=== PATIENT | female | born 1970 | race Caucasian/White ===

== ENCOUNTER 2017-05-25 11:00 | Outpatient (CLI) | payer BC ==
[~2017-05-25] VITALS: Ht 160 cm; Wt 75.3 kg
[2017-05-25] MEDS ORDERED: CHOL10003 PO (11:22)
== END 2017-05-25 12:52 ==
LOC: PREOP 11:00
PROVIDERS: ATTEND Otolaryngology Otolaryngology/Facial Plastic Surgery
DX: Z01.818 Encounter for other preprocedural examination (principal); R59.0 Localized enlarged lymph nodes

== ENCOUNTER 2017-05-27 07:57 | Day surgery (SDC) | payer BC ==
[~2017-05-27] VITALS: Ht 160 cm; Wt 75.3 kg
[~2017-05-27 07:57] MED LIST: CHOL10003 PO
--- OUTSIDE RECORDS SUMMARY | 2017-05-27 08:00 | XMS REPORT | Continuity of Care Document ---
Author Author [facility] Address Unknown Phone Unavailable Allergies Medications Problems Procedures Results Encounters ACCT No. Visit Date/Time Discharge Status Pt. Type Provider Facility Loc./Unit Complaint [id number] 03/24/2017 11:12:47 03/24/2017 23: 59:59 CLS Outpatient Matt Huggins
--- OUTSIDE RECORDS SUMMARY | 2017-05-27 08:00 | XMS REPORT ---
Author Author Matt Huggins [facility] Address [address] [place], [place] [id number] Care Team Providers Care Director Of Vocational Training Name Role Phone Matt Huggins PCP Unavailable Allergies and Adverse Reactions Name Reaction Notes No known allergies Plan of Treatment Not available. Medications Name Start Date Expiration Date SIG Comments amoxicillin 875 mg oral tablet 03/09/2017 03/16/2017 take 1 tablet (875 mg) by oral route every 12 hours for 7 days Problem List Not available. Vital Signs Date Time BP-Sys(mm[Hg] BP-Cara(mm[Hg]) HR(bpm) RR(rpm) Temp WT HT HC BMI BSA BMI Percentile O2 Sat(%) 03/09/2017 5:15:00 PM 114 mmHg 68 mmHg 77 bpm 18 rpm 98.9 F 168.375 lbs 63 in 29.83 kg/m2 1.84 m2 98 % Social History Name Description Comments Tobacco Never smoker Alcohol Never Heavy Amount of Exercise (4 or more times weekly) History of Procedures Date Ordered Description Order Status 03/09/2017 12:00 AM Decadron 8mg Injection Reviewed 03/09/2017 12:00 AM Depo-Medrol 80mg Injection Reviewed 03/09/2017 12:00 AM THER/PROPH/DIAG INJ SC/IM Reviewed Results Summary Not available. History Of Immunizations Not available. History of Past Illness Name Date of Onset Comments DVT of leg (deep venous thrombosis) Pulmonary embolism Factor V Leiden Head ache Hemorrhoid Sinusitis Mar 09 2017 5:27PM Payers Insurance Name Company Name Plan Name Plan Number Policy Number Policy Group Number Start Date [id number] N/A History of Encounters Visit Date Visit Type Provider 03/09/2017 Office visit Matt Huggins NP
[2017-05-27] MEDS ORDERED: LACTATED RINGERS 1,000 ML IV PRN (08:53)
[2017-05-27] MEDS ORDERED: FAMOTIDINE 20MG/2ML IV (PEPCID) IV ONE (09:00)
[2017-05-27] MEDS ORDERED: ONDANSETRON 4 MG/2 ML (SDV) Z0FRAN IV ONE (09:00)
[2017-05-27] MEDS ORDERED: SCOPOLAMINE 1.5 MG (TRANSDERM-SCOP) PATCH TOP ONE (09:00)
[2017-05-27 09:07] VITALS: BP 112/58
[2017-05-27] MEDS ORDERED: LIDOCAINE/EPI 1%-1:200,000 (XYLOCAINE) 10 ML VIAL ONE (09:58)
[2017-05-27] MEDS ORDERED: LACTATED RINGERS 1,000 ML IV ONE (10:08)
[2017-05-27] MEDS ORDERED: ONDANSETRON 4 MG/2 ML (SDV) Z0FRAN ONE (10:08)
[2017-05-27] MEDS ORDERED: proPOfol 200 MG/20 ML (DIPRIVAN) VIAL IV ONE (10:08)
[2017-05-27] MEDS ORDERED: MIDAZOLAM 2 MG/2 ML (VERSED) VIAL ONE (10:08)
[2017-05-27] MEDS ORDERED: SEVOFLURANE (ULTANE) 15 ML INHAL SOLN ONE ×3 (10:08→10:44)
[2017-05-27] MEDS ORDERED: DEXAMETHASONE 10 MG/ML (DECADRON) 1 ML VIAL ONE (10:08)
--- NOTE | 2017-05-27 10:28 | Progress Note-Pre Operative ---
Pre-Operative Progress Note H&P Reviewed The H&P was reviewed, patient examined and no changes noted. Date Seen by Provider: May 27, 2017 Time Seen by Provider: 10:00 Date H&P Reviewed: May 27, 2017 Time H&P Reviewed: 10:00 Pre-Operative Diagnosis: Right Posterior Cervical Lymphadenopathy KING MARIE MD May 27, 2017 10:28 am
[2017-05-27] MEDS ORDERED: MUPIROCIN 2% OINT 22 GM (BACTROBAN) TUBE ONE (11:02)
--- NOTE | 2017-05-27 11:19 | Progress Note-Post Operative ---
Post-Operative Progess Note Surgeon (s)/Stem Lead Former (s) Surgeon KING MARIE MD Stem Lead Former n/a Pre-Operative Diagnosis Right Posterior Cervical Lymphadenopathy Post-Operative Diagnosis same Post-Op Procedure Note Date of Procedure: May 27, 2017 Name of Procedure Performed: Excision of Rgith Posterior Lymph NOde Description & Findings Description and Findings: n/a Anesthesia Type lma Estimated Blood Loss minimal Packing none. Specimen(s) collected/removed right posteriro lymph node fresh to pathology KING MARIE MD May 27, 2017 11:19 am
[2017-05-27] MEDS ORDERED: HYDROcodone/APAP 5 MG/325 MG (LORTAB) TAB PO PRN (11:30)
[2017-05-27] MEDS ORDERED: morphine INJ 10 MG/ML 1ML (SYR OR VIAL) IVP PRN (11:30)
[2017-05-27] MEDS ORDERED: ONDANSETRON 4 MG/2 ML (SDV) Z0FRAN IVP PRN (11:30)
[2017-05-27] MEDS ORDERED: PROMETHAZINE INJ 25 MG/ML (PHENERGAN) AMP IVP PRN (11:30)
[2017-05-27] MEDS ORDERED: ACETAMINOPHEN 325 MG TABLET/CAPLET (TYLENOL) PO PRN (11:30)
[2017-05-27 12:10] VITALS: BP 116/71
[2017-05-27 12:40] VITALS: BP 115/68
[2017-05-27] MEDS ORDERED: HYDR-3812 PO (13:03)
[2017-05-27 13:10] VITALS: BP 113/74
[2017-05-27 13:20] VITALS: BP 113/74
== END 2017-05-27 13:20 | disposition home or self-care (01) ==
LOC: SDC 07:57
PROVIDERS: ATTEND Otolaryngology Otolaryngology/Facial Plastic Surgery
DX: R59.0 Localized enlarged lymph nodes (principal); D68.2 Hereditary deficiency of other clotting factors; Z86.718 Personal history of other venous thrombosis and embolism; Z86.711 Personal history of pulmonary embolism
CPT/HCPCS: 84703; 87081

== ENCOUNTER 2020-01-14 08:33 | Outpatient (RCR) | payer BC ==
[2020-01-10 09:45] VITALS: BP 109/69
[2020-01-10 10:09] LABS: BASOPHILS % (AUTO) 0 % (0-10); EOSINOPHILS # (AUTO) 0.1 10^3/uL (0.0-0.3); EOSINOPHILS % (AUTO) 1 % (0-10); HEMATOCRIT 41 % (35-52); LYMPHOCYTES # (AUTO) 2.7 X 10^3 (1.0-4.0); LYMPHOCYTES % (AUTO) 43 % (12-44); MEAN CORPUSCULAR HEMOGLOBIN 29 PG (25-34); MEAN CORPUSCULAR HGB CONC 32 G/DL (32-36); MEAN CORPUSCULAR VOLUME 92 FL (80-99); MEAN PLATELET VOLUME 10.2 FL (7.4-10.4); MONOCYTES # (AUTO) 0.6 X 10^3 (0.0-1.0); MONOCYTES % (AUTO) 9 % (0-12); NEUTROPHILS # (AUTO) 2.9 X 10^3 (1.8-7.8); NEUTROPHILS % (AUTO) 47 % (42-75); PLATELET COUNT 342 10^3/uL (130-400); RED CELL DISTRIBUTION WIDTH 13.1 % (10.0-14.5); WHITE BLOOD COUNT 6.3 10^3/uL (4.3-11.0)
[2020-01-10 10:30] LABS: BUN/CREATININE RATIO 18; CALCIUM 9.7 MG/DL (8.5-10.1); CARBON DIOXIDE 22 MMOL/L (21-32); CHLORIDE 106 MMOL/L (98-107); CREATININE SERUM 0.73 MG/DL (0.60-1.30); GFR ESTIMATED > 60; GLUCOSE 87 MG/DL (70-105); POTASSIUM 3.9 MMOL/L (3.6-5.0); SODIUM 139 MMOL/L (135-145)
--- NOTE | 2020-01-10 11:03 | Diagnostic Imaging Report ---
INDICATION: Preoperative evaluation, septoplasty. COMPARISON: None available TECHNIQUE: Frontal and lateral radiographs of the chest dated 01/10/2020. FINDINGS: The cardiac silhouette and pulmonary vasculature are within normal limits. The lungs are clear. No pleural effusion. No pneumothorax. No acute osseous abnormality. IMPRESSION: No acute cardiopulmonary abnormality. Dictated by: Dictated on workstation # [id number]
[~2020-01-14] VITALS: Ht 160 cm; Wt 68.6 kg
[~2020-01-14 08:33] MED LIST changes: +ACHD5005 PO; +CHOL2000 PO; +WARF10TA PO; +WARF3TAB PO; +WARF5TAB PO
== END 2020-01-14 16:07 | disposition home or self-care (01) ==
LOC: PREOP 08:33
PROVIDERS: ATTEND Otolaryngology Otolaryngology/Facial Plastic Surgery
DX: Z01.812 Encounter for preprocedural laboratory examination (principal); Z01.810 Encounter for preprocedural cardiovascular examination; Z01.811 Encounter for preprocedural respiratory examination; Z11.59 Encounter for screening for other viral diseases; J30.9 Allergic rhinitis, unspecified; J34.2 Deviated nasal septum; J34.3 Hypertrophy of nasal turbinates
CPT/HCPCS: 36415; 71046; 80048; 85025; 87081; 87635; 93005

== ENCOUNTER 2020-01-17 06:55 | Day surgery (SDC) | payer BC ==
[2020-01-17] VITALS (10 sets, daily range): BP systolic 105–134; BP diastolic 58–100
[~2020-01-17] VITALS: Ht 160 cm; Wt 68.6 kg
--- OUTSIDE RECORDS SUMMARY | 2020-01-17 06:58 | XMS REPORT ---
Author Author Cynthia Swain [facility] Address [address] [place], [place] [id number] Care Team Providers Care Production Quality Manager Name Role Phone Elliott Swain PCP Allergies and Adverse Reactions Name Reaction Notes No known allergies Plan of Treatment Not available. Medications Active Name Start Date Estimated Completion Date SIG Co mments Coumadin oral tablet 12 mg daily on T, Th , Sa, Schaefer 13 mg daily on M, W, F Name Start Date Expiration Date SIG Comments amoxicillin 875 mg oral tablet 03/09/2017 03/16/2017 t jory 1 tablet (875 mg) by oral route every 12 hours for 7 days Problem List Not available. Vital Signs Date Time BP-Sys(mm[Hg] BP-Cara(mm[Hg]) HR(bpm) RR(rpm) Temp WT HT HC BMI BSA BMI Percentile O2 Sat(%) 02/15/2018 9:37:00 AM 100 mmHg 66 mmHg 71 bpm 16 rpm 98.1 F 162 lbs 63 in 28.6967 kg/m 1.8073 m 99 % 02/01/2018 2:34:00 PM 130 mmHg 90 mmHg 83 bpm 16 rpm 98.1 F 165 lbs 63 in 29.23 kg/m2 1.82 m2 98 % 03/09/2017 5:15:00 PM 114 mmHg 68 mmHg 77 bpm 18 rpm 98.9 F 168.375 lbs 63 i n 29.826 kg/m 1.8425 m 98 % Social History Name Description Comments Tobacco Never smoker Alcohol Never Heavy Amount of Exercise (4 or more times weekly) History of Procedures Date Ordered Description Order Status 03/09/2017 12:00 AM Decadron 8mg Injection Reviewed 03/09/2017 12:00 AM Depo-Medrol 80mg Injection Reviewed 03/09/2017 12:00 AM THER/PROPH/DIAG INJ SC/IM Reviewed 02/01/2018 12:[address] ABD & PELV W/CONTRAST Returned Results Summary Not available. History Of Immunizations Not available. History of Past Illness Name Date of Onset Comments DVT of leg (deep venous thrombosis) Pulmonary embolism Factor V Leiden Head ache Hemorrhoid Sinusitis Mar 09 2017 5:27PM Pain of upper abdomen Feb 01 2018 2:34PM IVC (inferior vena cava obstruction) Feb 15 2018 9:37AM Payers Insurance Name Company Name Plan Name Plan Number Policy Number [place] Group [id number] N/ A History of Encounters Visit Date Visit Type Provider 02/15/2018 Office visit Elliott Swain MD 02/01/2018 Office visit Elliott Swain MD 03/09/2017 Office visit Matt Huggins NP
--- OUTSIDE RECORDS SUMMARY | 2020-01-17 06:58 | XMS REPORT ---
Author Author Cynthia Swain Organization [facility] Address [address] [place], [place] [id number] Care Team Providers Care Hydraulic Rubbish Compactor Mechanic Name Role Phone Elliott Swain PCP Allergies and Adverse Reactions Name Reaction Notes No known allergies Plan of Treatment Planned Activity Comments Planned Date Planned Time Plan/Goal CT ABD AND PELVIS W/CONTRAST 02/01/2018 12:00 AM Medications Active Name Start Date Estimated Completion [...] HC BMI BSA BMI Percentile O2 Sat(%) 02/01/2018 2:34:00 PM 130 mmHg 90 mmHg 83 bpm 16 rpm 98.1 F 165 lbs 63 in 29.2281 kg/m 1.8239 m 98 % 03/09/2017 5:15:00 PM 114 mmHg 68 mmHg 77 bpm 18 rpm 98.9 F 168.375 lbs 63 i n 29.83 kg/m2 1.84 m2 98 % Social [...] of upper abdomen Feb 01 2018 2:34PM Payers Insurance Name Company Name Plan Name Plan Number Policy Number [place] Group Number [facility] Date [id number] N/ A History of Encounters Visit Date Visit Type Provider 02/01/2018 Office visit Elliott Swain MD 03/09/2017 Office visit Matt Huggins SALES MANAGER [place]
--- OUTSIDE RECORDS SUMMARY | 2020-01-17 06:59 | XMS REPORT | CCD ---
Author Author Cynthia Huynh D.O. Organization [facility] Address [address] [place] [address] Phone Care Team Providers Care Press Feeder Name Role Phone Tonya Huynh D.O., PP Unavailable CCM Unavailable Summary Purpose Interface Exchange Insurance Providers Payer name Policy type / Coverage type Covered democrat ID Effective Begin Date Effective End Date Blue Cross Blue Shield Blue Cross/Blue Shield [id number] Unknown Family History Family History data not found Social History Social History Element Codes Description Effective Dates Marital status Unknown 06/28/[address]: 620853224 Never smoker 06/28/2011 Allergies, Adverse Reactions, Alerts Substance Reaction Codes Entered Date Inactivated Date Status * NO KNOWN ENVIRONMENTAL ALLERGIES Unknown 06/28/2011 N o Inactive Date Active * NO KNOWN FOOD ALLERGIES Unknown 06/28/2011 No Inactiv e Date Active * NO KNOWN DRUG ALLERGIES Unknown 06/28/2011 No Inactiv e Date Active Problems Condition Codes Effective Dates Condition Status Chronic sinusitis ICD-9: 473.9 ICD-10: J32.9 01/09/2020 Active Deviated septum ICD-9: 470 ICD-10: J34.2 01/09/2020 Active Pre-op exam ICD-9: V72.84 ICD-10: Z01.818 01/09/2020 Active Belching ICD-9: 787.3 ICD-10: R14.2 08/13/2019 Active Patellofemoral arthralgia of right knee ICD-9: 719.46 ICD-10: M25.561 08/13/2019 Active Patellofemoral arthritis of right knee ICD-9: 716.96 ICD-10: M17.11 08/13/2019 Active Abdominal distension (gaseous) ICD-9: 787.3 ICD-10: R14.0 04/09/2019 Active snf (current) use of anticoagulants ICD-9: V58.6 1 ICD-10: Z79.01 04/09/2019 Active Other allergic rhinitis ICD-9: 477.8 ICD-10: J30.89 04/09/2019 Active Personal history of other venous thrombosis and emboli sm ICD-9: V12.51 ICD-10: Z86.718 04/09/2019 Active Personal history of pulmonary embolism ICD-9: V12.55 ICD-10: Z86.711 04/09/2019 Active Excessive and frequent menstruation with irregular cyc le ICD-9: 626.2 ICD-10: N92.1 08/24/2018 Active Encounter for general adult medical examination withou t abnormal findings ICD-9: V70.0 ICD-10: Z00.00 07/10/2014 Active Encounter for gynecological examination (general) (routine) without abnormal findings ICD-9: V72.31 ICD-10: Z01.419 07/10/2014 Active Mixed hyperlipidemia ICD-9: 272.4 ICD-10: E78.2 03/09/2012 Active Encounter for screening mammogram for malignant neopla sm of breast ICD-9: V76.12 ICD-10: Z12.31 04/05/2018 Active Encounter for general adult medical examination withou t abnormal findings ICD-9: V70.9 ICD-10: Z00.00 07/27/2017 Active 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 ICD-10: D68.8 07/25/2016 Active 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 ICD-9 : 453.41 ICD-10: I82.422 03/28/2017 Active Follicular cyst of left ovary ICD-9: 620.0 ICD-10: N83.02 03/28/2017 Active Unspecified lump in breast ICD-9: 611.72 ICD-10: N63 07/25/2016 Active Acute embolism and thrombosis of unspeci fied deep veins of unspecified lower extremity ICD-9: 453.40 ICD-10: I82.409 07/14/2015 Active ABNORMAL MAMMOGRAM ICD-9: 793.80 07/22/2014 Active Hematuria ICD-9: 599.70 07/10/2014 Active MALAISE AND FATIGUE ICD-9: 780.79 07/10/2014 Active ROUTINE GYNE EXAM ICD-9: V72.31 07/10/2014 Active ROUTINE MEDICAL EXAM ICD-9: V70.0 07/10/2014 Active Menometrorrhagia ICD-9: 626.2 07/09/2013 Active PAIN, LOWER BACK ICD-9: 724.2 07/09/2013 Active HYPERLIPIDEMIA NEC/NOS ICD-9: 272.4 03/09/2012 Active Onychomycosis ICD-9: 110.1 06/25/2010 Active Medications Medication Codes Instructions Start Date Stop Date Status Fill Instructions warfarin 5 mg tablet RxNorm: 187056 Tablet(s) Oral As Directed 02/2020 No Stop Date Active warfarin 10 mg tablet RxNorm: 945247 Tablet(s) Oral As Directed 02/2020 No Stop Date Active warfarin 3 mg tablet RxNorm: 616553 Tablet(s) Oral As Directed 02/2020 No Stop Date Active Lovenox 60 mg/0.6 mL subcutaneous syringe RxNorm: 448466 1 Unit(s) Subcutaneous two times a day 1 week prior to surgery then 3 days after surgery 01/09/2020 01/19/2020 Active warfarin 10 mg tablet RxNorm: 207297 1 Tablet(s) Oral QD 12/10/2019 0 01/08/2020 Inactive warfarin 5 mg tablet RxNorm: 810244 1 Tablet(s) Oral QD to take with 10mg dose on days takes full 15mg dose 12/07/2019 12/07/2019 Inactive warfarin 3 mg tablet RxNorm: 700116 1 Tablet(s) PO QD 09/03/201911/04 Inactive warfarin 10 mg tablet RxNorm: 207562 1 Tablet(s) PO QD 09/03/2019 Inactive warfarin 3 mg tablet RxNorm: 830067 1 Tablet(s) PO QD 06/07/201908/06 Inactive pantoprazole 40 mg tablet,delayed release RxNorm: 872647 1 Tabl et(s) PO BID 04/17/2019 05/16/2019 Inactive pantoprazole 40 mg tablet,delayed release RxNorm: 519989 1 Tabl et(s) PO BID 04/17/2019 04/16/2019 Inactive warfarin 10 mg tablet RxNorm: 411359 1 Tablet(s) PO QD 03/12/2019 Inactive warfarin 5 mg tablet RxNorm: 177211 1 Tablet(s) PO QD t o take with 10mg dose on days takes full 15mg dose 03/12/2019 12/06/2019 Inactive warfarin 10 mg tablet RxNorm: 532706 1 Tablet(s) PO QD 12/12/201803/2019 Inactive warfarin 5 mg tablet RxNorm: 773694 1 Tablet(s) PO QD t o take with 10mg dose on days takes full 15mg dose 09/18/2018 03/11/2019 Inactive warfarin 10 mg tablet RxNorm: 460140 1 Tablet(s) PO QD 06/21/201804/2019 Inactive warfarin 3 mg tablet RxNorm: 181752 1 Tablet(s) PO QD 06/21/201812/04 Inactive warfarin 10 mg tablet RxNorm: 758516 1 Tablet(s) PO QD 03/28/2018 Inactive warfarin 3 mg tablet RxNorm: 787549 1 Tablet(s) PO QD 03/28/201806/05 Inactive warfarin 10 mg tablet RxNorm: 677392 1 Tablet(s) PO QD 03/28/2018 Inactive warfarin 3 mg tablet RxNorm: 358362 1 Tablet(s) PO QD 03/28/201803/06 Inactive warfarin 1 mg tablet RxNorm: 043851 3 Tablet(s) PO TIW and 2 tabs all other days 01/18/2018 03/27/2018 Inactive warfarin 5 mg tablet RxNorm: 592994 2 Tablet(s) PO QD 12/19/201703/06 Inactive warfarin 5 mg tablet RxNorm: 957224 2 Tablet(s) PO QD 12/06/201712/04 Inactive warfarin 5 mg tablet RxNorm: 998889 2 Tablet(s) PO QD 12/05/201710/2017 Inactive warfarin 1 mg tablet RxNorm: 761911 2 Tablet(s) PO QD 10/24/201701/03 Inactive warfarin 1 mg tablet RxNorm: 940459 2 Tablet(s) PO QD 07/27/201710/06 Inactive Lovenox 80 mg/0.8 mL subcutaneous syringe RxNorm: 580435 1 Mill iliter(s) SQ BID 03/28/2017 04/26/2017 Inactive Lovenox 80 mg/0.8 mL subcutaneous syringe RxNorm: 892050 1 Unit Dose SQ Q12H 07/01/2015 08/29/2015 Inactive Lovenox 60 mg/0.6 mL subcutaneous syringe RxNorm: 468051 1 Unit Dose SQ BID prn for travel due to high risk for DVT 07/10/2014 07/19/2014 Inactive as directed for flights Lovenox 60 mg/0.6 mL Sub-Q Syringe RxNorm: 166240 1 Unit Dose SQ BI D 06/15/2013 06/24/2013 Inactive as directed for flights Lovenox 60 mg/0.6 mL Sub-Q Syringe RxNorm: 733840 1 Unit Dose SQ BI D 06/28/2011 No Stop Date Active as directed for flights Lamisil 250 mg Tab RxNorm: 885198 1 Tablet(s) PO QD 09/07/20102010 Inactive Lamisil 250 mg Tab RxNorm: 470755 1 Tablet(s) PO QD 06/25/20102010 Inactive Vitamin D3 2,000 unit Tab RxNorm: 369874 1 Tablet(s) PO QD No Start D ate Active niacin 50 mg tablet RxNorm: 825634 1 Tablet(s) PO QD No Start Date Inactive warfarin 5 mg tablet RxNorm: 650703 2 Tablet(s) PO QD No Start Date 0 12/04/2017 Inactive Lovenox 60 mg/0.6 mL Sub-Q Syringe RxNorm: 185435 1 Uni t Dose SQ BID as directed for flights No Start Date 06/27/2011 Inactive Lovenox 60 mg/0.6 mL subcutaneous syringe RxNorm: 120945 Millil iter(s) SQ BID No Start Date 06/30/2015 Inactive warfarin 1 mg tablet RxNorm: 480680 2 Tablet(s) PO QD No Start Date 1 09/25/2016 Inactive Lovenox 80 mg/0.8 mL subcutaneous syringe RxNorm: 207774 1 Mill iliter(s) SQ BID No Start Date 03/27/2017 Inactive warfarin 5 mg tablet RxNorm: 070835 1 Tablet(s) PO QD t o take with 10mg dose on days takes full 15mg dose No Start Date 09/17/2018 Inactive Medication Administered No Medication Administered data Immunizations No Immunization data Results No Results data Procedures Procedure Codes Date SPECIMEN HANDLING OFFICE-LAB CPT-4: 07905 08/24/2018 OCCULT BLOOD FECES CPT-4: 65848 08/24/2018 SPECIMEN HANDLING OFFICE-LAB CPT-4: 29274 07/27/2017 OCCULT BLOOD FECES CPT-4: 01640 07/27/2017 SPECIMEN HANDLING OFFICE-LAB CPT-4: 62511 07/26/2016 SPECIMEN HANDLING OFFICE-LAB CPT-4: 08237 07/15/2015 URINALYSIS NONAUTO W/O SCOPE CPT-4: 94491 07/10/2014 OCCULT BLOOD FECES CPT-4: 83863 07/10/2014 SPECIMEN HANDLING OFFICE-LAB CPT-4: 93708 07/10/2014 URINE CULTURE/ COLONY COUNT CPT-4: 98860 07/10/2014 SPECIMEN HANDLING OFFICE-LAB CPT-4: 06633 07/09/2013 OCCULT BLOOD FECES CPT-4: 55829 07/09/2013 OCCULT BLOOD FECES CPT-4: 76581 07/05/2012 SPECIMEN HANDLING OFFICE-LAB CPT-4: 98394 06/28/2011 OCCULT BLOOD FECES CPT-4: 43621 06/28/2011 SPECIMEN HANDLING OFFICE-LAB CPT-4: 09631 06/25/2010 OCCULT BLOOD FECES CPT-4: 33145 06/25/2010 Vital Signs Date Vital 08/13/2019 Heart Rate 1: 72 bpm Respiratory Rate: 16 bpm SpO2: 96 % Temperature: 36.6 (C) / 97.9 (F) Weight: 152 lbs 04/09/2019 Blood Pressure 1: 112/70 Code: 8480-6 Heart Rate 1: 71 bpm SpO2: 96% Temperature: 36.8 (C) / 98.2 (F) Weight: 152 lbs 08/24/2018 Blood Pressure 1: 128/80 Code: 8480-6 Heart Rate 1: 72 bpm Respiratory Rate: 16 bpm SpO2: 99% Temperature: 36.7 (C) / 98.1 (F) We ight: 153 lbs 07/27/2017 Blood Pressure 1: 124/78 Code: 8480-6 BMI: 29.4 Code: 70555-6 Heart Rate 1: 72 bpm Height: 5'3" Respiratory Rate: 20 bpm SpO2: 98% Tempera ture: 36.5 (C) / 97.7 (F) Weight: 166 lbs 03/28/2017 Blood Pressure 1: 126/68 Code: 8480-6 BMI: 30.1 Code: 75045-4 Heart Rate 1: 66 bpm Height: 5'3" Respiratory Rate: 24 bpm SpO2: 98% Tempera ture: 36.4 (C) / 97.6 (F) Weight: 170 lbs 07/26/2016 Blood Pressure 1: 124/70 Code: 8480-6 BMI: 28.7 Code: 18138-4 Heart Rate 1: 84 bpm Height: 5'3" Respiratory Rate: 20 bpm Temperature: 36 .7 (C) / 98.0 (F) Weight: 162 lbs 07/15/2015 Blood Pressure 1: 114/78 Code: 8480-6 BMI: 30.8 Code: 99101-6 Heart Rate 1: 72 bpm Height: 5'3" Respiratory Rate: 20 bpm Temperature: 36 .7 (C) / 98.1 (F) Weight: 174 lbs 07/01/2015 Blood Pressure 1: 134/86 Code: 8480-6 BMI: 30.8 Code: 16932-1 Heart Rate 1: 84 bpm Height: 5'3" Respiratory Rate: 20 bpm Temperature: 36 .8 (C) / 98.3 (F) Weight: 174 lbs 07/10/2014 Blood Pressure 1: 124/78 Code: 8480-6 BMI: 29.8 Code: 41905-9 Heart Rate 1: 84 bpm Height: 5'3" Respiratory Rate: 20 bpm Temperature: 36 .7 (C) / 98.0 (F) Weight: 168 lbs 07/09/2013 Blood Pressure 1: 126/80 Code: 8480-6 BMI: 28.3 Code: 39779-1 Heart Rate 1: 80 bpm Height: 5'3" Respiratory Rate: 20 bpm Temperature: 37 .0 (C) / 98.6 (F) Weight: 160 lbs 07/05/2012 Blood Pressure 1: 102/68 Code: 8480-6 BMI: 27.3 Code: 90910-6 Heart Rate 1: 72 bpm Height: 5'3" Respiratory Rate: 20 bpm Temperature: 36 .6 (C) / 97.8 (F) Weight: 154 lbs 03/09/2012 Blood Pressure 1: 116/78 Code: 8480-6 BMI: 28.0 Code: 45671-1 Heart Rate 1: 84 bpm Height: 5'3" Respiratory Rate: 20 bpm Temperature: 36 .9 (C) / 98.4 (F) Weight: 158 lbs 06/28/2011 Blood Pressure 1: 122/78 Code: 8480-6 BMI: 27.6 Code: 83899-8 Heart Rate 1: 76 bpm Height: 5'3" Respiratory Rate: 20 bpm Temperature: 36 .8 (C) / 98.2 (F) Weight: 156 lbs 06/25/2010 Blood Pressure 1: 118/68 Code: 8480-6 BMI: 23.9 Code: 18356-1 Height: 5'3" Temperature: 36.3 (C) / 97.4 (F) Weight: 135 lbs Functional Status No Functional Status data Reason For Visit Reason For Visit Effective Dates Notes Pre-op Physical 01/09/2020 Patient is having na miguel surgery for deviated suptum on January [address] Pope. 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- Patient was given Depo-Medrol/Decadron the week before for sinusitis and has inquired if the two interferes and predisoses for blood clot well woman exam (40-65 years) 07/26/2016 Last mammo gram with ultrasound Jul 2014 well woman exam (40-65 years) 07/15/2015 Last mammo gram Jul 2014 with breast ultrasound, labia has a recurrent bleeding spot follow up 07/01/2015 ER fwup well woman exam (40-65 years) 07/10/2014 Last ginny l mammogram 07-26-12 well woman exam (40-65 years) 07/09/2013 Last ginny l mammogram 07-26-12 well woman exam (40-65 years) 07/05/2012 last ginny l mammogram 1 year ago weight gain/obesity 03/09/2012 thinks may be relate d to thyroid problems well woman exam (40-65 years) 06/28/2011 last ginny l mammogram 1 year ago toe pain due to infection 06/25/2010 nail thickenin g Encounters Encounter Performer Location Codes Date ([id number]) OFFICE/OUTPATIENT VISIT EST Diagnosis: Chronic sinusitis[ICD10: J32.9] Diagnosis: Deviated septum[ICD10: J34.2] Diagnosis: Pre-op exam[ICD10: Z01.818] Tonya Rose PT-4: 56974 01/09/2020 OFFICE/OUTPATIENT VISIT EST Diagnosis: Right knee pain[ICD10: M25.561] Diagnosis: Patellofemoral arthralgia of right knee[ICD10: M25.561] Diagnosis: Patellofemoral arthritis of right knee[ICD10: M17.11] Diagnosis: Belching[ICD10: R14.2] Tonya Altamirano Skuid CPT-4: 90619 08/13/2019 ([id number]) OFFICE/OUTPATIENT VISIT EST Diagnosis: snf (current) use of anticoagulants[ICD10: Z79.01] Diagnosis: Personal history of pulmonary embolism[ICD10: Z86.711] Diagnosis: Personal history of other venous thrombosis and embolism[ICD10: Z86.718] Diagnosis: Other allergic rhinitis[ICD10: J30.89] Diagnosis: Abdominal distension (gaseous)[ICD10: R14.0] Jud Bravo TONYA Flood ADANGOLDIE [facility] CPT-4: 67895 04/09/2019 ([id number]) PREV VISIT EST AGE 40-64 Diagnosis: Encounter for general adult medical examination without abnormal findings[ICD10: Z00.00] Diagnosis: Encounter for gynecological examination (general) (routine) without abnormal findings[ICD10: Z01.419] Diagnosis: Mixed hyperlipidemia[ICD10: E78.2] Diagnosis: Excessive and frequent menstruation with irregular cycle[ICD10: N92.1] Tonya HUYNH Sk[facility] CPT-4: 47495 08/24/2018 ([id number]) PREV VISIT EST AGE 40-64 Diagnosis: Encounter for general adult medical examination without abnormal findings[ICD10: Z00.00] Diagnosis: Encounter for gynecological examination (general) (routine) without abnormal findings[ICD10: Z01.419] 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] Tonya HUYNH DO [facility] CPT-4: 80942 07/27/2017 ([id number]) OFFICE/OUTPATIENT VISIT EST Diagnosis: 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[ICD10: I82.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] Diagnosis: Follicular cyst of left ovary[ICD10: N83.02] Tonya HUYNH DO [facility] CPT-4: 47869 03/28/2017 ([id number]) PREV VISIT EST AGE 40-64 Diagnosis: Encounter for general adult medical examination without abnormal findings[ICD10: Z00.00] Diagnosis: Encounter for gynecological examination (general) (routine) without abnormal findings[ICD10: Z01.419] Diagnosis: Mixed hyperlipidemia[ICD10: E78.2] 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] Diagnosis: Unspecified lump in breast[ICD10: N63] Tonya HUYNH DO [facility] CPT-4: 97667 07/26/2016 ([id number]) PREV VISIT EST AGE 40-64 Diagnosis: Encounter for general adult medical examination without abnormal findings[ICD10: Z00.00] Diagnosis: Encounter for gynecological examination (general) (routine) without abnormal findings[ICD10: Z01.419] Diagnosis: Acute embolism and thrombosis of unspecified deep veins of unspecified lower extremity[ICD10: I82.409] Tonya HUYNH DO [facility] CPT-4: 88663 07/15/2015 ([id number]) OFFICE/OUTPATIENT VISIT EST Diagnosis: Acute embolism and thrombosis of unspecified deep veins of unspecified lower extremity[ICD10: I82.409] 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] Tonya HUYNH DO [facility] CPT-4: 38276 07/01/2015 ([id number]) PREV VISIT EST AGE 40-64 Diagnosis: ROUTINE MEDICAL EXAM[ICD9: V70.0] Diagnosis: ROUTINE GYNE EXAM[ICD9: V72.31] Diagnosis: MALAISE AND FATIGUE[ICD9: 780.79] Diagnosis: Hematuria[ICD9: 599.70] Tonya GONZALEZLINE Remigio DC DO [facility] CPT-4: 19516 07/10/2014 ([id number]) PREV VISIT EST AGE 40-64 Diagnosis: ROUTINE MEDICAL EXAM[ICD9: V70.0] Diagnosis: ROUTINE GYNE EXAM[ICD9: V72.31] Diagnosis: HYPERLIPIDEMIA NEC/NOS[ICD9: 272.4] Diagnosis: MALAISE AND FATIGUE[ICD9: 780.79] Diagnosis: PAIN, LOWER BACK[ICD9: 724.2] Diagnosis: Menometrorrhagia[ICD9: 626.2] Tonya Adanbenjaminsalvador TONYA Mary GraceArnoldo KENDY [facility] CPT-4: 22588 07/09/2013 ([id number]) PREV VISIT EST AGE 40-64 Diagnosis: ROUTINE MEDICAL EXAM[ICD9: V70.0] Diagnosis: ROUTINE GYNE EXAM[ICD9: V72.31] Tonya Adanbenjaminsalvador DOANTONYA Mary GraceArnoldo KENDY WILLS [facility] CPT-4: 95749 07/05/2012 ([id number]) SPECIMEN HANDLING Diagnosis: [ICD9: ] Diagnosis: [ICD9: ] Tonya Arellanobenjaminsalvador GONZALEZTONYA Mary GraceArnoldo KENDY WILLS [facility] CPT-4: 9900 0 07/05/2012 ([id number]) OFFICE/OUTPATIENT VISIT EST Diagnosis: MALAISE AND FATIGUE[ICD9: 780.79] Diagnosis: HYPERLIPIDEMIA NEC/NOS[ICD9: 272.4] Tonya AGUIAR Mary GraceArnoldo KENDY [facility] CPT-4: 33122 03/09/2012 PREV VISIT EST AGE 40-64 Diagnosis: ROUTINE GYNE EXAM[ICD9: V72.31] Diagnosis: ROUTINE MEDICAL EXAM[ICD9: V70.0] Diagnosis: MALAISE AND FATIGUE[ICD9: 780.79] Tonya Garrido Mary GraceArnoldo KENDY [facility] CPT-4: 90307 06/28/2011 ([id number]) PREV VISIT, EST, AGE 40-64 Tonya Adanbenjaminsalvador FANNIE ALMONTE Mary GraceArnoldo KENDY WILLS [facility] CPT-4: 06907 06/25/2010 Plan of Care Planned Activity Notes Codes Status Date Visit Diagnosis Plan: Deviated septum Discussion: Kayley ng surgery January [address] Pope Will stop coumadin tomorrow and start lovenox 60mg sc BID till surgery then restart both lovenox and coumadin the day after surgery overlapping for 3 days then stop lovenox and continue on coumadin and recheck coumadin level in 2 weeks after surgery Goes for preop lab including COVID testing tomorrow ICD-9 : 470 ICD-10 : J34.2 01/09/2020 Visit Diagnosis Plan: Patellofemoral arthralgia of rig ht knee Discussion: Straight leg raises/strengthening/bycycling If persists then may need ortho ICD-9 : 719.46 ICD-10 : M25.561 08/13/2019 Visit Diagnosis Plan: Belching Discussion: Recommend E GD to rule out causes/check for Helicobacter pylori, etc. Continue betaine hydrochloride with pepsin ICD-9 : 787.3 ICD-10 : R14.2 08/13/2019 Appointment: [facility] Hu[facility]h [facility]el[facility] [phone] [id number] [facility] 08/13/2019 Visit Diagnosis Plan: Other allergic rhinitis Discussi on: instructed to start taking zyrtec daily at bedtime to cover for allergies. instructed to take daily and to inform us in 2 weeks how she's doing. discussed with patient that allergies and acid reflux most likely cause of her symptoms since amoxicillin was ineffective for her. ICD-9 : 477.8 ICD-10 : J30.89 04/09/2019 Visit Diagnosis Plan: Abdominal distension (gaseous) D iscussion: samples of nexium given to patient with instructions on use. notify office in 2 weeks with how she's doing. 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 recheck inr in 1 week and call office with results. order was signed for patient to receive more test strips at home. ICD-9 : V58.61 ICD-10 : Z79.01 04/09/2019 Appointment: Jud Bravo [address] [place], [place] [id number] US FOLLOW UP 04/09/2019 Visit Diagnosis Plan: Encounter for gene ral adult medical examination without abnormal findings Discussion: Update fasting lab Defers fl u shot Doing routine home monitoring on coumadin with PT/INR Follow Up: 6 months ICD-9 : V70.0 ICD-10 : Z00.00 08/24/2018 Visit Diagnosis Plan: Encounter for gyne cological examination (general) (routine) without abnormal findings Discussion: Pap Done Had Mammogram in May ICD-9 : V72.31 ICD-10 : Z01.419 08/24/2018 Visit Diagnosis Plan: Excessive and frequent menstruat ion with irregular cycle Discussion: Check FSH/LH/Estradiol May need pelvic US ICD-9 : 626.2 ICD-10 : N92.1 08/24/2018 Appointment: Tonya Huynh WPtel[facility] [phone] [id number] Annual Well Visit 08/24/2018 Patient Education: Patient Medication Summary Completed 04/05/2018 Care Plan: MAMMOGRAM SCREENING [facility] : 2 6347-5 Pending 04/05/2018 Visit Diagnosis Plan: Other specified coagulation defe cts Discussion: On coumadin now and will repeat PT/INR in 1 week and will look at home testing after has been on coumadin for 3mos ICD-9 : 289.81 ICD-10 : D68.8 07/27/2017 Visit Diagnosis Plan: Encounter for gyne cological examination (general) (routine) without abnormal findings Discussion: Pap done Mammo up to date ICD-9 : V72.31 ICD-10 : Z01.419 07/27/2017 Visit Diagnosis Plan: Encounter for gene ral adult medical examination without abnormal findings Discussion: Proceed with colonoscopy sin ce needs one at 48 and has been having bowel changes 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 reviewed by another physician and report states that filter has perforated duodenum--explained to patient that she is not having any symptoms now or in the past to indicate duodenal perforation but will do EGD along with colonoscopy to assess duodenum Patient understands she will have to be off of her coumadin and on lovenox shots for 1 week prior to the procedures and is familiar with doing lovenox injections Also discussed seeing vascular surgeon to assess CT scan related to IVC filter ICD-9 : V70.9 ICD-10 : Z00.00 07/27/2017 Appointment: Tonya Huynh WPtel: [address] [place], [place] [phone] Annual Well Visit 07/27/2017 Patient Education: Patient Medication Summary Completed 07/27/2017 Referral: Vasquez Carpenter WPtel: [id number] US Referral Initiated 04/19/2017 Visit Diagnosis Plan: 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 Discussion: Referral to hematology to discuss detention anitcoagulation Patient does not want to do orals due to risks Will keep on lovenox until sees hematology ICD-9 : 453.41 ICD-10 : I82.422 03/28/2017 Visit Diagnosis Plan: Follicular cyst of left ovary Di scussion: Pelvic US in 3mos ICD-9 : 620.0 ICD-10 : N83.02 03/28/2017 Appointment: Tonya Huynh WPtel: [address] [place], [place] [phone] US 03/24 confirmed ~sl WORK IN 03/28/2017 Patient Education: Patient Medication Summary Completed 03/28/2017 Visit Plan: Pap Done Diagnostic Mammogra m with Left Breast US--may need biopsy of left breast lesion pending results Update fasting lab Check CXR and KUB with history of IVC filter 07/26/2016 Appointment: Tonya Huynh WPtel: [address] [place], [place] [phone] US 07/22 confirmed~sl Annual Well Visit 07/26/2016 Patient Education: Patient Medication Summary Completed 07/26/2016 Visit Plan: Pap done Repeat RLE venous d oppler on Aug 11 Continue lovenox and observe for bleeding Defers mammogram until next year 07/15/2015 Appointment: Tonya Huynh WPtel: [address] [place], [place] [phone] US 07/10 lm ~sl...07/15 appt confirmed cn PAP 07/15/2015 Patient Education: Patient Medication Summary Completed 07/15/2015 Visit Plan: Continue lovenox as is Obtai n US and ER records from [place] Patient refuses any anticoagulants except lovenox Offered xarelto, eliquis, pradaxa, coumadin, etc. No long trips until fwup Recheck 2weeks Check CBC in 1week Report any signs of bleeding immediately 07/01/2015 Appointment: Tonya Huynhtel: [address] [place], [place] [phone] 07/01 called office to confirm ~SL ACUTE ILLNESS 07/01/2015 Patient Education: Patient Medication Summary Completed 07/01/2015 Patient Education: Patient Medication Summary Completed 07/22/2014 Appointment: Tonya Huynhtel: [address] [place], [place] [phone] [facility] 07/10/2014 Patient Education: Patient Medication Summary Completed 07/10/2014 Visit Plan: Pap Done Proceed with pelvic US Mammo scheduled May need MRI of L/S spine Pt scheduled for bladder sling in Dec Discussed may need BUSINESS INTELLIGENCE MANAGER eval due to spotting/ removal of IUD, etc. Check fasting lab 07/09/2013 Appointment: Tonya Huynhtel: [address] [place] [id number] 07/06 vm PAP 07/09/2013 Patient Education: Patient Medication Summary Completed 07/09/2013 Visit Plan: PAP done Mammo ordered 07/05/2012 Appointment: Tonya Huynhtel: [address] [place], [place] [id number] 07/04- left message PAP 07/05/2012 Patient Education: Patient Medication Summary Completed 07/05/2012 Visit Plan: Check fasting lab Discussed diet and exercise at length 03/09/2012 Appointment: Tonya Huynhtel: [address] [place], [place] [phone] US message left with child FOLLOW UP 03/09/20 12 Patient Education: Patient Medication Summary Completed 03/09/2012 Visit Plan: Pap Done and Mammogram order ed CMP, Lipids, CBC, TSH, Free T4 Start daily baby aspirin Use lovenox when flies 06/28/2011 Appointment: [facility] [phone] [id number] [facility] PAP 06/28/2011 Patient Education: Patient Medication Summary Completed 06/28/2011 Visit Plan: Pap Done Mammo ordered Trial of lamisil--check LFTs at start and monthly while on and put shoes in moth balls during treatment 06/25/2010 Appointment: Tony[facility] Huynh [facility]el[facility] [phone] [id number] [facility] PAP 06/25/2010 Patient Education: Patient Medication Summary Completed 06/25/2010 Referral: Sherif Bliss WPtel: [address] [facility] [employer] Mobile [id number] US Referral Appointment Requested Instructions Comment . Pap Done Diagnostic Mammogram with Left Breast US--may need biopsy of left breast lesion pending results Update fasting lab Check CXR and KUB with history of IVC filter . Pap done Repeat RLE venous doppler on Aug 11 Continue lovenox and observe for bleeding Defers mammogram until next year . Continue lovenox as is Obtain US and ER records from [place] Patient refuses any anticoagulants except lovenox Offered xarelto, eliquis, pradaxa, coumadin, etc. No long trips until fwup Recheck 2weeks Check CBC in 1week Report any signs of bleeding immediately . Pap Done Proceed with pelvic US Mammo scheduled May need MRI of L/S spine Pt scheduled for bladder sling in Aug Discussed may need BUSINESS INTELLIGENCE MANAGER eval due to spotting/ removal of IUD, etc. Check fasting lab . PAP done Mammo ordered . Check fasting lab Discussed diet and exercise at length . Pap Done and Mammogram ordered CMP, Li pids, CBC, TSH, Free T4 Start daily baby aspirin Use lovenox when flies . Pap Done Mammo ordered Trial of lamisil--check LFTs at start and monthly while on and put shoes in moth balls during treatment Medical Equipment No Medical Equipment data Health Concerns Section Health Concerns data not found Goals Section Goals data not found Interventions Section Interventions data not found Health Status Evaluations/Outcomes Section Health Status Evaluations/Outcomes data not found Advance Directives No Advance Directive data
--- OUTSIDE RECORDS SUMMARY | 2020-01-17 06:59 | XMS REPORT | CCD ---
Author Author Cynthia Huynh D.O. Organization [facility] Address [address] [place] [address] Phone Care Team Providers Care Stacking Machine Operator Name Role Phone Tonya Huynh D.O., PP Unavailable CCM Unavailable Summary Purpose Interface Exchange Insurance Providers Payer name Policy type / Coverage type Covered alliance party ID Effective Begin Date Effective End Date Blue Cross Blue Shield Blue Cross/Blue Shield [id number] Unknown Family History Family History data not found Social History Social History Element Codes Description Effective Dates Marital status Unknown 06/28/[address]: [id number] Never smoker 06/28/2011 Allergies, Adverse Reactions, Alerts [...] (gaseous) ICD-9: 787.3 ICD-10: R14.0 04/09/2019 Active FDC (current) use of anticoagulants ICD-9: V58.6 1 [...] Fill Instructions warfarin 5 mg tablet RxNorm: 287737 Tablet(s) Oral As Directed 02/2020 No Stop Date Active warfarin 10 mg tablet RxNorm: 889291 Tablet(s) Oral As Directed 02/2020 No Stop Date Active warfarin 3 mg tablet RxNorm: 774177 Tablet(s) Oral As Directed 02/2020 No Stop Date Active Lovenox 60 mg/0.6 mL subcutaneous syringe RxNorm: 663270 1 Unit(s) Subcutaneous two times a day 1 week prior to surgery then 3 days after surgery 01/09/2020 01/19/2020 Active warfarin 10 mg tablet RxNorm: 802785 1 Tablet(s) Oral QD 12/10/2019 0 01/08/2020 Inactive warfarin 5 mg tablet RxNorm: 620322 1 Tablet(s) Oral QD to take with 10mg dose on days takes full 15mg dose 12/07/2019 12/07/2019 Inactive warfarin 3 mg tablet RxNorm: 221813 1 Tablet(s) PO QD 09/03/201911/04 Inactive warfarin 10 mg tablet RxNorm: 884896 1 Tablet(s) PO QD 09/03/2019 Inactive warfarin 3 mg tablet RxNorm: 396644 1 Tablet(s) PO QD 06/07/201908/06 Inactive pantoprazole 40 mg tablet,delayed release RxNorm: 682317 1 Tabl et(s) PO BID 04/17/2019 05/16/2019 Inactive pantoprazole 40 mg tablet,delayed release RxNorm: 726125 1 Tabl et(s) PO BID 04/17/2019 04/16/2019 Inactive warfarin 10 mg tablet RxNorm: 995366 1 Tablet(s) PO QD 03/12/2019 Inactive warfarin 5 mg tablet RxNorm: 222639 1 Tablet(s) PO QD t o take with 10mg dose on days takes full 15mg dose 03/12/2019 12/06/2019 Inactive warfarin 10 mg tablet RxNorm: 720800 1 Tablet(s) PO QD 12/12/201803/2019 Inactive warfarin 5 mg tablet RxNorm: 767178 1 Tablet(s) PO QD t o take with 10mg dose on days takes full 15mg dose 09/18/2018 03/11/2019 Inactive warfarin 10 mg tablet RxNorm: 039547 1 Tablet(s) PO QD 06/21/201804/2019 Inactive warfarin 3 mg tablet RxNorm: 195991 1 Tablet(s) PO QD 06/21/201812/04 Inactive warfarin 10 mg tablet RxNorm: 412722 1 Tablet(s) PO QD 03/28/2018 Inactive warfarin 3 mg tablet RxNorm: 177330 1 Tablet(s) PO QD 03/28/201806/05 Inactive warfarin 10 mg tablet RxNorm: 059962 1 Tablet(s) PO QD 03/28/2018 Inactive warfarin 3 mg tablet RxNorm: 394609 1 Tablet(s) PO QD 03/28/201803/06 Inactive warfarin 1 mg tablet RxNorm: 831805 3 Tablet(s) PO TIW and 2 tabs all other days 01/18/2018 03/27/2018 Inactive warfarin 5 mg tablet RxNorm: 472232 2 Tablet(s) PO QD 12/19/201703/06 Inactive warfarin 5 mg tablet RxNorm: 592430 2 Tablet(s) PO QD 12/06/201712/04 Inactive warfarin 5 mg tablet RxNorm: 265908 2 Tablet(s) PO QD 12/05/201710/2017 Inactive warfarin 1 mg tablet RxNorm: 012351 2 Tablet(s) PO QD 10/24/201701/03 Inactive warfarin 1 mg tablet RxNorm: 551045 2 Tablet(s) PO QD 07/27/201710/06 Inactive Lovenox 80 mg/0.8 mL subcutaneous syringe RxNorm: 327857 1 Mill iliter(s) SQ BID 03/28/2017 04/26/2017 Inactive Lovenox 80 mg/0.8 mL subcutaneous syringe RxNorm: 491647 1 Unit Dose SQ Q12H 07/01/2015 08/29/2015 Inactive Lovenox 60 mg/0.6 mL subcutaneous syringe RxNorm: 803068 1 Unit Dose SQ BID prn for travel due to high risk for DVT 07/10/2014 07/19/2014 Inactive as directed for flights Lovenox 60 mg/0.6 mL Sub-Q Syringe RxNorm: 165688 1 Unit Dose SQ BI D 06/15/2013 06/24/2013 Inactive as directed for flights Lovenox 60 mg/0.6 mL Sub-Q Syringe RxNorm: 132834 1 Unit Dose SQ BI D 06/28/2011 No Stop Date Active as directed for flights Lamisil 250 mg Tab RxNorm: 347087 1 Tablet(s) PO QD 09/07/20102010 Inactive Lamisil 250 mg Tab RxNorm: 285276 1 Tablet(s) PO QD 06/25/20102010 Inactive Vitamin D3 2,000 unit Tab RxNorm: 938441 1 Tablet(s) PO QD No Start D ate Active niacin 50 mg tablet RxNorm: 788718 1 Tablet(s) PO QD No Start Date Inactive warfarin 5 mg tablet RxNorm: 090341 2 Tablet(s) PO QD No Start Date 0 12/04/2017 Inactive Lovenox 60 mg/0.6 mL Sub-Q Syringe RxNorm: 080637 1 Uni t Dose SQ BID as directed for flights No Start Date 06/27/2011 Inactive Lovenox 60 mg/0.6 mL subcutaneous syringe RxNorm: 021570 Millil iter(s) SQ BID No Start Date 06/30/2015 Inactive warfarin 1 mg tablet RxNorm: 878150 2 Tablet(s) PO QD No Start Date 1 09/25/2016 Inactive Lovenox 80 mg/0.8 mL subcutaneous syringe RxNorm: 748739 1 Mill iliter(s) SQ BID No Start Date 03/27/2017 Inactive warfarin 5 mg tablet RxNorm: 266155 1 Tablet(s) PO QD t o take with 10mg dose on days takes full 15mg dose No Start Date 09/17/2018 Inactive Medication Administered No Medication Administered data Immunizations No Immunization data Results No Results data Procedures Procedure Codes Date SPECIMEN HANDLING OFFICE-LAB CPT-4: 73984 08/24/2018 OCCULT BLOOD FECES CPT-4: 04886 08/24/2018 SPECIMEN HANDLING OFFICE-LAB CPT-4: 78680 07/27/2017 OCCULT BLOOD FECES CPT-4: 99691 07/27/2017 SPECIMEN HANDLING OFFICE-LAB CPT-4: 88293 07/26/2016 SPECIMEN HANDLING OFFICE-LAB CPT-4: 84564 07/15/2015 URINALYSIS NONAUTO W/O SCOPE CPT-4: 95596 07/10/2014 OCCULT BLOOD FECES CPT-4: 95428 07/10/2014 SPECIMEN HANDLING OFFICE-LAB CPT-4: 43035 07/10/2014 URINE CULTURE/ COLONY COUNT CPT-4: 76382 07/10/2014 SPECIMEN HANDLING OFFICE-LAB CPT-4: 90213 07/09/2013 OCCULT BLOOD FECES CPT-4: 76358 07/09/2013 OCCULT BLOOD FECES CPT-4: 94313 07/05/2012 SPECIMEN HANDLING OFFICE-LAB CPT-4: 13707 06/28/2011 OCCULT BLOOD FECES CPT-4: 39984 06/28/2011 SPECIMEN HANDLING OFFICE-LAB CPT-4: 01044 06/25/2010 OCCULT BLOOD FECES CPT-4: 51852 06/25/2010 Vital Signs Date Vital 08/13/2019 Heart [...] 1: 124/78 Code: 8480-6 BMI: 29.4 Code: 55784-9 Heart Rate 1: 72 bpm Height: 5'3" Respiratory Rate: 20 bpm SpO2: 98% Tempera ture: 36.5 (C) / 97.7 (F) Weight: 166 lbs 03/28/2017 Blood Pressure 1: 126/68 Code: 8480-6 BMI: 30.1 Code: 35845-0 Heart Rate 1: 66 bpm Height: 5'3" Respiratory Rate: 24 bpm SpO2: 98% Tempera ture: 36.4 (C) / 97.6 (F) Weight: 170 lbs 07/26/2016 Blood Pressure 1: 124/70 Code: 8480-6 BMI: 28.7 Code: 72868-7 Heart Rate 1: 84 bpm Height: 5'3" Respiratory Rate: 20 bpm Temperature: 36 .7 (C) / 98.0 (F) Weight: 162 lbs 07/15/2015 Blood Pressure 1: 114/78 Code: 8480-6 BMI: 30.8 Code: 83958-1 Heart Rate 1: 72 bpm Height: 5'3" Respiratory Rate: 20 bpm Temperature: 36 .7 (C) / 98.1 (F) Weight: 174 lbs 07/01/2015 Blood Pressure 1: 134/86 Code: 8480-6 BMI: 30.8 Code: 59827-2 Heart Rate 1: 84 bpm Height: 5'3" Respiratory Rate: 20 bpm Temperature: 36 .8 (C) / 98.3 (F) Weight: 174 lbs 07/10/2014 Blood Pressure 1: 124/78 Code: 8480-6 BMI: 29.8 Code: 74446-6 Heart Rate 1: 84 bpm Height: 5'3" Respiratory Rate: 20 bpm Temperature: 36 .7 (C) / 98.0 (F) Weight: 168 lbs 07/09/2013 Blood Pressure 1: 126/80 Code: 8480-6 BMI: 28.3 Code: 05963-1 Heart Rate 1: 80 bpm Height: 5'3" Respiratory Rate: 20 bpm Temperature: 37 .0 (C) / 98.6 (F) Weight: 160 lbs 07/05/2012 Blood Pressure 1: 102/68 Code: 8480-6 BMI: 27.3 Code: 28476-6 Heart Rate 1: 72 bpm Height: 5'3" Respiratory Rate: 20 bpm Temperature: 36 .6 (C) / 97.8 (F) Weight: 154 lbs 03/09/2012 Blood Pressure 1: 116/78 Code: 8480-6 BMI: 28.0 Code: 90282-2 Heart Rate 1: 84 bpm Height: 5'3" Respiratory Rate: 20 bpm Temperature: 36 .9 (C) / 98.4 (F) Weight: 158 lbs 06/28/2011 Blood Pressure 1: 122/78 Code: 8480-6 BMI: 27.6 Code: 39590-6 Heart Rate 1: 76 bpm Height: 5'3" Respiratory Rate: 20 bpm Temperature: 36 .8 (C) / 98.2 (F) Weight: 156 lbs 06/25/2010 Blood Pressure 1: 118/68 Code: 8480-6 BMI: 23.9 Code: 89795-5 Height: 5'3" Temperature: 36.3 (C) / 97.4 (F) Weight: 135 lbs Functional Status No Functional Status data Reason For Visit Reason For Visit Effective Dates Notes Pre-op Physical 01/09/2020 Patient is having na miguel surgery for deviated suptum on January [address] Poep. She needs to get lovenox shots prior [...] g Encounters Encounter Performer Location Codes Date (88376) OFFICE/OUTPATIENT VISIT EST Diagnosis: Chronic sinusitis[ICD10: J32.9] Diagnosis: Deviated septum[ICD10: J34.2] Diagnosis: Pre-op exam[ICD10: Z01.818] Tonya Rose PT-4: 40989 01/09/2020 OFFICE/OUTPATIENT VISIT EST Diagnosis: Right knee pain[ICD10: M25.561] Diagnosis: Patellofemoral arthralgia of right knee[ICD10: M25.561] Diagnosis: Patellofemoral arthritis of right knee[ICD10: M17.11] Diagnosis: Belching[ICD10: R14.2] Tonya Altamirano [facility] CPT-4: 54483 08/13/2019 ([id number]) OFFICE/OUTPATIENT VISIT EST Diagnosis: FDC (current) use of anticoagulants[ICD10: Z79.01] Diagnosis: Personal history of pulmonary embolism[ICD10: Z86.711] Diagnosis: Personal history of other venous thrombosis and embolism[ICD10: Z86.718] Diagnosis: Other allergic rhinitis[ICD10: J30.89] Diagnosis: Abdominal distension (gaseous)[ICD10: R14.0] Jud Bravo TONYA Flood ADANGOLDIE [facility] CPT-4: 37892 04/09/2019 ([id number]) PREV VISIT EST AGE 40-64 Diagnosis: Encounter for general adult medical examination without abnormal findings[ICD10: Z00.00] Diagnosis: Encounter for gynecological examination (general) (routine) without abnormal findings[ICD10: Z01.419] Diagnosis: Mixed hyperlipidemia[ICD10: E78.2] Diagnosis: Excessive and frequent menstruation with irregular cycle[ICD10: N92.1] Tonya HUYNH [facility] CPT-4: 99126 08/24/2018 ([id number]) PREV VISIT EST AGE 40-64 Diagnosis: Encounter for general adult medical examination without abnormal findings[ICD10: Z00.00] Diagnosis: Encounter for gynecological examination (general) (routine) without abnormal findings[ICD10: Z01.419] 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] [facility] CPT-4: 34376 07/27/2017 ([id number]) OFFICE/OUTPATIENT VISIT EST Diagnosis: 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[ICD10: I82.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] Diagnosis: Follicular cyst of left ovary[ICD10: N83.02] [facility] CPT-4: 48979 03/28/2017 ([id number]) PREV VISIT EST AGE 40-64 Diagnosis: Encounter for general adult medical examination without abnormal findings[ICD10: Z00.00] Diagnosis: Encounter for gynecological examination (general) (routine) without abnormal findings[ICD10: Z01.419] Diagnosis: Mixed hyperlipidemia[ICD10: E78.2] 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] Diagnosis: Unspecified lump in breast[ICD10: N63] [facility] CPT-4: 12337 07/26/2016 ([id number]) PREV VISIT EST AGE 40-64 Diagnosis: Encounter for general adult medical examination without abnormal findings[ICD10: Z00.00] Diagnosis: Encounter for gynecological examination (general) (routine) without abnormal findings[ICD10: Z01.419] Diagnosis: Acute embolism and thrombosis of unspecified deep veins of unspecified lower extremity[ICD10: I82.409] [facility] CPT-4: 15588 07/15/2015 ([id number]) OFFICE/OUTPATIENT VISIT EST Diagnosis: Acute embolism and thrombosis of unspecified deep veins of unspecified lower extremity[ICD10: I82.409] 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] [facility] CPT-4: 28393 07/01/2015 ([id number]) PREV VISIT EST AGE 40-64 Diagnosis: ROUTINE MEDICAL EXAM[ICD9: V70.0] Diagnosis: ROUTINE GYNE EXAM[ICD9: V72.31] Diagnosis: MALAISE AND FATIGUE[ICD9: 780.79] Diagnosis: Hematuria[ICD9: 599.70] Tonya GONZALEZLINE Remigio DC DO [facility] CPT-4: 88853 07/10/2014 ([id number]) PREV VISIT EST AGE 40-64 Diagnosis: ROUTINE MEDICAL EXAM[ICD9: V70.0] Diagnosis: ROUTINE GYNE EXAM[ICD9: V72.31] Diagnosis: HYPERLIPIDEMIA NEC/NOS[ICD9: 272.4] Diagnosis: MALAISE AND FATIGUE[ICD9: 780.79] Diagnosis: PAIN, LOWER BACK[ICD9: 724.2] Diagnosis: Menometrorrhagia[ICD9: 626.2] Tonya Adanbenjaminsalvador TONYA Mary GraceArnoldo KENDY [facility] CPT-4: 48764 07/09/2013 ([id number]) PREV VISIT EST AGE 40-64 Diagnosis: ROUTINE MEDICAL EXAM[ICD9: V70.0] Diagnosis: ROUTINE GYNE EXAM[ICD9: V72.31] Tonya Adanbenjaminsalvador DOANTONYA Mary GraceArnoldo KENDY WILLS [employer] CPT-4: 54784 07/05/2012 ([id number]) SPECIMEN HANDLING Diagnosis: [ICD9: ] Diagnosis: [ICD9: ] Tonya Arellanobenjaminsalvador GONZALEZTONYA Mary GraceArnoldo KENDY WILLS [employer] CPT-4: 9900 0 07/05/2012 ([id number]) OFFICE/OUTPATIENT VISIT EST Diagnosis: MALAISE AND FATIGUE[ICD9: 780.79] Diagnosis: HYPERLIPIDEMIA NEC/NOS[ICD9: 272.4] Tonya AGUIAR Mary GraceArnoldo KENDY [facility] CPT-4: 00593 03/09/2012 PREV VISIT EST AGE 40-64 Diagnosis: ROUTINE GYNE EXAM[ICD9: V72.31] Diagnosis: ROUTINE MEDICAL EXAM[ICD9: V70.0] Diagnosis: MALAISE AND FATIGUE[ICD9: 780.79] Tonya Garrido Mary GraceArnoldo KENDY [facility] CPT-4: 72252 06/28/2011 ([id number]) PREV VISIT, EST, AGE 40-64 Tonya Adanbenjaminsalvador FANNIE ALMONTE Mary GraceArnoldo KENDY WILLS [employer] CPT-4: 88255 06/25/2010 Plan of Care Planned Activity Notes [...] R14.2 08/13/2019 Appointment: [facility]h [facility]el[facility] [phone] [facility] [facility] 08/13/2019 Visit Diagnosis Plan: Other [...] ICD-10 : R14.0 04/09/2019 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 recheck inr in 1 week and call office with results. order was signed for patient to receive more test strips at home. 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 [...] : Z00.00 07/27/2017 Appointment: Tonya Huynh WPtel: [address] [place], [place] [phone] Annual Well Visit 07/27/2017 Patient Education: Patient Medication Summary Completed 07/27/2017 Referral: Vasquez Carpenter WPtel: [phone] Us-59 [id number] US Referral Initiated 04/19/2017 Visit Diagnosis Plan: 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 Discussion: Referral to hematology to discuss alf anitcoagulation Patient does not want to do orals due to risks Will keep on lovenox until sees hematology ICD-9 : 453.41 ICD-10 : I82.422 03/28/2017 Visit Diagnosis Plan: Follicular cyst of left ovary Di scussion: Pelvic US in 3mos ICD-9 : 620.0 ICD-10 : N83.02 03/28/2017 Appointment: Tonay Huynh WPtel: [address] [place], [place] [phone] [place] 03/24 confirmed ~sl WORK IN 03/28/2017 Patient Education: Patient Medication Summary Completed 03/28/2017 Visit Plan: Pap Done Diagnostic Mammogra m with Left Breast US--may need biopsy of left breast lesion pending results Update fasting lab Check CXR and KUB with history of IVC filter 07/26/2016 Appointment: Toyna Huynh WPtel: [address] [place], [place] [phone] [place] 07/22 confirmed~sl Annual Well Visit 07/26/2016 Patient Education: Patient Medication Summary Completed 07/26/2016 Visit Plan: Pap done Repeat RLE venous d oppler on Aug 11 Continue lovenox and observe for bleeding Defers mammogram until next year 07/15/2015 Appointment: Tonya Huynh WPtel: [address] [place], [place] [phone] [place] 07/10 lm ~sl...07/15 appt confirmed cn PAP 07/15/2015 Patient Education: Patient Medication Summary Completed 07/15/2015 Visit Plan: Continue lovenox as is Obtai n US and ER records from [place] Patient refuses any anticoagulants except lovenox Offered xarelto, eliquis, pradaxa, coumadin, etc. No long trips until fwup Recheck 2weeks Check CBC in 1week Report any signs of bleeding immediately 07/01/2015 Appointment: Tonya Huynhtel: [address] [place], [place] [phone] 07/01 called office to confirm ~SL ACUTE ILLNESS 07/01/2015 Patient Education: Patient Medication Summary Completed 07/01/2015 Patient Education: Patient Medication Summary Completed 07/22/2014 Appointment: Tonya Huynhtel: [address] [place], [place] [phone] 07/09 [facility] Annual Well Visit 07/10/2014 Patient Education: Patient Medication Summary Completed 07/10/2014 Visit Plan: Pap Done Proceed with pelvic US Mammo scheduled May need MRI of L/S spine Pt scheduled for bladder sling in Dec Discussed may need INSIGHT DIRECTOR eval due to spotting/ removal of IUD, etc. Check fasting lab 07/09/2013 Appointment: Tonya Huynhtel: [address] [place], [place] [phone] 07/06 vm PAP 07/09/2013 Patient Education: Patient Medication Summary Completed 07/09/2013 Visit Plan: PAP done Mammo ordered 07/05/2012 Appointment: Tonya Huynhtel: [address] [place] [id number] 07/04- left message PAP 07/05/2012 Patient Education: Patient Medication Summary Completed 07/05/2012 Visit Plan: Check fasting lab Discussed diet and exercise at length 03/09/2012 Appointment: Tonya Huynhtel: [address] [place], [place] [phone] US message left with child FOLLOW UP 03/09/20 12 Patient Education: Patient Medication Summary Completed 03/09/2012 Visit Plan: Pap Done and Mammogram order ed CMP, Lipids, CBC, TSH, Free T4 Start daily baby aspirin Use lovenox when flies 06/28/2011 Appointment: [facility]h [facility]el[facility] [phone] [facility] [facility] PAP 06/28/2011 Patient Education: Patient Medication Summary Completed 06/28/2011 Visit Plan: Pap Done Mammo ordered Trial of lamisil--check LFTs at start and monthly while on and put shoes in moth balls during treatment 06/25/2010 Appointment: Tonya Huynh WPtel: [phone] [facility] [place] PAP 06/25/2010 Patient Education: Patient Medication Summary Completed 06/25/2010 Referral: Sherif Bliss WPtel: [address] [facility] [employer] [id number] [place] Referral Appointment Requested Instructions Comment . [...] is Obtain US and ER records from [place] Patient refuses any anticoagulants except lovenox Offered xarelto, eliquis, pradaxa, coumadin, etc. No long trips until fwup Recheck 2weeks Check CBC in 1week Report any signs of bleeding immediately . Pap Done Proceed with pelvic US Mammo scheduled May need MRI of L/S spine Pt scheduled for bladder sling in Aug Discussed may need INSIGHT DIRECTOR eval due to spotting/ removal of IUD, [...]
--- OUTSIDE RECORDS SUMMARY | 2020-01-17 06:59 | XMS REPORT | CCD ---
Author Author Cynthia Huynh D.O. 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 Name Role Phone Tonya Huynh D.O., PP Unavailable CCM Unavailable Summary Purpose Interface Exchange Insurance Providers Payer name Policy type / Coverage type Covered libertarian ID Effective Begin Date Effective End Date Blue Cross Blue Shield Blue Cross/Blue Shield [id number] Unknown Family History Family History data not found Social History Social History Element Codes Description Effective Dates Marital status Unknown 06/28/[address]: 660881041 Never smoker 06/28/2011 Allergies, Adverse Reactions, Alerts [...] (gaseous) ICD-9: 787.3 ICD-10: R14.0 04/09/2019 Active jail (current) use of anticoagulants ICD-9: V58.6 1 [...] Fill Instructions warfarin 5 mg tablet RxNorm: 799288 Tablet(s) Oral As Directed 02/2020 No Stop Date Active warfarin 10 mg tablet RxNorm: 828901 Tablet(s) Oral As Directed 02/2020 No Stop Date Active warfarin 3 mg tablet RxNorm: 219800 Tablet(s) Oral As Directed 02/2020 No Stop Date Active Lovenox 60 mg/0.6 mL subcutaneous syringe RxNorm: 799733 1 Unit(s) Subcutaneous two times a day 1 week prior to surgery then 3 days after surgery 01/09/2020 01/19/2020 Active warfarin 10 mg tablet RxNorm: 164151 1 Tablet(s) Oral QD 12/10/2019 0 01/08/2020 Inactive warfarin 5 mg tablet RxNorm: 601224 1 Tablet(s) Oral QD to take with 10mg dose on days takes full 15mg dose 12/07/2019 12/07/2019 Inactive warfarin 3 mg tablet RxNorm: 311072 1 Tablet(s) PO QD 09/03/201911/04 Inactive warfarin 10 mg tablet RxNorm: 192020 1 Tablet(s) PO QD 09/03/2019 Inactive warfarin 3 mg tablet RxNorm: 649119 1 Tablet(s) PO QD 06/07/201908/06 Inactive pantoprazole 40 mg tablet,delayed release RxNorm: 493595 1 Tabl et(s) PO BID 04/17/2019 05/16/2019 Inactive pantoprazole 40 mg tablet,delayed release RxNorm: 543664 1 Tabl et(s) PO BID 04/17/2019 04/16/2019 Inactive warfarin 10 mg tablet RxNorm: 649907 1 Tablet(s) PO QD 03/12/2019 Inactive warfarin 5 mg tablet RxNorm: 451222 1 Tablet(s) PO QD t o take with 10mg dose on days takes full 15mg dose 03/12/2019 12/06/2019 Inactive warfarin 10 mg tablet RxNorm: 059278 1 Tablet(s) PO QD 12/12/201803/2019 Inactive warfarin 5 mg tablet RxNorm: 239258 1 Tablet(s) PO QD t o take with 10mg dose on days takes full 15mg dose 09/18/2018 03/11/2019 Inactive warfarin 10 mg tablet RxNorm: 593740 1 Tablet(s) PO QD 06/21/201804/2019 Inactive warfarin 3 mg tablet RxNorm: 078306 1 Tablet(s) PO QD 06/21/201812/04 Inactive warfarin 10 mg tablet RxNorm: 036207 1 Tablet(s) PO QD 03/28/2018 Inactive warfarin 3 mg tablet RxNorm: 668049 1 Tablet(s) PO QD 03/28/201806/05 Inactive warfarin 10 mg tablet RxNorm: 807623 1 Tablet(s) PO QD 03/28/2018 Inactive warfarin 3 mg tablet RxNorm: 068295 1 Tablet(s) PO QD 03/28/201803/06 Inactive warfarin 1 mg tablet RxNorm: 599352 3 Tablet(s) PO TIW and 2 tabs all other days 01/18/2018 03/27/2018 Inactive warfarin 5 mg tablet RxNorm: 330003 2 Tablet(s) PO QD 12/19/201703/06 Inactive warfarin 5 mg tablet RxNorm: 474438 2 Tablet(s) PO QD 12/06/201712/04 Inactive warfarin 5 mg tablet RxNorm: 308468 2 Tablet(s) PO QD 12/05/201710/2017 Inactive warfarin 1 mg tablet RxNorm: 251140 2 Tablet(s) PO QD 10/24/201701/03 Inactive warfarin 1 mg tablet RxNorm: 878140 2 Tablet(s) PO QD 07/27/201710/06 Inactive Lovenox 80 mg/0.8 mL subcutaneous syringe RxNorm: 018323 1 Mill iliter(s) SQ BID 03/28/2017 04/26/2017 Inactive Lovenox 80 mg/0.8 mL subcutaneous syringe RxNorm: 094170 1 Unit Dose SQ Q12H 07/01/2015 08/29/2015 Inactive Lovenox 60 mg/0.6 mL subcutaneous syringe RxNorm: 666479 1 Unit Dose SQ BID prn for travel due to high risk for DVT 07/10/2014 07/19/2014 Inactive as directed for flights Lovenox 60 mg/0.6 mL Sub-Q Syringe RxNorm: 880532 1 Unit Dose SQ BI D 06/15/2013 06/24/2013 Inactive as directed for flights Lovenox 60 mg/0.6 mL Sub-Q Syringe RxNorm: 613537 1 Unit Dose SQ BI D 06/28/2011 No Stop Date Active as directed for flights Lamisil 250 mg Tab RxNorm: 862212 1 Tablet(s) PO QD 09/07/20102010 Inactive Lamisil 250 mg Tab RxNorm: 525512 1 Tablet(s) PO QD 06/25/20102010 Inactive Vitamin D3 2,000 unit Tab RxNorm: 066788 1 Tablet(s) PO QD No Start D ate Active niacin 50 mg tablet RxNorm: 747133 1 Tablet(s) PO QD No Start Date Inactive warfarin 5 mg tablet RxNorm: 873501 2 Tablet(s) PO QD No Start Date 0 12/04/2017 Inactive Lovenox 60 mg/0.6 mL Sub-Q Syringe RxNorm: 543320 1 Uni t Dose SQ BID as directed for flights No Start Date 06/27/2011 Inactive Lovenox 60 mg/0.6 mL subcutaneous syringe RxNorm: 002641 Millil iter(s) SQ BID No Start Date 06/30/2015 Inactive warfarin 1 mg tablet RxNorm: 814746 2 Tablet(s) PO QD No Start Date 1 09/25/2016 Inactive Lovenox 80 mg/0.8 mL subcutaneous syringe RxNorm: 100697 1 Mill iliter(s) SQ BID No Start Date 03/27/2017 Inactive warfarin 5 mg tablet RxNorm: 566140 1 Tablet(s) PO QD t o take with 10mg dose on days takes full 15mg dose No Start Date 09/17/2018 Inactive Medication Administered No Medication Administered data Immunizations No Immunization data Results No Results data Procedures Procedure Codes Date SPECIMEN HANDLING OFFICE-LAB CPT-4: 24661 08/24/2018 OCCULT BLOOD FECES CPT-4: 67784 08/24/2018 SPECIMEN HANDLING OFFICE-LAB CPT-4: 60679 07/27/2017 OCCULT BLOOD FECES CPT-4: 36035 07/27/2017 SPECIMEN HANDLING OFFICE-LAB CPT-4: 12763 07/26/2016 SPECIMEN HANDLING OFFICE-LAB CPT-4: 74315 07/15/2015 URINALYSIS NONAUTO W/O SCOPE CPT-4: 61128 07/10/2014 OCCULT BLOOD FECES CPT-4: 81377 07/10/2014 SPECIMEN HANDLING OFFICE-LAB CPT-4: 63568 07/10/2014 URINE CULTURE/ COLONY COUNT CPT-4: 51775 07/10/2014 SPECIMEN HANDLING OFFICE-LAB CPT-4: 31297 07/09/2013 OCCULT BLOOD FECES CPT-4: 17544 07/09/2013 OCCULT BLOOD FECES CPT-4: 90623 07/05/2012 SPECIMEN HANDLING OFFICE-LAB CPT-4: 47046 06/28/2011 OCCULT BLOOD FECES CPT-4: 68991 06/28/2011 SPECIMEN HANDLING OFFICE-LAB CPT-4: 38197 06/25/2010 OCCULT BLOOD FECES CPT-4: 18238 06/25/2010 Vital Signs Date Vital 08/13/2019 Heart [...] 1: 124/78 Code: 8480-6 BMI: 29.4 Code: 92458-5 Heart Rate 1: 72 bpm Height: 5'3" Respiratory Rate: 20 bpm SpO2: 98% Tempera ture: 36.5 (C) / 97.7 (F) Weight: 166 lbs 03/28/2017 Blood Pressure 1: 126/68 Code: 8480-6 BMI: 30.1 Code: 75239-2 Heart Rate 1: 66 bpm Height: 5'3" Respiratory Rate: 24 bpm SpO2: 98% Tempera ture: 36.4 (C) / 97.6 (F) Weight: 170 lbs 07/26/2016 Blood Pressure 1: 124/70 Code: 8480-6 BMI: 28.7 Code: 73749-4 Heart Rate 1: 84 bpm Height: 5'3" Respiratory Rate: 20 bpm Temperature: 36 .7 (C) / 98.0 (F) Weight: 162 lbs 07/15/2015 Blood Pressure 1: 114/78 Code: 8480-6 BMI: 30.8 Code: 54205-8 Heart Rate 1: 72 bpm Height: 5'3" Respiratory Rate: 20 bpm Temperature: 36 .7 (C) / 98.1 (F) Weight: 174 lbs 07/01/2015 Blood Pressure 1: 134/86 Code: 8480-6 BMI: 30.8 Code: 22485-0 Heart Rate 1: 84 bpm Height: 5'3" Respiratory Rate: 20 bpm Temperature: 36 .8 (C) / 98.3 (F) Weight: 174 lbs 07/10/2014 Blood Pressure 1: 124/78 Code: 8480-6 BMI: 29.8 Code: 46561-6 Heart Rate 1: 84 bpm Height: 5'3" Respiratory Rate: 20 bpm Temperature: 36 .7 (C) / 98.0 (F) Weight: 168 lbs 07/09/2013 Blood Pressure 1: 126/80 Code: 8480-6 BMI: 28.3 Code: 63465-8 Heart Rate 1: 80 bpm Height: 5'3" Respiratory Rate: 20 bpm Temperature: 37 .0 (C) / 98.6 (F) Weight: 160 lbs 07/05/2012 Blood Pressure 1: 102/68 Code: 8480-6 BMI: 27.3 Code: 41665-6 Heart Rate 1: 72 bpm Height: 5'3" Respiratory Rate: 20 bpm Temperature: 36 .6 (C) / 97.8 (F) Weight: 154 lbs 03/09/2012 Blood Pressure 1: 116/78 Code: 8480-6 BMI: 28.0 Code: 70550-2 Heart Rate 1: 84 bpm Height: 5'3" Respiratory Rate: 20 bpm Temperature: 36 .9 (C) / 98.4 (F) Weight: 158 lbs 06/28/2011 Blood Pressure 1: 122/78 Code: 8480-6 BMI: 27.6 Code: 67678-7 Heart Rate 1: 76 bpm Height: 5'3" Respiratory Rate: 20 bpm Temperature: 36 .8 (C) / 98.2 (F) Weight: 156 lbs 06/25/2010 Blood Pressure 1: 118/68 Code: 8480-6 BMI: 23.9 Code: 36819-4 Height: 5'3" Temperature: 36.3 (C) / 97.4 [...] g Encounters Encounter Performer Location Codes Date ([id number]) OFFICE/OUTPATIENT VISIT EST Diagnosis: Chronic sinusitis[ICD10: J32.9] Diagnosis: Deviated septum[ICD10: J34.2] Diagnosis: Pre-op exam[ICD10: Z01.818] Tonya Rose PT-4: 17679 01/09/2020 OFFICE/OUTPATIENT VISIT EST Diagnosis: Right knee pain[ICD10: M25.561] Diagnosis: Patellofemoral arthralgia of right knee[ICD10: M25.561] Diagnosis: Patellofemoral arthritis of right knee[ICD10: M17.11] Diagnosis: Belching[ICD10: R14.2] Tonya Altamirano [employer] CPT-4: 52855 08/13/2019 ([id number]) OFFICE/OUTPATIENT VISIT EST Diagnosis: jail (current) use of anticoagulants[ICD10: Z79.01] Diagnosis: Personal history of pulmonary embolism[ICD10: Z86.711] Diagnosis: Personal history of other venous thrombosis and embolism[ICD10: Z86.718] Diagnosis: Other allergic rhinitis[ICD10: J30.89] Diagnosis: Abdominal distension (gaseous)[ICD10: R14.0] Jud Bravo TONYA Flood ADANGOLDIE [employer] CPT-4: 27355 04/09/2019 ([id number]) PREV VISIT EST AGE 40-64 Diagnosis: Encounter for general adult medical examination without abnormal findings[ICD10: Z00.00] Diagnosis: Encounter for gynecological examination (general) (routine) without abnormal findings[ICD10: Z01.419] Diagnosis: Mixed hyperlipidemia[ICD10: E78.2] Diagnosis: Excessive and frequent menstruation with irregular cycle[ICD10: N92.1] Tonya HUYNH [employer] CPT-4: 14653 08/24/2018 ([id number]) PREV VISIT EST AGE 40-64 Diagnosis: Encounter for general adult medical examination without abnormal findings[ICD10: Z00.00] Diagnosis: Encounter for gynecological examination (general) (routine) without abnormal findings[ICD10: Z01.419] 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] [facility] CPT-4: 41667 07/27/2017 ([id number]) OFFICE/OUTPATIENT VISIT EST Diagnosis: 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[ICD10: I82.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] Diagnosis: Follicular cyst of left ovary[ICD10: N83.02] Tonya [facility] CPT-4: 16266 03/28/2017 ([id number]) PREV VISIT EST AGE 40-64 Diagnosis: Encounter for general adult medical examination without abnormal findings[ICD10: Z00.00] Diagnosis: Encounter for gynecological examination (general) (routine) without abnormal findings[ICD10: Z01.419] Diagnosis: Mixed hyperlipidemia[ICD10: E78.2] 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] Diagnosis: Unspecified lump in breast[ICD10: N63] [facility] CPT-4: 14737 07/26/2016 ([id number]) PREV VISIT EST AGE 40-64 Diagnosis: Encounter for general adult medical examination without abnormal findings[ICD10: Z00.00] Diagnosis: Encounter for gynecological examination (general) (routine) without abnormal findings[ICD10: Z01.419] Diagnosis: Acute embolism and thrombosis of unspecified deep veins of unspecified lower extremity[ICD10: I82.409] [facility] CPT-4: 64733 07/15/2015 ([id number]) OFFICE/OUTPATIENT VISIT EST Diagnosis: Acute embolism and thrombosis of unspecified deep veins of unspecified lower extremity[ICD10: I82.409] 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] [facility] CPT-4: 64702 07/01/2015 ([id number]) PREV VISIT EST AGE 40-64 Diagnosis: ROUTINE MEDICAL EXAM[ICD9: V70.0] Diagnosis: ROUTINE GYNE EXAM[ICD9: V72.31] Diagnosis: MALAISE AND FATIGUE[ICD9: 780.79] Diagnosis: Hematuria[ICD9: 599.70] Tonya GONZALEZLINE Remigio DC DO [employer] CPT-4: 82096 07/10/2014 ([id number]) PREV VISIT EST AGE 40-64 Diagnosis: ROUTINE MEDICAL EXAM[ICD9: V70.0] Diagnosis: ROUTINE GYNE EXAM[ICD9: V72.31] Diagnosis: HYPERLIPIDEMIA NEC/NOS[ICD9: 272.4] Diagnosis: MALAISE AND FATIGUE[ICD9: 780.79] Diagnosis: PAIN, LOWER BACK[ICD9: 724.2] Diagnosis: Menometrorrhagia[ICD9: 626.2] Tonya Adanbenjaminsalvador TONYA Mary GraceArnoldo KENDY [employer] CPT-4: 98623 07/09/2013 ([id number]) PREV VISIT EST AGE 40-64 Diagnosis: ROUTINE MEDICAL EXAM[ICD9: V70.0] Diagnosis: ROUTINE GYNE EXAM[ICD9: V72.31] Tonya Adanbenjaminsalvador DOANTONYA Mary GraceArnoldo KENDY WILLS [employer] CPT-4: 34446 07/05/2012 ([id number]) SPECIMEN HANDLING Diagnosis: [ICD9: ] Diagnosis: [ICD9: ] Tonya Arellanobenjaminsalvador GONZALEZTONYA Mary GraceArnoldo KENDY WILLS [employer] CPT-4: 9900 0 07/05/2012 ([id number]) OFFICE/OUTPATIENT VISIT EST Diagnosis: MALAISE AND FATIGUE[ICD9: 780.79] Diagnosis: HYPERLIPIDEMIA NEC/NOS[ICD9: 272.4] Tonya AGUIAR Mary GraceArnoldo KENDY [employer] CPT-4: 14610 03/09/2012 PREV VISIT EST AGE 40-64 Diagnosis: ROUTINE GYNE EXAM[ICD9: V72.31] Diagnosis: ROUTINE MEDICAL EXAM[ICD9: V70.0] Diagnosis: MALAISE AND FATIGUE[ICD9: 780.79] Tonya Garrido Mary GraceArnoldo KENDY [employer] CPT-4: 09303 06/28/2011 ([id number]) PREV VISIT, EST, AGE 40-64 Tonya Adanbenjaminsalvador FANNIE ALMONTE Mary GraceArnoldo KENDY WILLS [employer] CPT-4: 11542 06/25/2010 Plan of Care Planned Activity Notes [...] R14.2 08/13/2019 Appointment: [facility] [phone] [id number] [facility] 08/13/2019 Visit Diagnosis Plan: Other [...] ICD-10 : R14.0 04/09/2019 Visit 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 recheck inr in 1 week and call office with results. order was signed for patient to receive more test strips at home. 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 [...] : Z00.00 07/27/2017 Appointment: Tonya Huynh WPtel: [address] [place], [place] [phone] Annual Well Visit 07/27/2017 Patient Education: Patient Medication Summary Completed 07/27/2017 Referral: Vasquez Carpenter WPtel: [id number] [place] Referral Initiated 04/19/2017 Visit Diagnosis Plan: [...] : N83.02 03/28/2017 Appointment: Tonya Huynh WPtel: [address] [place], [place] [phone] [place] 03/24 confirmed ~sl WORK IN 03/28/2017 Patient Education: Patient Medication Summary Completed 03/28/2017 Visit Plan: Pap Done Diagnostic Mammogra m with Left Breast US--may need biopsy of left breast lesion pending results Update fasting lab Check CXR and KUB with history of IVC filter 07/26/2016 Appointment: Tonya Huynh WPtel: [address] [place], [place] [phone] [place] 07/22 confirmed~sl Annual Well Visit 07/26/2016 Patient Education: Patient Medication Summary Completed 07/26/2016 Visit Plan: Pap done Repeat RLE venous d oppler on Aug 11 Continue lovenox and observe for bleeding Defers mammogram until next year 07/15/2015 Appointment: Tonya Huynh WPtel: [address] [place], [place] [phone] [place] 07/10 lm ~sl...07/15 appt confirmed cn PAP 07/15/2015 Patient Education: Patient Medication Summary Completed 07/15/2015 Visit Plan: Continue lovenox as is Obtai n US and ER records from [place] Patient refuses any anticoagulants except lovenox Offered xarelto, eliquis, pradaxa, coumadin, etc. No long trips until fwup Recheck 2weeks Check CBC in 1week Report any signs of bleeding immediately 07/01/2015 Appointment: Tonya Huynhtel: [address] [place], [place] [phone] 07/01 called office to confirm ~SL ACUTE ILLNESS 07/01/2015 Patient Education: Patient Medication Summary Completed 07/01/2015 Patient Education: Patient Medication Summary Completed 07/22/2014 Appointment: Tonya Huynhtel: [address] [place], [place] [phone] 07/09 [facility] Annual Well Visit 07/10/2014 Patient Education: Patient Medication Summary Completed 07/10/2014 Visit Plan: Pap Done Proceed with pelvic US Mammo scheduled May need MRI of L/S spine Pt scheduled for bladder sling in Dec Discussed may need TELEVISION NEWS VIDEO EDITOR eval due to spotting/ removal of IUD, etc. Check fasting lab 07/09/2013 Appointment: Tonya Huynhtel: [address] [place], [place] [phone] 07/06 vm PAP 07/09/2013 Patient Education: Patient Medication Summary Completed 07/09/2013 Visit Plan: PAP done Mammo ordered 07/05/2012 Appointment: Tonya Huynhtel: [address] [place], [place] [id number] 07/04- left message PAP 07/05/2012 Patient Education: Patient Medication Summary Completed 07/05/2012 Visit Plan: Check fasting lab Discussed diet and exercise at length 03/09/2012 Appointment: Tonya Huynhtel: [address] [place], [place] [phone] US message left with child FOLLOW UP 03/09/20 12 Patient Education: Patient Medication Summary Completed 03/09/2012 Visit Plan: Pap Done and Mammogram order ed CMP, Lipids, CBC, TSH, Free T4 Start daily baby aspirin Use lovenox when flies 06/28/2011 Appointment: [facility]h [facility]Ptel[facility] [phone] [id number] [place] PAP 06/28/2011 Patient Education: Patient Medication Summary Completed 06/28/2011 Visit Plan: Pap Done Mammo ordered Trial of lamisil--check LFTs at start and monthly while on and put shoes in moth balls during treatment 06/25/2010 Appointment: Tony[facility] Huynh [facility]Ptel[facility] [phone] [id number] [place] PAP 06/25/2010 Patient Education: Patient Medication Summary Completed 06/25/2010 Referral: Sherif Bliss WPtel: [address] [facility] [employer] [id number] US Referral Appointment Requested Instructions Comment . [...] Obtain US and ER records from [place] Patient refuses any anticoagulants except lovenox Offered xarelto, eliquis, pradaxa, coumadin, etc. No long trips until fwup Recheck 2weeks Check CBC in 1week Report any signs of bleeding immediately . Pap Done Proceed with pelvic US Mammo scheduled May need MRI of L/S spine Pt scheduled for bladder sling in Aug Discussed may need TELEVISION NEWS VIDEO EDITOR eval due to spotting/ removal of IUD, [...]
--- OUTSIDE RECORDS SUMMARY | 2020-01-17 07:00 | XMS REPORT | CCD ---
Author Author Cynthia Huynh D.O. Organization RENU HUYNH DO [facility] Address [address] [place] [address] Phone Care Team Providers Care Research Laboratory Specialist Name Role Phone Renu Huynh D.O., PP Unavailable CCM Unavailable Summary Purpose Interface Exchange Insurance Providers Payer name Policy type / Coverage type Covered democrat ID Effective Begin Date Effective End Date Blue Cross Blue Shield Blue Cross/Blue Shield [id number] Unknown Family History Family History data not found Social History Social History Element Codes Description Effective Dates Marital status Unknown 06/28/[address]: 491660384 Never smoker 06/28/2011 Allergies, Adverse Reactions, Alerts Substance Reaction Codes Entered Date Inactivated Date Status * NO KNOWN ENVIRONMENTAL ALLERGIES Unknown 06/28/2011 N o Inactive Date Active * NO KNOWN FOOD ALLERGIES Unknown 06/28/2011 No Inactiv e Date Active * NO KNOWN DRUG ALLERGIES Unknown 06/28/2011 No Inactiv e Date Active Problems Condition Codes Effective Dates Condition Status Belching ICD-9: 787.3 ICD-10: R14.2 08/13/2019 Active Patellofemoral arthralgia of right knee ICD-9: 719.46 ICD-10: M25.561 08/13/2019 Active Patellofemoral arthritis of right knee ICD-9: 716.96 ICD-10: M17.11 08/13/2019 Active Abdominal distension (gaseous) ICD-9: 787.3 ICD-10: R14.0 04/09/2019 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 ICD-9: V58.6 1 [...] Fill Instructions warfarin 5 mg tablet RxNorm: 942599 1 Tablet(s) Oral QD to take with 10mg dose on days takes full 15mg dose 12/07/2019 12/07/2019 Inactive warfarin 10 mg tablet RxNorm: 777793 1 Tablet(s) PO QD 09/03/2019 Inactive warfarin 3 mg tablet RxNorm: 839694 1 Tablet(s) PO QD 09/03/201911/04 Inactive warfarin 3 mg tablet RxNorm: 267209 1 Tablet(s) PO QD 06/07/201908/06 Inactive pantoprazole 40 mg tablet,delayed release RxNorm: 016513 1 Tabl et(s) PO BID 04/17/2019 05/16/2019 Inactive pantoprazole 40 mg tablet,delayed release RxNorm: 336673 1 Tabl et(s) PO BID 04/17/2019 04/16/2019 Inactive warfarin 10 mg tablet RxNorm: 645372 1 Tablet(s) PO QD 03/12/2019 Inactive warfarin 5 mg tablet RxNorm: 528494 1 Tablet(s) PO QD t o take with 10mg dose on days takes full 15mg dose 03/12/2019 12/06/2019 Inactive warfarin 10 mg tablet RxNorm: 434602 1 Tablet(s) PO QD 12/12/201803/2019 Inactive warfarin 5 mg tablet RxNorm: 709337 1 Tablet(s) PO QD t o take with 10mg dose on days takes full 15mg dose 09/18/2018 03/11/2019 Inactive warfarin 10 mg tablet RxNorm: 376669 1 Tablet(s) PO QD 06/21/201804/2019 Inactive warfarin 3 mg tablet RxNorm: 250731 1 Tablet(s) PO QD 06/21/201812/04 Inactive warfarin 10 mg tablet RxNorm: 096139 1 Tablet(s) PO QD 03/28/2018 Inactive warfarin 3 mg tablet RxNorm: 737952 1 Tablet(s) PO QD 03/28/201806/05 Inactive warfarin 10 mg tablet RxNorm: 451896 1 Tablet(s) PO QD 03/28/2018 Inactive warfarin 3 mg tablet RxNorm: 927920 1 Tablet(s) PO QD 03/28/201803/06 Inactive warfarin 1 mg tablet RxNorm: 506085 3 Tablet(s) PO TIW and 2 tabs all other days 01/18/2018 03/27/2018 Inactive warfarin 5 mg tablet RxNorm: 156721 2 Tablet(s) PO QD 12/19/201703/06 Inactive warfarin 5 mg tablet RxNorm: 614520 2 Tablet(s) PO QD 12/06/201712/04 Inactive warfarin 5 mg tablet RxNorm: 658231 2 Tablet(s) PO QD 12/05/201710/2017 Inactive warfarin 1 mg tablet RxNorm: 191963 2 Tablet(s) PO QD 10/24/201701/03 Inactive warfarin 1 mg tablet RxNorm: 701193 2 Tablet(s) PO QD 07/27/201710/06 Inactive Lovenox 80 mg/0.8 mL subcutaneous syringe RxNorm: 684081 1 Mill iliter(s) SQ BID 03/28/2017 04/26/2017 Inactive Lovenox 80 mg/0.8 mL subcutaneous syringe RxNorm: 032557 1 Unit Dose SQ Q12H 07/01/2015 08/29/2015 Inactive Lovenox 60 mg/0.6 mL subcutaneous syringe RxNorm: 115188 1 Unit Dose SQ BID prn for travel due to high risk for DVT 07/10/2014 07/19/2014 Inactive as directed for flights Lovenox 60 mg/0.6 mL Sub-Q Syringe RxNorm: 270668 1 Unit Dose SQ BI D 06/15/2013 06/24/2013 Inactive as directed for flights Lovenox 60 mg/0.6 mL Sub-Q Syringe RxNorm: 056809 1 Unit Dose SQ BI D 06/28/2011 No Stop Date Active as directed for flights Lamisil 250 mg Tab RxNorm: 992014 1 Tablet(s) PO QD 09/07/20102010 Inactive Lamisil 250 mg Tab RxNorm: 503087 1 Tablet(s) PO QD 06/25/20102010 Inactive Vitamin D3 2,000 unit Tab RxNorm: 112889 1 Tablet(s) PO QD No Start D ate Active niacin 50 mg tablet RxNorm: 457040 1 Tablet(s) PO QD No Start Date Inactive warfarin 5 mg tablet RxNorm: 326577 2 Tablet(s) PO QD No Start Date 0 12/04/2017 Inactive Lovenox 60 mg/0.6 mL Sub-Q Syringe RxNorm: 344337 1 Uni t Dose SQ BID as directed for flights No Start Date 06/27/2011 Inactive Lovenox 60 mg/0.6 mL subcutaneous syringe RxNorm: 277146 Millil iter(s) SQ BID No Start Date 06/30/2015 Inactive warfarin 1 mg tablet RxNorm: 278473 2 Tablet(s) PO QD No Start Date 1 09/25/2016 Inactive Lovenox 80 mg/0.8 mL subcutaneous syringe RxNorm: 179900 1 Mill iliter(s) SQ BID No Start Date 03/27/2017 Inactive warfarin 5 mg tablet RxNorm: 961264 1 Tablet(s) PO QD t o take with 10mg dose on days takes full 15mg dose No Start Date 09/17/2018 Inactive Medication Administered No Medication Administered data Immunizations No Immunization data Results No Results data Procedures Procedure Codes Date SPECIMEN HANDLING OFFICE-LAB CPT-4: 26676 08/24/2018 OCCULT BLOOD FECES CPT-4: 28011 08/24/2018 SPECIMEN HANDLING OFFICE-LAB CPT-4: 98585 07/27/2017 OCCULT BLOOD FECES CPT-4: 58190 07/27/2017 SPECIMEN HANDLING OFFICE-LAB CPT-4: 12996 07/26/2016 SPECIMEN HANDLING OFFICE-LAB CPT-4: 26731 07/15/2015 URINALYSIS NONAUTO W/O SCOPE CPT-4: 34205 07/10/2014 OCCULT BLOOD FECES CPT-4: 84657 07/10/2014 SPECIMEN HANDLING OFFICE-LAB CPT-4: 94186 07/10/2014 URINE CULTURE/ COLONY COUNT CPT-4: 41358 07/10/2014 SPECIMEN HANDLING OFFICE-LAB CPT-4: 44536 07/09/2013 OCCULT BLOOD FECES CPT-4: 45264 07/09/2013 OCCULT BLOOD FECES CPT-4: 00889 07/05/2012 SPECIMEN HANDLING OFFICE-LAB CPT-4: 84915 06/28/2011 OCCULT BLOOD FECES CPT-4: 53526 06/28/2011 SPECIMEN HANDLING OFFICE-LAB CPT-4: 20961 06/25/2010 OCCULT BLOOD FECES CPT-4: 83471 06/25/2010 Vital Signs Date Vital 08/13/2019 Heart [...] 1: 124/78 Code: 8480-6 BMI: 29.4 Code: 70766-0 Heart Rate 1: 72 bpm Height: 5'3" Respiratory Rate: 20 bpm SpO2: 98% Tempera ture: 36.5 (C) / 97.7 (F) Weight: 166 lbs 03/28/2017 Blood Pressure 1: 126/68 Code: 8480-6 BMI: 30.1 Code: 72913-4 Heart Rate 1: 66 bpm Height: 5'3" Respiratory Rate: 24 bpm SpO2: 98% Tempera ture: 36.4 (C) / 97.6 (F) Weight: 170 lbs 07/26/2016 Blood Pressure 1: 124/70 Code: 8480-6 BMI: 28.7 Code: 66781-4 Heart Rate 1: 84 bpm Height: 5'3" Respiratory Rate: 20 bpm Temperature: 36 .7 (C) / 98.0 (F) Weight: 162 lbs 07/15/2015 Blood Pressure 1: 114/78 Code: 8480-6 BMI: 30.8 Code: 60001-2 Heart Rate 1: 72 bpm Height: 5'3" Respiratory Rate: 20 bpm Temperature: 36 .7 (C) / 98.1 (F) Weight: 174 lbs 07/01/2015 Blood Pressure 1: 134/86 Code: 8480-6 BMI: 30.8 Code: 82760-7 Heart Rate 1: 84 bpm Height: 5'3" Respiratory Rate: 20 bpm Temperature: 36 .8 (C) / 98.3 (F) Weight: 174 lbs 07/10/2014 Blood Pressure 1: 124/78 Code: 8480-6 BMI: 29.8 Code: 40856-2 Heart Rate 1: 84 bpm Height: 5'3" Respiratory Rate: 20 bpm Temperature: 36 .7 (C) / 98.0 (F) Weight: 168 lbs 07/09/2013 Blood Pressure 1: 126/80 Code: 8480-6 BMI: 28.3 Code: 06344-4 Heart Rate 1: 80 bpm Height: 5'3" Respiratory Rate: 20 bpm Temperature: 37 .0 (C) / 98.6 (F) Weight: 160 lbs 07/05/2012 Blood Pressure 1: 102/68 Code: 8480-6 BMI: 27.3 Code: 24052-1 Heart Rate 1: 72 bpm Height: 5'3" Respiratory Rate: 20 bpm Temperature: 36 .6 (C) / 97.8 (F) Weight: 154 lbs 03/09/2012 Blood Pressure 1: 116/78 Code: 8480-6 BMI: 28.0 Code: 58344-9 Heart Rate 1: 84 bpm Height: 5'3" Respiratory Rate: 20 bpm Temperature: 36 .9 (C) / 98.4 (F) Weight: 158 lbs 06/28/2011 Blood Pressure 1: 122/78 Code: 8480-6 BMI: 27.6 Code: 53546-7 Heart Rate 1: 76 bpm Height: 5'3" Respiratory Rate: 20 bpm Temperature: 36 .8 (C) / 98.2 (F) Weight: 156 lbs 06/25/2010 Blood Pressure 1: 118/68 Code: 8480-6 BMI: 23.9 Code: 46785-7 Height: 5'3" Temperature: 36.3 (C) / 97.4 (F) Weight: 135 lbs Functional Status No Functional Status data Reason For Visit Reason For Visit Effective Dates Notes knee pain 08/13/2019 follow up 04/09/2019 well [...] g Encounters Encounter Performer Location Codes Date OFFICE/OUTPATIENT VISIT EST Diagnosis: Right knee pain[ICD10: M25.561] Diagnosis: Patellofemoral arthralgia of right knee[ICD10: M25.561] Diagnosis: Patellofemoral arthritis of right knee[ICD10: M17.11] Diagnosis: Belching[ICD10: R14.2] Renu Altamirano [employer] CPT-4: 49117 08/13/2019 ([id number]) OFFICE/OUTPATIENT VISIT EST 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[ICD10: Z79.01] Diagnosis: Personal history of pulmonary embolism[ICD10: Z86.711] Diagnosis: Personal history of other venous thrombosis and embolism[ICD10: Z86.718] Diagnosis: Other allergic rhinitis[ICD10: J30.89] Diagnosis: Abdominal distension (gaseous)[ICD10: R14.0] Jud Shelly HUYNH [employer] CPT-4: 39884 04/09/2019 ([id number]) PREV VISIT EST AGE 40-64 Diagnosis: Encounter for general adult medical examination without abnormal findings[ICD10: Z00.00] Diagnosis: Encounter for gynecological examination (general) (routine) without abnormal findings[ICD10: Z01.419] Diagnosis: Mixed hyperlipidemia[ICD10: E78.2] Diagnosis: Excessive and frequent menstruation with irregular cycle[ICD10: N92.1] Renu HUYNH [employer] CPT-4: 20388 08/24/2018 ([id number]) PREV VISIT EST AGE 40-64 Diagnosis: Encounter for general adult medical examination without abnormal findings[ICD10: Z00.00] Diagnosis: Encounter for gynecological examination (general) (routine) without abnormal findings[ICD10: Z01.419] 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] Renu Adanbenjaminsalvador GONZALEZRENU [facility] CPT-4: 08132 07/27/2017 ([id number]) OFFICE/OUTPATIENT VISIT EST Diagnosis: 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[ICD10: I82.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] Diagnosis: Follicular cyst of left ovary[ICD10: N83.02] Renu Flood [employer] CPT-4: 26386 03/28/2017 ([id number]) PREV VISIT EST AGE 40-64 Diagnosis: Encounter for general adult medical examination without abnormal findings[ICD10: Z00.00] Diagnosis: Encounter for gynecological examination (general) (routine) without abnormal findings[ICD10: Z01.419] Diagnosis: Mixed hyperlipidemia[ICD10: E78.2] 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] Diagnosis: Unspecified lump in breast[ICD10: N63] Renu Adanbenjaminsalvador Flood [employer] CPT-4: 56027 07/26/2016 ([id number]) PREV VISIT EST AGE 40-64 Diagnosis: Encounter for general adult medical examination without abnormal findings[ICD10: Z00.00] Diagnosis: Encounter for gynecological examination (general) (routine) without abnormal findings[ICD10: Z01.419] Diagnosis: Acute embolism and thrombosis of unspecified deep veins of unspecified lower extremity[ICD10: I82.409] Renu HUYNH DO [facility] CPT-4: 93355 07/15/2015 ([id number]) OFFICE/OUTPATIENT VISIT EST Diagnosis: Acute embolism and thrombosis of unspecified deep veins of unspecified lower extremity[ICD10: I82.409] 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] Renu HUYNH DO [facility] CPT-4: 40072 07/01/2015 ([id number]) PREV VISIT EST AGE 40-64 Diagnosis: ROUTINE MEDICAL EXAM[ICD9: V70.0] Diagnosis: ROUTINE GYNE EXAM[ICD9: V72.31] Diagnosis: MALAISE AND FATIGUE[ICD9: 780.79] Diagnosis: Hematuria[ICD9: 599.70] Renu DC DO [facility] CPT-4: 91525 07/10/2014 ([id number]) PREV VISIT EST AGE 40-64 Diagnosis: ROUTINE MEDICAL EXAM[ICD9: V70.0] Diagnosis: ROUTINE GYNE EXAM[ICD9: V72.31] Diagnosis: HYPERLIPIDEMIA NEC/NOS[ICD9: 272.4] Diagnosis: MALAISE AND FATIGUE[ICD9: 780.79] Diagnosis: PAIN, LOWER BACK[ICD9: 724.2] Diagnosis: Menometrorrhagia[ICD9: 626.2] Renu HUYNH DO [facility] CPT-4: 38460 07/09/2013 ([id number]) PREV VISIT EST AGE 40-64 Diagnosis: ROUTINE MEDICAL EXAM[ICD9: V70.0] Diagnosis: ROUTINE GYNE EXAM[ICD9: V72.31] Renu HUYNH DO [facility] CPT-4: 53087 07/05/2012 ([id number]) SPECIMEN HANDLING Diagnosis: [ICD9: ] Diagnosis: [ICD9: ] Renu HUYNH DO [facility] CPT-4: 9900 0 07/05/2012 ([id number]) OFFICE/OUTPATIENT VISIT EST Diagnosis: MALAISE AND FATIGUE[ICD9: 780.79] Diagnosis: HYPERLIPIDEMIA NEC/NOS[ICD9: 272.4] Renu HUYNH DO [facility] CPT-4: 31987 03/09/2012 PREV VISIT EST AGE 40-64 Diagnosis: ROUTINE GYNE EXAM[ICD9: V72.31] Diagnosis: ROUTINE MEDICAL EXAM[ICD9: V70.0] Diagnosis: MALAISE AND FATIGUE[ICD9: 780.79] Renu DOANCARLOS HUYNH [employer] CPT-4: 95743 06/28/2011 ([id number]) PREV VISIT, EST, AGE 40-64 Renu DOANOLIVER HUYNH [employer] CPT-4: 92470 06/25/2010 Plan of Care Planned Activity Notes Codes Status Date Visit Diagnosis Plan: Patellofemoral arthralgia of rig ht knee Discussion: Straight leg raises/strengthening/bycycling If persists then may need ortho ICD-9 : 719.46 ICD-10 : M25.561 08/13/2019 Visit Diagnosis Plan: Belching Discussion: Recommend E GD to rule out causes/check for Helicobacter pylori, etc. Continue betaine hydrochloride with pepsin ICD-9 : 787.3 ICD-10 : R14.2 08/13/2019 Appointment[facility] [phone] [facility] [facility] 08/13/2019 Visit Diagnosis Plan: [...] ICD-10 : Z79.01 04/09/2019 Appointment: Jud Bravo [address] [facility] US FOLLOW UP 04/09/2019 Visit Diagnosis Plan: [...] : 626.2 ICD-10 : N92.1 08/24/2018 Appointment: Renu Huynh WPtel: [facility] Annual Well Visit 08/24/2018 Patient Education: Patient Medication Summary Completed 04/05/2018 Care Plan: MAMMOGRAM SCREENING [facility] : 2 6347-5 Pending 04/05/2018 Visit [...] and has been having bowel changes 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 [...] : V70.9 ICD-10 : Z00.00 07/27/2017 Appointment: Renu Huynh WPtel: [address] [place], [place] [phone] Annual Well Visit 07/27/2017 Patient Education: Patient Medication Summary Completed 07/27/2017 Referral: Vasquez Carpenter WPtel: [phone] [id number] US Referral Initiated 04/19/2017 Visit Diagnosis Plan: 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 Discussion: Referral to hematology to discuss group home anitcoagulation Patient does not want to do orals due to risks Will keep on lovenox until sees hematology ICD-9 : 453.41 ICD-10 : I82.422 03/28/2017 Visit Diagnosis Plan: Follicular cyst of left ovary Di scussion: Pelvic US in 3mos ICD-9 : 620.0 ICD-10 : N83.02 03/28/2017 Appointment: Renu Huynh WPtel: [address] [place], [place] [phone] 03/24 confirmed ~sl WORK IN 03/28/2017 Patient Education: Patient Medication Summary Completed 03/28/2017 Visit Plan: Pap Done Diagnostic Mammogra m with Left Breast US--may need biopsy of left breast lesion pending results Update fasting lab Check CXR and KUB with history of IVC filter 07/26/2016 Appointment: Renu Huynh WPtel: [address] [place], [place] [phone] 07/22 confirmed~sl Annual Well Visit 07/26/2016 Patient Education: Patient Medication Summary Completed 07/26/2016 Visit Plan: Pap done Repeat RLE venous d oppler on Aug 11 Continue lovenox and observe for bleeding Defers mammogram until next year 07/15/2015 Appointment: Renu Huynh WPtel: [address] [place], [place] [id number] 07/10 lm ~sl...07/15 appt confirmed cn PAP 07/15/2015 Patient Education: Patient Medication Summary Completed 07/15/2015 Visit Plan: Continue lovenox as is Obtai n US and ER records from [place] Patient refuses any anticoagulants except lovenox Offered xarelto, eliquis, pradaxa, coumadin, etc. No long trips until fwup Recheck 2weeks Check CBC in 1week Report any signs of bleeding immediately 07/01/2015 Appointment: Renu Huynhtel: [address] [place], [place] [id number] 07/01 called office to confirm ~SL ACUTE ILLNESS 07/01/2015 Patient Education: Patient Medication Summary Completed 07/01/2015 Patient Education: Patient Medication Summary Completed 07/22/2014 Appointment: Renu Huynh WPtel: [address] [place], [place] [id number] 07/09 [facility] Annual Well Visit 07/10/2014 Patient Education: Patient Medication Summary Completed 07/10/2014 Visit Plan: Pap Done Proceed with pelvic US Mammo scheduled May need MRI of L/S spine Pt scheduled for bladder sling in Dec Discussed may need RN ORTHOPEDIC eval due to spotting/ removal of IUD, etc. Check fasting lab 07/09/2013 Appointment: Renu Huynh WPtel: [address] [place] [id number] 07/06 vm PAP 07/09/2013 Patient Education: Patient Medication Summary Completed 07/09/2013 Visit Plan: PAP done Mammo ordered 07/05/2012 Appointment: Renu Huynh WPtel: [address] [place], [place] [phone] 07/04- left message PAP 07/05/2012 Patient Education: Patient Medication Summary Completed 07/05/2012 Visit Plan: Check fasting lab Discussed diet and exercise at length 03/09/2012 Appointment: Renu Huynh WPtel: [address] [place] [id number] US message left with child FOLLOW UP 03/09/20 12 Patient Education: Patient Medication Summary Completed 03/09/2012 Visit Plan: Pap Done and Mammogram order ed CMP, Lipids, CBC, TSH, Free T4 Start daily baby aspirin Use lovenox when flies 06/28/2011 Appointment: Renu Huynh WPtel: [phone] [facility] US PAP 06/28/2011 Patient Education: Patient Medication Summary Completed 06/28/2011 Visit Plan: Pap Done Mammo ordered Trial of lamisil--check LFTs at start and monthly while on and put shoes in moth balls during treatment 06/25/2010 Appointment: [facility]h [facility]el[facility] [phone] [facility] [facility] PAP 06/25/2010 Patient Education: Patient Medication Summary Completed 06/25/2010 Referral: Sherif Bliss WPtel: [facility] [id number] US Referral Appointment Requested Instructions Comment . [...] is Obtain US and ER records from [place] Patient refuses any anticoagulants except lovenox Offered xarelto, eliquis, pradaxa, coumadin, etc. No long trips until fwup Recheck 2weeks Check CBC in 1week Report any signs of bleeding immediately . Pap Done Proceed with pelvic US Mammo scheduled May need MRI of L/S spine Pt scheduled for bladder sling in Aug Discussed may need RN ORTHOPEDIC eval due to spotting/ removal of IUD, [...]
--- OUTSIDE RECORDS SUMMARY | 2020-01-17 07:00 | XMS REPORT | CCD ---
Author Author Cynthia Huynh D.O. Organization [facility] Address [address] [place] [address] Phone Care Team Providers Care Contract Agent Name Role Phone Renu Huynh D.O., PP Unavailable CCM Unavailable Summary Purpose Interface Exchange Insurance Providers Payer name Policy type / Coverage type Covered constitution party ID Effective Begin Date Effective End Date Blue Cross Blue Shield Blue Cross/Blue Shield [id number] Unknown Family History Family History data not found Social History Social History Element Codes Description Effective Dates Marital status Unknown 06/28/[address]: 834227264 Never smoker 06/28/2011 Allergies, Adverse Reactions, Alerts [...] (gaseous) ICD-9: 787.3 ICD-10: R14.0 04/09/2019 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 ICD-9: V58.6 1 [...] Fill Instructions warfarin 5 mg tablet RxNorm: 348009 1 Tablet(s) Oral QD to take with 10mg dose on days takes full 15mg dose 12/07/2019 12/07/2019 Inactive warfarin 10 mg tablet RxNorm: 073801 1 Tablet(s) PO QD 09/03/2019 Inactive warfarin 3 mg tablet RxNorm: 419460 1 Tablet(s) PO QD 09/03/201911/04 Inactive warfarin 3 mg tablet RxNorm: 126286 1 Tablet(s) PO QD 06/07/201908/06 Inactive pantoprazole 40 mg tablet,delayed release RxNorm: 925511 1 Tabl et(s) PO BID 04/17/2019 05/16/2019 Inactive pantoprazole 40 mg tablet,delayed release RxNorm: 118178 1 Tabl et(s) PO BID 04/17/2019 04/16/2019 Inactive warfarin 10 mg tablet RxNorm: 073487 1 Tablet(s) PO QD 03/12/2019 Inactive warfarin 5 mg tablet RxNorm: 688430 1 Tablet(s) PO QD t o take with 10mg dose on days takes full 15mg dose 03/12/2019 12/06/2019 Inactive warfarin 10 mg tablet RxNorm: 681389 1 Tablet(s) PO QD 12/12/201803/2019 Inactive warfarin 5 mg tablet RxNorm: 999818 1 Tablet(s) PO QD t o take with 10mg dose on days takes full 15mg dose 09/18/2018 03/11/2019 Inactive warfarin 10 mg tablet RxNorm: 841375 1 Tablet(s) PO QD 06/21/201804/2019 Inactive warfarin 3 mg tablet RxNorm: 364639 1 Tablet(s) PO QD 06/21/201812/04 Inactive warfarin 10 mg tablet RxNorm: 851944 1 Tablet(s) PO QD 03/28/2018 Inactive warfarin 3 mg tablet RxNorm: 686863 1 Tablet(s) PO QD 03/28/201806/05 Inactive warfarin 10 mg tablet RxNorm: 874289 1 Tablet(s) PO QD 03/28/2018 Inactive warfarin 3 mg tablet RxNorm: 334421 1 Tablet(s) PO QD 03/28/201803/06 Inactive warfarin 1 mg tablet RxNorm: 137901 3 Tablet(s) PO TIW and 2 tabs all other days 01/18/2018 03/27/2018 Inactive warfarin 5 mg tablet RxNorm: 979751 2 Tablet(s) PO QD 12/19/201703/06 Inactive warfarin 5 mg tablet RxNorm: 459541 2 Tablet(s) PO QD 12/06/201712/04 Inactive warfarin 5 mg tablet RxNorm: 743886 2 Tablet(s) PO QD 12/05/201710/2017 Inactive warfarin 1 mg tablet RxNorm: 986477 2 Tablet(s) PO QD 10/24/201701/03 Inactive warfarin 1 mg tablet RxNorm: 978136 2 Tablet(s) PO QD 07/27/201710/06 Inactive Lovenox 80 mg/0.8 mL subcutaneous syringe RxNorm: 656438 1 Mill iliter(s) SQ BID 03/28/2017 04/26/2017 Inactive Lovenox 80 mg/0.8 mL subcutaneous syringe RxNorm: 555851 1 Unit Dose SQ Q12H 07/01/2015 08/29/2015 Inactive Lovenox 60 mg/0.6 mL subcutaneous syringe RxNorm: 041385 1 Unit Dose SQ BID prn for travel due to high risk for DVT 07/10/2014 07/19/2014 Inactive as directed for flights Lovenox 60 mg/0.6 mL Sub-Q Syringe RxNorm: 241633 1 Unit Dose SQ BI D 06/15/2013 06/24/2013 Inactive as directed for flights Lovenox 60 mg/0.6 mL Sub-Q Syringe RxNorm: 036884 1 Unit Dose SQ BI D 06/28/2011 No Stop Date Active as directed for flights Lamisil 250 mg Tab RxNorm: 598458 1 Tablet(s) PO QD 09/07/20102010 Inactive Lamisil 250 mg Tab RxNorm: 442689 1 Tablet(s) PO QD 06/25/20102010 Inactive Vitamin D3 2,000 unit Tab RxNorm: 359313 1 Tablet(s) PO QD No Start D ate Active niacin 50 mg tablet RxNorm: 643138 1 Tablet(s) PO QD No Start Date Inactive warfarin 5 mg tablet RxNorm: 093009 2 Tablet(s) PO QD No Start Date 0 12/04/2017 Inactive Lovenox 60 mg/0.6 mL Sub-Q Syringe RxNorm: 937026 1 Uni t Dose SQ BID as directed for flights No Start Date 06/27/2011 Inactive Lovenox 60 mg/0.6 mL subcutaneous syringe RxNorm: 139997 Millil iter(s) SQ BID No Start Date 06/30/2015 Inactive warfarin 1 mg tablet RxNorm: 905736 2 Tablet(s) PO QD No Start Date 1 09/25/2016 Inactive Lovenox 80 mg/0.8 mL subcutaneous syringe RxNorm: 338092 1 Mill iliter(s) SQ BID No Start Date 03/27/2017 Inactive warfarin 5 mg tablet RxNorm: 078249 1 Tablet(s) PO QD t o take with 10mg dose on days takes full 15mg dose No Start Date 09/17/2018 Inactive Medication Administered No Medication Administered data Immunizations No Immunization data Results No Results data Procedures Procedure Codes Date SPECIMEN HANDLING OFFICE-LAB CPT-4: 43749 08/24/2018 OCCULT BLOOD FECES CPT-4: 91615 08/24/2018 SPECIMEN HANDLING OFFICE-LAB CPT-4: 51980 07/27/2017 OCCULT BLOOD FECES CPT-4: 25078 07/27/2017 SPECIMEN HANDLING OFFICE-LAB CPT-4: 93789 07/26/2016 SPECIMEN HANDLING OFFICE-LAB CPT-4: 08610 07/15/2015 URINALYSIS NONAUTO W/O SCOPE CPT-4: 90982 07/10/2014 OCCULT BLOOD FECES CPT-4: 71305 07/10/2014 SPECIMEN HANDLING OFFICE-LAB CPT-4: 12055 07/10/2014 URINE CULTURE/ COLONY COUNT CPT-4: 34798 07/10/2014 SPECIMEN HANDLING OFFICE-LAB CPT-4: 07491 07/09/2013 OCCULT BLOOD FECES CPT-4: 22426 07/09/2013 OCCULT BLOOD FECES CPT-4: 52989 07/05/2012 SPECIMEN HANDLING OFFICE-LAB CPT-4: 64353 06/28/2011 OCCULT BLOOD FECES CPT-4: 16813 06/28/2011 SPECIMEN HANDLING OFFICE-LAB CPT-4: 85539 06/25/2010 OCCULT BLOOD FECES CPT-4: 24815 06/25/2010 Vital Signs Date Vital 08/13/2019 Heart [...] 1: 124/78 Code: 8480-6 BMI: 29.4 Code: 39221-1 Heart Rate 1: 72 bpm Height: 5'3" Respiratory Rate: 20 bpm SpO2: 98% Tempera ture: 36.5 (C) / 97.7 (F) Weight: 166 lbs 03/28/2017 Blood Pressure 1: 126/68 Code: 8480-6 BMI: 30.1 Code: 83029-5 Heart Rate 1: 66 bpm Height: 5'3" Respiratory Rate: 24 bpm SpO2: 98% Tempera ture: 36.4 (C) / 97.6 (F) Weight: 170 lbs 07/26/2016 Blood Pressure 1: 124/70 Code: 8480-6 BMI: 28.7 Code: 34942-5 Heart Rate 1: 84 bpm Height: 5'3" Respiratory Rate: 20 bpm Temperature: 36 .7 (C) / 98.0 (F) Weight: 162 lbs 07/15/2015 Blood Pressure 1: 114/78 Code: 8480-6 BMI: 30.8 Code: 61266-4 Heart Rate 1: 72 bpm Height: 5'3" Respiratory Rate: 20 bpm Temperature: 36 .7 (C) / 98.1 (F) Weight: 174 lbs 07/01/2015 Blood Pressure 1: 134/86 Code: 8480-6 BMI: 30.8 Code: 02623-6 Heart Rate 1: 84 bpm Height: 5'3" Respiratory Rate: 20 bpm Temperature: 36 .8 (C) / 98.3 (F) Weight: 174 lbs 07/10/2014 Blood Pressure 1: 124/78 Code: 8480-6 BMI: 29.8 Code: 88048-7 Heart Rate 1: 84 bpm Height: 5'3" Respiratory Rate: 20 bpm Temperature: 36 .7 (C) / 98.0 (F) Weight: 168 lbs 07/09/2013 Blood Pressure 1: 126/80 Code: 8480-6 BMI: 28.3 Code: 90095-5 Heart Rate 1: 80 bpm Height: 5'3" Respiratory Rate: 20 bpm Temperature: 37 .0 (C) / 98.6 (F) Weight: 160 lbs 07/05/2012 Blood Pressure 1: 102/68 Code: 8480-6 BMI: 27.3 Code: 05061-8 Heart Rate 1: 72 bpm Height: 5'3" Respiratory Rate: 20 bpm Temperature: 36 .6 (C) / 97.8 (F) Weight: 154 lbs 03/09/2012 Blood Pressure 1: 116/78 Code: 8480-6 BMI: 28.0 Code: 85089-7 Heart Rate 1: 84 bpm Height: 5'3" Respiratory Rate: 20 bpm Temperature: 36 .9 (C) / 98.4 (F) Weight: 158 lbs 06/28/2011 Blood Pressure 1: 122/78 Code: 8480-6 BMI: 27.6 Code: 76738-7 Heart Rate 1: 76 bpm Height: 5'3" Respiratory Rate: 20 bpm Temperature: 36 .8 (C) / 98.2 (F) Weight: 156 lbs 06/25/2010 Blood Pressure 1: 118/68 Code: 8480-6 BMI: 23.9 Code: 72344-3 Height: 5'3" Temperature: 36.3 (C) / 97.4 [...] knee[ICD10: M17.11] Diagnosis: Belching[ICD10: R14.2] Renu Altamirano [employer] CPT-4: 38177 08/13/2019 ([id number]) OFFICE/OUTPATIENT VISIT EST 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2] Diagnosis: Excessive and frequent menstruation with irregular cycle[ICD10: N92.1] Renu HUYNH [employer] CPT-4: 10361 08/24/2018 ([id number]) PREV VISIT EST AGE 40-64 Diagnosis: Encounter for general adult medical examination without abnormal findings[ICD10: Z00.00] Diagnosis: Encounter for gynecological examination (general) (routine) without abnormal findings[ICD10: Z01.419] 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] Renu Adanbenjaminsalvador GONZALEZRENU [employer] CPT-4: 22053 07/27/2017 ([id number]) OFFICE/OUTPATIENT VISIT EST Diagnosis: 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[ICD10: I82.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] Diagnosis: Follicular cyst of left ovary[ICD10: N83.02] Renu Flood [employer] CPT-4: 29132 03/28/2017 ([id number]) PREV VISIT EST AGE 40-64 Diagnosis: Encounter for general adult medical examination without abnormal findings[ICD10: Z00.00] Diagnosis: Encounter for gynecological examination (general) (routine) without abnormal findings[ICD10: Z01.419] Diagnosis: Mixed hyperlipidemia[ICD10: E78.2] 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] Diagnosis: Unspecified lump in breast[ICD10: N63] Renu Adanbenjaminsalvador Flood [employer] CPT-4: 43030 07/26/2016 ([id number]) PREV VISIT EST AGE 40-64 Diagnosis: Encounter for general adult medical examination without abnormal findings[ICD10: Z00.00] Diagnosis: Encounter for gynecological examination (general) (routine) without abnormal findings[ICD10: Z01.419] Diagnosis: Acute embolism and thrombosis of unspecified deep veins of unspecified lower extremity[ICD10: I82.409] Renu HUYNH DO [facility] CPT-4: 71450 07/15/2015 ([id number]) OFFICE/OUTPATIENT VISIT EST Diagnosis: Acute embolism and thrombosis of unspecified deep veins of unspecified lower extremity[ICD10: I82.409] 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] Renu HUYNH [facility] CPT-4: 58688 07/01/2015 ([id number]) PREV VISIT EST AGE 40-64 Diagnosis: ROUTINE MEDICAL EXAM[ICD9: V70.0] Diagnosis: ROUTINE GYNE EXAM[ICD9: V72.31] Diagnosis: MALAISE AND FATIGUE[ICD9: 780.79] Diagnosis: Hematuria[ICD9: 599.70] Renu DC DO [facility] CPT-4: 12844 07/10/2014 ([id number]) PREV VISIT EST AGE 40-64 Diagnosis: ROUTINE MEDICAL EXAM[ICD9: V70.0] Diagnosis: ROUTINE GYNE EXAM[ICD9: V72.31] Diagnosis: HYPERLIPIDEMIA NEC/NOS[ICD9: 272.4] Diagnosis: MALAISE AND FATIGUE[ICD9: 780.79] Diagnosis: PAIN, LOWER BACK[ICD9: 724.2] Diagnosis: Menometrorrhagia[ICD9: 626.2] Renu HUYNH DO [facility] CPT-4: 03815 07/09/2013 ([id number]) PREV VISIT EST AGE 40-64 Diagnosis: ROUTINE MEDICAL EXAM[ICD9: V70.0] Diagnosis: ROUTINE GYNE EXAM[ICD9: V72.31] Renu HUYNH DO [facility] CPT-4: 73794 07/05/2012 ([id number]) SPECIMEN HANDLING Diagnosis: [ICD9: ] Diagnosis: [ICD9: ] Renu HUYNH DO [facility] CPT-4: 9900 0 07/05/2012 ([id number]) OFFICE/OUTPATIENT VISIT EST Diagnosis: MALAISE AND FATIGUE[ICD9: 780.79] Diagnosis: HYPERLIPIDEMIA NEC/NOS[ICD9: 272.4] Renu HU[facility]NH [facility] CPT-4: 62012 03/09/2012 PREV VISIT EST AGE 40-64 Diagnosis: ROUTINE GYNE EXAM[ICD9: V72.31] Diagnosis: ROUTINE MEDICAL EXAM[ICD9: V70.0] Diagnosis: MALAISE AND FATIGUE[ICD9: 780.79] Renu DOANCARLOS HUYNH [facility] CPT-4: 95237 06/28/2011 ([id number]) PREV VISIT, EST, AGE 40-64 Renu DOANOLIVER HUYNH [facility] CPT-4: 01546 06/25/2010 Plan of Care Planned Activity Notes [...] 787.3 ICD-10 : R14.2 08/13/2019 Appointment: Renu Hunyh WPtel[facility] [phone] [facility] ACUTE ILL[facility] 08/13/2019 Visit Diagnosis Plan: Other [...] : Z79.01 04/09/2019 Appointment: Jud Bravo [address] [facility] US FOLLOW UP 04/09/2019 Visit Diagnosis [...] : N92.1 08/24/2018 Appointment: Renu Huynh WPtel: [facility] Annual Well Visit 08/24/2018 Patient Education: Patient Medication Summary Completed 04/05/2018 Care Plan: MAMMOGRAM SCREENING [facility] : 2 6347-5 Pending 04/05/2018 Visit Diagnosis [...] and has been having bowel changes 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 [...] : Z00.00 07/27/2017 Appointment: Renu Huynh WPtel: [address] [place], [place] [phone] Annual Well Visit 07/27/2017 Patient Education: Patient Medication Summary Completed 07/27/2017 Referral: Vasquez Carpenter WPtel: [id number] US Referral Initiated 04/19/2017 Visit Diagnosis Plan: 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 Discussion: Referral to hematology to discuss fpc anitcoagulation Patient does not want to do orals due to risks Will keep on lovenox until sees hematology ICD-9 : 453.41 ICD-10 : I82.422 03/28/2017 Visit Diagnosis Plan: Follicular cyst of left ovary Di scussion: Pelvic US in 3mos ICD-9 : 620.0 ICD-10 : N83.02 03/28/2017 Appointment: Renu Huynh WPtel: [address] [place], [place] [phone] 03/24 confirmed ~sl WORK IN 03/28/2017 Patient Education: Patient Medication Summary Completed 03/28/2017 Visit Plan: Pap Done Diagnostic Mammogra m with Left Breast US--may need biopsy of left breast lesion pending results Update fasting lab Check CXR and KUB with history of IVC filter 07/26/2016 Appointment: Renu Huynh WPtel: [address] [place], [place] [phone] 07/22 confirmed~sl Annual Well Visit 07/26/2016 Patient Education: Patient Medication Summary Completed 07/26/2016 Visit Plan: Pap done Repeat RLE venous d oppler on Aug 11 Continue lovenox and observe for bleeding Defers mammogram until next year 07/15/2015 Appointment: Renu Huynh WPtel: [address] [place], [place] [id number] 07/10 lm ~sl...07/15 appt confirmed cn PAP 07/15/2015 Patient Education: Patient Medication Summary Completed 07/15/2015 Visit Plan: Continue lovenox as is Obtai n US and ER records from [place] Patient refuses any anticoagulants except lovenox Offered xarelto, eliquis, pradaxa, coumadin, etc. No long trips until fwup Recheck 2weeks Check CBC in 1week Report any signs of bleeding immediately 07/01/2015 Appointment: Renu Huynhtel: [address] [place], [place] [id number] 07/01 called office to confirm ~SL ACUTE ILLNESS 07/01/2015 Patient Education: Patient Medication Summary Completed 07/01/2015 Patient Education: Patient Medication Summary Completed 07/22/2014 Appointment: Renu Huynh WPtel: [address] [place], [place] [id number] 07/09 [facility] Annual Well Visit 07/10/2014 Patient Education: Patient Medication Summary Completed 07/10/2014 Visit Plan: Pap Done Proceed with pelvic US Mammo scheduled May need MRI of L/S spine Pt scheduled for bladder sling in Dec Discussed 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 Check fasting lab 07/09/2013 Appointment: Renu Huynh WPtel: [address] [place], [place] [id number] 07/06 vm PAP 07/09/2013 Patient Education: Patient Medication Summary Completed 07/09/2013 Visit Plan: PAP done Mammo ordered 07/05/2012 Appointment: Renu Huynh WPtel: [address] [place], [place] [phone] 07/04- left message PAP 07/05/2012 Patient Education: Patient Medication Summary Completed 07/05/2012 Visit Plan: Check fasting lab Discussed diet and exercise at length 03/09/2012 Appointment: Renu Huynh WPtel: [address] [place] [id number] [place] message left with child FOLLOW UP 03/09/20 12 Patient Education: Patient Medication Summary Completed 03/09/2012 Visit Plan: Pap Done and Mammogram order ed CMP, Lipids, CBC, TSH, Free T4 Start daily baby aspirin Use lovenox when flies 06/28/2011 Appointment: Renu Huynh WPtel: [phone] [facility] US PAP 06/28/2011 Patient Education: Patient Medication Summary Completed 06/28/2011 Visit Plan: Pap Done Mammo ordered Trial of lamisil--check LFTs at start and monthly while on and put shoes in moth balls during treatment 06/25/2010 Appointment: Renu Huynh WPtel: [phone] [facility] [place] PAP 06/25/2010 Patient Education: Patient Medication Summary Completed 06/25/2010 Referral: Sherif Bliss WPtel: [facility] [employer] [id number] [place] Referral Appointment Requested Instructions Comment . [...] bladder sling in Aug Discussed may need SMOKE JUMPER SUPERVISOR eval due to spotting/ removal of IUD, [...]
--- OUTSIDE RECORDS SUMMARY | 2020-01-17 07:00 | XMS REPORT | CCD ---
Author Author Cynthia Huynh D.O. Organization [facility] Address [address] [place] [address] Phone Care Team Providers Care Computer Numeric Control Setter Name Role Phone Tonya Huynh D.O., PP Unavailable CCM Unavailable Summary Purpose Interface Exchange Insurance Providers Payer name Policy type / Coverage type Covered libertarian ID Effective Begin Date Effective End Date Blue Cross Blue Shield Blue Cross/Blue Shield [id number] Unknown Family History Family History data not found Social History Social History Element Codes Description Effective Dates Marital status Unknown 06/28/[address]: 883020859 Never smoker 06/28/2011 Allergies, Adverse Reactions, Alerts [...] Fill Instructions warfarin 5 mg tablet RxNorm: 717043 Tablet(s) Oral As Directed 02/2020 No Stop Date Active warfarin 10 mg tablet RxNorm: 827553 Tablet(s) Oral As Directed 02/2020 No Stop Date Active warfarin 3 mg tablet RxNorm: 109633 Tablet(s) Oral As Directed 02/2020 No Stop Date Active Lovenox 60 mg/0.6 mL subcutaneous syringe RxNorm: 994670 1 Unit(s) Subcutaneous two times a day 1 week prior to surgery then 3 days after surgery 01/09/2020 01/19/2020 Active warfarin 10 mg tablet RxNorm: 808763 1 Tablet(s) Oral QD 12/10/2019 0 01/08/2020 Inactive warfarin 5 mg tablet RxNorm: 045001 1 Tablet(s) Oral QD to take with 10mg dose on days takes full 15mg dose 12/07/2019 12/07/2019 Inactive warfarin 3 mg tablet RxNorm: 294413 1 Tablet(s) PO QD 09/03/201911/04 Inactive warfarin 10 mg tablet RxNorm: 124114 1 Tablet(s) PO QD 09/03/2019 Inactive warfarin 3 mg tablet RxNorm: 701973 1 Tablet(s) PO QD 06/07/201908/06 Inactive pantoprazole 40 mg tablet,delayed release RxNorm: 047895 1 Tabl et(s) PO BID 04/17/2019 05/16/2019 Inactive pantoprazole 40 mg tablet,delayed release RxNorm: 829963 1 Tabl et(s) PO BID 04/17/2019 04/16/2019 Inactive warfarin 10 mg tablet RxNorm: 858984 1 Tablet(s) PO QD 03/12/2019 Inactive warfarin 5 mg tablet RxNorm: 350397 1 Tablet(s) PO QD t o take with 10mg dose on days takes full 15mg dose 03/12/2019 12/06/2019 Inactive warfarin 10 mg tablet RxNorm: 252069 1 Tablet(s) PO QD 12/12/201803/2019 Inactive warfarin 5 mg tablet RxNorm: 141119 1 Tablet(s) PO QD t o take with 10mg dose on days takes full 15mg dose 09/18/2018 03/11/2019 Inactive warfarin 10 mg tablet RxNorm: 545148 1 Tablet(s) PO QD 06/21/201804/2019 Inactive warfarin 3 mg tablet RxNorm: 589786 1 Tablet(s) PO QD 06/21/201812/04 Inactive warfarin 10 mg tablet RxNorm: 105756 1 Tablet(s) PO QD 03/28/2018 Inactive warfarin 3 mg tablet RxNorm: 297437 1 Tablet(s) PO QD 03/28/201806/05 Inactive warfarin 10 mg tablet RxNorm: 974170 1 Tablet(s) PO QD 03/28/2018 Inactive warfarin 3 mg tablet RxNorm: 046479 1 Tablet(s) PO QD 03/28/201803/06 Inactive warfarin 1 mg tablet RxNorm: 349888 3 Tablet(s) PO TIW and 2 tabs all other days 01/18/2018 03/27/2018 Inactive warfarin 5 mg tablet RxNorm: 358720 2 Tablet(s) PO QD 12/19/201703/06 Inactive warfarin 5 mg tablet RxNorm: 686673 2 Tablet(s) PO QD 12/06/201712/04 Inactive warfarin 5 mg tablet RxNorm: 071783 2 Tablet(s) PO QD 12/05/201710/2017 Inactive warfarin 1 mg tablet RxNorm: 947492 2 Tablet(s) PO QD 10/24/201701/03 Inactive warfarin 1 mg tablet RxNorm: 844007 2 Tablet(s) PO QD 07/27/201710/06 Inactive Lovenox 80 mg/0.8 mL subcutaneous syringe RxNorm: 193924 1 Mill iliter(s) SQ BID 03/28/2017 04/26/2017 Inactive Lovenox 80 mg/0.8 mL subcutaneous syringe RxNorm: 863601 1 Unit Dose SQ Q12H 07/01/2015 08/29/2015 Inactive Lovenox 60 mg/0.6 mL subcutaneous syringe RxNorm: 775244 1 Unit Dose SQ BID prn for travel due to high risk for DVT 07/10/2014 07/19/2014 Inactive as directed for flights Lovenox 60 mg/0.6 mL Sub-Q Syringe RxNorm: 726696 1 Unit Dose SQ BI D 06/15/2013 06/24/2013 Inactive as directed for flights Lovenox 60 mg/0.6 mL Sub-Q Syringe RxNorm: 416448 1 Unit Dose SQ BI D 06/28/2011 No Stop Date Active as directed for flights Lamisil 250 mg Tab RxNorm: 240402 1 Tablet(s) PO QD 09/07/20102010 Inactive Lamisil 250 mg Tab RxNorm: 767595 1 Tablet(s) PO QD 06/25/20102010 Inactive Vitamin D3 2,000 unit Tab RxNorm: 488530 1 Tablet(s) PO QD No Start D ate Active niacin 50 mg tablet RxNorm: 374586 1 Tablet(s) PO QD No Start Date Inactive warfarin 5 mg tablet RxNorm: 223134 2 Tablet(s) PO QD No Start Date 0 12/04/2017 Inactive Lovenox 60 mg/0.6 mL Sub-Q Syringe RxNorm: 574507 1 Uni t Dose SQ BID as directed for flights No Start Date 06/27/2011 Inactive Lovenox 60 mg/0.6 mL subcutaneous syringe RxNorm: 066716 Millil iter(s) SQ BID No Start Date 06/30/2015 Inactive warfarin 1 mg tablet RxNorm: 189869 2 Tablet(s) PO QD No Start Date 1 09/25/2016 Inactive Lovenox 80 mg/0.8 mL subcutaneous syringe RxNorm: 785172 1 Mill iliter(s) SQ BID No Start Date 03/27/2017 Inactive warfarin 5 mg tablet RxNorm: 258104 1 Tablet(s) PO QD t o take with 10mg dose on days takes full 15mg dose No Start Date 09/17/2018 Inactive Medication Administered No Medication Administered data Immunizations No Immunization data Results No Results data Procedures Procedure Codes Date SPECIMEN HANDLING OFFICE-LAB CPT-4: 23959 08/24/2018 OCCULT BLOOD FECES CPT-4: 38442 08/24/2018 SPECIMEN HANDLING OFFICE-LAB CPT-4: 72537 07/27/2017 OCCULT BLOOD FECES CPT-4: 19818 07/27/2017 SPECIMEN HANDLING OFFICE-LAB CPT-4: 57054 07/26/2016 SPECIMEN HANDLING OFFICE-LAB CPT-4: 65254 07/15/2015 URINALYSIS NONAUTO W/O SCOPE CPT-4: 65968 07/10/2014 OCCULT BLOOD FECES CPT-4: 77282 07/10/2014 SPECIMEN HANDLING OFFICE-LAB CPT-4: 55594 07/10/2014 URINE CULTURE/ COLONY COUNT CPT-4: 14748 07/10/2014 SPECIMEN HANDLING OFFICE-LAB CPT-4: 82298 07/09/2013 OCCULT BLOOD FECES CPT-4: 44015 07/09/2013 OCCULT BLOOD FECES CPT-4: 17223 07/05/2012 SPECIMEN HANDLING OFFICE-LAB CPT-4: 04295 06/28/2011 OCCULT BLOOD FECES CPT-4: 60280 06/28/2011 SPECIMEN HANDLING OFFICE-LAB CPT-4: 12444 06/25/2010 OCCULT BLOOD FECES CPT-4: 75374 06/25/2010 Vital Signs Date Vital 08/13/2019 Heart [...] 1: 124/78 Code: 8480-6 BMI: 29.4 Code: 36838-3 Heart Rate 1: 72 bpm Height: 5'3" Respiratory Rate: 20 bpm SpO2: 98% Tempera ture: 36.5 (C) / 97.7 (F) Weight: 166 lbs 03/28/2017 Blood Pressure 1: 126/68 Code: 8480-6 BMI: 30.1 Code: 26698-1 Heart Rate 1: 66 bpm Height: 5'3" Respiratory Rate: 24 bpm SpO2: 98% Tempera ture: 36.4 (C) / 97.6 (F) Weight: 170 lbs 07/26/2016 Blood Pressure 1: 124/70 Code: 8480-6 BMI: 28.7 Code: 18716-5 Heart Rate 1: 84 bpm Height: 5'3" Respiratory Rate: 20 bpm Temperature: 36 .7 (C) / 98.0 (F) Weight: 162 lbs 07/15/2015 Blood Pressure 1: 114/78 Code: 8480-6 BMI: 30.8 Code: 50246-7 Heart Rate 1: 72 bpm Height: 5'3" Respiratory Rate: 20 bpm Temperature: 36 .7 (C) / 98.1 (F) Weight: 174 lbs 07/01/2015 Blood Pressure 1: 134/86 Code: 8480-6 BMI: 30.8 Code: 30845-7 Heart Rate 1: 84 bpm Height: 5'3" Respiratory Rate: 20 bpm Temperature: 36 .8 (C) / 98.3 (F) Weight: 174 lbs 07/10/2014 Blood Pressure 1: 124/78 Code: 8480-6 BMI: 29.8 Code: 00673-0 Heart Rate 1: 84 bpm Height: 5'3" Respiratory Rate: 20 bpm Temperature: 36 .7 (C) / 98.0 (F) Weight: 168 lbs 07/09/2013 Blood Pressure 1: 126/80 Code: 8480-6 BMI: 28.3 Code: 22987-2 Heart Rate 1: 80 bpm Height: 5'3" Respiratory Rate: 20 bpm Temperature: 37 .0 (C) / 98.6 (F) Weight: 160 lbs 07/05/2012 Blood Pressure 1: 102/68 Code: 8480-6 BMI: 27.3 Code: 19400-5 Heart Rate 1: 72 bpm Height: 5'3" Respiratory Rate: 20 bpm Temperature: 36 .6 (C) / 97.8 (F) Weight: 154 lbs 03/09/2012 Blood Pressure 1: 116/78 Code: 8480-6 BMI: 28.0 Code: 12831-6 Heart Rate 1: 84 bpm Height: 5'3" Respiratory Rate: 20 bpm Temperature: 36 .9 (C) / 98.4 (F) Weight: 158 lbs 06/28/2011 Blood Pressure 1: 122/78 Code: 8480-6 BMI: 27.6 Code: 72472-2 Heart Rate 1: 76 bpm Height: 5'3" Respiratory Rate: 20 bpm Temperature: 36 .8 (C) / 98.2 (F) Weight: 156 lbs 06/25/2010 Blood Pressure 1: 118/68 Code: 8480-6 BMI: 23.9 Code: 60730-2 Height: 5'3" Temperature: 36.3 (C) / 97.4 [...] g Encounters Encounter Performer Location Codes Date ([id number]) OFFICE/OUTPATIENT VISIT EST Diagnosis: Chronic sinusitis[ICD10: J32.9] Diagnosis: Deviated septum[ICD10: J34.2] Diagnosis: Pre-op exam[ICD10: Z01.818] Tonya Rose PT-4: 33718 01/09/2020 OFFICE/OUTPATIENT VISIT EST Diagnosis: Right knee pain[ICD10: M25.561] Diagnosis: Patellofemoral arthralgia of right knee[ICD10: M25.561] Diagnosis: Patellofemoral arthritis of right knee[ICD10: M17.11] Diagnosis: Belching[ICD10: R14.2] Tonya Altamirano [employer] CPT-4: 56368 08/13/2019 ([id number]) OFFICE/OUTPATIENT VISIT EST Diagnosis: snf (current) use of anticoagulants[ICD10: Z79.01] Diagnosis: Personal history of pulmonary embolism[ICD10: Z86.711] Diagnosis: Personal history of other venous thrombosis and embolism[ICD10: Z86.718] Diagnosis: Other allergic rhinitis[ICD10: J30.89] Diagnosis: Abdominal distension (gaseous)[ICD10: R14.0] Jud Bravo TONYA Flood ADANGOLDIE [employer] CPT-4: 25873 04/09/2019 ([id number]) PREV VISIT EST AGE 40-64 Diagnosis: Encounter for general adult medical examination without abnormal findings[ICD10: Z00.00] Diagnosis: Encounter for gynecological examination (general) (routine) without abnormal findings[ICD10: Z01.419] Diagnosis: Mixed hyperlipidemia[ICD10: E78.2] Diagnosis: Excessive and frequent menstruation with irregular cycle[ICD10: N92.1] Tonya HUYNH [employer] CPT-4: 35527 08/24/2018 ([id number]) PREV VISIT EST AGE 40-64 Diagnosis: Encounter for general adult medical examination without abnormal findings[ICD10: Z00.00] Diagnosis: Encounter for gynecological examination (general) (routine) without abnormal findings[ICD10: Z01.419] 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] Tonya [facility] DO [facility] CPT-4: 68604 07/27/2017 ([id number]) OFFICE/OUTPATIENT VISIT EST Diagnosis: 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[ICD10: I82.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] Diagnosis: Follicular cyst of left ovary[ICD10: N83.02] Tonya [facility]NH DO [facility] CPT-4: 29814 03/28/2017 ([id number]) PREV VISIT EST AGE 40-64 Diagnosis: Encounter for general adult medical examination without abnormal findings[ICD10: Z00.00] Diagnosis: Encounter for gynecological examination (general) (routine) without abnormal findings[ICD10: Z01.419] Diagnosis: Mixed hyperlipidemia[ICD10: E78.2] 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] Diagnosis: Unspecified lump in breast[ICD10: N63] Tonya [facility] CPT-4: 22257 07/26/2016 ([id number]) PREV VISIT EST AGE 40-64 Diagnosis: Encounter for general adult medical examination without abnormal findings[ICD10: Z00.00] Diagnosis: Encounter for gynecological examination (general) (routine) without abnormal findings[ICD10: Z01.419] Diagnosis: Acute embolism and thrombosis of unspecified deep veins of unspecified lower extremity[ICD10: I82.409] [facility]a [facility] CPT-4: 40824 07/15/2015 ([id number]) OFFICE/OUTPATIENT VISIT EST Diagnosis: Acute embolism and thrombosis of unspecified deep veins of unspecified lower extremity[ICD10: I82.409] 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] [facility] CPT-4: 12070 07/01/2015 ([id number]) PREV VISIT EST AGE 40-64 Diagnosis: ROUTINE MEDICAL EXAM[ICD9: V70.0] Diagnosis: ROUTINE GYNE EXAM[ICD9: V72.31] Diagnosis: MALAISE AND FATIGUE[ICD9: 780.79] Diagnosis: Hematuria[ICD9: 599.70] Tonya GONZALEZLINE Remigio DC DO [employer] CPT-4: 60657 07/10/2014 ([id number]) PREV VISIT EST AGE 40-64 Diagnosis: ROUTINE MEDICAL EXAM[ICD9: V70.0] Diagnosis: ROUTINE GYNE EXAM[ICD9: V72.31] Diagnosis: HYPERLIPIDEMIA NEC/NOS[ICD9: 272.4] Diagnosis: MALAISE AND FATIGUE[ICD9: 780.79] Diagnosis: PAIN, LOWER BACK[ICD9: 724.2] Diagnosis: Menometrorrhagia[ICD9: 626.2] Tonya Adanbenjaminsalvador TONYA Mary GraceArnoldo KENDY [employer] CPT-4: 04228 07/09/2013 ([id number]) PREV VISIT EST AGE 40-64 Diagnosis: ROUTINE MEDICAL EXAM[ICD9: V70.0] Diagnosis: ROUTINE GYNE EXAM[ICD9: V72.31] Tonya Adanbenjaminsalvador DONATONYA Mary GraceArnoldo KENDY WILLS [employer] CPT-4: 55341 07/05/2012 ([id number]) SPECIMEN HANDLING Diagnosis: [ICD9: ] Diagnosis: [ICD9: ] Tonya Arellanobenjaminsalvador GONZALEZTONYA Mary GraceArnoldo KENDY WILLS [employer] CPT-4: 9900 0 07/05/2012 ([id number]) OFFICE/OUTPATIENT VISIT EST Diagnosis: MALAISE AND FATIGUE[ICD9: 780.79] Diagnosis: HYPERLIPIDEMIA NEC/NOS[ICD9: 272.4] Tonya AGUIAR Mary GraceArnoldo KENDY [employer] CPT-4: 35474 03/09/2012 PREV VISIT EST AGE 40-64 Diagnosis: ROUTINE GYNE EXAM[ICD9: V72.31] Diagnosis: ROUTINE MEDICAL EXAM[ICD9: V70.0] Diagnosis: MALAISE AND FATIGUE[ICD9: 780.79] Tonya Garrido Mary GraceArnoldo KENDY [employer] CPT-4: 74195 06/28/2011 ([id number]) PREV VISIT, EST, AGE 40-64 Tonya Adanbenjaminsalvador FANNIE ALMONTE Mary GraceArnoldo KENDY WILLS [employer] CPT-4: 13135 06/25/2010 Plan of Care Planned Activity Notes [...] R14.2 08/13/2019 [facility]ment[facility] [phone] [id number] [facility] 08/13/2019 Visit Diagnosis Plan: [...] ICD-10 : R14.0 04/09/2019 Visit 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 recheck inr in 1 week and call office with results. order was signed for patient to receive more test strips at home. ICD-9 : V58.61 ICD-10 : Z79.01 04/09/2019 Appointment: Jud Bravo [address] [place], [place] [id number] US FOLLOW UP 04/09/2019 Visit Diagnosis Plan: [...] N92.1 08/24/2018 Appointment: [facility] [phone] [id number] Annual Well Visit 08/24/2018 Patient Education: Patient Medication Summary Completed 04/05/2018 Care Plan: [facility] : 2 6347-5 Pending 04/05/2018 Visit Diagnosis [...] and has been having bowel changes Patient's reliner had her CT scan of abdomen reviewed [...] : Z00.00 07/27/2017 Appointment: Tonya Huynh WPtel: [address] [place], [place] [phone] Annual Well Visit 07/27/2017 Patient Education: Patient Medication Summary Completed 07/27/2017 Referral: Vasquez Carpenter WPtel: [phone] [id number] US Referral Initiated 04/19/2017 Visit Diagnosis Plan: [...] : N83.02 03/28/2017 Appointment: Tonya Huynh WPtel: [address] [place], [place] [phone] [place] 03/24 confirmed ~sl WORK IN 03/28/2017 Patient Education: Patient Medication Summary Completed 03/28/2017 Visit Plan: Pap Done Diagnostic Mammogra m with Left Breast US--may need biopsy of left breast lesion pending results Update fasting lab Check CXR and KUB with history of IVC filter 07/26/2016 Appointment: Tonya Huynh WPtel: [address] [place], [place] [phone] [place] 07/22 confirmed~sl Annual Well Visit 07/26/2016 Patient Education: Patient Medication Summary Completed 07/26/2016 Visit Plan: Pap done Repeat RLE venous d oppler on Aug 11 Continue lovenox and observe for bleeding Defers mammogram until next year 07/15/2015 Appointment: Tonya Huynh WPtel: [address] [place], [place] [phone] [place] 07/10 lm ~sl...07/15 appt confirmed cn PAP 07/15/2015 Patient Education: Patient Medication Summary Completed 07/15/2015 Visit Plan: Continue lovenox as is Obtai n US and ER records from [place] Patient refuses any anticoagulants except lovenox Offered xarelto, eliquis, pradaxa, coumadin, etc. No long trips until fwup Recheck 2weeks Check CBC in 1week Report any signs of bleeding immediately 07/01/2015 Appointment: Tonya Huynhtel: [address] [place], [place] [phone] 07/01 called office to confirm ~SL ACUTE ILLNESS 07/01/2015 Patient Education: Patient Medication Summary Completed 07/01/2015 Patient Education: Patient Medication Summary Completed 07/22/2014 Appointment: Tonya Huynhtel: [address] [place], [place] [phone] [facility] 07/10/2014 Patient Education: Patient Medication Summary Completed 07/10/2014 Visit Plan: Pap Done Proceed with pelvic US Mammo scheduled May need MRI of L/S spine Pt scheduled for bladder sling in Dec Discussed may need LEATHER STRETCHER eval due to spotting/ removal of IUD, etc. Check fasting lab 07/09/2013 Appointment: Tonya Huynhtel: [address] [place], [place] [phone] 07/06 vm PAP 07/09/2013 Patient Education: Patient Medication Summary Completed 07/09/2013 Visit Plan: PAP done Mammo ordered 07/05/2012 Appointment: Tonya Huynhtel: [address] [place], [place] [id number] 07/04- left message PAP 07/05/2012 Patient Education: Patient Medication Summary Completed 07/05/2012 Visit Plan: Check fasting lab Discussed diet and exercise at length 03/09/2012 Appointment: Tonya Huynhtel: [address] [place], [place] [phone] US message left with child FOLLOW UP 03/09/20 12 Patient Education: Patient Medication Summary Completed 03/09/2012 Visit Plan: Pap Done and Mammogram order ed CMP, Lipids, CBC, TSH, Free T4 Start daily baby aspirin Use lovenox when flies 06/28/2011 App[facility]ment: [facility] [phone] [id number] [facility] PAP 06/28/2011 Patient Education: Patient Medication Summary Completed 06/28/2011 Visit Plan: Pap Done Mammo ordered Trial of lamisil--check LFTs at start and monthly while on and put shoes in moth balls during treatment 06/25/2010 Appointment: [facility] [phone] [id number] [place] PAP 06/25/2010 Patient Education: Patient Medication Summary Completed 06/25/2010 Referral: Sherif Bliss WPtel: [address] [facility] [employer] [id number] US Referral Appointment Requested Instructions Comment . [...] is Obtain US and ER records from [place] Patient refuses any anticoagulants except lovenox Offered xarelto, eliquis, pradaxa, coumadin, etc. No long trips until fwup Recheck 2weeks Check CBC in 1week Report any signs of bleeding immediately . Pap Done Proceed with pelvic US Mammo scheduled May need MRI of L/S spine Pt scheduled for bladder sling in Aug Discussed may need LEATHER STRETCHER eval due to spotting/ removal of IUD, [...]
--- OUTSIDE RECORDS SUMMARY | 2020-01-17 07:00 | XMS REPORT | CCD ---
Author Author Cynthia Huynh D.O. Organization RENU HUYNH DO [facility] Address [address] [place] [address] Phone Care Team Providers Care Adult Ministries Director Name Role Phone Renu Huynh D.O., PP Unavailable CCM Unavailable Summary Purpose Interface Exchange Insurance Providers Payer name Policy type / Coverage type Covered libertarian ID Effective Begin Date Effective End Date Blue Cross Blue Shield Blue Cross/Blue Shield [id number] Unknown Family History Family History data not found Social History Social History Element Codes Description Effective Dates Marital status Unknown 06/28/[address]: 850625632 Never smoker 06/28/2011 Allergies, Adverse Reactions, Alerts [...] (gaseous) ICD-9: 787.3 ICD-10: R14.0 04/09/2019 Active meterman (current) use of anticoagulants ICD-9: V58.6 1 [...] Date Stop Date Status Fill Instructions warfarin 3 mg tablet RxNorm: 632614 1 Tablet(s) PO QD 09/03/201911/04 Active warfarin 10 mg tablet RxNorm: 249589 1 Tablet(s) PO QD 09/03/2019 Active warfarin 3 mg tablet RxNorm: 318555 1 Tablet(s) PO QD 06/07/201908/06 Inactive pantoprazole 40 mg tablet,delayed release RxNorm: 965108 1 Tabl et(s) PO BID 04/17/2019 05/16/2019 Inactive pantoprazole 40 mg tablet,delayed release RxNorm: 283628 1 Tabl et(s) PO BID 04/17/2019 04/16/2019 Inactive warfarin 5 mg tablet RxNorm: 153584 1 Tablet(s) PO QD t o take with 10mg dose on days takes full 15mg dose 03/12/2019 No Stop Date Active warfarin 10 mg tablet RxNorm: 167497 1 Tablet(s) PO QD 03/12/2019 Inactive warfarin 10 mg tablet RxNorm: 769327 1 Tablet(s) PO QD 12/12/201803/2019 Inactive warfarin 5 mg tablet RxNorm: 072339 1 Tablet(s) PO QD t o take with 10mg dose on days takes full 15mg dose 09/18/2018 03/11/2019 Inactive warfarin 10 mg tablet RxNorm: 955303 1 Tablet(s) PO QD 06/21/201804/2019 Inactive warfarin 3 mg tablet RxNorm: 492191 1 Tablet(s) PO QD 06/21/201812/04 Inactive warfarin 10 mg tablet RxNorm: 654098 1 Tablet(s) PO QD 03/28/2018 Inactive warfarin 3 mg tablet RxNorm: 273124 1 Tablet(s) PO QD 03/28/201806/05 Inactive warfarin 10 mg tablet RxNorm: 239829 1 Tablet(s) PO QD 03/28/2018 Inactive warfarin 3 mg tablet RxNorm: 457242 1 Tablet(s) PO QD 03/28/201803/06 Inactive warfarin 1 mg tablet RxNorm: 533441 3 Tablet(s) PO TIW and 2 tabs all other days 01/18/2018 03/27/2018 Inactive warfarin 5 mg tablet RxNorm: 223166 2 Tablet(s) PO QD 12/19/201703/06 Inactive warfarin 5 mg tablet RxNorm: 037316 2 Tablet(s) PO QD 12/06/201712/04 Inactive warfarin 5 mg tablet RxNorm: 619439 2 Tablet(s) PO QD 12/05/201710/2017 Inactive warfarin 1 mg tablet RxNorm: 300370 2 Tablet(s) PO QD 10/24/201701/03 Inactive warfarin 1 mg tablet RxNorm: 960642 2 Tablet(s) PO QD 07/27/201710/06 Inactive Lovenox 80 mg/0.8 mL subcutaneous syringe RxNorm: 301959 1 Mill iliter(s) SQ BID 03/28/2017 04/26/2017 Inactive Lovenox 80 mg/0.8 mL subcutaneous syringe RxNorm: 178151 1 Unit Dose SQ Q12H 07/01/2015 08/29/2015 Inactive Lovenox 60 mg/0.6 mL subcutaneous syringe RxNorm: 978670 1 Unit Dose SQ BID prn for travel due to high risk for DVT 07/10/2014 07/19/2014 Inactive as directed for flights Lovenox 60 mg/0.6 mL Sub-Q Syringe RxNorm: 501833 1 Unit Dose SQ BI D 06/15/2013 06/24/2013 Inactive as directed for flights Lovenox 60 mg/0.6 mL Sub-Q Syringe RxNorm: 255645 1 Unit Dose SQ BI D 06/28/2011 No Stop Date Active as directed for flights Lamisil 250 mg Tab RxNorm: 805827 1 Tablet(s) PO QD 09/07/20102010 Inactive Lamisil 250 mg Tab RxNorm: 633596 1 Tablet(s) PO QD 06/25/20102010 Inactive Vitamin D3 2,000 unit Tab RxNorm: 700793 1 Tablet(s) PO QD No Start D ate Active niacin 50 mg tablet RxNorm: 534608 1 Tablet(s) PO QD No Start Date Inactive warfarin 5 mg tablet RxNorm: 912122 2 Tablet(s) PO QD No Start Date 0 12/04/2017 Inactive Lovenox 60 mg/0.6 mL Sub-Q Syringe RxNorm: 711092 1 Uni t Dose SQ BID as directed for flights No Start Date 06/27/2011 Inactive Lovenox 60 mg/0.6 mL subcutaneous syringe RxNorm: 385211 Millil iter(s) SQ BID No Start Date 06/30/2015 Inactive warfarin 1 mg tablet RxNorm: 705168 2 Tablet(s) PO QD No Start Date 1 09/25/2016 Inactive Lovenox 80 mg/0.8 mL subcutaneous syringe RxNorm: 858729 1 Mill iliter(s) SQ BID No Start Date 03/27/2017 Inactive warfarin 5 mg tablet RxNorm: 048833 1 Tablet(s) PO QD t o take with 10mg dose on days takes full 15mg dose No Start Date 09/17/2018 Inactive Medication Administered No Medication Administered data Immunizations No Immunization data Results No Results data Procedures Procedure Codes Date SPECIMEN HANDLING OFFICE-LAB CPT-4: 78306 08/24/2018 OCCULT BLOOD FECES CPT-4: 32079 08/24/2018 SPECIMEN HANDLING OFFICE-LAB CPT-4: 68574 07/27/2017 OCCULT BLOOD FECES CPT-4: 19855 07/27/2017 SPECIMEN HANDLING OFFICE-LAB CPT-4: 05803 07/26/2016 SPECIMEN HANDLING OFFICE-LAB CPT-4: 40512 07/15/2015 URINALYSIS NONAUTO W/O SCOPE CPT-4: 80641 07/10/2014 OCCULT BLOOD FECES CPT-4: 87766 07/10/2014 SPECIMEN HANDLING OFFICE-LAB CPT-4: 12412 07/10/2014 URINE CULTURE/ COLONY COUNT CPT-4: 16242 07/10/2014 SPECIMEN HANDLING OFFICE-LAB CPT-4: 59554 07/09/2013 OCCULT BLOOD FECES CPT-4: 78274 07/09/2013 OCCULT BLOOD FECES CPT-4: 33191 07/05/2012 SPECIMEN HANDLING OFFICE-LAB CPT-4: 09105 06/28/2011 OCCULT BLOOD FECES CPT-4: 86029 06/28/2011 SPECIMEN HANDLING OFFICE-LAB CPT-4: 04447 06/25/2010 OCCULT BLOOD FECES CPT-4: 50452 06/25/2010 Vital Signs Date Vital 08/13/2019 Heart [...] 1: 124/78 Code: 8480-6 BMI: 29.4 Code: 19486-9 Heart Rate 1: 72 bpm Height: 5'3" Respiratory Rate: 20 bpm SpO2: 98% Tempera ture: 36.5 (C) / 97.7 (F) Weight: 166 lbs 03/28/2017 Blood Pressure 1: 126/68 Code: 8480-6 BMI: 30.1 Code: 47433-6 Heart Rate 1: 66 bpm Height: 5'3" Respiratory Rate: 24 bpm SpO2: 98% Tempera ture: 36.4 (C) / 97.6 (F) Weight: 170 lbs 07/26/2016 Blood Pressure 1: 124/70 Code: 8480-6 BMI: 28.7 Code: 87988-8 Heart Rate 1: 84 bpm Height: 5'3" Respiratory Rate: 20 bpm Temperature: 36 .7 (C) / 98.0 (F) Weight: 162 lbs 07/15/2015 Blood Pressure 1: 114/78 Code: 8480-6 BMI: 30.8 Code: 32461-2 Heart Rate 1: 72 bpm Height: 5'3" Respiratory Rate: 20 bpm Temperature: 36 .7 (C) / 98.1 (F) Weight: 174 lbs 07/01/2015 Blood Pressure 1: 134/86 Code: 8480-6 BMI: 30.8 Code: 29286-1 Heart Rate 1: 84 bpm Height: 5'3" Respiratory Rate: 20 bpm Temperature: 36 .8 (C) / 98.3 (F) Weight: 174 lbs 07/10/2014 Blood Pressure 1: 124/78 Code: 8480-6 BMI: 29.8 Code: 09727-7 Heart Rate 1: 84 bpm Height: 5'3" Respiratory Rate: 20 bpm Temperature: 36 .7 (C) / 98.0 (F) Weight: 168 lbs 07/09/2013 Blood Pressure 1: 126/80 Code: 8480-6 BMI: 28.3 Code: 93759-9 Heart Rate 1: 80 bpm Height: 5'3" Respiratory Rate: 20 bpm Temperature: 37 .0 (C) / 98.6 (F) Weight: 160 lbs 07/05/2012 Blood Pressure 1: 102/68 Code: 8480-6 BMI: 27.3 Code: 73369-1 Heart Rate 1: 72 bpm Height: 5'3" Respiratory Rate: 20 bpm Temperature: 36 .6 (C) / 97.8 (F) Weight: 154 lbs 03/09/2012 Blood Pressure 1: 116/78 Code: 8480-6 BMI: 28.0 Code: 70172-5 Heart Rate 1: 84 bpm Height: 5'3" Respiratory Rate: 20 bpm Temperature: 36 .9 (C) / 98.4 (F) Weight: 158 lbs 06/28/2011 Blood Pressure 1: 122/78 Code: 8480-6 BMI: 27.6 Code: 68651-2 Heart Rate 1: 76 bpm Height: 5'3" Respiratory Rate: 20 bpm Temperature: 36 .8 (C) / 98.2 (F) Weight: 156 lbs 06/25/2010 Blood Pressure 1: 118/68 Code: 8480-6 BMI: 23.9 Code: 85332-6 Height: 5'3" Temperature: 36.3 (C) / 97.4 (F) Weight: 135 lbs Functional Status No Functional Status data Reason For Visit Reason For Visit Effective Dates Notes knee pain 08/13/2019 follow up 04/09/2019 well woman exam (40-65 years) 08/24/2018 Annual Checkup 07/27/2017 Last normal mammogra m 14, never had colonoscopy or bone density follow [...] knee[ICD10: M17.11] Diagnosis: Belching[ICD10: R14.2] Renu Altamirano [employer] CPT-4: 76673 08/13/2019 ([id number]) OFFICE/OUTPATIENT VISIT EST Diagnosis: meterman (current) use of anticoagulants[ICD10: Z79.01] Diagnosis: Personal history of pulmonary embolism[ICD10: Z86.711] Diagnosis: Personal history of other venous thrombosis and embolism[ICD10: Z86.718] Diagnosis: Other allergic rhinitis[ICD10: J30.89] Diagnosis: Abdominal distension (gaseous)[ICD10: R14.0] Jud HUYNH [employer] CPT-4: 06505 04/09/2019 ([id number]) PREV VISIT EST AGE 40-64 Diagnosis: Encounter for general adult medical examination without abnormal findings[ICD10: Z00.00] Diagnosis: Encounter for gynecological examination (general) (routine) without abnormal findings[ICD10: Z01.419] Diagnosis: Mixed hyperlipidemia[ICD10: E78.2] Diagnosis: Excessive and frequent menstruation with irregular cycle[ICD10: N92.1] Renu HUYNH [facility] CPT-4: 44494 08/24/2018 ([id number]) PREV VISIT EST AGE 40-64 Diagnosis: Encounter for general adult medical examination without abnormal findings[ICD10: Z00.00] Diagnosis: Encounter for gynecological examination (general) (routine) without abnormal findings[ICD10: Z01.419] 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] Renu HUYNH DO [facility] CPT-4: 63007 07/27/2017 ([id number]) OFFICE/OUTPATIENT VISIT EST Diagnosis: 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[ICD10: I82.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] Diagnosis: Follicular cyst of left ovary[ICD10: N83.02] Renu HUYNH [facility] CPT-4: 51541 03/28/2017 ([id number]) PREV VISIT EST AGE 40-64 Diagnosis: Encounter for general adult medical examination without abnormal findings[ICD10: Z00.00] Diagnosis: Encounter for gynecological examination (general) (routine) without abnormal findings[ICD10: Z01.419] Diagnosis: Mixed hyperlipidemia[ICD10: E78.2] 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] Diagnosis: Unspecified lump in breast[ICD10: N63] Renu HUYNH [facility] CPT-4: 43541 07/26/2016 ([id number]) PREV VISIT EST AGE 40-64 Diagnosis: Encounter for general adult medical examination without abnormal findings[ICD10: Z00.00] Diagnosis: Encounter for gynecological examination (general) (routine) without abnormal findings[ICD10: Z01.419] Diagnosis: Acute embolism and thrombosis of unspecified deep veins of unspecified lower extremity[ICD10: I82.409] Renu HUYNH [employer] CPT-4: 96430 07/15/2015 ([id number]) OFFICE/OUTPATIENT VISIT EST Diagnosis: Acute embolism and thrombosis of unspecified deep veins of unspecified lower extremity[ICD10: I82.409] 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] Renu HUYNH DO [employer] CPT-4: 82868 07/01/2015 ([id number]) PREV VISIT EST AGE 40-64 Diagnosis: ROUTINE MEDICAL EXAM[ICD9: V70.0] Diagnosis: ROUTINE GYNE EXAM[ICD9: V72.31] Diagnosis: MALAISE AND FATIGUE[ICD9: 780.79] Diagnosis: Hematuria[ICD9: 599.70] Renu DC DO [employer] CPT-4: 18782 07/10/2014 ([id number]) PREV VISIT EST AGE 40-64 Diagnosis: ROUTINE MEDICAL EXAM[ICD9: V70.0] Diagnosis: ROUTINE GYNE EXAM[ICD9: V72.31] Diagnosis: HYPERLIPIDEMIA NEC/NOS[ICD9: 272.4] Diagnosis: MALAISE AND FATIGUE[ICD9: 780.79] Diagnosis: PAIN, LOWER BACK[ICD9: 724.2] Diagnosis: Menometrorrhagia[ICD9: 626.2] Renu HUYNH DO [employer] CPT-4: 30769 07/09/2013 ([id number]) PREV VISIT EST AGE 40-64 Diagnosis: ROUTINE MEDICAL EXAM[ICD9: V70.0] Diagnosis: ROUTINE GYNE EXAM[ICD9: V72.31] Renu HUYNH DO [employer] CPT-4: 88162 07/05/2012 ([id number]) SPECIMEN HANDLING Diagnosis: [ICD9: ] Diagnosis: [ICD9: ] Renu HUYNH DO [employer] CPT-4: 9900 0 07/05/2012 ([id number]) OFFICE/OUTPATIENT VISIT EST Diagnosis: MALAISE AND FATIGUE[ICD9: 780.79] Diagnosis: HYPERLIPIDEMIA NEC/NOS[ICD9: 272.4] Renu HUYNH DO [employer] CPT-4: 55042 03/09/2012 PREV VISIT EST AGE 40-64 Diagnosis: ROUTINE GYNE EXAM[ICD9: V72.31] Diagnosis: ROUTINE MEDICAL EXAM[ICD9: V70.0] Diagnosis: MALAISE AND FATIGUE[ICD9: 780.79] Renu Fernandosalvador KASEYCARLOS HUYNH [employer] CPT-4: 02832 06/28/2011 ([id number]) PREV VISIT, EST, AGE 40-64 Renu Fernandosalvador HUYNH DO [employer] CPT-4: 57007 06/25/2010 Plan of Care Planned Activity Notes [...] R14.2 08/13/2019 Appointment: Renu Huynh WPtel[facility] [phone] [id number] [facility] 08/13/2019 Care Plan: Referral Order SNOMED-CT : 30 [id number] Pending 08/13/2019 Visit Diagnosis Plan: Other allergic rhinitis [...] ICD-10 : J30.89 04/09/2019 Visit Diagnosis Plan: meterman (current) use of antic oagulants Discussion: 13 mg coumadin tuesday, , , sat, and 15 mg on mon, wed, fri. recheck inr in 1 week and call office with results. order was signed for patient to receive more test strips at home. ICD-9 : V58.61 ICD-10 : Z79.01 04/09/2019 Visit Diagnosis Plan: Abdominal distension (gaseous) D iscussion: samples of nexium given to patient with instructions on use. notify office in 2 weeks with how she's doing. ICD-9 : 787.3 ICD-10 : R14.0 04/09/2019 [facility]: [facility] [phone] [facility] [facility] FO[facility] UP 04/09/2019 Visit Diagnosis Plan: Excessive and frequent menstruat ion with irregular cycle Discussion: Check FSH/LH/Estradiol May need pelvic US ICD-9 : 626.2 ICD-10 : N92.1 08/24/2018 Visit Diagnosis Plan: Encounter for gene ral [...] ICD-9 : V72.31 ICD-10 : Z01.419 08/24/2018 Appointment: Renu Huynh WPtel[facility] [phone] [id number] Annual Well Visit 08/24/2018 Patient Education: Patient Medication Summary Completed 04/05/2018 Care Plan: MAMMOGRAM SCREENING LOINC : 2 6347-5 Pending 04/05/2018 Visit Diagnosis Plan: Encounter for gyne cological examination (general) (routine) without abnormal findings Discussion: Pap done Mammo up to date ICD-9 : V72.31 ICD-10 : Z01.419 07/27/2017 Visit Diagnosis Plan: Other specified coagulation defe cts Discussion: On coumadin now and will repeat PT/INR in 1 week and will look at home testing after has been on coumadin for 3mos ICD-9 : 289.81 ICD-10 : D68.8 07/27/2017 Visit Diagnosis Plan: Encounter for gene ral adult medical examination without abnormal findings Discussion: Proceed with colonoscopy sin ce needs one at 48 and has been having bowel changes 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 [...] : Z00.00 07/27/2017 Appointment: Renu Huynh WPtel: [address] [place], [place] [phone] Annual Well Visit 07/27/2017 Patient Education: Patient Medication Summary Completed 07/27/2017 Referral: Vasquez Carpenter WPtel: [phone] [id number] [place] Referral Initiated 04/19/2017 Visit Diagnosis Plan: 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 Discussion: Referral to hematology to discuss long term anitcoagulation Patient does not want to do orals due to risks Will keep on lovenox until sees hematology ICD-9 : 453.41 ICD-10 : I82.422 03/28/2017 Visit Diagnosis Plan: Follicular cyst of left ovary Di scussion: Pelvic US in 3mos ICD-9 : 620.0 ICD-10 : N83.02 03/28/2017 Appointment: Renu Huynh WPtel: [address] [place], [place] [phone] [place] 03/24 confirmed ~sl WORK IN 03/28/2017 Patient Education: Patient Medication Summary Completed 03/28/2017 Visit Plan: Pap Done Diagnostic Mammogra m with Left Breast US--may need biopsy of left breast lesion pending results Update fasting lab Check CXR and KUB with history of IVC filter 07/26/2016 Appointment: Renu Huynh WPtel: [address] [place], [place] [phone] 07/22 confirmed~sl Annual Well Visit 07/26/2016 Patient Education: Patient Medication Summary Completed 07/26/2016 Visit Plan: Pap done Repeat RLE venous d oppler on Aug 11. Continue lovenox and observe for bleeding Defers mammogram until next year 07/15/2015 Appointment: Renu Huynh WPtel: [address] [place], [place] [phone] [place] 07/10 lm ~sl...07/15 appt confirmed cn PAP 07/15/2015 Patient Education: Patient Medication Summary Completed 07/15/2015 Visit Plan: Continue lovenox as is Obtai n US and ER records from [place] Patient refuses any anticoagulants except lovenox Offered xarelto, eliquis, pradaxa, coumadin, etc. No long trips until fwup Recheck 2weeks Check CBC in 1week Report any signs of bleeding immediately 07/01/2015 Appointment: Renu Huynh WPtel: [address] [place], [place] [phone] 07/01 called office to confirm ~SL ACUTE ILLNESS 07/01/2015 Patient Education: Patient Medication Summary Completed 07/01/2015 Patient Education: Patient Medication Summary Completed 07/22/2014 Appointment: Renu Huynh WPtel: [address] [place], [place] [phone] 07/09 [facility] Annual Well Visit 07/10/2014 Patient Education: Patient Medication Summary Completed 07/10/2014 Visit Plan: Pap Done Proceed with pelvic US Mammo scheduled May need MRI of L/S spine Pt scheduled for bladder sling in Dec Discussed may need VENUE ATTENDANT eval due to spotting/ removal of IUD, etc. Check fasting lab 07/09/2013 Appointment: Renu Huynh WPtel: [address] [place] [phone] [place] 07/06 vm PAP 07/09/2013 Patient Education: Patient Medication Summary Completed 07/09/2013 Visit Plan: PAP done Mammo ordered 07/05/2012 Appointment: Renu Huynh WPtel: [address] [place], [place] [phone] [place] 07/04- left message PAP 07/05/2012 Patient Education: Patient Medication Summary Completed 07/05/2012 Visit Plan: Check fasting lab Discussed diet and exercise at length 03/09/2012 Appointment: Renu Huynh WPtel: [address] [place], [place] [phone] [place] message left with child FOLLOW UP 07/05/20 12 Patient Education: Patient Medication Summary Completed 03/09/2012 Visit Plan: Pap Done and Mammogram order ed CMP, Lipids, CBC, TSH, Free T4 Start daily baby aspirin Use lovenox when flies 06/28/2011 Appointment: Renu Huynh WPtel: [phone] [id number] [place] PAP 06/28/2011 Patient Education: Patient Medication Summary Completed 06/28/2011 Visit Plan: Pap Done Mammo ordered Trial of lamisil--check LFTs at start and monthly while on and put shoes in moth balls during treatment 06/25/2010 Appointment: Renu Huynh WPtel: [phone] [id number] [place] PAP 06/25/2010 Patient Education: Patient Medication Summary Completed 06/25/2010 Referral: Sherif Bliss WPtel: [address] [place], [place] [phone] [place] Referral Appointment Requested Instructions Comment . Pap Done Diagnostic Mammogram with Left Breast US--may need biopsy of left breast lesion pending results Update fasting lab Check CXR and KUB with history of IVC filter . Pap done Repeat RLE venous doppler on Aug 11. Continue lovenox and observe for bleeding Defers mammogram until next year . Continue lovenox as is Obtain US and ER records from [place] Patient refuses any anticoagulants except lovenox Offered xarelto, eliquis, pradaxa, coumadin, etc. No long trips until fwup Recheck 2weeks Check CBC in 1week Report any signs of bleeding immediately . Pap Done Proceed with pelvic US Mammo scheduled May need MRI of L/S spine Pt scheduled for bladder sling in Aug Discussed may need VENUE ATTENDANT eval due to spotting/ removal of IUD, [...]
--- OUTSIDE RECORDS SUMMARY | 2020-01-17 07:01 | XMS REPORT | CCD ---
Author Author Cynthia Huynh D.O. Organization [facility] Address [address] [place] [address] Phone Care Team Providers Care Rod Mill Tender Name Role Phone Tonya Huynh D.O., PP Unavailable CCM Unavailable Summary Purpose Interface Exchange Insurance Providers Payer name Policy type / Coverage type Covered green party ID Effective Begin Date Effective End Date Blue Cross Blue Shield Blue Cross/Blue Shield [id number] Unknown Family History Family History data not found Social History Social History Element Codes Description Effective Dates Marital status Unknown 06/28/[address]: 350350027 Never smoker 06/28/2011 Allergies, Adverse Reactions, Alerts [...] Fill Instructions warfarin 3 mg tablet RxNorm: 533902 1 Tablet(s) PO QD 06/07/201908/07 Active pantoprazole 40 mg tablet,delayed release RxNorm: 846667 1 Tabl et(s) PO BID 04/17/2019 05/16/2019 Inactive pantoprazole 40 mg tablet,delayed release RxNorm: 480101 1 Tabl et(s) PO BID 04/17/2019 04/16/2019 Inactive warfarin 10 mg tablet RxNorm: 134589 1 Tablet(s) PO QD 03/12/201911/2019 Active warfarin 5 mg tablet RxNorm: 203078 1 Tablet(s) PO QD t o take with 10mg dose on days takes full 15mg dose 03/12/2019 No Stop Date Active warfarin 10 mg tablet RxNorm: 979806 1 Tablet(s) PO QD 12/12/201803/2019 Inactive warfarin 5 mg tablet RxNorm: 227004 1 Tablet(s) PO QD t o take with 10mg dose on days takes full 15mg dose 09/18/2018 03/11/2019 Inactive warfarin 10 mg tablet RxNorm: 998876 1 Tablet(s) PO QD 06/21/201804/2019 Inactive warfarin 3 mg tablet RxNorm: 547955 1 Tablet(s) PO QD 06/21/201812/04 Inactive warfarin 10 mg tablet RxNorm: 957792 1 Tablet(s) PO QD 03/28/2018 Inactive warfarin 3 mg tablet RxNorm: 783312 1 Tablet(s) PO QD 03/28/201806/05 Inactive warfarin 10 mg tablet RxNorm: 678040 1 Tablet(s) PO QD 03/28/2018 Inactive warfarin 3 mg tablet RxNorm: 956134 1 Tablet(s) PO QD 03/28/201803/06 Inactive warfarin 1 mg tablet RxNorm: 785417 3 Tablet(s) PO TIW and 2 tabs all other days 01/18/2018 03/27/2018 Inactive warfarin 5 mg tablet RxNorm: 293034 2 Tablet(s) PO QD 12/19/201703/06 Inactive warfarin 5 mg tablet RxNorm: 045783 2 Tablet(s) PO QD 12/06/201712/04 Inactive warfarin 5 mg tablet RxNorm: 763125 2 Tablet(s) PO QD 12/05/201710/2017 Inactive warfarin 1 mg tablet RxNorm: 006985 2 Tablet(s) PO QD 10/24/201701/03 Inactive warfarin 1 mg tablet RxNorm: 496861 2 Tablet(s) PO QD 07/27/201710/06 Inactive Lovenox 80 mg/0.8 mL subcutaneous syringe RxNorm: 337926 1 Mill iliter(s) SQ BID 03/28/2017 04/26/2017 Inactive Lovenox 80 mg/0.8 mL subcutaneous syringe RxNorm: 956911 1 Unit Dose SQ Q12H 07/01/2015 08/29/2015 Inactive Lovenox 60 mg/0.6 mL subcutaneous syringe RxNorm: 611731 1 Unit Dose SQ BID prn for travel due to high risk for DVT 07/10/2014 07/19/2014 Inactive as directed for flights Lovenox 60 mg/0.6 mL Sub-Q Syringe RxNorm: 357315 1 Unit Dose SQ BI D 06/15/2013 06/24/2013 Inactive as directed for flights Lovenox 60 mg/0.6 mL Sub-Q Syringe RxNorm: 641227 1 Unit Dose SQ BI D 06/28/2011 No Stop Date Active as directed for flights Lamisil 250 mg Tab RxNorm: 442104 1 Tablet(s) PO QD 09/07/20102010 Inactive Lamisil 250 mg Tab RxNorm: 600801 1 Tablet(s) PO QD 06/25/20102010 Inactive Vitamin D3 2,000 unit Tab RxNorm: 120296 1 Tablet(s) PO QD No Start D ate Active niacin 50 mg tablet RxNorm: 302280 1 Tablet(s) PO QD No Start Date Inactive warfarin 5 mg tablet RxNorm: 493212 2 Tablet(s) PO QD No Start Date 0 12/04/2017 Inactive Lovenox 60 mg/0.6 mL Sub-Q Syringe RxNorm: 853920 1 Uni t Dose SQ BID as directed for flights No Start Date 06/27/2011 Inactive Lovenox 60 mg/0.6 mL subcutaneous syringe RxNorm: 712225 Millil iter(s) SQ BID No Start Date 06/30/2015 Inactive warfarin 1 mg tablet RxNorm: 354337 2 Tablet(s) PO QD No Start Date 1 09/25/2016 Inactive Lovenox 80 mg/0.8 mL subcutaneous syringe RxNorm: 900326 1 Mill iliter(s) SQ BID No Start Date 03/27/2017 Inactive warfarin 5 mg tablet RxNorm: 167461 1 Tablet(s) PO QD t o take with 10mg dose on days takes full 15mg dose No Start Date 09/17/2018 Inactive Medication Administered No Medication Administered data Immunizations No Immunization data Results No Results data Procedures Procedure Codes Date SPECIMEN HANDLING OFFICE-LAB CPT-4: 17752 08/24/2018 OCCULT BLOOD FECES CPT-4: 28547 08/24/2018 SPECIMEN HANDLING OFFICE-LAB CPT-4: 10095 07/27/2017 OCCULT BLOOD FECES CPT-4: 32647 07/27/2017 SPECIMEN HANDLING OFFICE-LAB CPT-4: 06409 07/26/2016 SPECIMEN HANDLING OFFICE-LAB CPT-4: 66797 07/15/2015 URINALYSIS NONAUTO W/O SCOPE CPT-4: 01982 07/10/2014 OCCULT BLOOD FECES CPT-4: 26362 07/10/2014 SPECIMEN HANDLING OFFICE-LAB CPT-4: 35675 07/10/2014 URINE CULTURE/ COLONY COUNT CPT-4: 86782 07/10/2014 SPECIMEN HANDLING OFFICE-LAB CPT-4: 83444 07/09/2013 OCCULT BLOOD FECES CPT-4: 64659 07/09/2013 OCCULT BLOOD FECES CPT-4: 91351 07/05/2012 SPECIMEN HANDLING OFFICE-LAB CPT-4: 89214 06/28/2011 OCCULT BLOOD FECES CPT-4: 04800 06/28/2011 SPECIMEN HANDLING OFFICE-LAB CPT-4: 13806 06/25/2010 OCCULT BLOOD FECES CPT-4: 49741 06/25/2010 Vital Signs Date Vital 08/13/2019 Heart [...] 1: 124/78 Code: 8480-6 BMI: 29.4 Code: 21055-2 Heart Rate 1: 72 bpm Height: 5'3" Respiratory Rate: 20 bpm SpO2: 98% Tempera ture: 36.5 (C) / 97.7 (F) Weight: 166 lbs 03/28/2017 Blood Pressure 1: 126/68 Code: 8480-6 BMI: 30.1 Code: 05573-1 Heart Rate 1: 66 bpm Height: 5'3" Respiratory Rate: 24 bpm SpO2: 98% Tempera ture: 36.4 (C) / 97.6 (F) Weight: 170 lbs 07/26/2016 Blood Pressure 1: 124/70 Code: 8480-6 BMI: 28.7 Code: 73358-2 Heart Rate 1: 84 bpm Height: 5'3" Respiratory Rate: 20 bpm Temperature: 36 .7 (C) / 98.0 (F) Weight: 162 lbs 07/15/2015 Blood Pressure 1: 114/78 Code: 8480-6 BMI: 30.8 Code: 79522-9 Heart Rate 1: 72 bpm Height: 5'3" Respiratory Rate: 20 bpm Temperature: 36 .7 (C) / 98.1 (F) Weight: 174 lbs 07/01/2015 Blood Pressure 1: 134/86 Code: 8480-6 BMI: 30.8 Code: 64564-6 Heart Rate 1: 84 bpm Height: 5'3" Respiratory Rate: 20 bpm Temperature: 36 .8 (C) / 98.3 (F) Weight: 174 lbs 07/10/2014 Blood Pressure 1: 124/78 Code: 8480-6 BMI: 29.8 Code: 38289-3 Heart Rate 1: 84 bpm Height: 5'3" Respiratory Rate: 20 bpm Temperature: 36 .7 (C) / 98.0 (F) Weight: 168 lbs 07/09/2013 Blood Pressure 1: 126/80 Code: 8480-6 BMI: 28.3 Code: 63909-1 Heart Rate 1: 80 bpm Height: 5'3" Respiratory Rate: 20 bpm Temperature: 37 .0 (C) / 98.6 (F) Weight: 160 lbs 07/05/2012 Blood Pressure 1: 102/68 Code: 8480-6 BMI: 27.3 Code: 65519-2 Heart Rate 1: 72 bpm Height: 5'3" Respiratory Rate: 20 bpm Temperature: 36 .6 (C) / 97.8 (F) Weight: 154 lbs 03/09/2012 Blood Pressure 1: 116/78 Code: 8480-6 BMI: 28.0 Code: 88303-4 Heart Rate 1: 84 bpm Height: 5'3" Respiratory Rate: 20 bpm Temperature: 36 .9 (C) / 98.4 (F) Weight: 158 lbs 06/28/2011 Blood Pressure 1: 122/78 Code: 8480-6 BMI: 27.6 Code: 86967-2 Heart Rate 1: 76 bpm Height: 5'3" Respiratory Rate: 20 bpm Temperature: 36 .8 (C) / 98.2 (F) Weight: 156 lbs 06/25/2010 Blood Pressure 1: 118/68 Code: 8480-6 BMI: 23.9 Code: 13114-5 Height: 5'3" Temperature: 36.3 (C) / 97.4 [...] right knee[ICD10: M17.11] Diagnosis: Belching[ICD10: R14.2] Tonya ARREOLA [employer] CPT-4: 04878 08/13/2019 ([id number]) OFFICE/OUTPATIENT VISIT EST Diagnosis: [facility] (current) use of anticoagulants[ICD10: Z79.01] Diagnosis: Personal history of pulmonary embolism[ICD10: Z86.711] Diagnosis: Personal history of other venous thrombosis and embolism[ICD10: Z86.718] Diagnosis: Other allergic rhinitis[ICD10: J30.89] Diagnosis: Abdominal distension (gaseous)[ICD10: R14.0] Jud Bravo [facility] CPT-4: 15271 04/09/2019 ([id number]) PREV VISIT EST AGE 40-64 Diagnosis: Encounter for general adult medical examination without abnormal findings[ICD10: Z00.00] Diagnosis: Encounter for gynecological examination (general) (routine) without abnormal findings[ICD10: Z01.419] Diagnosis: Mixed hyperlipidemia[ICD10: E78.2] Diagnosis: Excessive and frequent menstruation with irregular cycle[ICD10: N92.1] Tonya SEARS [employer] CPT-4: 06552 08/24/2018 ([id number]) PREV VISIT EST AGE 40-64 Diagnosis: Encounter for general adult medical examination without abnormal findings[ICD10: Z00.00] Diagnosis: Encounter for gynecological examination (general) (routine) without abnormal findings[ICD10: Z01.419] 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] [facility]a [facility] CPT-4: 53047 07/27/2017 ([id number]) OFFICE/OUTPATIENT VISIT EST Diagnosis: 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[ICD10: I82.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] Diagnosis: Follicular cyst of left ovary[ICD10: N83.02] Tonya [facility] CPT-4: 34675 03/28/2017 ([id number]) PREV VISIT EST AGE 40-64 Diagnosis: Encounter for general adult medical examination without abnormal findings[ICD10: Z00.00] Diagnosis: Encounter for gynecological examination (general) (routine) without abnormal findings[ICD10: Z01.419] Diagnosis: Mixed hyperlipidemia[ICD10: E78.2] 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] Diagnosis: Unspecified lump in breast[ICD10: N63] Tonya [facility] CPT-4: 47913 07/26/2016 ([id number]) PREV VISIT EST AGE 40-64 Diagnosis: Encounter for general adult medical examination without abnormal findings[ICD10: Z00.00] Diagnosis: Encounter for gynecological examination (general) (routine) without abnormal findings[ICD10: Z01.419] Diagnosis: Acute embolism and thrombosis of unspecified deep veins of unspecified lower extremity[ICD10: I82.409] Tonya [facility] CPT-4: 62678 07/15/2015 ([id number]) OFFICE/OUTPATIENT VISIT EST Diagnosis: Acute embolism and thrombosis of unspecified deep veins of unspecified lower extremity[ICD10: I82.409] 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] Tonyaowen Arellanobenjaminvanda [facility] CPT-4: 63259 07/01/2015 ([id number]) PREV VISIT EST AGE 40-64 Diagnosis: ROUTINE MEDICAL EXAM[ICD9: V70.0] Diagnosis: ROUTINE GYNE EXAM[ICD9: V72.31] Diagnosis: MALAISE AND FATIGUE[ICD9: 780.79] Diagnosis: Hematuria[ICD9: 599.70] Tonya GONZALEZLINE Remigio DC DO [employer] CPT-4: 06164 07/10/2014 ([id number]) PREV VISIT EST AGE 40-64 Diagnosis: ROUTINE MEDICAL EXAM[ICD9: V70.0] Diagnosis: ROUTINE GYNE EXAM[ICD9: V72.31] Diagnosis: HYPERLIPIDEMIA NEC/NOS[ICD9: 272.4] Diagnosis: MALAISE AND FATIGUE[ICD9: 780.79] Diagnosis: PAIN, LOWER BACK[ICD9: 724.2] Diagnosis: Menometrorrhagia[ICD9: 626.2] Tonyaowen Huynh TONYA Mary GraceArnoldo ROQUEER [facility] CPT-4: 69139 07/09/2013 ([id number]) PREV VISIT EST AGE 40-64 Diagnosis: ROUTINE MEDICAL EXAM[ICD9: V70.0] Diagnosis: ROUTINE GYNE EXAM[ICD9: V72.31] Tonya Adanbenjaminvanda GONZALEZTONYA Mary GraceArnoldo KENDY WILLS [employer] CPT-4: 85921 07/05/2012 ([id number]) SPECIMEN HANDLING Diagnosis: [ICD9: ] Diagnosis: [ICD9: ] Tonya Arellanobenjaminvanda DOANTONYA Mary GraceArnoldo ADANNDER DO [employer] CPT-4: 9900 0 07/05/2012 ([id number]) OFFICE/OUTPATIENT VISIT EST Diagnosis: MALAISE AND FATIGUE[ICD9: 780.79] Diagnosis: HYPERLIPIDEMIA NEC/NOS[ICD9: 272.4] Tonya AGUIAR SArnoldo ADANNDER DO [employer] CPT-4: 22549 03/09/2012 PREV VISIT EST AGE 40-64 Diagnosis: ROUTINE GYNE EXAM[ICD9: V72.31] Diagnosis: ROUTINE MEDICAL EXAM[ICD9: V70.0] Diagnosis: MALAISE AND FATIGUE[ICD9: 780.79] Tonya Garrido Mary GraceArnoldo ADANNDER [facility] CPT-4: 96749 06/28/2011 ([id number]) PREV VISIT, EST, AGE 40-64 Tonya DOANOLIVER [employer]IN[employer] CPT-4: 28632 06/25/2010 Plan of Care Planned Activity Notes [...] ICD-9 : 787.3 ICD-10 : R14.2 08/13/2019 Care Plan: Referral Order SNOMED-CT : [id number] Pending 08/13/2019 Visit Diagnosis Plan: Other allergic [...] ICD-10 : J30.89 04/09/2019 Visit Diagnosis Plan: [facility] (current) use of antic oagulants Discussion: 13 mg coumadin tuesday, , , tue, and 15 mg on mon, wed, fri. [...] ICD-10 : R14.0 04/09/2019 Appointment: Jud Bravo [address] [place], [place] [phone] US FOLLOW UP 04/09/2019 Visit Diagnosis Plan: Excessive and frequent menstruat ion with irregular cycle Discussion: Check FSH/LH/Estradiol May need pelvic US ICD-9 : 626.2 ICD-10 : N92.1 08/24/2018 Visit Diagnosis Plan: Encounter for [facility] adult medical examination without abnormal findings Discussion: Update fasting lab Defers fl u shot Doing routine home monitoring on coumadin with PT/INR Follow Up: 6 months ICD-9 : V70.0 ICD-10 : Z00.00 08/24/2018 Visit Diagnosis Plan: Encounter for gyne cological examination (general) (routine) without abnormal findings Discussion: Pap Done Had Mammogram in May ICD-9 : V72.31 ICD-10 : Z01.419 08/24/2018 Appointment: Tonya Huynh WPtel: [phone] [facility] Annual Well Visit 08/24/2018 Patient Education: Patient [...] Z01.419 07/27/2017 Visit Diagnosis Plan: Encounter for [facility] adult medical examination without abnormal findings Discussion: Proceed with colonoscopy sin ce needs one at 48 and has been having bowel changes 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 [...] : Z00.00 07/27/2017 Appointment: Tonya Huynh WPtel: [phone] [id number] Annual Well Visit 07/27/2017 Patient Education: Patient Medication Summary Completed 07/27/2017 Referral: Vasquez Carpenter WPtel: [phone]-59 [id number] US Referral Initiated 04/19/2017 Visit Diagnosis Plan: 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 Discussion: Referral to hematology to discuss correction anitcoagulation Patient does not want to do orals due to risks Will keep on lovenox until sees hematology ICD-9 : 453.41 ICD-10 : I82.422 03/28/2017 Visit Diagnosis Plan: Follicular cyst of left ovary Di scussion: Pelvic US in 3mos ICD-9 : 620.0 ICD-10 : N83.02 03/28/2017 Appointment: Tonya Huynh WPtel: [address] [place], [place] [phone] 03/24 confirmed ~sl WORK IN 03/28/2017 Patient Education: Patient Medication Summary Completed 03/28/2017 Visit Plan: Pap Done Diagnostic Mammogra m with Left Breast US--may need biopsy of left breast lesion pending results Update fasting lab Check CXR and KUB with history of IVC filter 07/26/2016 Appointment: Tonya Huynh WPtel: [address] [place], [place] [phone] 07/22 confirmed~sl Annual Well Visit 07/26/2016 Patient Education: Patient Medication Summary Completed 07/26/2016 Visit Plan: Pap done Repeat RLE venous d oppler on Aug 11 Continue lovenox and observe for bleeding Defers mammogram until next year 07/15/2015 Appointment: Tonya Huynh WPtel: [address] [place], [place] [phone] [place] 07/10 lm ~sl...07/15 appt confirmed cn PAP 07/15/2015 Patient Education: Patient Medication Summary Completed 07/15/2015 Visit Plan: Continue lovenox as is Obtai n US and ER records from [place] Patient refuses any anticoagulants except lovenox Offered xarelto, eliquis, pradaxa, coumadin, etc. No long trips until fwup Recheck 2weeks Check CBC in 1week Report any signs of bleeding immediately 07/01/2015 Appointment: Tonya Huynh WPtel: [address] [place], [place] [phone] 07/01 called office to confirm ~SL ACUTE ILLNESS 07/01/2015 Patient Education: Patient Medication Summary Completed 07/01/2015 Patient Education: Patient Medication Summary Completed 07/22/2014 Appointment: Tonya Huynh WPtel: [address] [place], [place] [phone] 07/09 voicendil Annual Well Visit 07/10/2014 Patient Education: Patient Medication Summary Completed 07/10/2014 Visit Plan: Pap Done Proceed with pelvic US Mammo scheduled May need MRI of L/S spine Pt scheduled for bladder sling in Dec Discussed may need [employer] eval due to spotting/ removal of IUD, etc. Check fasting lab 07/09/2013 Appointment: Tonya Huynh WPtel: [address] [place], [place] [phone] 07/06 vm PAP 07/09/2013 Patient Education: Patient Medication Summary Completed 07/09/2013 Visit Plan: PAP done Mammo ordered 07/05/2012 Appointment: Tonya Huynh WPtel: [address] [place], [place] [phone] 07/04- left message PAP 07/05/2012 Patient Education: Patient Medication Summary Completed 07/05/2012 Visit Plan: Check fasting lab Discussed diet and exercise at length 03/09/2012 Appointment: Tonya Huynh WPtel: [address] [place], [place] [phone] US message left with child FOLLOW UP 03/09/20 12 Patient Education: Patient Medication Summary Completed 03/09/2012 Visit Plan: Pap Done and Mammogram order ed CMP, Lipids, CBC, TSH, Free T4 Start daily baby aspirin Use lovenox when flies 06/28/2011 Appointment: Tonya Huynh WPtel: [address] [place], [place] [phone] [place] PAP 06/28/2011 Patient Education: Patient Medication Summary Completed 06/28/2011 Visit Plan: Pap Done Mammo ordered Trial of lamisil--check LFTs at start and monthly while on and put shoes in moth balls during treatment 06/25/2010 Appointment: Tonya Huynh WPtel: [id number] US PAP 06/25/2010 Patient Education: Patient Medication Summary Completed 06/25/2010 Ref[facility] Sher[id number] [facility] Ref[facility] Appointment Requested Instructions Comment . [...] is Obtain US and ER records from [place] Patient refuses any anticoagulants except lovenox Offered xarelto, eliquis, pradaxa, coumadin, etc. No long trips until fwup Recheck 2weeks Check CBC in 1week Report any signs of bleeding immediately . Pap Done Proceed with pelvic US Mammo scheduled May need MRI of L/S spine Pt scheduled for bladder sling in Aug Discussed may need [employer]IST eval due to spotting/ removal of IUD, [...]
--- OUTSIDE RECORDS SUMMARY | 2020-01-17 07:01 | XMS REPORT | CCD ---
Author Author Cynthia Huynh D.O. Organization [facility] Address [address] [place] [address] Phone Care Team Providers Care Recreation Therapy Teacher Name Role Phone Tonya Huynh D.O., PP Unavailable CCM Unavailable Summary Purpose Interface Exchange Insurance Providers Payer name Policy type / Coverage type Covered green party ID Effective Begin Date Effective End Date Blue Cross Blue Shield Blue Cross/Blue Shield [id number] Unknown Family History Family History data not found Social History Social History Element Codes Description Effective Dates Marital status Unknown 06/28/[address]: 912468597 Never smoker 06/28/2011 Allergies, Adverse Reactions, Alerts [...] (gaseous) ICD-9: 787.3 ICD-10: R14.0 04/09/2019 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) use of anticoagulants ICD-9: V58.6 1 [...] Fill Instructions warfarin 3 mg tablet RxNorm: 730017 1 Tablet(s) PO QD 06/07/201908/07 Active pantoprazole 40 mg tablet,delayed release RxNorm: 006012 1 Tabl et(s) PO BID 04/17/2019 05/16/2019 Inactive pantoprazole 40 mg tablet,delayed release RxNorm: 874942 1 Tabl et(s) PO BID 04/17/2019 04/16/2019 Inactive warfarin 10 mg tablet RxNorm: 645637 1 Tablet(s) PO QD 03/12/201911/2019 Active warfarin 5 mg tablet RxNorm: 499882 1 Tablet(s) PO QD t o take with 10mg dose on days takes full 15mg dose 03/12/2019 No Stop Date Active warfarin 10 mg tablet RxNorm: 381378 1 Tablet(s) PO QD 12/12/201803/2019 Inactive warfarin 5 mg tablet RxNorm: 292687 1 Tablet(s) PO QD t o take with 10mg dose on days takes full 15mg dose 09/18/2018 03/11/2019 Inactive warfarin 10 mg tablet RxNorm: 472410 1 Tablet(s) PO QD 06/21/201804/2019 Inactive warfarin 3 mg tablet RxNorm: 222809 1 Tablet(s) PO QD 06/21/201812/04 Inactive warfarin 10 mg tablet RxNorm: 528006 1 Tablet(s) PO QD 03/28/2018 Inactive warfarin 3 mg tablet RxNorm: 325447 1 Tablet(s) PO QD 03/28/201806/05 Inactive warfarin 10 mg tablet RxNorm: 837309 1 Tablet(s) PO QD 03/28/2018 Inactive warfarin 3 mg tablet RxNorm: 315089 1 Tablet(s) PO QD 03/28/201803/06 Inactive warfarin 1 mg tablet RxNorm: 131237 3 Tablet(s) PO TIW and 2 tabs all other days 01/18/2018 03/27/2018 Inactive warfarin 5 mg tablet RxNorm: 606961 2 Tablet(s) PO QD 12/19/201703/06 Inactive warfarin 5 mg tablet RxNorm: 775059 2 Tablet(s) PO QD 12/06/201712/04 Inactive warfarin 5 mg tablet RxNorm: 306321 2 Tablet(s) PO QD 12/05/201710/2017 Inactive warfarin 1 mg tablet RxNorm: 037779 2 Tablet(s) PO QD 10/24/201701/03 Inactive warfarin 1 mg tablet RxNorm: 349425 2 Tablet(s) PO QD 07/27/201710/06 Inactive Lovenox 80 mg/0.8 mL subcutaneous syringe RxNorm: 835971 1 Mill iliter(s) SQ BID 03/28/2017 04/26/2017 Inactive Lovenox 80 mg/0.8 mL subcutaneous syringe RxNorm: 433012 1 Unit Dose SQ Q12H 07/01/2015 08/29/2015 Inactive Lovenox 60 mg/0.6 mL subcutaneous syringe RxNorm: 830565 1 Unit Dose SQ BID prn for travel due to high risk for DVT 07/10/2014 07/19/2014 Inactive as directed for flights Lovenox 60 mg/0.6 mL Sub-Q Syringe RxNorm: 946115 1 Unit Dose SQ BI D 06/15/2013 06/24/2013 Inactive as directed for flights Lovenox 60 mg/0.6 mL Sub-Q Syringe RxNorm: 733400 1 Unit Dose SQ BI D 06/28/2011 No Stop Date Active as directed for flights Lamisil 250 mg Tab RxNorm: 128255 1 Tablet(s) PO QD 09/07/20102010 Inactive Lamisil 250 mg Tab RxNorm: 236984 1 Tablet(s) PO QD 06/25/20102010 Inactive Vitamin D3 2,000 unit Tab RxNorm: 851149 1 Tablet(s) PO QD No Start D ate Active niacin 50 mg tablet RxNorm: 299971 1 Tablet(s) PO QD No Start Date Inactive warfarin 5 mg tablet RxNorm: 359029 2 Tablet(s) PO QD No Start Date 0 12/04/2017 Inactive Lovenox 60 mg/0.6 mL Sub-Q Syringe RxNorm: 204236 1 Uni t Dose SQ BID as directed for flights No Start Date 06/27/2011 Inactive Lovenox 60 mg/0.6 mL subcutaneous syringe RxNorm: 608593 Millil iter(s) SQ BID No Start Date 06/30/2015 Inactive warfarin 1 mg tablet RxNorm: 244297 2 Tablet(s) PO QD No Start Date 1 09/25/2016 Inactive Lovenox 80 mg/0.8 mL subcutaneous syringe RxNorm: 212168 1 Mill iliter(s) SQ BID No Start Date 03/27/2017 Inactive warfarin 5 mg tablet RxNorm: 252693 1 Tablet(s) PO QD t o take with 10mg dose on days takes full 15mg dose No Start Date 09/17/2018 Inactive Medication Administered No Medication Administered data Immunizations No Immunization data Results No Results data Procedures Procedure Codes Date SPECIMEN HANDLING OFFICE-LAB CPT-4: 36792 08/24/2018 OCCULT BLOOD FECES CPT-4: 21076 08/24/2018 SPECIMEN HANDLING OFFICE-LAB CPT-4: 01773 07/27/2017 OCCULT BLOOD FECES CPT-4: 49500 07/27/2017 SPECIMEN HANDLING OFFICE-LAB CPT-4: 21773 07/26/2016 SPECIMEN HANDLING OFFICE-LAB CPT-4: 18810 07/15/2015 URINALYSIS NONAUTO W/O SCOPE CPT-4: 84358 07/10/2014 OCCULT BLOOD FECES CPT-4: 47992 07/10/2014 SPECIMEN HANDLING OFFICE-LAB CPT-4: 83243 07/10/2014 URINE CULTURE/ COLONY COUNT CPT-4: 60849 07/10/2014 SPECIMEN HANDLING OFFICE-LAB CPT-4: 16322 07/09/2013 OCCULT BLOOD FECES CPT-4: 11921 07/09/2013 OCCULT BLOOD FECES CPT-4: 47193 07/05/2012 SPECIMEN HANDLING OFFICE-LAB CPT-4: 94638 06/28/2011 OCCULT BLOOD FECES CPT-4: 61347 06/28/2011 SPECIMEN HANDLING OFFICE-LAB CPT-4: 63637 06/25/2010 OCCULT BLOOD FECES CPT-4: 26880 06/25/2010 Vital Signs Date Vital 08/13/2019 Heart [...] 1: 124/78 Code: 8480-6 BMI: 29.4 Code: 60373-2 Heart Rate 1: 72 bpm Height: 5'3" Respiratory Rate: 20 bpm SpO2: 98% Tempera ture: 36.5 (C) / 97.7 (F) Weight: 166 lbs 03/28/2017 Blood Pressure 1: 126/68 Code: 8480-6 BMI: 30.1 Code: 33470-9 Heart Rate 1: 66 bpm Height: 5'3" Respiratory Rate: 24 bpm SpO2: 98% Tempera ture: 36.4 (C) / 97.6 (F) Weight: 170 lbs 07/26/2016 Blood Pressure 1: 124/70 Code: 8480-6 BMI: 28.7 Code: 18030-3 Heart Rate 1: 84 bpm Height: 5'3" Respiratory Rate: 20 bpm Temperature: 36 .7 (C) / 98.0 (F) Weight: 162 lbs 07/15/2015 Blood Pressure 1: 114/78 Code: 8480-6 BMI: 30.8 Code: 62440-2 Heart Rate 1: 72 bpm Height: 5'3" Respiratory Rate: 20 bpm Temperature: 36 .7 (C) / 98.1 (F) Weight: 174 lbs 07/01/2015 Blood Pressure 1: 134/86 Code: 8480-6 BMI: 30.8 Code: 34184-5 Heart Rate 1: 84 bpm Height: 5'3" Respiratory Rate: 20 bpm Temperature: 36 .8 (C) / 98.3 (F) Weight: 174 lbs 07/10/2014 Blood Pressure 1: 124/78 Code: 8480-6 BMI: 29.8 Code: 31547-3 Heart Rate 1: 84 bpm Height: 5'3" Respiratory Rate: 20 bpm Temperature: 36 .7 (C) / 98.0 (F) Weight: 168 lbs 07/09/2013 Blood Pressure 1: 126/80 Code: 8480-6 BMI: 28.3 Code: 94127-0 Heart Rate 1: 80 bpm Height: 5'3" Respiratory Rate: 20 bpm Temperature: 37 .0 (C) / 98.6 (F) Weight: 160 lbs 07/05/2012 Blood Pressure 1: 102/68 Code: 8480-6 BMI: 27.3 Code: 05869-3 Heart Rate 1: 72 bpm Height: 5'3" Respiratory Rate: 20 bpm Temperature: 36 .6 (C) / 97.8 (F) Weight: 154 lbs 03/09/2012 Blood Pressure 1: 116/78 Code: 8480-6 BMI: 28.0 Code: 63959-7 Heart Rate 1: 84 bpm Height: 5'3" Respiratory Rate: 20 bpm Temperature: 36 .9 (C) / 98.4 (F) Weight: 158 lbs 06/28/2011 Blood Pressure 1: 122/78 Code: 8480-6 BMI: 27.6 Code: 98149-3 Heart Rate 1: 76 bpm Height: 5'3" Respiratory Rate: 20 bpm Temperature: 36 .8 (C) / 98.2 (F) Weight: 156 lbs 06/25/2010 Blood Pressure 1: 118/68 Code: 8480-6 BMI: 23.9 Code: 84519-4 Height: 5'3" Temperature: 36.3 (C) / 97.4 [...] knee[ICD10: M17.11] Diagnosis: Belching[ICD10: R14.2] Tonya ARREOLA [employer] CPT-4: 80813 08/13/2019 ([id number]) OFFICE/OUTPATIENT VISIT EST Diagnosis: skilled nursing (current) use of anticoagulants[ICD10: Z79.01] Diagnosis: Personal history of pulmonary embolism[ICD10: Z86.711] Diagnosis: Personal history of other venous thrombosis and embolism[ICD10: Z86.718] Diagnosis: Other allergic rhinitis[ICD10: J30.89] Diagnosis: Abdominal distension (gaseous)[ICD10: R14.0] Jud Bravo [facility] [employer] CPT-4: 93783 04/09/2019 ([id number]) PREV VISIT EST AGE 40-64 Diagnosis: Encounter for general adult medical examination without abnormal findings[ICD10: Z00.00] Diagnosis: Encounter for gynecological examination (general) (routine) without abnormal findings[ICD10: Z01.419] Diagnosis: Mixed hyperlipidemia[ICD10: E78.2] Diagnosis: Excessive and frequent menstruation with irregular cycle[ICD10: N92.1] Tonya SEARS [employer] CPT-4: 51828 08/24/2018 ([id number]) PREV VISIT EST AGE 40-64 Diagnosis: Encounter for general adult medical examination without abnormal findings[ICD10: Z00.00] Diagnosis: Encounter for gynecological examination (general) (routine) without abnormal findings[ICD10: Z01.419] 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] Tonya HUYNH [employer] CPT-4: 63540 07/27/2017 ([id number]) OFFICE/OUTPATIENT VISIT EST Diagnosis: 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[ICD10: I82.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] Diagnosis: Follicular cyst of left ovary[ICD10: N83.02] Tonya HUYNH [employer] CPT-4: 42673 03/28/2017 ([id number]) PREV VISIT EST AGE 40-64 Diagnosis: Encounter for general adult medical examination without abnormal findings[ICD10: Z00.00] Diagnosis: Encounter for gynecological examination (general) (routine) without abnormal findings[ICD10: Z01.419] Diagnosis: Mixed hyperlipidemia[ICD10: E78.2] 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] Diagnosis: Unspecified lump in breast[ICD10: N63] Tonya HUYNH [employer] CPT-4: 25679 07/26/2016 ([id number]) PREV VISIT EST AGE 40-64 Diagnosis: Encounter for general adult medical examination without abnormal findings[ICD10: Z00.00] Diagnosis: Encounter for gynecological examination (general) (routine) without abnormal findings[ICD10: Z01.419] Diagnosis: Acute embolism and thrombosis of unspecified deep veins of unspecified lower extremity[ICD10: I82.409] Tonya HUYNH [employer] CPT-4: 98854 07/15/2015 ([id number]) OFFICE/OUTPATIENT VISIT EST Diagnosis: Acute embolism and thrombosis of unspecified deep veins of unspecified lower extremity[ICD10: I82.409] 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] Tonyaowen Arellanobenjaminvanda HUYNH [employer] CPT-4: 67070 07/01/2015 ([id number]) PREV VISIT EST AGE 40-64 Diagnosis: ROUTINE MEDICAL EXAM[ICD9: V70.0] Diagnosis: ROUTINE GYNE EXAM[ICD9: V72.31] Diagnosis: MALAISE AND FATIGUE[ICD9: 780.79] Diagnosis: Hematuria[ICD9: 599.70] Tonya GONZALEZLINE Remigio DC DO [employer] CPT-4: 39188 07/10/2014 ([id number]) PREV VISIT EST AGE 40-64 Diagnosis: ROUTINE MEDICAL EXAM[ICD9: V70.0] Diagnosis: ROUTINE GYNE EXAM[ICD9: V72.31] Diagnosis: HYPERLIPIDEMIA NEC/NOS[ICD9: 272.4] Diagnosis: MALAISE AND FATIGUE[ICD9: 780.79] Diagnosis: PAIN, LOWER BACK[ICD9: 724.2] Diagnosis: Menometrorrhagia[ICD9: 626.2] Tonyaowen Huynh TONYA Mary GraceArnoldo ROQUEER [employer] CPT-4: 30631 07/09/2013 ([id number]) PREV VISIT EST AGE 40-64 Diagnosis: ROUTINE MEDICAL EXAM[ICD9: V70.0] Diagnosis: ROUTINE GYNE EXAM[ICD9: V72.31] Tonya Adanbenjaminvanda GONZALEZTONYA Mary GraceArnoldo KENDY WILLS [employer] CPT-4: 87745 07/05/2012 ([id number]) SPECIMEN HANDLING Diagnosis: [ICD9: ] Diagnosis: [ICD9: ] Tonya Arellanobenjaminvanda DOANTONYA Mary GraceArnoldo ADANNDER DO [employer] CPT-4: 9900 0 07/05/2012 ([id number]) OFFICE/OUTPATIENT VISIT EST Diagnosis: MALAISE AND FATIGUE[ICD9: 780.79] Diagnosis: HYPERLIPIDEMIA NEC/NOS[ICD9: 272.4] Tonya AGUIAR SArnoldo ADANNDER DO [employer] CPT-4: 28120 03/09/2012 PREV VISIT EST AGE 40-64 Diagnosis: ROUTINE GYNE EXAM[ICD9: V72.31] Diagnosis: ROUTINE MEDICAL EXAM[ICD9: V70.0] Diagnosis: MALAISE AND FATIGUE[ICD9: 780.79] Tonya Garrido MaryG raceArnoldo ADANNDER [facility] CPT-4: 92181 06/28/2011 ([id number]) PREV VISIT, EST, AGE 40-64 Tonya DOANOLIVER [employer] CPT-4: 34057 06/25/2010 Plan of Care Planned Activity Notes [...] Care Plan: Referral Order SNOMED-CT : [id number] Pending 08/13/2019 Visit Diagnosis Plan: Other allergic [...] ICD-10 : J30.89 04/09/2019 Visit Diagnosis Plan: skilled nursing (current) use of antic oagulants Discussion: 13 [...] ICD-10 : R14.0 04/09/2019 Appointment: Jud Bravo [address] [place], [place] [phone] US FOLLOW UP 04/09/2019 Visit Diagnosis Plan: Excessive and frequent menstruat ion with irregular cycle Discussion: Check FSH/LH/Estradiol May need pelvic US ICD-9 : 626.2 ICD-10 : N92.1 08/24/2018 Visit Diagnosis Plan: Encounter for [facility] adult medical examination without abnormal findings Discussion: [...] Z01.419 08/24/2018 Appointment: Tonya Huynh WPtel: [phone] [facility] [[email or web address]] Annual Well Visit 08/24/2018 Patient Education: Patient [...] Z01.419 07/27/2017 Visit Diagnosis Plan: Encounter for [facility] adult medical examination without abnormal findings Discussion: Proceed with colonoscopy sin ce needs one at 48 and has been having bowel changes 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 [...] Z00.00 07/27/2017 Appointment: Tonya Huynh WPtel: [phone] [facility] Annual Well Visit 07/27/2017 Patient Education: Patient Medication Summary Completed 07/27/2017 Referral: Vasquez Carpenter WPtel: [phone] [id number] US Referral Initiated 04/19/2017 Visit Diagnosis Plan: 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 Discussion: Referral to hematology to discuss mcc anitcoagulation Patient does not want to do orals due to risks Will keep on lovenox until sees hematology ICD-9 : 453.41 ICD-10 : I82.422 03/28/2017 Visit Diagnosis Plan: Follicular cyst of left ovary Di scussion: Pelvic US in 3mos ICD-9 : 620.0 ICD-10 : N83.02 03/28/2017 Appointment: Tonya Huynh WPtel: [address] [place], [place] [phone] 03/24 confirmed ~sl WORK IN 03/28/2017 Patient Education: Patient Medication Summary Completed 03/28/2017 Visit Plan: Pap Done Diagnostic Mammogra m with Left Breast US--may need biopsy of left breast lesion pending results Update fasting lab Check CXR and KUB with history of IVC filter 07/26/2016 Appointment: Tonya Huynh WPtel: [address] [place], [place] [phone] 07/22 confirmed~sl Annual Well Visit 07/26/2016 Patient Education: Patient Medication Summary Completed 07/26/2016 Visit Plan: Pap done Repeat RLE venous d oppler on Aug 11 Continue lovenox and observe for bleeding Defers mammogram until next year 07/15/2015 Appointment: Tonya Huynh WPtel: [address] [place], [place] [phone] [place] 07/10 lm ~sl...07/15 appt confirmed cn PAP 07/15/2015 Patient Education: Patient Medication Summary Completed 07/15/2015 Visit Plan: Continue lovenox as is Obtai n US and ER records from [place] Patient refuses any anticoagulants except lovenox Offered xarelto, eliquis, pradaxa, coumadin, etc. No long trips until fwup Recheck 2weeks Check CBC in 1week Report any signs of bleeding immediately 07/01/2015 Appointment: Tonya Huynh WPtel: [address] [place], [place] [phone] 07/01 called office to confirm ~SL ACUTE ILLNESS 07/01/2015 Patient Education: Patient Medication Summary Completed 07/01/2015 Patient Education: Patient Medication Summary Completed 07/22/2014 Appointment: Tonya Huynh WPtel: [address] [place], [place] [phone] 07/09 voicemsil Annual Well Visit 07/10/2014 Patient Education: Patient Medication Summary Completed 07/10/2014 Visit Plan: Pap Done Proceed with pelvic US Mammo scheduled May need MRI of L/S spine Pt scheduled for bladder sling in Dec Discussed may need INDIRECT SALES REPRESENTATIVE eval due to spotting/ removal of IUD, etc. Check fasting lab 07/09/2013 Appointment: Tonya Huynh WPtel: [address] [place], [place] [email or web address] 07/06 vm PAP 07/09/2013 Patient Education: Patient Medication Summary Completed 07/09/2013 Visit Plan: PAP done Mammo ordered 07/05/2012 Appointment: Tonya Huynh WPtel: [address] [place], [place] [phone] 07/04- left message PAP 07/05/2012 Patient Education: Patient Medication Summary Completed 07/05/2012 Visit Plan: Check fasting lab Discussed diet and exercise at length 03/09/2012 Appointment: Tonya Huynh WPtel: [address] [place], [place] [phone] US message left with child FOLLOW UP 03/09/20 12 Patient Education: Patient Medication Summary Completed 03/09/2012 Visit Plan: Pap Done and Mammogram order ed CMP, Lipids, CBC, TSH, Free T4 Start daily baby aspirin Use lovenox when flies 06/28/2011 Appointment: Tonya Huynh WPtel: [address] [place], [place] [phone] US PAP 06/28/2011 Patient Education: Patient Medication Summary Completed 06/28/2011 Visit Plan: Pap Done Mammo ordered Trial of lamisil--check LFTs at start and monthly while on and put shoes in moth balls during treatment 06/25/2010 Appointment: Tonya Huynh WPtel: [phone] [id number] US PAP 06/25/2010 Patient Education: Patient Medication Summary Completed 06/25/2010 [id number] [facility] Ref[facility] Appointment Requested Instructions Comment [...] is Obtain US and ER records from [place] Patient refuses any anticoagulants except lovenox Offered xarelto, eliquis, pradaxa, coumadin, etc. No long trips until fwup Recheck 2weeks Check CBC in 1week Report any signs of bleeding immediately . Pap Done Proceed with pelvic US Mammo scheduled May need MRI of L/S spine Pt scheduled for bladder sling in Aug Discussed may need INDIRECT SALES REPRESENTATIVE eval due to spotting/ removal of IUD, [...]
--- OUTSIDE RECORDS SUMMARY | 2020-01-17 07:01 | XMS REPORT | CCD ---
Author Author Cynthia Huynh D.O. Organization [facility] Address [address] [place] [address] Phone Care Team Providers Care Analyst Competitive Intelligence Name Role Phone Tonya Huynh D.O., PP Unavailable CCM Unavailable Summary Purpose Interface Exchange Insurance Providers Payer name Policy type / Coverage type Covered democrat ID Effective Begin Date Effective End Date Blue Cross Blue Shield Blue Cross/Blue Shield [id number] Unknown Family History Family History data not found Social History Social History Element Codes Description Effective Dates Marital status Unknown 06/28/[address]: 007113512 Never smoker 06/28/2011 Allergies, Adverse Reactions, Alerts [...] (gaseous) ICD-9: 787.3 ICD-10: R14.0 04/09/2019 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 continuous churn (current) use of anticoagulants ICD-9: V58.6 1 [...] Fill Instructions warfarin 3 mg tablet RxNorm: 673723 1 Tablet(s) PO QD 06/07/201908/07 Active pantoprazole 40 mg tablet,delayed release RxNorm: 036028 1 Tabl et(s) PO BID 04/17/2019 05/16/2019 Inactive pantoprazole 40 mg tablet,delayed release RxNorm: 597201 1 Tabl et(s) PO BID 04/17/2019 04/16/2019 Inactive warfarin 10 mg tablet RxNorm: 103141 1 Tablet(s) PO QD 03/12/201911/2019 Active warfarin 5 mg tablet RxNorm: 312915 1 Tablet(s) PO QD t o take with 10mg dose on days takes full 15mg dose 03/12/2019 No Stop Date Active warfarin 10 mg tablet RxNorm: 907769 1 Tablet(s) PO QD 12/12/201803/2019 Inactive warfarin 5 mg tablet RxNorm: 057269 1 Tablet(s) PO QD t o take with 10mg dose on days takes full 15mg dose 09/18/2018 03/11/2019 Inactive warfarin 10 mg tablet RxNorm: 802515 1 Tablet(s) PO QD 06/21/201804/2019 Inactive warfarin 3 mg tablet RxNorm: 332405 1 Tablet(s) PO QD 06/21/201812/04 Inactive warfarin 10 mg tablet RxNorm: 053598 1 Tablet(s) PO QD 03/28/2018 Inactive warfarin 3 mg tablet RxNorm: 959822 1 Tablet(s) PO QD 03/28/201806/05 Inactive warfarin 10 mg tablet RxNorm: 364194 1 Tablet(s) PO QD 03/28/2018 Inactive warfarin 3 mg tablet RxNorm: 354433 1 Tablet(s) PO QD 03/28/201803/06 Inactive warfarin 1 mg tablet RxNorm: 088680 3 Tablet(s) PO TIW and 2 tabs all other days 01/18/2018 03/27/2018 Inactive warfarin 5 mg tablet RxNorm: 964813 2 Tablet(s) PO QD 12/19/201703/06 Inactive warfarin 5 mg tablet RxNorm: 960716 2 Tablet(s) PO QD 12/06/201712/04 Inactive warfarin 5 mg tablet RxNorm: 864411 2 Tablet(s) PO QD 12/05/201710/2017 Inactive warfarin 1 mg tablet RxNorm: 040224 2 Tablet(s) PO QD 10/24/201701/03 Inactive warfarin 1 mg tablet RxNorm: 094699 2 Tablet(s) PO QD 07/27/201710/06 Inactive Lovenox 80 mg/0.8 mL subcutaneous syringe RxNorm: 523535 1 Mill iliter(s) SQ BID 03/28/2017 04/26/2017 Inactive Lovenox 80 mg/0.8 mL subcutaneous syringe RxNorm: 324752 1 Unit Dose SQ Q12H 07/01/2015 08/29/2015 Inactive Lovenox 60 mg/0.6 mL subcutaneous syringe RxNorm: 006074 1 Unit Dose SQ BID prn for travel due to high risk for DVT 07/10/2014 07/19/2014 Inactive as directed for flights Lovenox 60 mg/0.6 mL Sub-Q Syringe RxNorm: 739331 1 Unit Dose SQ BI D 06/15/2013 06/24/2013 Inactive as directed for flights Lovenox 60 mg/0.6 mL Sub-Q Syringe RxNorm: 785192 1 Unit Dose SQ BI D 06/28/2011 No Stop Date Active as directed for flights Lamisil 250 mg Tab RxNorm: 879834 1 Tablet(s) PO QD 09/07/20102010 Inactive Lamisil 250 mg Tab RxNorm: 102595 1 Tablet(s) PO QD 06/25/20102010 Inactive Vitamin D3 2,000 unit Tab RxNorm: 565808 1 Tablet(s) PO QD No Start D ate Active niacin 50 mg tablet RxNorm: 777880 1 Tablet(s) PO QD No Start Date Inactive warfarin 5 mg tablet RxNorm: 055131 2 Tablet(s) PO QD No Start Date 0 12/04/2017 Inactive Lovenox 60 mg/0.6 mL Sub-Q Syringe RxNorm: 966946 1 Uni t Dose SQ BID as directed for flights No Start Date 06/27/2011 Inactive Lovenox 60 mg/0.6 mL subcutaneous syringe RxNorm: 545551 Millil iter(s) SQ BID No Start Date 06/30/2015 Inactive warfarin 1 mg tablet RxNorm: 926104 2 Tablet(s) PO QD No Start Date 1 09/25/2016 Inactive Lovenox 80 mg/0.8 mL subcutaneous syringe RxNorm: 874611 1 Mill iliter(s) SQ BID No Start Date 03/27/2017 Inactive warfarin 5 mg tablet RxNorm: 416910 1 Tablet(s) PO QD t o take with 10mg dose on days takes full 15mg dose No Start Date 09/17/2018 Inactive Medication Administered No Medication Administered data Immunizations No Immunization data Results No Results data Procedures Procedure Codes Date SPECIMEN HANDLING OFFICE-LAB CPT-4: 91269 08/24/2018 OCCULT BLOOD FECES CPT-4: 80470 08/24/2018 SPECIMEN HANDLING OFFICE-LAB CPT-4: 44658 07/27/2017 OCCULT BLOOD FECES CPT-4: 92993 07/27/2017 SPECIMEN HANDLING OFFICE-LAB CPT-4: 90685 07/26/2016 SPECIMEN HANDLING OFFICE-LAB CPT-4: 47292 07/15/2015 URINALYSIS NONAUTO W/O SCOPE CPT-4: 49259 07/10/2014 OCCULT BLOOD FECES CPT-4: 74749 07/10/2014 SPECIMEN HANDLING OFFICE-LAB CPT-4: 07749 07/10/2014 URINE CULTURE/ COLONY COUNT CPT-4: 03256 07/10/2014 SPECIMEN HANDLING OFFICE-LAB CPT-4: 91302 07/09/2013 OCCULT BLOOD FECES CPT-4: 25681 07/09/2013 OCCULT BLOOD FECES CPT-4: 82495 07/05/2012 SPECIMEN HANDLING OFFICE-LAB CPT-4: 97122 06/28/2011 OCCULT BLOOD FECES CPT-4: 93886 06/28/2011 SPECIMEN HANDLING OFFICE-LAB CPT-4: 00856 06/25/2010 OCCULT BLOOD FECES CPT-4: 36232 06/25/2010 Vital Signs Date Vital 08/13/2019 Heart [...] 1: 124/78 Code: 8480-6 BMI: 29.4 Code: 21479-4 Heart Rate 1: 72 bpm Height: 5'3" Respiratory Rate: 20 bpm SpO2: 98% Tempera ture: 36.5 (C) / 97.7 (F) Weight: 166 lbs 03/28/2017 Blood Pressure 1: 126/68 Code: 8480-6 BMI: 30.1 Code: 31342-0 Heart Rate 1: 66 bpm Height: 5'3" Respiratory Rate: 24 bpm SpO2: 98% Tempera ture: 36.4 (C) / 97.6 (F) Weight: 170 lbs 07/26/2016 Blood Pressure 1: 124/70 Code: 8480-6 BMI: 28.7 Code: 65945-2 Heart Rate 1: 84 bpm Height: 5'3" Respiratory Rate: 20 bpm Temperature: 36 .7 (C) / 98.0 (F) Weight: 162 lbs 07/15/2015 Blood Pressure 1: 114/78 Code: 8480-6 BMI: 30.8 Code: 00353-6 Heart Rate 1: 72 bpm Height: 5'3" Respiratory Rate: 20 bpm Temperature: 36 .7 (C) / 98.1 (F) Weight: 174 lbs 07/01/2015 Blood Pressure 1: 134/86 Code: 8480-6 BMI: 30.8 Code: 23391-4 Heart Rate 1: 84 bpm Height: 5'3" Respiratory Rate: 20 bpm Temperature: 36 .8 (C) / 98.3 (F) Weight: 174 lbs 07/10/2014 Blood Pressure 1: 124/78 Code: 8480-6 BMI: 29.8 Code: 59393-2 Heart Rate 1: 84 bpm Height: 5'3" Respiratory Rate: 20 bpm Temperature: 36 .7 (C) / 98.0 (F) Weight: 168 lbs 07/09/2013 Blood Pressure 1: 126/80 Code: 8480-6 BMI: 28.3 Code: 35241-6 Heart Rate 1: 80 bpm Height: 5'3" Respiratory Rate: 20 bpm Temperature: 37 .0 (C) / 98.6 (F) Weight: 160 lbs 07/05/2012 Blood Pressure 1: 102/68 Code: 8480-6 BMI: 27.3 Code: 85277-0 Heart Rate 1: 72 bpm Height: 5'3" Respiratory Rate: 20 bpm Temperature: 36 .6 (C) / 97.8 (F) Weight: 154 lbs 03/09/2012 Blood Pressure 1: 116/78 Code: 8480-6 BMI: 28.0 Code: 64019-3 Heart Rate 1: 84 bpm Height: 5'3" Respiratory Rate: 20 bpm Temperature: 36 .9 (C) / 98.4 (F) Weight: 158 lbs 06/28/2011 Blood Pressure 1: 122/78 Code: 8480-6 BMI: 27.6 Code: 27096-5 Heart Rate 1: 76 bpm Height: 5'3" Respiratory Rate: 20 bpm Temperature: 36 .8 (C) / 98.2 (F) Weight: 156 lbs 06/25/2010 Blood Pressure 1: 118/68 Code: 8480-6 BMI: 23.9 Code: 93402-6 Height: 5'3" Temperature: 36.3 (C) / 97.4 [...] knee[ICD10: M17.11] Diagnosis: Belching[ICD10: R14.2] Tonya ARREOLA Tarari CPT-4: 16743 08/13/2019 ([id number]) OFFICE/OUTPATIENT VISIT EST Diagnosis: correction (current) use of anticoagulants[ICD10: Z79.01] Diagnosis: Personal history of pulmonary embolism[ICD10: Z86.711] Diagnosis: Personal history of other venous thrombosis and embolism[ICD10: Z86.718] Diagnosis: Other allergic rhinitis[ICD10: J30.89] Diagnosis: Abdominal distension (gaseous)[ICD10: R14.0] Jud Bravo [facility] [employer] CPT-4: 62658 04/09/2019 ([id number]) PREV VISIT EST AGE 40-64 Diagnosis: Encounter for general adult medical examination without abnormal findings[ICD10: Z00.00] Diagnosis: Encounter for gynecological examination (general) (routine) without abnormal findings[ICD10: Z01.419] Diagnosis: Mixed hyperlipidemia[ICD10: E78.2] Diagnosis: Excessive and frequent menstruation with irregular cycle[ICD10: N92.1] Tonya SEARS [employer] CPT-4: 85421 08/24/2018 ([id number]) PREV VISIT EST AGE 40-64 Diagnosis: Encounter for general adult medical examination without abnormal findings[ICD10: Z00.00] Diagnosis: Encounter for gynecological examination (general) (routine) without abnormal findings[ICD10: Z01.419] 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] Tonya HUY[facility] [employer] CPT-4: 18452 07/27/2017 ([id number]) OFFICE/OUTPATIENT VISIT EST Diagnosis: 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[ICD10: I82.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] Diagnosis: Follicular cyst of left ovary[ICD10: N83.02] Tonya HUYNH [employer] CPT-4: 40183 03/28/2017 ([id number]) PREV VISIT EST AGE 40-64 Diagnosis: Encounter for general adult medical examination without abnormal findings[ICD10: Z00.00] Diagnosis: Encounter for gynecological examination (general) (routine) without abnormal findings[ICD10: Z01.419] Diagnosis: Mixed hyperlipidemia[ICD10: E78.2] 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] Diagnosis: Unspecified lump in breast[ICD10: N63] Tonya [facility] [employer] CPT-4: 84946 07/26/2016 ([id number]) PREV VISIT EST AGE 40-64 Diagnosis: Encounter for general adult medical examination without abnormal findings[ICD10: Z00.00] Diagnosis: Encounter for gynecological examination (general) (routine) without abnormal findings[ICD10: Z01.419] Diagnosis: Acute embolism and thrombosis of unspecified deep veins of unspecified lower extremity[ICD10: I82.409] Tonya HUYNH [employer] CPT-4: 07019 07/15/2015 ([id number]) OFFICE/OUTPATIENT VISIT EST Diagnosis: Acute embolism and thrombosis of unspecified deep veins of unspecified lower extremity[ICD10: I82.409] 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] Tonyaowen Arellanobenjaminvanda HUYNH [employer] CPT-4: 10038 07/01/2015 ([id number]) PREV VISIT EST AGE 40-64 Diagnosis: ROUTINE MEDICAL EXAM[ICD9: V70.0] Diagnosis: ROUTINE GYNE EXAM[ICD9: V72.31] Diagnosis: MALAISE AND FATIGUE[ICD9: 780.79] Diagnosis: Hematuria[ICD9: 599.70] Tonya GONZALEZLINE Remigio DC DO [employer] CPT-4: 83402 07/10/2014 ([id number]) PREV VISIT EST AGE 40-64 Diagnosis: ROUTINE MEDICAL EXAM[ICD9: V70.0] Diagnosis: ROUTINE GYNE EXAM[ICD9: V72.31] Diagnosis: HYPERLIPIDEMIA NEC/NOS[ICD9: 272.4] Diagnosis: MALAISE AND FATIGUE[ICD9: 780.79] Diagnosis: PAIN, LOWER BACK[ICD9: 724.2] Diagnosis: Menometrorrhagia[ICD9: 626.2] Tonyaowen Huynh TONYA Mary GraceArnoldo ROQUEER [employer] CPT-4: 34903 07/09/2013 ([id number]) PREV VISIT EST AGE 40-64 Diagnosis: ROUTINE MEDICAL EXAM[ICD9: V70.0] Diagnosis: ROUTINE GYNE EXAM[ICD9: V72.31] Tonya Adanbenjaminvanda GONZALEZTONYA Mary GraceArnoldo KENDY WILLS [employer] CPT-4: 49959 07/05/2012 ([id number]) SPECIMEN HANDLING Diagnosis: [ICD9: ] Diagnosis: [ICD9: ] Tonya Arellanobenjaminvanda DOANTONYA Mary GraceArnoldo ADANNDER DO [employer] CPT-4: 9900 0 07/05/2012 ([id number]) OFFICE/OUTPATIENT VISIT EST Diagnosis: MALAISE AND FATIGUE[ICD9: 780.79] Diagnosis: HYPERLIPIDEMIA NEC/NOS[ICD9: 272.4] Tonya AGUIAR SArnoldo ADANNDER DO [employer] CPT-4: 87109 03/09/2012 PREV VISIT EST AGE 40-64 Diagnosis: ROUTINE GYNE EXAM[ICD9: V72.31] Diagnosis: ROUTINE MEDICAL EXAM[ICD9: V70.0] Diagnosis: MALAISE AND FATIGUE[ICD9: 780.79] Tonya Garrido Mary GraceArnoldo ADANNDER [employer] CPT-4: 83569 06/28/2011 ([id number]) PREV VISIT, EST, AGE 40-64 Tonya [facility] [employer] CPT-4: 64040 06/25/2010 Plan of Care Planned Activity Notes [...] Care Plan: Referral Order SNOMED-CT : 30 [id number] Pending 08/13/2019 Visit Diagnosis Plan: Other allergic [...] ICD-10 : J30.89 04/09/2019 Visit Diagnosis Plan: correction (current) use of antic oagulants Discussion: 13 [...] ICD-10 : R14.0 04/09/2019 Appointment: Jud Bravo [address] [place], [place] [id number] [place] FOLLOW UP 04/09/2019 Visit Diagnosis Plan: Excessive and frequent menstruat ion with irregular cycle Discussion: Check FSH/LH/Estradiol May need pelvic US ICD-9 : 626.2 ICD-10 : N92.1 08/24/2018 Visit Diagnosis Plan: Encounter for [facility] adult medical examination without abnormal [...] Z01.419 08/24/2018 Appointment: Tonya Huynh WPtel: [phone] [facility] Annual Well Visit 08/24/2018 Patient Education: Patient [...] Z01.419 07/27/2017 Visit Diagnosis Plan: Encounter for [facility] adult medical examination without abnormal findings Discussion: Proceed with colonoscopy sin ce needs one at 48 and has been having bowel changes Patient's language path had her CT scan of abdomen reviewed [...] Z00.00 07/27/2017 Appointment: Tonya Huynh WPtel: [phone] [facility] Annual Well Visit 07/27/2017 Patient Education: Patient Medication Summary Completed 07/27/2017 Referral: Vasquez Carpenter WPtel: [id number] US Referral Initiated 04/19/2017 Visit Diagnosis Plan: [...] : N83.02 03/28/2017 Appointment: Tonya Huynh WPtel: [address] [place], [place] [phone] 03/24 confirmed ~sl WORK IN 03/28/2017 Patient Education: Patient Medication Summary Completed 03/28/2017 Visit Plan: Pap Done Diagnostic Mammogra m with Left Breast US--may need biopsy of left breast lesion pending results Update fasting lab Check CXR and KUB with history of IVC filter 07/26/2016 Appointment: Tonya Huynh WPtel: [address] [place], [place] [phone] 07/22 confirmed~sl Annual Well Visit 07/26/2016 Patient Education: Patient Medication Summary Completed 07/26/2016 Visit Plan: Pap done Repeat RLE venous d oppler on Aug 11 Continue lovenox and observe for bleeding Defers mammogram until next year 07/15/2015 Appointment: Tonya Huynh WPtel: [address] [place], [place] [phone] [place] 07/10 lm ~sl...07/15 appt confirmed cn [...] bleeding immediately 07/01/2015 Appointment: Tonya Huynh WPtel: [address] [place], [place] [phone] 07/01 called office to confirm ~SL ACUTE ILLNESS 07/01/2015 Patient Education: Patient Medication Summary Completed 07/01/2015 Patient Education: Patient Medication Summary Completed 07/22/2014 Appointment: Tonya Huynh WPtel: [address] [place], [place] [phone] 07/09 voicegail Annual Well Visit 07/10/2014 Patient Education: Patient Medication Summary Completed 07/10/2014 Visit Plan: Pap Done Proceed with pelvic US Mammo scheduled May need MRI of L/S spine Pt scheduled for bladder sling in Dec Discussed may need [employer] PILOT eval due to spotting/ removal of IUD, etc. Check fasting lab 07/09/2013 Appointment: Tonya Huynh WPtel: [address] [place], [place] [phone] 07/06 vm PAP 07/09/2013 Patient Education: Patient Medication Summary Completed 07/09/2013 Visit Plan: PAP done Mammo ordered 07/05/2012 Appointment: Tonya Huynh WPtel: [address] [place], [place] [phone] 07/04- left message PAP 07/05/2012 Patient Education: Patient Medication Summary Completed 07/05/2012 Visit Plan: Check fasting lab Discussed diet and exercise at length 03/09/2012 Appointment: Tonya Huynh WPtel: [address] [place], [place] [phone] US message left with child FOLLOW UP 03/09/20 12 Patient Education: Patient Medication Summary Completed 03/09/2012 Visit Plan: Pap Done and Mammogram order ed CMP, Lipids, CBC, TSH, Free T4 Start daily baby aspirin Use lovenox when flies 06/28/2011 Appointment: Tonya Huynh WPtel: [address] [place], [place] [phone] [place] PAP 06/28/2011 Patient Education: Patient Medication Summary Completed 06/28/2011 Visit Plan: Pap Done Mammo ordered Trial of lamisil--check LFTs at start and monthly while on and put shoes in moth balls during treatment 06/25/2010 Appointment: Tonya Huynh WPtel: [phone] [id number] [place] PAP 06/25/2010 Patient Education: Patient Medication Summary Completed 06/25/2010 Referral: Sherif [facility] [address] [id number] [facility] Referral Appointment Requested Instructions Comment [...] bladder sling in Aug Discussed may need [employer] PILOT eval due to spotting/ removal of IUD, [...]
--- OUTSIDE RECORDS SUMMARY | 2020-01-17 07:01 | XMS REPORT | CCD ---
Author Author Cynthia Huynh D.O. 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 Name Role Phone Tonya Huynh D.O., PP Unavailable CCM Unavailable Summary Purpose Interface Exchange Insurance Providers Payer name Policy type / Coverage type Covered constitution party ID Effective Begin Date Effective End Date Blue Cross Blue Shield Blue Cross/Blue Shield [id number] Unknown Family History Family History data not found Social History Social History Element Codes Description Effective Dates Marital status Unknown 06/28/[address]: [id number] Never smoker 06/28/2011 Allergies, Adverse Reactions, Alerts [...] (gaseous) ICD-9: 787.3 ICD-10: R14.0 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 ICD-9: V58.6 1 [...] Fill Instructions warfarin 3 mg tablet RxNorm: 865306 1 Tablet(s) PO QD 06/07/201908/07 Active pantoprazole 40 mg tablet,delayed release RxNorm: 852771 1 Tabl et(s) PO BID 04/17/2019 05/16/2019 Inactive pantoprazole 40 mg tablet,delayed release RxNorm: 872134 1 Tabl et(s) PO BID 04/17/2019 04/16/2019 Inactive warfarin 10 mg tablet RxNorm: 837856 1 Tablet(s) PO QD 03/12/201911/2019 Active warfarin 5 mg tablet RxNorm: 711000 1 Tablet(s) PO QD t o take with 10mg dose on days takes full 15mg dose 03/12/2019 No Stop Date Active warfarin 10 mg tablet RxNorm: 171864 1 Tablet(s) PO QD 12/12/201803/2019 Inactive warfarin 5 mg tablet RxNorm: 302319 1 Tablet(s) PO QD t o take with 10mg dose on days takes full 15mg dose 09/18/2018 03/11/2019 Inactive warfarin 10 mg tablet RxNorm: 452205 1 Tablet(s) PO QD 06/21/201804/2019 Inactive warfarin 3 mg tablet RxNorm: 696854 1 Tablet(s) PO QD 06/21/201812/04 Inactive warfarin 10 mg tablet RxNorm: 527744 1 Tablet(s) PO QD 03/28/2018 Inactive warfarin 3 mg tablet RxNorm: 086962 1 Tablet(s) PO QD 03/28/201806/05 Inactive warfarin 10 mg tablet RxNorm: 719277 1 Tablet(s) PO QD 03/28/2018 Inactive warfarin 3 mg tablet RxNorm: 336075 1 Tablet(s) PO QD 03/28/201803/06 Inactive warfarin 1 mg tablet RxNorm: 070953 3 Tablet(s) PO TIW and 2 tabs all other days 01/18/2018 03/27/2018 Inactive warfarin 5 mg tablet RxNorm: 842512 2 Tablet(s) PO QD 12/19/201703/06 Inactive warfarin 5 mg tablet RxNorm: 995943 2 Tablet(s) PO QD 12/06/201712/04 Inactive warfarin 5 mg tablet RxNorm: 251746 2 Tablet(s) PO QD 12/05/201710/2017 Inactive warfarin 1 mg tablet RxNorm: 816616 2 Tablet(s) PO QD 10/24/201701/03 Inactive warfarin 1 mg tablet RxNorm: 977986 2 Tablet(s) PO QD 07/27/201710/06 Inactive Lovenox 80 mg/0.8 mL subcutaneous syringe RxNorm: 747296 1 Mill iliter(s) SQ BID 03/28/2017 04/26/2017 Inactive Lovenox 80 mg/0.8 mL subcutaneous syringe RxNorm: 963575 1 Unit Dose SQ Q12H 07/01/2015 08/29/2015 Inactive Lovenox 60 mg/0.6 mL subcutaneous syringe RxNorm: 477857 1 Unit Dose SQ BID prn for travel due to high risk for DVT 07/10/2014 07/19/2014 Inactive as directed for flights Lovenox 60 mg/0.6 mL Sub-Q Syringe RxNorm: 441328 1 Unit Dose SQ BI D 06/15/2013 06/24/2013 Inactive as directed for flights Lovenox 60 mg/0.6 mL Sub-Q Syringe RxNorm: 114868 1 Unit Dose SQ BI D 06/28/2011 No Stop Date Active as directed for flights Lamisil 250 mg Tab RxNorm: 818325 1 Tablet(s) PO QD 09/07/20102010 Inactive Lamisil 250 mg Tab RxNorm: 031642 1 Tablet(s) PO QD 06/25/20102010 Inactive Vitamin D3 2,000 unit Tab RxNorm: 344490 1 Tablet(s) PO QD No Start D ate Active niacin 50 mg tablet RxNorm: 709767 1 Tablet(s) PO QD No Start Date Inactive warfarin 5 mg tablet RxNorm: 525017 2 Tablet(s) PO QD No Start Date 0 12/04/2017 Inactive Lovenox 60 mg/0.6 mL Sub-Q Syringe RxNorm: 451807 1 Uni t Dose SQ BID as directed for flights No Start Date 06/27/2011 Inactive Lovenox 60 mg/0.6 mL subcutaneous syringe RxNorm: 465571 Millil iter(s) SQ BID No Start Date 06/30/2015 Inactive warfarin 1 mg tablet RxNorm: 717151 2 Tablet(s) PO QD No Start Date 1 09/25/2016 Inactive Lovenox 80 mg/0.8 mL subcutaneous syringe RxNorm: 120996 1 Mill iliter(s) SQ BID No Start Date 03/27/2017 Inactive warfarin 5 mg tablet RxNorm: 840029 1 Tablet(s) PO QD t o take with 10mg dose on days takes full 15mg dose No Start Date 09/17/2018 Inactive Medication Administered No Medication Administered data Immunizations No Immunization data Results No Results data Procedures Procedure Codes Date SPECIMEN HANDLING OFFICE-LAB CPT-4: 43622 08/24/2018 OCCULT BLOOD FECES CPT-4: 67263 08/24/2018 SPECIMEN HANDLING OFFICE-LAB CPT-4: 96778 07/27/2017 OCCULT BLOOD FECES CPT-4: 36354 07/27/2017 SPECIMEN HANDLING OFFICE-LAB CPT-4: 36446 07/26/2016 SPECIMEN HANDLING OFFICE-LAB CPT-4: 47460 07/15/2015 URINALYSIS NONAUTO W/O SCOPE CPT-4: 31864 07/10/2014 OCCULT BLOOD FECES CPT-4: 41212 07/10/2014 SPECIMEN HANDLING OFFICE-LAB CPT-4: 17348 07/10/2014 URINE CULTURE/ COLONY COUNT CPT-4: 36662 07/10/2014 SPECIMEN HANDLING OFFICE-LAB CPT-4: 21638 07/09/2013 OCCULT BLOOD FECES CPT-4: 81092 07/09/2013 OCCULT BLOOD FECES CPT-4: 36038 07/05/2012 SPECIMEN HANDLING OFFICE-LAB CPT-4: 87555 06/28/2011 OCCULT BLOOD FECES CPT-4: 65980 06/28/2011 SPECIMEN HANDLING OFFICE-LAB CPT-4: 22302 06/25/2010 OCCULT BLOOD FECES CPT-4: 51320 06/25/2010 Vital Signs Date Vital 08/13/2019 Heart [...] 1: 124/78 Code: 8480-6 BMI: 29.4 Code: 80641-2 Heart Rate 1: 72 bpm Height: 5'3" Respiratory Rate: 20 bpm SpO2: 98% Tempera ture: 36.5 (C) / 97.7 (F) Weight: 166 lbs 03/28/2017 Blood Pressure 1: 126/68 Code: 8480-6 BMI: 30.1 Code: 52932-0 Heart Rate 1: 66 bpm Height: 5'3" Respiratory Rate: 24 bpm SpO2: 98% Tempera ture: 36.4 (C) / 97.6 (F) Weight: 170 lbs 07/26/2016 Blood Pressure 1: 124/70 Code: 8480-6 BMI: 28.7 Code: 45347-6 Heart Rate 1: 84 bpm Height: 5'3" Respiratory Rate: 20 bpm Temperature: 36 .7 (C) / 98.0 (F) Weight: 162 lbs 07/15/2015 Blood Pressure 1: 114/78 Code: 8480-6 BMI: 30.8 Code: 84482-4 Heart Rate 1: 72 bpm Height: 5'3" Respiratory Rate: 20 bpm Temperature: 36 .7 (C) / 98.1 (F) Weight: 174 lbs 07/01/2015 Blood Pressure 1: 134/86 Code: 8480-6 BMI: 30.8 Code: 97769-0 Heart Rate 1: 84 bpm Height: 5'3" Respiratory Rate: 20 bpm Temperature: 36 .8 (C) / 98.3 (F) Weight: 174 lbs 07/10/2014 Blood Pressure 1: 124/78 Code: 8480-6 BMI: 29.8 Code: 22636-0 Heart Rate 1: 84 bpm Height: 5'3" Respiratory Rate: 20 bpm Temperature: 36 .7 (C) / 98.0 (F) Weight: 168 lbs 07/09/2013 Blood Pressure 1: 126/80 Code: 8480-6 BMI: 28.3 Code: 53036-8 Heart Rate 1: 80 bpm Height: 5'3" Respiratory Rate: 20 bpm Temperature: 37 .0 (C) / 98.6 (F) Weight: 160 lbs 07/05/2012 Blood Pressure 1: 102/68 Code: 8480-6 BMI: 27.3 Code: 74440-9 Heart Rate 1: 72 bpm Height: 5'3" Respiratory Rate: 20 bpm Temperature: 36 .6 (C) / 97.8 (F) Weight: 154 lbs 03/09/2012 Blood Pressure 1: 116/78 Code: 8480-6 BMI: 28.0 Code: 63938-4 Heart Rate 1: 84 bpm Height: 5'3" Respiratory Rate: 20 bpm Temperature: 36 .9 (C) / 98.4 (F) Weight: 158 lbs 06/28/2011 Blood Pressure 1: 122/78 Code: 8480-6 BMI: 27.6 Code: 91519-6 Heart Rate 1: 76 bpm Height: 5'3" Respiratory Rate: 20 bpm Temperature: 36 .8 (C) / 98.2 (F) Weight: 156 lbs 06/25/2010 Blood Pressure 1: 118/68 Code: 8480-6 BMI: 23.9 Code: 40642-9 Height: 5'3" Temperature: 36.3 (C) / 97.4 [...] knee[ICD10: M17.11] Diagnosis: Belching[ICD10: R14.2] Tonya ARREOLA iLyngo CPT-4: 14816 08/13/2019 ([id number]) OFFICE/OUTPATIENT VISIT EST Diagnosis: long-term (current) use of anticoagulants[ICD10: Z79.01] Diagnosis: Personal history of pulmonary embolism[ICD10: Z86.711] Diagnosis: Personal history of other venous thrombosis and embolism[ICD10: Z86.718] Diagnosis: Other allergic rhinitis[ICD10: J30.89] Diagnosis: Abdominal distension (gaseous)[ICD10: R14.0] Jud Bravo [facility] CPT-4: 17698 04/09/2019 ([id number]) PREV VISIT EST AGE 40-64 Diagnosis: Encounter for general adult medical examination without abnormal findings[ICD10: Z00.00] Diagnosis: Encounter for gynecological examination (general) (routine) without abnormal findings[ICD10: Z01.419] Diagnosis: Mixed hyperlipidemia[ICD10: E78.2] Diagnosis: Excessive and frequent menstruation with irregular cycle[ICD10: N92.1] Tonya SEARS ChayamuniArnoldo AssmblyBENJAMINSnipshot CPT-4: 17358 08/24/2018 ([id number]) PREV VISIT EST AGE 40-64 Diagnosis: Encounter for general adult medical examination without abnormal findings[ICD10: Z00.00] Diagnosis: Encounter for gynecological examination (general) (routine) without abnormal findings[ICD10: Z01.419] 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] Tonya [facility] PEMRED CPT-4: 78003 07/27/2017 ([id number]) OFFICE/OUTPATIENT VISIT EST Diagnosis: 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[ICD10: I82.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] Diagnosis: Follicular cyst of left ovary[ICD10: N83.02] Tonya [facility]NH PEMRED CPT-4: 10908 03/28/2017 ([id number]) PREV VISIT EST AGE 40-64 Diagnosis: Encounter for general adult medical examination without abnormal findings[ICD10: Z00.00] Diagnosis: Encounter for gynecological examination (general) (routine) without abnormal findings[ICD10: Z01.419] Diagnosis: Mixed hyperlipidemia[ICD10: E78.2] 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] Diagnosis: Unspecified lump in breast[ICD10: N63] Tonya [facility]NH PEMRED CPT-4: 67349 07/26/2016 ([id number]) PREV VISIT EST AGE 40-64 Diagnosis: Encounter for general adult medical examination without abnormal findings[ICD10: Z00.00] Diagnosis: Encounter for gynecological examination (general) (routine) without abnormal findings[ICD10: Z01.419] Diagnosis: Acute embolism and thrombosis of unspecified deep veins of unspecified lower extremity[ICD10: I82.409] Tonya [facility]NH PEMRED CPT-4: 40889 07/15/2015 ([id number]) OFFICE/OUTPATIENT VISIT EST Diagnosis: Acute embolism and thrombosis of unspecified deep veins of unspecified lower extremity[ICD10: I82.409] 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] Tonyaowen Arellanobenjaminvanda [facility] P[facility]RED CPT-4: 76201 07/01/2015 ([id number]) PREV VISIT EST AGE 40-64 Diagnosis: ROUTINE MEDICAL EXAM[ICD9: V70.0] Diagnosis: ROUTINE GYNE EXAM[ICD9: V72.31] Diagnosis: MALAISE AND FATIGUE[ICD9: 780.79] Diagnosis: Hematuria[ICD9: 599.70] Tonya GONZALEZLINE Remigio DC DO [facility] CPT-4: 59440 07/10/2014 ([id number]) PREV VISIT EST AGE 40-64 Diagnosis: ROUTINE MEDICAL EXAM[ICD9: V70.0] Diagnosis: ROUTINE GYNE EXAM[ICD9: V72.31] Diagnosis: HYPERLIPIDEMIA NEC/NOS[ICD9: 272.4] Diagnosis: MALAISE AND FATIGUE[ICD9: 780.79] Diagnosis: PAIN, LOWER BACK[ICD9: 724.2] Diagnosis: Menometrorrhagia[ICD9: 626.2] Tonyaowen Huynh TONYA Mary GraceArnoldo ROQUEER PEMRED CPT-4: 74251 07/09/2013 ([id number]) PREV VISIT EST AGE 40-64 Diagnosis: ROUTINE MEDICAL EXAM[ICD9: V70.0] Diagnosis: ROUTINE GYNE EXAM[ICD9: V72.31] Tonya Adanbenjaminvanda GONZALEZTONYA Mary GraceArnoldo KENDY WILLS [facility] CPT-4: 72811 07/05/2012 ([id number]) SPECIMEN HANDLING Diagnosis: [ICD9: ] Diagnosis: [ICD9: ] Tonya Arellanobenjaminvanda DOANTONYA Mary GraceArnlodo ADANNDER DO [facility] CPT-4: 9900 0 07/05/2012 ([id number]) OFFICE/OUTPATIENT VISIT EST Diagnosis: MALAISE AND FATIGUE[ICD9: 780.79] Diagnosis: HYPERLIPIDEMIA NEC/NOS[ICD9: 272.4] Tonya AGUIAR SArnoldo ADANNDER DO [facility] CPT-4: 32159 03/09/2012 PREV VISIT EST AGE 40-64 Diagnosis: ROUTINE GYNE EXAM[ICD9: V72.31] Diagnosis: ROUTINE MEDICAL EXAM[ICD9: V70.0] Diagnosis: MALAISE AND FATIGUE[ICD9: 780.79] Tonya Garrido Mary GraceArnoldo AADNNDER PEMRED CPT-4: 31940 06/28/2011 ([id number]) PREV VISIT, EST, AGE 40-64 Tonya DOANOLIVER ARELLANOBENJAMINVANDA LLC CPT-4: 07602 06/25/2010 Plan of Care Planned Activity Notes [...] Care Plan: Referral Order SNOMED-CT : [id number] Pending 08/13/2019 Visit Diagnosis Plan: Other allergic [...] ICD-10 : J30.89 04/09/2019 Visit Diagnosis Plan: long-term (current) use of antic oagulants Discussion: 13 [...] ICD-10 : R14.0 04/09/2019 Appointment: Jud Bravo [address] [place], [place] [phone] US FOLLOW UP 04/09/2019 Visit Diagnosis Plan: Excessive and frequent menstruat ion with irregular cycle Discussion: Check FSH/LH/Estradiol May need pelvic US ICD-9 : 626.2 ICD-10 : N92.1 08/24/2018 Visit Diagnosis Plan: Encounter for [facility] adult medical examination without abnormal findings Discussion: [...] Z01.419 08/24/2018 Appointment: Tonya Huynh WPtel: [phone] [facility] Annual Well Visit 08/24/2018 Patient Education: [...] Z01.419 07/27/2017 Visit Diagnosis Plan: Encounter for [facility] adult medical examination without abnormal findings Discussion: Proceed with colonoscopy sin ce needs one at 48 and has been having bowel changes 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 [...] Z00.00 07/27/2017 Appointment: Tonya Huynh WPtel: [phone] [id number] Annual Well Visit 07/27/2017 Patient Education: Patient Medication Summary Completed 07/27/2017 Referral: Vasquez Carpenter WPtel: [phone] Us-59 [id number] US Referral Initiated 04/19/2017 Visit Diagnosis Plan: 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 Discussion: Referral to hematology to discuss assisted anitcoagulation Patient does not want to do orals due to risks Will keep on lovenox until sees hematology ICD-9 : 453.41 ICD-10 : I82.422 03/28/2017 Visit Diagnosis Plan: Follicular cyst of left ovary Di scussion: Pelvic US in 3mos ICD-9 : 620.0 ICD-10 : N83.02 03/28/2017 Appointment: Tonya Huynh WPtel: [address] [place], [place] [phone] 03/24 confirmed ~sl WORK IN 03/28/2017 Patient Education: Patient Medication Summary Completed 03/28/2017 Visit Plan: Pap Done Diagnostic Mammogra m with Left Breast US--may need biopsy of left breast lesion pending results Update fasting lab Check CXR and KUB with history of IVC filter 07/26/2016 Appointment: Tonya Huynh WPtel: [address] [place], [place] [phone] 07/22 confirmed~sl Annual Well Visit 07/26/2016 Patient Education: Patient Medication Summary Completed 07/26/2016 Visit Plan: Pap done Repeat RLE venous d oppler on Aug 11 Continue lovenox and observe for bleeding Defers mammogram until next year 07/15/2015 Appointment: Tonya Huynh WPtel: [address] [place], [place] [phone] [place] 07/10 lm ~sl...07/15 appt confirmed cn PAP 07/15/2015 Patient Education: Patient Medication Summary Completed 07/15/2015 Visit Plan: Continue lovenox as is Obtai n US and ER records from [place] Patient refuses any anticoagulants except lovenox Offered xarelto, eliquis, pradaxa, coumadin, etc. No long trips until fwup Recheck 2weeks Check CBC in 1week Report any signs of bleeding immediately 07/01/2015 Appointment: Tonya Huynh WPtel: [address] [place], [place] [phone] 07/01 called office to confirm ~SL ACUTE ILLNESS 07/01/2015 Patient Education: Patient Medication Summary Completed 07/01/2015 Patient Education: Patient Medication Summary Completed 07/22/2014 Appointment: Tonya Huynh WPtel: [address] [place], [place] [phone] 07/09 voicedeil Annual Well Visit 07/10/2014 Patient Education: Patient Medication Summary Completed 07/10/2014 Visit Plan: Pap Done Proceed with pelvic US Mammo scheduled May need MRI of L/S spine Pt scheduled for bladder sling in Dec Discussed may need ICT HELP DESK OFFICER eval due to spotting/ removal of IUD, etc. Check fasting lab 07/09/2013 Appointment: Tonya Huynh WPtel: [address] [place], [place] [phone] 07/06 vm PAP 07/09/2013 Patient Education: Patient Medication Summary Completed 07/09/2013 Visit Plan: PAP done Mammo ordered 07/05/2012 Appointment: Tonya Huynh WPtel: [address] [place], [place] [phone] 07/04- left message PAP 07/05/2012 Patient Education: Patient Medication Summary Completed 07/05/2012 Visit Plan: Check fasting lab Discussed diet and exercise at length 03/09/2012 Appointment: Tonya Huynh WPtel: [address] [place], [place] [phone] US message left with child FOLLOW UP 03/09/20 12 Patient Education: Patient Medication Summary Completed 03/09/2012 Visit Plan: Pap Done and Mammogram order ed CMP, Lipids, CBC, TSH, Free T4 Start daily baby aspirin Use lovenox when flies 06/28/2011 Appointment: Tonya Huynh WPtel: [address] [place], [place] [phone] [place] PAP 06/28/2011 Patient Education: Patient Medication Summary Completed 06/28/2011 Visit Plan: Pap Done Mammo ordered Trial of lamisil--check LFTs at start and monthly while on and put shoes in moth balls during treatment 06/25/2010 Appointment: Tonya Huynh WPtel: [id number] US PAP 06/25/2010 Patient Education: Patient Medication Summary Completed 06/25/2010 Ref[facility]: [id number] [facility] Ref[facility] Appointment Requested Instructions Comment . [...] is Obtain US and ER records from [place] Patient refuses any anticoagulants except lovenox Offered xarelto, eliquis, pradaxa, coumadin, etc. No long trips until fwup Recheck 2weeks Check CBC in 1week Report any signs of bleeding immediately . Pap Done Proceed with pelvic US Mammo scheduled May need MRI of L/S spine Pt scheduled for bladder sling in Aug Discussed may need ICT HELP DESK OFFICER eval due to spotting/ removal of IUD, [...]
--- OUTSIDE RECORDS SUMMARY | 2020-01-17 07:02 | XMS REPORT | CCD ---
Author Author Cynthia Huynh D.O. 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 Role Phone Tonya Huynh D.O., PP Unavailable CCM Unavailable Summary Purpose Interface Exchange Insurance Providers Payer name Policy type / Coverage type Covered democrat ID Effective Begin Date Effective End Date Blue Cross Blue Shield Blue Cross/Bl ue Shield [id number] Un known Family History Family History data not found Social History Social History Element Codes Description Effective Dates Marital status Unknown M arried 06/28/[address]: 250723047 Never smoker 06/28/2011 Allergies, Adverse Reactions, Alerts Substance Reaction Codes Entered Date Inactivated Date Status * NO KNOWN ENVIRONME NTAL ALLERGIES Unknown 06/28/2011 No Inactive Date Active * NO KNOWN FOOD ANABELA RGIES Unknown 06/28/2011 No Inactive Date Active * NO KNOWN DRUG ANABELA RGIES Unknown 06/28/2011 No Inactive Date Active Past Medical History Illness Codes Condition Status Onset Date Resolved Date Abdominal distension (gaseous) ICD-9: 787.3 ICD-10: R14.0 Active 04/09/2019 Unknown longterm (current) use of anticoagulants ICD-9: V58.61 ICD-10: Z79.01 Active 04/09/2019 Unknown Other allergic rhinitis ICD-9: 477.8 ICD-10: J30.89 Active 04/09/2019 Unknown Personal history of other venous thrombosis and embolism ICD-9: V12.51 ICD-10: Z86.718 Active 04/09/2019 Unknown Personal history of pulmonary embolism ICD-9: V12.55 ICD-10: Z86.711 Active 04/09/2019 Unknown Excessive and freque nt menstruation with irregular cycle ICD-9: 626.2 ICD-10: N92.1 Active 08/24/2018 Unknown Encounter for genera l adult medical examination without abnormal findings ICD-9: V70.0 ICD-10: Z00.00 Active 07/10/2014 Unknown Encounter for gyneco logical examination (general) (routine) without abnormal findings ICD-9: V72.31 ICD-10: Z01.419 Active 07/10/2014 Unknown Mixed hyperlipidemia ICD-9: 272.4 ICD-10: E78.2 Active 03/09/2012 Unknown Encounter for screen ing mammogram for malignant neoplasm of breast ICD-9: V76.12 ICD-10: Z12.31 Active 04/05/2018 Unknown Encounter for genera l adult medical examination without abnormal findings ICD-9: V70.9 ICD-10: Z00.00 Active 07/27/2017 Unknown Other specified coag ulation defects ICD-9: 289.81 ICD-10: D68.8 Active 07/25/2016 Unknown Acute embolism and t hrombosis of left iliac vein ICD-9: 453.41 ICD-10: I82.422 Active 03/28/2017 Unknown Follicular cyst of l eft ovary ICD-9: 620.0 ICD-10: N83.02 Active 03/28/2017 Unknown Unspecified lump in breast ICD-9: 611.72 ICD-10: N63 Active 07/25/2016 Unknown Acute embolism and t hrombosis of unspecified deep veins of unspecified lower extremity ICD-9: 453.40 ICD-10: I82.409 Active 07/14/2015 Unknown ABNORMAL MAMMOGRAM ICD- 9: 793.80 Active 07/22/2014 Unknown Hematuria ICD-9: 599.70 Active 07/10/2014 Unknow n MALAISE AND FATIGUE ICD- 9: 780.79 Active 07/10/2014 Unknown ROUTINE GYNE EXAM ICD-9: V72.31 Active 07/10/2014 Unknown ROUTINE MEDICAL EXAM ICD-9: V70.0 Active 07/10/2014 Unknown Menometrorrhagia ICD-9: 626.2 Active 07/09/2013 Unknown PAIN, LOWER BACK ICD-9: 724.2 Active 07/09/2013 Unknown HYPERLIPIDEMIA NEC/NOS ICD-9: 272.4 Active 03/09/2012 Unknown Onychomycosis ICD-9: 110.1 Active 06/25/2010 Unknown Problems Condition Codes Effectiv e Dates Condition Status Abdominal distension (gaseous) ICD-9: 787.3 ICD-10: R14.0 04/09/2019 Active 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 ICD-9: V58.61 ICD-10: Z79.01 04/09/2019 Active Other allergic rhinitis ICD-9: 477.8 ICD-10: J30.89 04/09/2019 Active Personal history of other venous thrombosis and embolism ICD-9: V12.51 ICD-10: Z86.718 04/09/2019 Active Personal history of pulmonary embolism ICD-9: V12.55 ICD-10: Z86.711 04/09/2019 Active Excessive and freque nt menstruation with irregular cycle ICD-9: 626.2 ICD-10: N92.1 08/24/2018 Active Encounter for genera l adult medical examination without abnormal findings ICD-9: V70.0 ICD-10: Z00.00 07/10/2014 Active Encounter for gyneco logical examination (general) (routine) without abnormal findings ICD-9: V72.31 ICD-10: Z01.419 07/10/2014 Active Mixed hyperlipidemia ICD-9: 272.4 ICD-10: E78.2 03/09/2012 Active Encounter for screen ing mammogram for malignant neoplasm of breast ICD-9: V76.12 ICD-10: Z12.31 04/05/2018 Active Encounter for genera l adult medical examination without abnormal findings ICD-9: V70.9 ICD-10: Z00.00 07/27/2017 Active Other specified coag ulation defects ICD-9: 289.81 ICD-10: D68.8 07/25/2016 Active Acute embolism and t hrombosis of left iliac vein ICD-9: 453.41 ICD-10: I82.422 03/28/2017 Active Follicular cyst of l eft ovary ICD-9: 620.0 ICD-10: N83.02 03/28/2017 Active Unspecified lump in breast ICD-9: 611.72 ICD-10: N63 07/25/2016 Active Acute embolism and t hrombosis of unspecified deep veins of unspecified lower extremity ICD-9: 453.40 ICD-10: I82.409 07/14/2015 Active ABNORMAL MAMMOGRAM ICD- 9: 793.80 07/22/2014 Active Hematuria ICD-9: 599.70 07/10/2014 Active MALAISE AND FATIGUE ICD- 9: 780.79 07/10/2014 Active ROUTINE GYNE EXAM ICD-9: V72.31 07/10/2014 Active ROUTINE MEDICAL EXAM ICD-9: V70.0 07/10/2014 Active Menometrorrhagia ICD-9: 626.2 07/09/2013 Active PAIN, LOWER BACK ICD-9: 724.2 07/09/2013 Active HYPERLIPIDEMIA NEC/NOS ICD-9: 272.4 03/09/2012 Active Onychomycosis ICD-9: 110.1 06/25/2010 Active Medications Medication Codes Instruc tions Start Date Stop Date Sta tus Fill Instructions pantoprazole 40 mg t ablet,delayed release RxNorm: 718193 1 Tablet(s) PO BID 04/17/2019 05/16/2019 Ac tive pantoprazole 40 mg t ablet,delayed release RxNorm: 112131 1 Tablet(s) PO BID 04/17/2019 04/16/2019 In active warfarin 10 mg tablet RxNorm: 697865 1 Tablet(s) PO QD 03/12/2019 09/07/2019 Active warfarin 5 mg tablet RxNorm: 411910 1 Tablet(s) PO QD to take with 10mg dose on days takes full 15mg dose 03/12/2019 No Stop Date Active warfarin 10 mg tablet RxNorm: 016419 1 Tablet(s) PO QD 12/12/2018 03/11/2019 Inactive warfarin 5 mg tablet RxNorm: 458405 1 Tablet(s) PO QD to take with 10mg dose on days takes full 15mg dose 09/18/2018 03/11/2019 Inactive warfarin 10 mg tablet RxNorm: 390711 1 Tablet(s) PO QD 06/21/2018 12/11/2018 Inactive warfarin 3 mg tablet RxNorm: 691862 1 Tablet(s) PO QD 06/21/2018 12/17/2018 Inactive warfarin 10 mg tablet RxNorm: 921406 1 Tablet(s) PO QD 03/28/2018 06/20/2018 Inactive warfarin 3 mg tablet RxNorm: 126109 1 Tablet(s) PO QD 03/28/2018 06/20/2018 Inactive warfarin 10 mg tablet RxNorm: 142059 1 Tablet(s) PO QD 03/28/2018 03/27/2018 Inactive warfarin 3 mg tablet RxNorm: 001672 1 Tablet(s) PO QD 03/28/2018 03/27/2018 Inactive warfarin 1 mg tablet RxNorm: 340345 3 Tablet(s) PO TIW and 2 tabs all other days 01/18/2018 03/27/2018 Inactive warfarin 5 mg tablet RxNorm: 959909 2 Tablet(s) PO QD 12/19/2017 03/27/2018 Inactive warfarin 5 mg tablet RxNorm: 072052 2 Tablet(s) PO QD 12/06/2017 12/18/2017 Inactive warfarin 5 mg tablet RxNorm: 335821 2 Tablet(s) PO QD 12/05/2017 12/05/2017 Inactive warfarin 1 mg tablet RxNorm: 515024 2 Tablet(s) PO QD 10/24/2017 01/17/2018 Inactive warfarin 1 mg tablet RxNorm: 348296 2 Tablet(s) PO QD 07/27/2017 10/23/2017 Inactive Lovenox 80 mg/0.8 mL subcutaneous syringe RxNorm: 182364 1 Milliliter(s) SQ BI D 03/28/2017 04/26/2017 In active Lovenox 80 mg/0.8 mL subcutaneous syringe RxNorm: 658005 1 Unit Dose SQ Q12H 07/01/2015 08/29/2015 In active Lovenox 60 mg/0.6 mL subcutaneous syringe RxNorm: 966323 1 Unit Dose SQ BID pr n for travel due to high risk for DVT 07/10/2014 07/19/2014 Inactive as directed for flights Lovenox 60 mg/0.6 mL Sub-Q Syringe RxNorm: 712687 1 Unit Dose SQ BID 06/15/2013 06/24/2013 Inactive as directed for flights Lovenox 60 mg/0.6 mL Sub-Q Syringe RxNorm: 002622 1 Unit Dose SQ BID 06/28/2011 No Stop Date Active as directed for flights Lamisil 250 mg Tab RxNorm: 082193 1 Tablet(s) PO QD 09/07/2010 12/05/2010 Inactive Lamisil 250 mg Tab RxNorm: 474214 1 Tablet(s) PO QD 06/25/2010 09/06/2010 Inactive Vitamin D3 2,000 uni t Tab RxNorm: 588520 1 Tablet(s) PO QD No Start Date Active niacin 50 mg tablet RxNorm: 379706 1 Tablet(s) PO QD No Start Date 08/23/2018 Inactive warfarin 5 mg tablet RxNorm: 560034 2 Tablet(s) PO QD No Start Date 12/04/2017 Inactive Lovenox 60 mg/0.6 mL Sub-Q Syringe RxNorm: 815926 1 Unit Dose SQ BID as directed for flights No Start Date 06/27/2011 Inactive Lovenox 60 mg/0.6 mL subcutaneous syringe RxNorm: 087557 Milliliter(s) SQ BID No Start Date 06/30/2015 Inactive warfarin 1 mg tablet RxNorm: 619471 2 Tablet(s) PO QD No Start Date 07/26/2017 Inactive Lovenox 80 mg/0.8 mL subcutaneous syringe RxNorm: 304153 1 Milliliter(s) SQ BI D No Start Date 03/27/2017 Inactive warfarin 5 mg tablet RxNorm: 622102 1 Tablet(s) PO QD to take with 10mg dose on days takes full 15mg dose No Start Date 09/17/2018 Inactive Medication Administered No Medication Administered data Immunizations No Immunization data Assessments Condition Codes Effectiv e Dates longterm (current) use of anticoagulants ICD-10: Z79.01 ICD-9: V58.61 04/09/2019 Other allergic rhinitis ICD-10: J30. 89 ICD-9: 477.8 04/09/2019 Personal history of other venous thrombosis and emboli sm ICD- 10: Z86.718 ICD-9: V12.51 04/09/2019 Personal history of pulmonary embolism ICD-10: Z86.711 ICD-9: V12.55 04/09/2019 Abdominal distension (gaseous) ICD-1 0: R14.0 ICD-9: 787.3 04/09/2019 Excessive and frequent menstruation with irregular cyc le ICD- 10: N92.1 ICD-9: 626.2 08/31/2018 Encounter for gynecological examination (general) (routine) without abnormal findings ICD-10: Z01.419 ICD-9: V72.31 08/24/2018 Encounter for general adult medical exam ination without abnormal findings ICD-10: Z00.00 ICD-9: V70.0 08/24/2018 Mixed hyperlipidemia ICD-10: E78.2 ICD-9: 272.4 08/24/2018 Encounter for screening mammogram for ma lignant neoplasm of breast ICD-10: Z12.31 ICD-9: V76.12 04/05/2018 Other specified coagulation defects ICD-10: D68.8 ICD-9: 289.81 07/27/2017 Encounter for general adult medical exam ination without abnormal findings ICD-10: Z00.00 ICD-9: V70.9 07/27/2017 Follicular cyst of left ovary ICD-10 : N83.02 ICD-9: 620.0 03/28/2017 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 ICD-10: I82.422 ICD-9: 453.41 03/28/2017 Unspecified lump in breast ICD-10: N 63 ICD-9: 611.72 07/26/2016 Acute embolism and thrombosis of unspeci fied deep veins of unspecified lower extremity ICD-10: I82.409 ICD-9: 453.40 07/15/2015 ABNORMAL MAMMOGRAM ICD-9: 793.80 07/22/2014 Hematuria ICD-9: 599.70 07/10/2014 MALAISE AND FATIGUE ICD-9: 780.79 07/10/2014 ROUTINE MEDICAL EXAM ICD-9: V70.0 07/10/2014 ROUTINE GYNE EXAM ICD-9: V72.31 07/10/2014 PAIN, LOWER BACK ICD-9: 724.2 07/09/2013 Menometrorrhagia ICD-9: 626.2 07/09/2013 HYPERLIPIDEMIA NEC/NOS ICD-9: 272.4 07/09/2013 Onychomycosis ICD-9: 110.1 06/25/2010 Reason For Visit Reason For Visit Effective Dates Notes follow up 04/09/2019 well woman exam (40-65 years) 08/24/2018 Annual Checkup 07/27/2017 Last normal mammogram 08-02-16, never had colonoscopy or bone density follow up 03/28/2017 Lef t Deep 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 Vena Cava Filter- Patient was given Depo-Medrol/Decadron the week before for sinusitis and has inquired if the two interferes and predisoses for blood clot well woman exam (40-65 years) 07/26/2016 Last mammogram with ultrasound Jul 2014 well woman exam (40-65 years) 07/15/2015 Last mammogram Jul 2014 with breast ultrasound, labia has a recurrent bleeding spot follow up 07/01/2015 ER fwup well woman exam (40-65 years) 07/10/2014 Last normal mammogram 07-26-12 well woman exam (40-65 years) 07/09/2013 Last normal mammogram 07-26-12 well woman exam (40-65 years) 07/05/2012 last normal mammogram 1 year ago weight gain/obesity 03/09/2012 thinks may be related to thyroid problems well woman exam (40-65 years) 06/28/2011 last normal mammogram 1 year ago toe pain due to infection 06/25/2010 nail thickening Results No Results data Review of Systems System Result Effective Dates Constitutional No fever 04/09/2019 Constitutional No fatigue 04/09/2019 Constitutional No chills 04/09/2019 Gastrointestinal No abdominal pain 04/09/2019 Gastrointestinal No constipation 04/09/2019 Gastrointestinal No diarrhea 04/09/2019 Respiratory No cough 01/2019 Respiratory No dyspnea 0 04/09/2019 Respiratory No chest congestion 04/09/2019 Ears/Nose/Throat/Neck sore throat 04/09/2019 Ears/Nose/Throat/Neck No otalgia 04/09/2019 Ears/Nose/Throat/Neck sinus congestion 04/09/2019 Ears/Nose/Throat/Neck postnasal drip 04/09/2019 Gastrointestinal gas and bloating 04/09/2019 Dermatologic No rash 01/2019 Dermatologic No sores Neurologic headache 0801/2019 Cardiovascular No chest pain/pressure 04/09/2019 Cardiovascular No palpitations 04/09/2019 Constitutional No night sweats 08/24/2018 Constitutional No fatigue 08/24/2018 Constitutional No fever 08/24/2018 Constitutional No insomnia 08/24/2018 Constitutional weight loss 08/24/2018 Eyes No eye pain 018 Eyes No photophobia 08/06 Eyes No vision change Eyes No visual disturbance 08/24/2018 Ears/Nose/Throat/Neck No hearing loss 08/24/2018 Ears/Nose/Throat/Neck No nasal discharge 08/24/2018 Ears/Nose/Throat/Neck No sinus congestion 08/24/2018 Ears/Nose/Throat/Neck No sore throat 08/24/2018 Cardiovascular No arrhythmia 08/24/2018 Cardiovascular No chest pain/pressure 08/24/2018 Cardiovascular No edema 08/24/2018 Cardiovascular No exercise intolerance 08/24/2018 Cardiovascular No orthopnea 08/24/2018 Cardiovascular No palpitations 08/24/2018 Respiratory No asthma Respiratory No cough Respiratory No dyspnea 1 10/25/2017 Respiratory No pleuritic pain 08/24/2018 Respiratory No productive sputum 08/24/2018 Respiratory No wheezing 08/24/2018 Gastrointestinal No hemorrhoids 08/24/2018 Gastrointestinal No hepatitis 08/24/2018 Gastrointestinal No abdominal pain 08/24/2018 Gastrointestinal No constipation 08/24/2018 Gastrointestinal No diarrhea 08/24/2018 Gastrointestinal No gastroesophageal reflu x 08/24/2018 Gastrointestinal No melena 08/24/2018 Gastrointestinal No nausea 08/24/2018 Gastrointestinal No vomiting 08/24/2018 Genitourinary/Nephrology No dysuria 08/24/2018 Genitourinary/Nephrology No nocturia 08/24/2018 Genitourinary/Nephrology No urinary incontinence 08/24/2018 Musculoskeletal No muscle weakness 08/24/2018 Musculoskeletal No myalgias 08/24/2018 Musculoskeletal No stiffness 08/24/2018 Musculoskeletal No swelling 08/24/2018 Dermatologic No rash Dermatologic No scar Neurologic No dizziness 08/24/2018 Neurologic No headache 1 10/25/2017 Neurologic No neck pain 08/24/2018 Neurologic No syncope Psychiatric No anxiety 1 10/25/2017 Psychiatric No depression 08/24/2018 Endocrine No goiter 08/06 Endocrine No hyperglycemia 08/24/2018 Endocrine No hypoglycemia 08/24/2018 Hematologic/Lymphatic No abnormal ec chymoses 08/24/2018 Hematologic/Lymphatic No petechiae 08/24/2018 Hematologic/Lymphatic No abnormal bl eeding and bruising 08/24/2018 Hematologic/Lymphatic No anemia 08/24/2018 Hematologic/Lymphatic No lymph node enlargement/mass 08/24/2018 Allergy/Immunology No food allergy 08/24/2018 Genitourinary/Nephrology menstrual i rregularity 08/24/2018 Constitutional No night sweats 07/27/2017 Constitutional No fatigue 07/27/2017 Constitutional No fever 07/27/2017 Constitutional No insomnia 07/27/2017 Constitutional No weight loss 07/27/2017 Eyes No eye pain 017 Eyes No photophobia 07/07 Eyes No vision change Eyes No visual disturbance 07/27/2017 Ears/Nose/Throat/Neck No hearing loss 07/27/2017 Ears/Nose/Throat/Neck No nasal discharge 07/27/2017 Ears/Nose/Throat/Neck No sinus congestion 07/27/2017 Ears/Nose/Throat/Neck No sore throat 07/27/2017 Cardiovascular No arrhythmia 07/27/2017 Cardiovascular No chest pain/pressure 07/27/2017 Cardiovascular No edema 07/27/2017 Cardiovascular No exercise intolerance 07/27/2017 Cardiovascular No orthopnea 07/27/2017 Cardiovascular No palpitations 07/27/2017 Respiratory No asthma Respiratory No cough Respiratory No dyspnea 1 09/26/2016 Respiratory No pleuritic pain 07/27/2017 Respiratory No productive sputum 07/27/2017 Respiratory No wheezing 07/27/2017 Gastrointestinal No hemorrhoids 07/27/2017 Gastrointestinal No hepatitis 07/27/2017 Gastrointestinal No abdominal pain 07/27/2017 Gastrointestinal constipation 07/27/2017 Gastrointestinal diarrhea 07/27/2017 Gastrointestinal No gastroesophageal reflu x 07/27/2017 Gastrointestinal No melena 07/27/2017 Gastrointestinal No nausea 07/27/2017 Gastrointestinal No vomiting 07/27/2017 Genitourinary/Nephrology No dysuria 07/27/2017 Genitourinary/Nephrology No nocturia 07/27/2017 Genitourinary/Nephrology No urinary incontinence 07/27/2017 Musculoskeletal No muscle weakness 07/27/2017 Musculoskeletal No myalgias 07/27/2017 Musculoskeletal No stiffness 07/27/2017 Musculoskeletal No swelling 07/27/2017 Dermatologic No rash Dermatologic No scar Neurologic No dizziness 07/27/2017 Neurologic No headache 1 09/26/2016 Neurologic No neck pain 07/27/2017 Neurologic No syncope Psychiatric No anxiety 1 09/26/2016 Psychiatric No depression 07/27/2017 Endocrine No goiter 07/07 Endocrine No hyperglycemia 07/27/2017 Endocrine No hypoglycemia 07/27/2017 Hematologic/Lymphatic No abnormal ec chymoses 07/27/2017 Hematologic/Lymphatic No petechiae 07/27/2017 Hematologic/Lymphatic No abnormal bl eeding and bruising 07/27/2017 Hematologic/Lymphatic No anemia 07/27/2017 Hematologic/Lymphatic No lymph node enlargement/mass 07/27/2017 Allergy/Immunology No food allergy 07/27/2017 Hematologic/Lymphatic venous thrombosis 07/27/2017 Gastrointestinal gas and bloating 07/27/2017 Hematologic/Lymphatic venous thrombosis 03/28/2017 Respiratory No asthma Respiratory No cough Respiratory No dyspnea 0 03/28/2017 Respiratory No pleuritic pain 03/28/2017 Respiratory No productive sputum 03/28/2017 Respiratory No wheezing 03/28/2017 Constitutional No night sweats 07/26/2016 Constitutional No fatigue 07/26/2016 Constitutional No fever 07/26/2016 Constitutional No insomnia 07/26/2016 Constitutional No weight loss 07/26/2016 Eyes No eye pain 016 Eyes No photophobia 07/07 Eyes No vision change Eyes No visual disturbance 07/26/2016 Ears/Nose/Throat/Neck No hearing loss 07/26/2016 Ears/Nose/Throat/Neck No nasal discharge 07/26/2016 Ears/Nose/Throat/Neck No sinus congestion 07/26/2016 Ears/Nose/Throat/Neck No sore throat 07/26/2016 Cardiovascular No arrhythmia 07/26/2016 Cardiovascular No chest pain/pressure 07/26/2016 Cardiovascular No edema 07/26/2016 Cardiovascular No exercise intolerance 07/26/2016 Cardiovascular No orthopnea 07/26/2016 Cardiovascular No palpitations 07/26/2016 Respiratory No asthma Respiratory No cough Respiratory No dyspnea 1 09/25/2015 Respiratory No pleuritic pain 07/26/2016 Respiratory No productive sputum 07/26/2016 Respiratory No wheezing 07/26/2016 Gastrointestinal No hemorrhoids 07/26/2016 Gastrointestinal No hepatitis 07/26/2016 Gastrointestinal No abdominal pain 07/26/2016 Gastrointestinal No constipation 07/26/2016 Gastrointestinal No diarrhea 07/26/2016 Gastrointestinal No gastroesophageal reflu x 07/26/2016 Gastrointestinal No melena 07/26/2016 Gastrointestinal No nausea 07/26/2016 Gastrointestinal No vomiting 07/26/2016 Genitourinary/Nephrology No dysuria 07/26/2016 Genitourinary/Nephrology No nocturia 07/26/2016 Genitourinary/Nephrology No urinary incontinence 07/26/2016 Musculoskeletal No muscle weakness 07/26/2016 Musculoskeletal No myalgias 07/26/2016 Musculoskeletal No stiffness 07/26/2016 Musculoskeletal No swelling 07/26/2016 Dermatologic No rash Dermatologic No scar Neurologic No dizziness 07/26/2016 Neurologic No headache 1 09/25/2015 Neurologic No neck pain 07/26/2016 Neurologic No syncope Psychiatric No anxiety 1 09/25/2015 Psychiatric No depression 07/26/2016 Endocrine No goiter 07/07 Endocrine No hyperglycemia 07/26/2016 Endocrine No hypoglycemia 07/26/2016 Hematologic/Lymphatic No abnormal ec chymoses 07/26/2016 Hematologic/Lymphatic No petechiae 07/26/2016 Hematologic/Lymphatic No abnormal bl eeding and bruising 07/26/2016 Hematologic/Lymphatic No anemia 07/26/2016 Hematologic/Lymphatic No lymph node enlargement/mass 07/26/2016 Allergy/Immunology No food allergy 07/26/2016 Constitutional No night sweats 07/15/2015 Constitutional No fatigue 07/15/2015 Constitutional No fever 07/15/2015 Constitutional No insomnia 07/15/2015 Constitutional No weight loss 07/15/2015 Eyes No eye pain 015 Eyes No photophobia 07/06 Eyes No vision change Eyes No visual disturbance 07/15/2015 Ears/Nose/Throat/Neck No hearing loss 07/15/2015 Ears/Nose/Throat/Neck No nasal discharge 07/15/2015 Ears/Nose/Throat/Neck No sinus congestion 07/15/2015 Ears/Nose/Throat/Neck No sore throat 07/15/2015 Cardiovascular No arrhythmia 07/15/2015 Cardiovascular No chest pain/pressure 07/15/2015 Cardiovascular No edema 07/15/2015 Cardiovascular No exercise intolerance 07/15/2015 Cardiovascular No orthopnea 07/15/2015 Cardiovascular No palpitations 07/15/2015 Respiratory No asthma Respiratory No cough 06/2015 Respiratory No dyspnea 1 09/14/2014 Respiratory No pleuritic pain 07/15/2015 Respiratory No productive sputum 07/15/2015 Respiratory No wheezing 07/15/2015 Gastrointestinal No hemorrhoids 07/15/2015 Gastrointestinal No hepatitis 07/15/2015 Gastrointestinal No abdominal pain 07/15/2015 Gastrointestinal No constipation 07/15/2015 Gastrointestinal No diarrhea 07/15/2015 Gastrointestinal No gastroesophageal reflu x 07/15/2015 Gastrointestinal No melena 07/15/2015 Gastrointestinal No nausea 07/15/2015 Gastrointestinal No vomiting 07/15/2015 Genitourinary/Nephrology No dysuria 07/15/2015 Genitourinary/Nephrology No nocturia 07/15/2015 Genitourinary/Nephrology No urinary incontinence 07/15/2015 Musculoskeletal No muscle weakness 07/15/2015 Musculoskeletal No myalgias 07/15/2015 Musculoskeletal No stiffness 07/15/2015 Musculoskeletal No swelling 07/15/2015 Dermatologic No rash 06/2015 Dermatologic No scar 06/2015 Neurologic No dizziness 07/15/2015 Neurologic No headache 1 09/14/2014 Neurologic No neck pain 07/15/2015 Neurologic No syncope Psychiatric No anxiety 1 09/14/2014 Psychiatric No depression 07/15/2015 Endocrine No goiter 07/06 Endocrine No hyperglycemia 07/15/2015 Endocrine No hypoglycemia 07/15/2015 Hematologic/Lymphatic No abnormal ec chymoses 07/15/2015 Hematologic/Lymphatic No petechiae 07/15/2015 Hematologic/Lymphatic No abnormal bl eeding and bruising 07/15/2015 Hematologic/Lymphatic No anemia 07/15/2015 Hematologic/Lymphatic No lymph node enlargement/mass 07/15/2015 Allergy/Immunology No food allergy 07/15/2015 Hematologic/Lymphatic venous thrombosis 07/15/2015 Cardiovascular edema Hematologic/Lymphatic venous thrombosis 07/01/2015 Constitutional fatigue 1 09/09/2013 Ears/Nose/Throat/Neck No hearing loss 07/10/2014 Ears/Nose/Throat/Neck No nasal discharge 07/10/2014 Ears/Nose/Throat/Neck No sinus congestion 07/10/2014 Ears/Nose/Throat/Neck No sore throat 07/10/2014 Cardiovascular No arrhythmia 07/10/2014 Cardiovascular No chest pain/pressure 07/10/2014 Cardiovascular No edema 07/10/2014 Cardiovascular No exercise intolerance 07/10/2014 Cardiovascular No orthopnea 07/10/2014 Cardiovascular No palpitations 07/10/2014 Respiratory No asthma Respiratory No cough 01/2014 Respiratory No dyspnea 1 09/09/2013 Respiratory No pleuritic pain 07/10/2014 Respiratory No productive sputum 07/10/2014 Respiratory No wheezing 07/10/2014 Gastrointestinal No hemorrhoids 07/10/2014 Gastrointestinal No hepatitis 07/10/2014 Gastrointestinal No abdominal pain 07/10/2014 Gastrointestinal No constipation 07/10/2014 Gastrointestinal No diarrhea 07/10/2014 Gastrointestinal No gastroesophageal reflu x 07/10/2014 Gastrointestinal No melena 07/10/2014 Gastrointestinal No nausea 07/10/2014 Gastrointestinal No vomiting 07/10/2014 Genitourinary/Nephrology No dysuria 07/10/2014 Genitourinary/Nephrology No nocturia 07/10/2014 Genitourinary/Nephrology urinary inc ontinence 07/10/2014 Musculoskeletal No muscle weakness 07/10/2014 Musculoskeletal No myalgias 07/10/2014 Musculoskeletal No stiffness 07/10/2014 Musculoskeletal No swelling 07/10/2014 Dermatologic No rash 01/2014 Dermatologic No scar 01/2014 Neurologic No dizziness 07/10/2014 Neurologic No headache 1 09/09/2013 Neurologic No neck pain 07/10/2014 Neurologic No syncope Psychiatric No anxiety 1 09/09/2013 Psychiatric No depression 07/10/2014 Endocrine No goiter 01/2014 Endocrine No hyperglycemia 07/10/2014 Endocrine No hypoglycemia 07/10/2014 Constitutional weight gain/obesity 07/10/2014 Genitourinary/Nephrology menstrual i rregularity 07/10/2014 Constitutional No night sweats 07/09/2013 Constitutional No fatigue 07/09/2013 Constitutional No fever 07/09/2013 Constitutional No insomnia 07/09/2013 Constitutional No weight loss 07/09/2013 Eyes No eye pain 013 Eyes No photophobia 12/2012 Eyes No vision change Eyes No visual disturbance 07/09/2013 Ears/Nose/Throat/Neck No hearing loss 07/09/2013 Ears/Nose/Throat/Neck No nasal discharge 07/09/2013 Ears/Nose/Throat/Neck No sinus congestion 07/09/2013 Ears/Nose/Throat/Neck No sore throat 07/09/2013 Cardiovascular No arrhythmia 07/09/2013 Cardiovascular No chest pain/pressure 07/09/2013 Cardiovascular No edema 07/09/2013 Cardiovascular No exercise intolerance 07/09/2013 Cardiovascular No orthopnea 07/09/2013 Cardiovascular No palpitations 07/09/2013 Respiratory No asthma Respiratory No cough 12/2012 Respiratory No dyspnea 1 09/08/2012 Respiratory No pleuritic pain 07/09/2013 Respiratory No productive sputum 07/09/2013 Respiratory No wheezing 07/09/2013 Gastrointestinal No hemorrhoids 07/09/2013 Gastrointestinal No hepatitis 07/09/2013 Gastrointestinal No abdominal pain 07/09/2013 Gastrointestinal No constipation 07/09/2013 Gastrointestinal No diarrhea 07/09/2013 Gastrointestinal No gastroesophageal reflu x 07/09/2013 Gastrointestinal No melena 07/09/2013 Gastrointestinal No nausea 07/09/2013 Gastrointestinal No vomiting 07/09/2013 Genitourinary/Nephrology No dysuria 07/09/2013 Genitourinary/Nephrology No nocturia 07/09/2013 Genitourinary/Nephrology urinary inc ontinence 07/09/2013 Musculoskeletal No muscle weakness 07/09/2013 Musculoskeletal No myalgias 07/09/2013 Musculoskeletal No stiffness 07/09/2013 Musculoskeletal No swelling 07/09/2013 Dermatologic No rash 12/2012 Dermatologic No scar 12/2012 Neurologic No dizziness 07/09/2013 Neurologic No headache 1 09/08/2012 Neurologic No neck pain 07/09/2013 Neurologic No syncope Psychiatric No anxiety 1 09/08/2012 Psychiatric No depression 07/09/2013 Endocrine No goiter 12/2012 Endocrine No hyperglycemia 07/09/2013 Endocrine No hypoglycemia 07/09/2013 Hematologic/Lymphatic No abnormal ec chymoses 07/09/2013 Hematologic/Lymphatic No petechiae 07/09/2013 Hematologic/Lymphatic No abnormal bl eeding and bruising 07/09/2013 Hematologic/Lymphatic No anemia 07/09/2013 Hematologic/Lymphatic No lymph node enlargement/mass 07/09/2013 Allergy/Immunology No food allergy 07/09/2013 Musculoskeletal low back pain 07/09/2013 Genitourinary/Nephrology menstrual i rregularity 07/09/2013 Constitutional No night sweats 07/05/2012 Constitutional No fatigue 07/05/2012 Constitutional No fever 07/05/2012 Constitutional No insomnia 07/05/2012 Constitutional No weight loss 07/05/2012 Genitourinary/Nephrology No dysuria 07/05/2012 Genitourinary/Nephrology No nocturia 07/05/2012 Genitourinary/Nephrology No urinary incontinence 07/05/2012 Constitutional weight gain/obesity 03/09/2012 Constitutional fatigue 0 03/09/2012 Musculoskeletal No swelling 03/09/2012 Dermatologic No rash 01/2012 Dermatologic No scar 01/2012 Neurologic No dizziness 03/09/2012 Neurologic No headache 0 03/09/2012 Neurologic No neck pain 03/09/2012 Neurologic No syncope Psychiatric No anxiety 0 03/09/2012 Psychiatric No depression 03/09/2012 Endocrine No goiter 07/0 01/2012 Endocrine No hyperglycemia 03/09/2012 Endocrine No hypoglycemia 03/09/2012 Constitutional chills Constitutional No diaphoresis 03/09/2012 Ears/Nose/Throat/Neck No hearing loss 03/09/2012 Ears/Nose/Throat/Neck No nasal discharge 03/09/2012 Ears/Nose/Throat/Neck No sinus congestion 03/09/2012 Ears/Nose/Throat/Neck No sore throat 03/09/2012 Cardiovascular No arrhythmia 03/09/2012 Cardiovascular No chest pain/pressure 03/09/2012 Cardiovascular No edema 03/09/2012 Cardiovascular No exercise intolerance 03/09/2012 Cardiovascular No orthopnea 03/09/2012 Cardiovascular No palpitations 03/09/2012 Respiratory No asthma Respiratory No pleuritic pain 03/09/2012 Respiratory No productive sputum 03/09/2012 Respiratory No cough 01/2012 Respiratory No dyspnea 0 03/09/2012 Respiratory No wheezing 03/09/2012 Gastrointestinal No hemorrhoids 03/09/2012 Gastrointestinal No hepatitis 03/09/2012 Gastrointestinal No abdominal pain 03/09/2012 Gastrointestinal No constipation 03/09/2012 Gastrointestinal No diarrhea 03/09/2012 Gastrointestinal No gastroesophageal reflu x 03/09/2012 Gastrointestinal No melena 03/09/2012 Gastrointestinal No nausea 03/09/2012 Gastrointestinal No vomiting 03/09/2012 Genitourinary/Nephrology No dysuria 03/09/2012 Genitourinary/Nephrology No nocturia 03/09/2012 Genitourinary/Nephrology No urinary incontinence 03/09/2012 Musculoskeletal No muscle weakness 03/09/2012 Musculoskeletal No myalgias 03/09/2012 Musculoskeletal No stiffness 03/09/2012 Constitutional No night sweats 06/28/2011 Constitutional fatigue 1 Constitutional No fever 06/28/2011 Constitutional No insomnia 06/28/2011 Constitutional No weight loss 06/28/2011 Respiratory No asthma Respiratory No pleuritic pain 06/28/2011 Respiratory No productive sputum 06/28/2011 Respiratory No cough Respiratory No dyspnea 1 Respiratory No wheezing 06/28/2011 Ears/Nose/Throat/Neck No hearing loss 06/28/2011 Ears/Nose/Throat/Neck No nasal discharge 06/28/2011 Ears/Nose/Throat/Neck No sinus congestion 06/28/2011 Ears/Nose/Throat/Neck No sore throat 06/28/2011 Neurologic No neck pain 06/28/2011 Neurologic No syncope Psychiatric No anxiety 1 Psychiatric No depression 06/28/2011 Endocrine No goiter 06/06 Endocrine No hyperglycemia 06/28/2011 Endocrine No hypoglycemia 06/28/2011 Hematologic/Lymphatic No abnormal ec chymoses 06/28/2011 Hematologic/Lymphatic No petechiae 06/28/2011 Hematologic/Lymphatic No abnormal bl eeding and bruising 06/28/2011 Hematologic/Lymphatic No anemia 06/28/2011 Hematologic/Lymphatic No lymph node enlargement/mass 06/28/2011 Cardiovascular No arrhythmia 06/28/2011 Cardiovascular No chest pain/pressure 06/28/2011 Cardiovascular No edema 06/28/2011 Cardiovascular No exercise intolerance 06/28/2011 Cardiovascular No orthopnea 06/28/2011 Cardiovascular No palpitations 06/28/2011 Constitutional weight gain/obesity 06/28/2011 Gastrointestinal No hemorrhoids 06/28/2011 Gastrointestinal No hepatitis 06/28/2011 Gastrointestinal No abdominal pain 06/28/2011 Gastrointestinal No constipation 06/28/2011 Gastrointestinal No diarrhea 06/28/2011 Gastrointestinal No gastroesophageal reflu x 06/28/2011 Gastrointestinal No melena 06/28/2011 Gastrointestinal No nausea 06/28/2011 Gastrointestinal No vomiting 06/28/2011 Genitourinary/Nephrology No dysuria 06/28/2011 Genitourinary/Nephrology No nocturia 06/28/2011 Genitourinary/Nephrology No urinary incontinence 06/28/2011 Musculoskeletal No muscle weakness 06/28/2011 Musculoskeletal No myalgias 06/28/2011 Musculoskeletal No stiffness 06/28/2011 Musculoskeletal No swelling 06/28/2011 Dermatologic No rash Dermatologic No scar Neurologic No dizziness 06/28/2011 Neurologic No headache 1 Cardiovascular No arrhythmia 06/25/2010 Cardiovascular No chest pain/pressure 06/25/2010 Gastrointestinal No hepatitis 06/25/2010 Gastrointestinal No abdominal pain 06/25/2010 Gastrointestinal No constipation 06/25/2010 Gastrointestinal No diarrhea 06/25/2010 Gastrointestinal No gastroesophageal reflu x 06/25/2010 Gastrointestinal No melena 06/25/2010 Gastrointestinal No nausea 06/25/2010 Gastrointestinal No vomiting 06/25/2010 Genitourinary/Nephrology No dysuria 06/25/2010 Genitourinary/Nephrology No nocturia 06/25/2010 Genitourinary/Nephrology No urinary incontinence 06/25/2010 Musculoskeletal No muscle weakness 06/25/2010 Musculoskeletal No myalgias 06/25/2010 Cardiovascular No edema 06/25/2010 Cardiovascular No exercise intolerance 06/25/2010 Musculoskeletal No stiffness 06/25/2010 Musculoskeletal No swelling 06/25/2010 Dermatologic No rash Dermatologic No scar Neurologic No dizziness 06/25/2010 Neurologic No headache 1 Neurologic No neck pain 06/25/2010 Neurologic No syncope Psychiatric No anxiety 1 Psychiatric No depression 06/25/2010 Cardiovascular No orthopnea 06/25/2010 Cardiovascular No palpitations 06/25/2010 Constitutional No night sweats 06/25/2010 Constitutional No fatigue 06/25/2010 Constitutional No fever 06/25/2010 Constitutional No insomnia 06/25/2010 Constitutional No weight loss 06/25/2010 Respiratory No asthma Respiratory No pleuritic pain 06/25/2010 Respiratory No productive sputum 06/25/2010 Respiratory No cough Respiratory No dyspnea 1 Respiratory No wheezing 06/25/2010 Gastrointestinal No hemorrhoids 06/25/2010 Physical Exam Exam Name System Name It em Name Status Result Effective Dates Notes Full Exam - General Constitutional general appearance Overall: well nourished 04/09/2019 None Full Exam - General Constitutional general appearance Overall: in no acute distress 04/09/2019 None Full Exam - General Respiratory respiratory effort/rhythm Overall: no retractions 04/09/2019 None Full Exam - General Respiratory respiratory effort/rhythm Overall: normal rate 04/09/2019 None Full Exam - General Respiratory auscultation Overall: breath sounds clear bilater ally 04/09/2019 None Full Exam - General Cardiovascular auscultation of heart Overall: regular rate 04/09/2019 None Full Exam - General Cardiovascular auscultation of heart Overall: no murmurs 04/09/2019 None Full Exam - General Ears/Nose/Throat otoscopic exam Overall: external auditory canals clear 04/09/2019 None Full Exam - General Ears/Nose/Throat otoscopic exam Overall: tympanic membranes clear 04/09/2019 None Full Exam - General Ears/Nose/Throat oral cavity/pharynx/larynx Oropharynx: postnasal drainage 04/09/2019 None Full Exam - General Lymphatic neck nodes Overall: anterior cervical chain cheryl ign 04/09/2019 None Full Exam - General Lymphatic neck nodes Overall: posterior cervical chain be nign 04/09/2019 None Full Exam - General Integument inspection of skin Overall: no rash, lesions 04/09/2019 None Full Exam - General Neurologic mental status Overall: alert 9 None Full Exam - General Neurologic mental status Overall: oriented 04/09/2019 None Full Exam - General Constitutional general appearance Overall: well nourished 08/24/2018 None Full Exam - General Constitutional general appearance Overall: well developed 08/24/2018 None Full Exam - General Constitutional general appearance Overall: in no acute distress 08/24/2018 None Full Exam - General Neurologic mental status Overall: alert 8 None Full Exam - General Neurologic mental status Overall: oriented 08/24/2018 None Full Exam - General Psychiatric mood and affect Overall: normal mood and affect 08/24/2018 None Full Exam - General Respiratory auscultation Overall: breath sounds clear bilater ally 08/24/2018 None Full Exam - General Cardiovascular auscultation of heart Overall: regular rate 08/24/2018 None Full Exam - General Cardiovascular auscultation of heart Overall: normal heart sounds 08/24/2018 None Full Exam - General Cardiovascular auscultation of heart Overall: no murmurs 08/24/2018 None Full Exam - General Neck inspection of neck Overall: normal size 08/24/2018 None Full Exam - General Neck inspection of neck Overall: no masses 08/24/2018 None Full Exam - General Ears/Nose/Throat otoscopic exam Overall: external auditory canals clear 08/24/2018 None Full Exam - General Ears/Nose/Throat otoscopic exam Overall: tympanic membranes clear 08/24/2018 None Full Exam - General Ears/Nose/Throat internal nose Overall: bilateral nasal cavities clear 08/24/2018 None Full Exam - General Ears/Nose/Throat oral cavity/pharynx/larynx Overall: oral mucosa clear 08/24/2018 None Full Exam - General Cardiovascular extremities Overall: no clubbing 08/24/2018 None Full Exam - General Cardiovascular extremities Overall: No cyanosis 08/24/2018 None Full Exam - General Cardiovascular extremities Overall: No edema 08/24/2018 None Full Exam - General Abdomen abdominal exam Overall: no masses 08/24/2018 None Full Exam - General Abdomen abdominal exam Overall: no tenderness 08/24/2018 None Full Exam - General Abdomen abdominal exam Overall: normal bowel sounds 08/24/2018 None Full Exam - General Abdomen abdominal exam Overall: soft 08/24/2018 None Full Exam - General Musculoskeletal gait and station Overall: normal gait 08/24/2018 None Full Exam - General Musculoskeletal gait and station Overall: normal station 08/24/2018 None Full Exam - General Integument inspection of skin Overall: no rash, lesions 08/24/2018 None Full Exam - General Chest/Breast breast and axillae palpation Overall: breasts non- tender 08/24/2018 None Full Exam - General Chest/Breast breast and axillae palpation Overall: axillae non- tender 08/24/2018 None Full Exam - General Chest/Breast breast and axillae palpation Overall: no nipple discharge 08/24/2018 None Full Exam - General Chest/Breast breast and axillae palpation Left upper outer quadrant: nodular 08/24/2018 None Full Exam - General Constitutional general appearance Overall: well nourished 07/27/2017 None Full Exam - General Constitutional general appearance Overall: well developed 07/27/2017 None Full Exam - General Constitutional general appearance Overall: in no acute distress 07/27/2017 None Full Exam - General Neurologic mental status Overall: alert 7 None Full Exam - General Neurologic mental status Overall: oriented 07/27/2017 None Full Exam - General Psychiatric mood and affect Overall: normal mood and affect 07/27/2017 None Full Exam - General Chest/Breast breast and axillae palpation Overall: breasts non- tender 07/27/2017 None Full Exam - General Chest/Breast breast and axillae palpation Overall: no masses 07/27/2017 None Full Exam - General Chest/Breast breast and axillae palpation Overall: axillae non- tender 07/27/2017 None Full Exam - General Chest/Breast breast and axillae palpation Overall: no nipple discharge 07/27/2017 None Full Exam - General Cardiovascular auscultation of heart Overall: regular rate 07/27/2017 None Full Exam - General Cardiovascular auscultation of heart Overall: normal heart sounds 07/27/2017 None Full Exam - General Cardiovascular auscultation of heart Overall: no murmurs 07/27/2017 None Full Exam - General Respiratory auscultation Overall: breath sounds clear bilater ally 07/27/2017 None Full Exam - General Neck inspection of neck Overall: normal size 07/27/2017 None Full Exam - General Neck inspection of neck Overall: no masses 07/27/2017 None Full Exam - General Ears/Nose/Throat otoscopic exam Overall: external auditory canals clear 07/27/2017 None Full Exam - General Ears/Nose/Throat otoscopic exam Overall: tympanic membranes clear 07/27/2017 None Full Exam - General Ears/Nose/Throat internal nose Overall: bilateral nasal cavities clear 07/27/2017 None Full Exam - General Ears/Nose/Throat oral cavity/pharynx/larynx Overall: oral mucosa clear 07/27/2017 None Full Exam - General Abdomen abdominal exam Overall: no masses 07/27/2017 None Full Exam - General Abdomen abdominal exam Overall: no tenderness 07/27/2017 None Full Exam - General Abdomen abdominal exam Overall: normal bowel sounds 07/27/2017 None Full Exam - General Abdomen abdominal exam Overall: soft 07/27/2017 None Full Exam - General Abdomen rectal exam Overall: good sphincter tone, no mas ses, no lesions 07/27/2017 None Full Exam - General Abdomen stool sample obtained Overall: normal appearance 07/27/2017 None Full Exam - General Abdomen stool sample obtained Overall: occult blood negative 07/27/2017 None Full Exam - General Musculoskeletal gait and station Overall: normal gait 07/27/2017 None Full Exam - General Musculoskeletal gait and station Overall: normal station 07/27/2017 None Full Exam - General Integument inspection of skin Location: left leg 07/27/2017 mid lateral hodge with healing contusion Full Exam - General Constitutional general appearance Overall: well nourished 03/28/2017 None Full Exam - General Constitutional general appearance Overall: well developed 03/28/2017 None Full Exam - General Constitutional general appearance Overall: in no acute distress 03/28/2017 None Full Exam - General Neurologic mental status Overall: alert 7 None Full Exam - General Neurologic mental status Overall: oriented 03/28/2017 None Full Exam - General Psychiatric mood and affect Overall: normal mood and affect 03/28/2017 None Full Exam - General Abdomen abdominal exam Overall: no masses 03/28/2017 None Full Exam - General Abdomen abdominal exam Overall: no tenderness 03/28/2017 None Full Exam - General Abdomen abdominal exam Overall: normal bowel sounds 03/28/2017 None Full Exam - General Abdomen abdominal exam Overall: soft 03/28/2017 None Full Exam - General Cardiovascular extremities Overall: no clubbing 03/28/2017 None Full Exam - General Cardiovascular extremities Overall: No cyanosis 03/28/2017 None Full Exam - General Cardiovascular extremities Edema present: severity 1+ - 4+: _ 03/28/2017 2 plus on left Full Exam - General Constitutional general appearance Overall: well nourished 07/26/2016 None Full Exam - General Constitutional general appearance Overall: well developed 07/26/2016 None Full Exam - General Constitutional general appearance Overall: in no acute distress 07/26/2016 None Full Exam - General Neurologic mental status Overall: alert 6 None Full Exam - General Neurologic mental status Overall: oriented 07/26/2016 None Full Exam - General Psychiatric mood and affect Overall: normal mood and affect 07/26/2016 None Full Exam - General Respiratory auscultation Overall: breath sounds clear bilater ally 07/26/2016 None Full Exam - General Cardiovascular auscultation of heart Overall: regular rate 07/26/2016 None Full Exam - General Cardiovascular auscultation of heart Overall: normal heart sounds 07/26/2016 None Full Exam - General Cardiovascular auscultation of heart Overall: no murmurs 07/26/2016 None Full Exam - General Cardiovascular extremities Overall: no clubbing 07/26/2016 None Full Exam - General Cardiovascular extremities Overall: No edema 07/26/2016 None Full Exam - General Cardiovascular extremities Overall: No cyanosis 07/26/2016 None Full Exam - General Abdomen abdominal exam Overall: no masses 07/26/2016 None Full Exam - General Abdomen abdominal exam Overall: no tenderness 07/26/2016 None Full Exam - General Abdomen abdominal exam Overall: normal bowel sounds 07/26/2016 None Full Exam - General Abdomen abdominal exam Overall: soft 07/26/2016 None Full Exam - General Chest/Breast breast and axillae palpation Overall: breasts non- tender 07/26/2016 None Full Exam - General Chest/Breast breast and axillae palpation Overall: axillae non- tender 07/26/2016 None Full Exam - General Chest/Breast breast and axillae palpation Overall: no nipple discharge 07/26/2016 None Full Exam - General Chest/Breast breast and axillae palpation Left upper outer quadrant: non-tender 07/26/2016 No ne Full Exam - General Chest/Breast breast and axillae palpation Left upper outer quadrant: mass present 07/26/2016 quarter size Full Exam - General Musculoskeletal gait and station Overall: normal gait 07/26/2016 None Full Exam - General Musculoskeletal gait and station Overall: normal station 07/26/2016 None Full Exam - General Neck inspection of neck Overall: normal size 07/26/2016 None Full Exam - General Neck inspection of neck Overall: no masses 07/26/2016 None Full Exam - General Constitutional general appearance Overall: well nourished 07/15/2015 None Full Exam - General Constitutional general appearance Overall: well developed 07/15/2015 None Full Exam - General Constitutional general appearance Overall: in no acute distress 07/15/2015 None Full Exam - General Neurologic mental status Overall: alert 5 None Full Exam - General Neurologic mental status Overall: oriented 07/15/2015 None Full Exam - General Respiratory auscultation Overall: breath sounds clear bilater ally 07/15/2015 None Full Exam - General Cardiovascular auscultation of heart Overall: regular rate 07/15/2015 None Full Exam - General Cardiovascular auscultation of heart Overall: normal heart sounds 07/15/2015 None Full Exam - General Cardiovascular auscultation of heart Overall: no murmurs 07/15/2015 None Full Exam - General Neck inspection of neck Overall: normal size 07/15/2015 None Full Exam - General Neck inspection of neck Overall: no masses 07/15/2015 None Full Exam - General Cardiovascular extremities Overall: no clubbing 07/15/2015 None Full Exam - General Cardiovascular extremities Overall: No edema 07/15/2015 None Full Exam - General Cardiovascular extremities Overall: No cyanosis 07/15/2015 None Full Exam - General Chest/Breast breast and axillae palpation Overall: breasts non- tender 07/15/2015 None Full Exam - General Chest/Breast breast and axillae palpation Overall: no masses 07/15/2015 None Full Exam - General Chest/Breast breast and axillae palpation Overall: axillae non- tender 07/15/2015 None Full Exam - General Chest/Breast breast and axillae palpation Overall: no nipple discharge 07/15/2015 None Full Exam - General Abdomen abdominal exam Overall: no masses 07/15/2015 None Full Exam - General Abdomen abdominal exam Overall: no tenderness 07/15/2015 None Full Exam - General Abdomen abdominal exam Overall: normal bowel sounds 07/15/2015 None Full Exam - General Abdomen abdominal exam Overall: soft 07/15/2015 None Full Exam - General Psychiatric mood and affect Overall: normal mood and affect 07/15/2015 None Full Exam - General Musculoskeletal gait and station Overall: normal gait 07/15/2015 None Full Exam - General Musculoskeletal gait and station Overall: normal station 07/15/2015 None Full Exam - General Genitourinary uterus Overall: normal size 07/15/2015 None Full Exam - General Genitourinary cervix Cervical discharge: bloody 07/15/2015 None Full Exam - General Genitourinary cervix Inspection: normal os 07/15/2015 None Full Exam - General Genitourinary labia and vagina Overall: normal hair distribution 07/15/2015 None Full Exam - General Genitourinary labia and vagina Overall: no lesions 07/15/2015 None Full Exam - General Genitourinary adnexa/parametria Overall: no tenderness 07/15/2015 None Full Exam - General Abdomen rectal exam Overall: good sphincter tone, no mas ses, no lesions 07/15/2015 None Full Exam - General Abdomen stool sample obtained Overall: normal appearance 07/15/2015 None Full Exam - General Abdomen stool sample obtained Overall: occult blood negative 07/15/2015 None Full Exam - General Constitutional general appearance Overall: well nourished 07/01/2015 None Full Exam - General Constitutional general appearance Overall: well developed 07/01/2015 None Full Exam - General Constitutional general appearance Overall: in no acute distress 07/01/2015 None Full Exam - General Neurologic mental status Overall: alert 5 None Full Exam - General Neurologic mental status Overall: oriented 07/01/2015 None Full Exam - General Psychiatric mood and affect Overall: normal mood and affect 07/01/2015 None Full Exam - General Respiratory auscultation Overall: breath sounds clear bilater ally 07/01/2015 None Full Exam - General Cardiovascular auscultation of heart Overall: regular rate 07/01/2015 None Full Exam - General Cardiovascular auscultation of heart Overall: normal heart sounds 07/01/2015 None Full Exam - General Cardiovascular auscultation of heart Overall: no murmurs 07/01/2015 None Full Exam - General Cardiovascular extremities Edema present: pitting 07/01/2015 right lower leg Full Exam - General Constitutional general appearance Overall: well nourished 07/10/2014 None Full Exam - General Constitutional general appearance Overall: well developed 07/10/2014 None Full Exam - General Constitutional general appearance Overall: in no acute distress 07/10/2014 None Full Exam - General Neurologic mental status Overall: alert 4 None Full Exam - General Neurologic mental status Overall: oriented 07/10/2014 None Full Exam - General Psychiatric mood and affect Overall: normal mood and affect 07/10/2014 None Full Exam - General Respiratory auscultation Overall: breath sounds clear bilater ally 07/10/2014 None Full Exam - General Cardiovascular auscultation of heart Overall: regular rate 07/10/2014 None Full Exam - General Cardiovascular auscultation of heart Overall: normal heart sounds 07/10/2014 None Full Exam - General Cardiovascular auscultation of heart Overall: no murmurs 07/10/2014 None Full Exam - General Cardiovascular extremities Overall: No cyanosis 07/10/2014 None Full Exam - General Cardiovascular extremities Overall: No edema 07/10/2014 None Full Exam - General Cardiovascular extremities Overall: no clubbing 07/10/2014 None Full Exam - General Neck inspection of neck Overall: normal size 07/10/2014 None Full Exam - General Neck inspection of neck Overall: no masses 07/10/2014 None Full Exam - General Abdomen abdominal exam Overall: no masses 07/10/2014 None Full Exam - General Abdomen abdominal exam Overall: no tenderness 07/10/2014 None Full Exam - General Abdomen abdominal exam Overall: normal bowel sounds 07/10/2014 None Full Exam - General Abdomen abdominal exam Overall: soft 07/10/2014 None Full Exam - General Chest/Breast breast and axillae palpation Overall: breasts non- tender 07/10/2014 None Full Exam - General Chest/Breast breast and axillae palpation Overall: no masses 07/10/2014 None Full Exam - General Chest/Breast breast and axillae palpation Overall: axillae non- tender 07/10/2014 None Full Exam - General Chest/Breast breast and axillae palpation Overall: no nipple discharge 07/10/2014 None Full Exam - General Musculoskeletal gait and station Overall: normal gait 07/10/2014 None Full Exam - General Musculoskeletal gait and station Overall: normal station 07/10/2014 None Full Exam - General Genitourinary uterus Size: enlarged uterus 07/10/2014 boggy Full Exam - General Genitourinary cervix Overall: no discharge 07/10/2014 None Full Exam - General Genitourinary cervix Inspection: normal os 07/10/[address] Full Exam - General Genitourinary labia and vagina Overall: normal hair distribution 07/10/2014 None Full Exam - General Genitourinary labia and vagina Overall: no lesions 07/10/2014 None Full Exam - General Genitourinary adnexa/parametria Overall: no tenderness 07/10/2014 None Full Exam - General Abdomen stool sample obtained Overall: normal appearance 07/10/2014 None Full Exam - General Abdomen stool sample obtained Overall: occult blood negative 07/10/2014 None Full Exam - General Abdomen rectal exam Overall: good sphincter tone, no mas ses, no lesions 07/10/2014 None Full Exam - General Constitutional general appearance Overall: well nourished 07/09/2013 None Full Exam - General Constitutional general appearance Overall: well developed 07/09/2013 None Full Exam - General Constitutional general appearance Overall: in no acute distress 07/09/2013 None Full Exam - General Neurologic mental status Overall: alert 3 None Full Exam - General Neurologic mental status Overall: oriented 07/09/2013 None Full Exam - General Psychiatric mood and affect Overall: normal mood and affect 07/09/2013 None Full Exam - General Musculoskeletal gait and station Overall: normal gait 07/09/2013 None Full Exam - General Musculoskeletal gait and station Overall: normal station 07/09/2013 None Full Exam - General Musculoskeletal spine, ribs and pelvis Overall: good posture 07/09/2013 None Full Exam - General Musculoskeletal spine, ribs and pelvis Overall: ribs benign 07/09/2013 None Full Exam - General Musculoskeletal spine, ribs and pelvis Overall: spine benign 07/09/2013 None Full Exam - General Abdomen abdominal exam Overall: no masses 07/09/2013 None Full Exam - General Abdomen abdominal exam Overall: no tenderness 07/09/2013 None Full Exam - General Abdomen abdominal exam Overall: normal bowel sounds 07/09/2013 None Full Exam - General Abdomen abdominal exam Overall: soft 07/09/2013 None Full Exam - General Chest/Breast breast and axillae palpation Overall: no nipple discharge 07/09/2013 None Full Exam - General Chest/Breast breast and axillae palpation Overall: axillae non- tender 07/09/2013 None Full Exam - General Chest/Breast breast and axillae palpation Overall: no masses 07/09/2013 None Full Exam - General Chest/Breast breast and axillae palpation Overall: breasts non- tender 07/09/2013 None Full Exam - General Cardiovascular auscultation of heart Overall: regular rate 07/09/2013 None Full Exam - General Cardiovascular auscultation of heart Overall: normal heart sounds 07/09/2013 None Full Exam - General Cardiovascular auscultation of heart Overall: no murmurs 07/09/2013 None Full Exam - General Respiratory auscultation Overall: breath sounds clear bilater ally 07/09/2013 None Full Exam - General Neck inspection of neck Overall: normal size 07/09/2013 None Full Exam - General Neck inspection of neck Overall: no masses 07/09/2013 None Full Exam - General Ears/Nose/Throat otoscopic exam Overall: external auditory canals clear 07/09/2013 None Full Exam - General Ears/Nose/Throat otoscopic exam Overall: tympanic membranes clear 07/09/2013 None Full Exam - General Ears/Nose/Throat internal nose Overall: bilateral nasal cavities clear 07/09/2013 None Full Exam - General Ears/Nose/Throat oral cavity/pharynx/larynx Overall: oral mucosa clear 07/09/2013 None Full Exam - General Abdomen rectal exam Overall: good sphincter tone, no mas ses, no lesions 07/09/2013 None Full Exam - General Abdomen stool sample obtained Overall: normal appearance 07/09/2013 None Full Exam - General Abdomen stool sample obtained Overall: occult blood negative 07/09/2013 None Full Exam - General Cardiovascular extremities Overall: no clubbing 07/09/2013 None Full Exam - General Cardiovascular extremities Overall: No edema 07/09/2013 None Full Exam - General Cardiovascular extremities Overall: No cyanosis 07/09/2013 None Full Exam - General Genitourinary uterus Overall: normal size 07/09/2013 None Full Exam - General Genitourinary cervix Overall: no discharge 07/09/2013 None Full Exam - General Genitourinary cervix Inspection: no lesions 07/09/2013 IUD strings intact Full Exam - General Genitourinary labia and vagina Overall: normal hair distribution 07/09/2013 None Full Exam - General Genitourinary labia and vagina Overall: no lesions 07/09/2013 None Full Exam - General Genitourinary cervix Cervical discharge: absent 07/09/2013 None Full Exam - General Genitourinary cervix Motion tenderness: absent 07/09/2013 None Full Exam - General Genitourinary adnexa/parametria Overall: no tenderness 07/09/2013 None Full Exam - General Constitutional general appearance Overall: well nourished 07/05/2012 None Full Exam - General Constitutional general appearance Overall: well developed 07/05/2012 None Full Exam - General Constitutional general appearance Overall: in no acute distress 07/05/2012 None Full Exam - General Neurologic mental status Overall: alert 2 None Full Exam - General Neurologic mental status Overall: oriented 07/05/2012 None Full Exam - General Psychiatric mood and affect Overall: normal mood and affect 07/05/2012 None Full Exam - General Respiratory auscultation Overall: breath sounds clear bilater ally 07/05/2012 None Full Exam - General Cardiovascular auscultation of heart Overall: regular rate 07/05/2012 None Full Exam - General Cardiovascular auscultation of heart Overall: normal heart sounds 07/05/2012 None Full Exam - General Cardiovascular auscultation of heart Overall: no murmurs 07/05/2012 None Full Exam - General Cardiovascular extremities Overall: no clubbing 07/05/2012 None Full Exam - General Cardiovascular extremities Overall: No edema 07/05/2012 None Full Exam - General Cardiovascular extremities Overall: No cyanosis 07/05/2012 None Full Exam - General Abdomen abdominal exam Overall: no masses 07/05/2012 None Full Exam - General Abdomen abdominal exam Overall: no tenderness 07/05/2012 None Full Exam - General Abdomen abdominal exam Overall: normal bowel sounds 07/05/2012 None Full Exam - General Abdomen abdominal exam Overall: soft 07/05/2012 None Full Exam - General Genitourinary uterus Overall: normal size 07/05/2012 None Full Exam - General Genitourinary cervix Cervical discharge: absent 07/05/[address]UD in [address] Full Exam - General Genitourinary labia and vagina Overall: normal hair distribution 07/05/2012 None Full Exam - General Genitourinary labia and vagina Overall: no lesions 07/05/2012 None Full Exam - General Genitourinary urethra Overall: no masses 07/05 None Full Exam - General Genitourinary adnexa/parametria Overall: no tenderness 07/05/2012 None Full Exam - General Constitutional general appearance Overall: well nourished 03/09/2012 None Full Exam - General Constitutional general appearance Overall: well developed 03/09/2012 None Full Exam - General Constitutional general appearance Overall: in no acute distress 03/09/2012 None Full Exam - General Neurologic mental status Overall: alert 2 None Full Exam - General Neurologic mental status Overall: oriented 03/09/2012 None Full Exam - General Psychiatric mood and affect Overall: normal mood and affect 03/09/2012 None Full Exam - General Integument inspection of skin Overall: no rash, lesions 03/09/2012 None Full Exam - General Respiratory auscultation Overall: breath sounds clear bilater ally 03/09/2012 None Full Exam - General Cardiovascular auscultation of heart Overall: regular rate 03/09/2012 None Full Exam - General Cardiovascular auscultation of heart Overall: normal heart sounds 03/09/2012 None Full Exam - General Cardiovascular auscultation of heart Overall: no murmurs 03/09/2012 None Full Exam - General Cardiovascular extremities Overall: no clubbing 03/09/2012 None Full Exam - General Constitutional general appearance Overall: in no acute distress 06/28/2011 None Full Exam - General Constitutional general appearance Overall: well developed 06/28/2011 None Full Exam - General Constitutional general appearance Overall: well nourished 06/28/2011 None Full Exam - General Neurologic mental status Overall: alert 1 None Full Exam - General Neurologic mental status Overall: oriented 06/28/2011 None Full Exam - General Psychiatric mood and affect Overall: normal mood and affect 06/28/2011 None Full Exam - General Respiratory auscultation Right upper lung field: a normal exa m 06/28/2011 None Full Exam - General Respiratory auscultation Right middle lung field: a normal ex am 06/28/2011 None Full Exam - General Respiratory auscultation Right lower lung field: a normal exa m 06/28/2011 None Full Exam - General Respiratory auscultation Left lower lung field: a normal exam 06/28/2011 None Full Exam - General Respiratory auscultation Overall: breath sounds clear bilater ally 06/28/2011 None Full Exam - General Respiratory auscultation Left upper lung field: a normal exam 06/28/2011 None Full Exam - General Respiratory auscultation Diffuse: a normal exam 06/28/2011 None Full Exam - General Cardiovascular auscultation of heart Overall: no murmurs 06/28/2011 None Full Exam - General Cardiovascular auscultation of heart Overall: regular rate 06/28/2011 None Full Exam - General Cardiovascular auscultation of heart Overall: normal heart sounds 06/28/2011 None Full Exam - General Cardiovascular auscultation of heart S1: a normal exam 06/28/2011 None Full Exam - General Cardiovascular auscultation of heart S2: a normal exam 06/28/2011 None Full Exam - General Cardiovascular auscultation of heart Rhythm: regular rhythm 06/28/2011 None Full Exam - General Cardiovascular auscultation of heart Rate: regular rate 06/28/2011 None Full Exam - General Cardiovascular auscultation of heart S3 (ventricular gallop): present 06/28/2011 None Full Exam - General Cardiovascular extremities Overall: no clubbing 06/28/2011 None Full Exam - General Cardiovascular extremities Overall: No edema 06/28/2011 None Full Exam - General Cardiovascular extremities Overall: No cyanosis 06/28/2011 None Full Exam - General Neck inspection of neck Overall: normal size 06/28/2011 None Full Exam - General Neck inspection of neck Overall: no masses 06/28/2011 None Full Exam - General Abdomen abdominal exam Overall: no masses 06/28/2011 None Full Exam - General Abdomen abdominal exam Overall: no tenderness 06/28/2011 None Full Exam - General Abdomen abdominal exam Overall: normal bowel sounds 06/28/2011 None Full Exam - General Abdomen abdominal exam Overall: soft 06/28/2011 None Full Exam - General Genitourinary uterus Overall: normal size 06/28/2011 None Full Exam - General Genitourinary cervix Overall: no discharge 06/28/2011 strings of IUD identified Full Exam - General Genitourinary labia and vagina Overall: normal hair distribution 06/28/2011 None Full Exam - General Genitourinary labia and vagina Overall: no lesions 06/28/2011 None Full Exam - General Genitourinary adnexa/parametria Overall: no tenderness 06/28/2011 None Full Exam - General Integument inspection of skin Overall: no rash, lesions 06/28/2011 None Full Exam - General Chest/Breast breast and axillae palpation Overall: breasts non- tender 06/28/2011 None Full Exam - General Chest/Breast breast and axillae palpation Overall: no masses 06/28/2011 None Full Exam - General Chest/Breast breast and axillae palpation Overall: axillae non- tender 06/28/2011 None Full Exam - General Chest/Breast breast and axillae palpation Overall: no nipple discharge 06/28/2011 None Full Exam - General Constitutional general appearance Overall: well nourished 06/25/2010 None Full Exam - General Constitutional general appearance Overall: well developed 06/25/2010 None Full Exam - General Constitutional general appearance Overall: in no acute distress 06/25/2010 None Full Exam - General Neurologic mental status Overall: alert 0 None Full Exam - General Neurologic mental status Overall: oriented 06/25/2010 None Full Exam - General Psychiatric mood and affect Overall: normal mood and affect 06/25/2010 None Full Exam - General Respiratory auscultation Overall: breath sounds clear bilater ally 06/25/2010 None Full Exam - General Respiratory auscultation Diffuse: a normal exam 06/25/2010 None Full Exam - General Respiratory auscultation Left upper lung field: a normal exam 06/25/2010 None Full Exam - General Respiratory auscultation Left lower lung field: a normal exam 06/25/2010 None Full Exam - General Respiratory auscultation Right upper lung field: a normal exa m 06/25/2010 None Full Exam - General Respiratory auscultation Right middle lung field: a normal ex am 06/25/2010 None Full Exam - General Respiratory auscultation Right lower lung field: a normal exa m 06/25/2010 None Full Exam - General Cardiovascular auscultation of heart Overall: regular rate 06/25/2010 None Full Exam - General Cardiovascular auscultation of heart Overall: normal heart sounds 06/25/2010 None Full Exam - General Cardiovascular auscultation of heart Overall: no murmurs 06/25/2010 None Full Exam - General Cardiovascular auscultation of heart Rate: regular rate 06/25/2010 None Full Exam - General Cardiovascular auscultation of heart Rhythm: regular rhythm 06/25/2010 None Full Exam - General Cardiovascular auscultation of heart S1: a normal exam 06/25/2010 None Full Exam - General Cardiovascular auscultation of heart S2: a normal exam 06/25/2010 None Full Exam - General Cardiovascular auscultation of heart S3 (ventricular gallop): present 06/25/2010 None Full Exam - General Cardiovascular extremities Overall: no clubbing 06/25/2010 None Full Exam - General Cardiovascular extremities Overall: No edema 06/25/2010 None Full Exam - General Cardiovascular extremities Overall: No cyanosis 06/25/2010 None Full Exam - General Abdomen abdominal exam Overall: no masses 06/25/2010 None Full Exam - General Abdomen abdominal exam Overall: no tenderness 06/25/2010 None Full Exam - General Abdomen abdominal exam Overall: normal bowel sounds 06/25/2010 None Full Exam - General Abdomen abdominal exam Overall: soft 06/25/2010 None Full Exam - General Chest/Breast breast and axillae palpation Overall: breasts non- tender 06/25/2010 None Full Exam - General Chest/Breast breast and axillae palpation Overall: no masses 06/25/2010 None Full Exam - General Chest/Breast breast and axillae palpation Overall: axillae non- tender 06/25/2010 None Full Exam - General Chest/Breast breast and axillae palpation Overall: no nipple discharge 06/25/2010 None Full Exam - General Abdomen rectal exam Overall: good sphincter tone, no mas ses, no lesions 06/25/2010 None Full Exam - General Abdomen stool sample obtained Overall: normal appearance 06/25/2010 None Full Exam - General Abdomen stool sample obtained Overall: occult blood negative 06/25/2010 None Full Exam - General Genitourinary uterus Overall: normal size 06/25/2010 None Full Exam - General Genitourinary cervix Overall: no discharge 06/25/2010 None Full Exam - General Genitourinary labia and vagina Overall: normal hair distribution 06/25/2010 None Full Exam - General Genitourinary labia and vagina Overall: no lesions 06/25/2010 None Full Exam - General Genitourinary adnexa/parametria Overall: no tenderness 06/25/2010 None Full Exam - General Musculoskeletal digits and nails Nails: onycholysis 06/25/2010 left great toenail Procedures Procedure Codes Date SPECIMEN HANDLING OF FICE-LAB CPT-4: 73239 08/24/2018 OCCULT BLOOD FECES CPT- 4: 54847 08/24/2018 SPECIMEN HANDLING OF FICE-LAB CPT-4: 40342 07/27/2017 OCCULT BLOOD FECES CPT- 4: 07119 07/27/2017 SPECIMEN HANDLING OF FICE-LAB CPT-4: 78304 07/26/2016 SPECIMEN HANDLING OF FICE-LAB CPT-4: 48589 07/15/2015 URINALYSIS NONAUTO W /O SCOPE CPT-4: 40878 07/10/2014 OCCULT BLOOD FECES CPT- 4: 03921 07/10/2014 SPECIMEN HANDLING OF FICE-LAB CPT-4: 80570 07/10/2014 URINE CULTURE/ COLON Y COUNT CPT-4: 28411 07/10/2014 SPECIMEN HANDLING OF FICE-LAB CPT-4: 26638 07/09/2013 OCCULT BLOOD FECES CPT- 4: 49089 07/09/2013 OCCULT BLOOD FECES CPT- 4: 22590 07/05/2012 SPECIMEN HANDLING OF FICE-LAB CPT-4: 07268 06/28/2011 OCCULT BLOOD FECES CPT- 4: 20577 06/28/2011 SPECIMEN HANDLING OF FICE-LAB CPT-4: 09162 06/25/2010 OCCULT BLOOD FECES CPT- 4: 44798 06/25/2010 Vital Signs Date Vital 04/09/2019 Blood Pressure 1: 112/70 Code: 8480-6 Heart Rate 1: 71 bpm SpO2: 96% Temperature: 36.8 (C ) / 98.2 (F) Weight: 152 lbs 08/24/2018 Blood Pressure 1: 128/80 Code: 8480-6 Heart Rate 1: 72 bpm Respiratory Rate: 16 bpm SpO2: 99% Temperature: 36.7 (C ) / 98.1 (F) Weight: 153 lbs 07/27/2017 Blood Pressure 1: 124/78 Code: 8480-6 BMI: 29.4 Code: 32854-3 Heart Rate 1: 72 bpm Height: 5'3" Respiratory Rate: 20 bpm SpO2: 98% Temperature: 36.5 (C ) / 97.7 (F) Weight: 166 lbs 03/28/2017 Blood Pressure 1: 126/68 Code: 8480-6 BMI: 30.1 Code: 67913-4 Heart Rate 1: 66 bpm Height: 5'3" Respiratory Rate: 24 bpm SpO2: 98% Temperature: 36.4 (C ) / 97.6 (F) Weight: 170 lbs 07/26/2016 Blood Pressure 1: 124/70 Code: 8480-6 BMI: 28.7 Code: 71838-2 Heart Rate 1: 84 bpm Height: 5'3" Respiratory Rate: 20 bpm Temperature: 36.7 (C ) / 98.0 (F) Weight: 162 lbs 07/15/2015 Blood Pressure 1: 114/78 Code: 8480-6 BMI: 30.8 Code: 19013-2 Heart Rate 1: 72 bpm Height: 5'3" Respiratory Rate: 20 bpm Temperature: 36.7 (C ) / 98.1 (F) Weight: 174 lbs 07/01/2015 Blood Pressure 1: 134/86 Code: 8480-6 BMI: 30.8 Code: 82161-0 Heart Rate 1: 84 bpm Height: 5'3" Respiratory Rate: 20 bpm Temperature: 36.8 (C ) / 98.3 (F) Weight: 174 lbs 07/10/2014 Blood Pressure 1: 124/78 Code: 8480-6 BMI: 29.8 Code: 52433-9 Heart Rate 1: 84 bpm Height: 5'3" Respiratory Rate: 20 bpm Temperature: 36.7 (C ) / 98.0 (F) Weight: 168 lbs 07/09/2013 Blood Pressure 1: 126/80 Code: 8480-6 BMI: 28.3 Code: 56557-7 Heart Rate 1: 80 bpm Height: 5'3" Respiratory Rate: 20 bpm Temperature: 37.0 (C ) / 98.6 (F) Weight: 160 lbs 07/05/2012 Blood Pressure 1: 102/68 Code: 8480-6 BMI: 27.3 Code: 02195-8 Heart Rate 1: 72 bpm Height: 5'3" Respiratory Rate: 20 bpm Temperature: 36.6 (C ) / 97.8 (F) Weight: 154 lbs 03/09/2012 Blood Pressure 1: 116/78 Code: 8480-6 BMI: 28.0 Code: 51823-9 Heart Rate 1: 84 bpm Height: 5'3" Respiratory Rate: 20 bpm Temperature: 36.9 (C ) / 98.4 (F) Weight: 158 lbs 06/28/2011 Blood Pressure 1: 122/78 Code: 8480-6 BMI: 27.6 Code: 66516-7 Heart Rate 1: 76 bpm Height: 5'3" Respiratory Rate: 20 bpm Temperature: 36.8 (C ) / 98.2 (F) Weight: 156 lbs 06/25/2010 Blood Pressure 1: 118/68 Code: 8480-6 BMI: 23.9 Code: 48106-7 Height: 5'3" Temperature: 36.3 (C ) / 97.4 (F) Weight: 135 lbs Functional Status No Functional Status data History of Present Illness Symptom Name Status Resu lt Effective Date Notes well woman exam (40-65 years) Pap Smear last normal performed on 07-27-2017 08/24/2018 None well woman exam (40-65 years) Pap Smear normal results 08/24/2018 None well woman exam (40-65 years) Breast /Shade Maker Complaints perimenopausal symptoms 08/24/2018 unsure if symptoms she is having is related to this or the coumadin is on well woman exam (40-65 years) Menstr ual History menarche at age 11 08/24/2018 None well woman exam (40-65 years) Menstr ual History last menstrual period 12--18 08/24/2018 None well woman exam (40-65 years) Menstr ual History irregular menses 08/24/2018 None well woman exam (40-65 years) Lifestyle no history of physical abuse 08/24/2018 None well woman exam (40-65 years) Lifestyle no history of sexual abuse 08/24/2018 None well woman exam (40-65 years) Lifestyle no history of verbal abuse 08/24/2018 None well woman exam (40-65 years) Lifestyle regular seatbelt use 08/24/2018 None well woman exam (40-65 years) Lifestyle family supportive of relationship 08/24/2018 None well woman exam (40-65 years) Lifestyle satisfactory work experience 08/24/2018 very stressful job though well woman exam (40-65 years) Lifestyle normal sleep patterns 08/24/2018 6-8 hours per night well woman exam (40-65 years) Lifestyle abnormal amount of stress 08/24/2018 very high at work well woman exam (40-65 years) Lifestyle satisfactory marriage/partner relationship 08/24/2018 None well woman exam (40-65 years) Contro l IUD 08/24/2018 None well woman exam (40-65 years) Nutrit ion and Exercise normal weight 08/24/2018 None well woman exam (40-65 years) Nutrit ion and Exercise balanced nutrition 08/24/2018 monitoring food intake, 1500 calories per day well woman exam (40-65 years) Nutrit ion and Exercise moderate exercise 08/24/2018 5 days a week most of the time well woman exam (40-65 years) Obstet rical History 3 total pregnancies 08/24/2018 None well woman exam (40-65 years) Obstet rical History 2 full term 08/24/2018 None well woman exam (40-65 years) Obstet rical History 1 spontaneous 08/24/2018 None well woman exam (40-65 years) Cardio vascular Risk Factors diabetes mellitus 08/24/2018 mother well woman exam (40-65 years) Cardio vascular Risk Factors family history of cardiovascular disease 08/24/2018 father - stroke well woman exam (40-65 years) Cardio vascular Risk Factors obesity 08/24/2018 fathe r well woman exam (40-65 years) Health Guidance self-breast exam 08/24/2018 no well woman exam (40-65 years) Health Guidance baseline mammogram 08/24/2018 well woman exam (40-65 years) Health Guidance colonoscopy/sigmoidoscopy 08/24/20182016 Dr. Valencia - normal well woman exam (40-65 years) Sexual Activity is sexually active 08/24/2018 None well woman exam (40-65 years) Sexual Activity is monogamous 08/24/2018 None Annual Checkup Pap Smear last normal performed on 07-26-16 07/27/2017 None Annual Checkup Menstrual History last menstrual period 07-15-07/27/2017 None Annual Checkup Menstrual History regular menses 07/27/2017 None Annual Checkup Menstrual History 32 days between periods 07/27/2017 None Annual Checkup Menstrual History period length of 5-6 days 07/27/2017 None Annual Checkup Menstrual History heavy flow 07/27/2017 None Annual Checkup Sexual Activity is sexually active 07/27/2017 None Annual Checkup Sexual Activity is monogamous 07/27/2017 None Annual Checkup Lifestyle no history of physical abuse 07/27/2017 None Annual Checkup Lifestyle no history of sexual abuse 07/27/2017 None Annual Checkup Lifestyle no history of verbal abuse 07/27/2017 None Annual Checkup Lifestyle regular seatbelt use 07/27/2017 None Annual Checkup Lifestyle family supportive of relationship 07/27/2017 None Annual Checkup Lifestyle satisfactory school experience 07/27/2017 None Annual Checkup Lifestyle satisfactory peer relationships 07/27/2017 None Annual Checkup Lifestyle normal amount of stress 07/27/2017 None Annual Checkup Nutrition and Exercise normal weight 07/27/2017 None Annual Checkup Nutrition and Exercise balanced nutrition 07/27/2017 None Annual Checkup Nutrition and Exercise minimal exercise 07/27/2017 None Annual Checkup Reproductive System D evelopment normal development 07/27/2017 None Annual Checkup Health Guidance self-breast exam 07/27/2017 None Annual Checkup Health Guidance HIV precautions 07/27/2017 None Annual Checkup Health Guidance STD precautions 07/27/2017 None Annual Checkup Health Guidance tobacco, drugs and alcohol avoidance 07/27/2017 None Annual Checkup Health Guidance regular exercise 07/27/2017 None Annual Checkup Health Guidance safety belt use 07/27/2017 None Annual Checkup Health Guidance helmet use 07/27/2017 None Annual Checkup Health Guidance hearing loss prevention 07/27/2017 None Annual Checkup Health Guidance limiting UV/sun exposure 07/27/2017 None Annual Checkup Health Guidance suicide prevention 07/27/2017 None Annual Checkup Health Guidance depression symptoms 07/27/2017 None venous thrombosis Location in a deep vein of the distal left leg 03/28/2017 None venous thrombosis Quality acute 03/28/2017 None venous thrombosis Quality stable 03/28/2017 None postnasal drip Quality a cute 03/28/2017 None postnasal drip Quality i ntermittent 03/28/2017 None postnasal drip Quality p urulent 03/28/2017 None postnasal drip Quality t hick 03/28/2017 None postnasal drip Onset and Resolution ongoing 03/28/2017 None otalgia Location on both sides 03/28/2017 None well woman exam (40-65 years) Pap Smear last normal performed on 07-15-15 07/26/2016 None well woman exam (40-65 years) Menstr ual History last menstrual period 07-14-1607/26 None well woman exam (40-65 years) Menstr ual History irregular menses. 07/26/2016 Having breakthrough bleeding well woman exam (40-65 years) Menstr ual History period length of 4-5 days 07/26/2016 None well woman exam (40-65 years) Menstr ual History heavy flow on second day 07/26/2016 None well woman exam (40-65 years) Menstr ual History normal flow 07/26/2016 N one well woman exam (40-65 years) Lifestyle no history of physical abuse 07/26/2016 None well woman exam (40-65 years) Lifestyle no history of sexual abuse 07/26/2016 None well woman exam (40-65 years) Lifestyle no history of verbal abuse 07/26/2016 None well woman exam (40-65 years) Lifestyle regular seatbelt use 07/26/2016 None well woman exam (40-65 years) Lifestyle family supportive of relationship 07/26/2016 None well woman exam (40-65 years) Lifestyle satisfactory work experience 07/26/2016 None well woman exam (40-65 years) Lifestyle normal sleep patterns 07/26/2016 None well woman exam (40-65 years) Lifestyle normal amount of stress 07/26/2016 None well woman exam (40-65 years) Lifestyle satisfactory marriage/partner relationship 07/26/2016 None well woman exam (40-65 years) Nutrit ion and Exercise normal weight 07/26/2016 None well woman exam (40-65 years) Nutrit ion and Exercise minimal exercise 07/26/2016 None well woman exam (40-65 years) Nutrit ion and Exercise balanced nutrition 07/26/2016 None well woman exam (40-65 years) Contro l IUD 07/26/2016 copper well woman exam (40-65 years) Health Guidance self-breast exam 07/26/2016 None well woman exam (40-65 years) Health Guidance baseline mammogram 07/26/2016 None well woman exam (40-65 years) Health Guidance HIV precautions 07/26/2016 None well woman exam (40-65 years) Health Guidance STD precautions 07/26/2016 None well woman exam (40-65 years) Health Guidance prevention 07/26/2016 None well woman exam (40-65 years) Health Guidance genetic counseling 07/26/2016 None well woman exam (40-65 years) Health Guidance tobacco, drugs and alcohol avoidance 07/26/2016 None well woman exam (40-65 years) Health Guidance regular exercise 07/26/2016 None well woman exam (40-65 years) Health Guidance safety belt use 07/26/2016 None well woman exam (40-65 years) Health Guidance helmet use 07/26/2016 No ne well woman exam (40-65 years) Health Guidance hearing loss prevention 07/26/2016 None well woman exam (40-65 years) Health Guidance limiting UV/sun exposure 07/26/2016 None well woman exam (40-65 years) Health Guidance suicide prevention 07/26/2016 None well woman exam (40-65 years) Health Guidance depression symptoms 07/26/2016 None well woman exam (40-65 years) Sexual Activity is sexually active 07/26/2016 None well woman exam (40-65 years) Sexual Activity is monogamous 07/26/2016 None well woman exam (40-65 years) Cardio vascular Risk Factors dyslipidemia 07/26/2016 None well woman exam (40-65 years) Breast /Shade Maker Complaints breast mass 07/26/2016 a debbie in left breast that has been being watched well woman exam (40-65 years) Pap Smear last normal performed on 07-10-14 07/15/2015 None well woman exam (40-65 years) Menstr ual History irregular menses 07/15/2015 None hemorrhoids Quality blee ding 07/15/2015 None hemorrhoids Quality tend er 07/15/2015 None well woman exam (40-65 years) Lifestyle no history of physical abuse 07/15/2015 None well woman exam (40-65 years) Lifestyle no history of sexual abuse 07/15/2015 None well woman exam (40-65 years) Lifestyle no history of verbal abuse 07/15/2015 None well woman exam (40-65 years) Lifestyle regular seatbelt use 07/15/2015 None well woman exam (40-65 years) Lifestyle family supportive of relationship 07/15/2015 None well woman exam (40-65 years) Lifestyle satisfactory work experience 07/15/2015 None well woman exam (40-65 years) Lifestyle normal sleep patterns 07/15/2015 None well woman exam (40-65 years) Lifestyle normal amount of stress 07/15/2015 None well woman exam (40-65 years) Lifestyle satisfactory marriage/partner relationship 07/15/2015 None well woman exam (40-65 years) Contro l none 07/15/2015 None well woman exam (40-65 years) Nutrit ion and Exercise overweight 07/15/2015 No ne well woman exam (40-65 years) Nutrit ion and Exercise no eating disorder 07/15/2015 None well woman exam (40-65 years) Nutrit ion and Exercise minimal exercise 07/15/2015 None well woman exam (40-65 years) Health Guidance self-breast exam 07/15/2015 None well woman exam (40-65 years) Health Guidance baseline mammogram 07/15/2015 None well woman exam (40-65 years) Health Guidance HIV precautions 07/15/2015 None well woman exam (40-65 years) Health Guidance prevention 07/15/2015 None well woman exam (40-65 years) Health Guidance STD precautions 07/15/2015 None well woman exam (40-65 years) Health Guidance genetic counseling 07/15/2015 None well woman exam (40-65 years) Health Guidance tobacco, drugs and alcohol avoidance 07/15/2015 None well woman exam (40-65 years) Health Guidance regular exercise 07/15/2015 None well woman exam (40-65 years) Health Guidance safety belt use 07/15/2015 None well woman exam (40-65 years) Health Guidance helmet use 07/15/2015 No ne well woman exam (40-65 years) Health Guidance hearing loss prevention 07/15/2015 None well woman exam (40-65 years) Health Guidance limiting UV/sun exposure 07/15/2015 None well woman exam (40-65 years) Health Guidance suicide prevention 07/15/2015 None well woman exam (40-65 years) Health Guidance depression symptoms 07/15/2015 None well woman exam (40-65 years) Health Guidance fecal occult blood testing 07/15/2015 None well woman exam (40-65 years) Health Guidance fasting glucose every 3 years 07/15/2015 None well woman exam (40-65 years) Health Guidance colonoscopy/sigmoidoscopy 07/15/2015 None well woman exam (40-65 years) Sexual Activity is sexually active 07/15/2015 None well woman exam (40-65 years) Sexual Activity is monogamous 07/15/2015 None well woman exam (40-65 years) Sexual Activity experiences sexual satisfaction 07/15/2015 None venous thrombosis Location in the right leg 07/01/2015 None menstrual irregularity Quality metrorrhagia 07/01/2015 None menstrual irregularity Onset and Resolutio n ongoing 07/01/2015 None well woman exam (40-65 years) Pap Smear last normal performed on 07-09-13 07/10/2014 None well woman exam (40-65 years) Contro l IUD 07/10/[address] Perez and shay greenberg said the current IUD is good well woman exam (40-65 years) Menstr ual History last menstrual period 07-04-07/10 None well woman exam (40-65 years) Menstr ual History regular menses 07/10/2014 None well woman exam (40-65 years) Menstr ual History period length of 5 days 07/10/2014 None well woman exam (40-65 years) Menstr ual History normal flow 07/10/2014 N one abdominal pain Location in the RLQ 07/10/2014 None abdominal pain Quality i ntermittent 07/10/2014 Thinks may be related to ovary urinary incontinence Quality overflow incontinence 07/10/2014 None urinary incontinence Onset and Resolution ongoing 07/10/2014 Had bladder pin up last year urinary incontinence Quality intermittent 07/10/2014 None urinary incontinence Quality constant 07/10/2014 None weight gain/obesity Location globally 07/10/2014 None weight gain/obesity Quality worsening 07/10/2014 None well woman exam (40-65 years) Pap Smear last normal performed on 07-05-12 07/09/2013 None well woman exam (40-65 years) Menstr ual History last menstrual period 06-28-07/09 None well woman exam (40-65 years) Menstr ual History regular menses 07/09/2013 None well woman exam (40-65 years) Menstr ual History period length of 5-7 days 07/09/2013 None well woman exam (40-65 years) Menstr ual History 23-28 days between periods 07/09/2013 None well woman exam (40-65 years) Menstr ual History normal flow 07/09/2013 N one well woman exam (40-65 years) Contro l none 07/09/2013 None menstrual irregularity Quality worsening 07/09/2013 None menstrual irregularity Quality menometrorrhagia 07/09/2013 None urinary incontinence Quality chronic 07/09/2013 None urinary incontinence Quality constant 07/09/2013 None urinary incontinence Onset and Resolution ongoing 07/09/2013 None urinary incontinence Onset of Symptom during adulthood 07/09/2013 None urinary incontinence Quality worsening 07/09/2013 scheduled for surgery Dec . 13 well woman exam (40-65 years) Pap Smear last normal performed on 06-28-11 07/05/2012 None well woman exam (40-65 years) Menstr ual History last menstrual period 1 week ago None well woman exam (40-65 years) Menstr ual History regular menses 07/05/2012 None well woman exam (40-65 years) Menstr ual History period length of 5 days 07/05/2012 None well woman exam (40-65 years) Contro l IUD 07/05/2012 None weight gain/obesity Location globally 03/09/2012 None fatigue Quality worsening 03/09/2012 None hair loss Location on th e scalp 03/09/2012 None chills Quality intermitt ent 03/09/2012 None well woman exam (40-65 years) Pap Smear 1 years ago 06/28/2011 None well woman exam (40-65 years) Pap Smear normal results 06/28/2011 None well woman exam (40-65 years) Menstr ual History last menstrual period 06-11-2011 None well woman exam (40-65 years) Menstr ual History period length of 5 days 06/28/2011 None well woman exam (40-65 years) Menstr ual History normal flow 06/28/2011 N one fatigue Quality worsening 06/28/2011 None weight gain/obesity Location globally 06/28/2011 None well woman exam (40-65 years) Pap Smear 1 years ago 06/25/2010 None well woman exam (40-65 years) Menstr ual History irregular menses 06/25/2010 more frequent since lost weight Advance Directives No Advance Directive data Encounters Encounter Performer Loca tion Codes Date ([id number]) OFFICE/OUTPA TIENT VISIT EST Diagnosis: longterm (current) use of anticoagulants[ICD10: Z79.01] Diagnosis: Personal history of pulmonary embolism[ICD10: Z86.711] Diagnosis: Personal history of other venous thrombosis and embolism[ICD10: Z86.718] Diagnosis: Other allergic rhinitis[ICD10: J30.89] Diagnosis: Abdominal distension (gaseous)[ICD10: R14.0] Jud NEVAREZ [facility] CPT-4: 32333 04/09/2019 ([id number]) PREV VISIT E ST AGE 40-64 Diagnosis: Encounter for general adult medical examination without abnormal findings[ICD10: Z00.00] Diagnosis: Encounter for gynecological examination (general) (routine) without abnormal findings[ICD10: Z01.419] Diagnosis: Mixed hyperlipidemia[ICD10: E78.2] Diagnosis: Excessive and frequent menstruation with irregular cycle[ICD10: N92.1] Tonya Adancathy TONYA Mary GraceArnoldo ADANJUAN PABLO [facility] CPT-4: 18722 08/24/2018 ([id number]) PREV VISIT E AGE 40-64 Diagnosis: Encounter for general adult medical examination without abnormal findings[ICD10: Z00.00] Diagnosis: Encounter for gynecological examination (general) (routine) without abnormal findings[ICD10: Z01.419] 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] Diagnosis: Unspecified lump in breast[ICD10: N63] Tonya AMEZCUA DO [facility] CPT-4: 81806 07/26/2016 ([id number]) PREV VISIT E AGE 40-64 Diagnosis: Encounter for general adult medical examination without abnormal findings[ICD10: Z00.00] Diagnosis: Encounter for gynecological examination (general) (routine) without abnormal findings[ICD10: Z01.419] Diagnosis: Acute embolism and thrombosis of unspecified deep veins of unspecified lower extremity[ICD10: I82.409] Tonya HUYNH DO [facility] CPT-4: 38207 07/15/2015 ([id number]) OFFICE/OUTPA TIENT VISIT EST Diagnosis: Acute embolism and thrombosis of unspecified deep veins of unspecified lower extremity[ICD10: I82.409] 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] Tonya AMEZCUA [facility] CPT-4: 72361 07/01/2015 ([id number]) PREV VISIT E AGE 40-64 Diagnosis: ROUTINE MEDICAL EXAM[ICD9: V70.0] Diagnosis: ROUTINE GYNE EXAM[ICD9: V72.31] Diagnosis: MALAISE AND FATIGUE[ICD9: 780.79] Diagnosis: Hematuria[ICD9: 599.70] Tonya HUYNH DO [facility] CPT-4: 27689 07/10/2014 ([id number]) PREV VISIT E AGE 40-64 Diagnosis: ROUTINE MEDICAL EXAM[ICD9: V70.0] Diagnosis: ROUTINE GYNE EXAM[ICD9: V72.31] Diagnosis: HYPERLIPIDEMIA NEC/NOS[ICD9: 272.4] Diagnosis: MALAISE AND FATIGUE[ICD9: 780.79] Diagnosis: PAIN, LOWER BACK[ICD9: 724.2] Diagnosis: Menometrorrhagia[ICD9: 626.2] Tonya HUYNH [employer] [facility] CPT-4: 59403 07/09/2013 ([id number]) PREV VISIT E AGE 40-64 Diagnosis: ROUTINE MEDICAL EXAM[ICD9: V70.0] Diagnosis: ROUTINE GYNE EXAM[ICD9: V72.31] Tonya HUYNH DO [facility] CPT-4: 77038 07/05/2012 ([id number]) SPECIMEN DIA HERRERA Diagnosis: [ICD9: ] Diagnosis: [ICD9: ] Tonya HESS CPT-4: 27996 07/05/2012 ([id number]) OFFICE/OUTPA TIENT VISIT EST Diagnosis: MALAISE AND FATIGUE[ICD9: 780.79] Diagnosis: HYPERLIPIDEMIA NEC/NOS[ICD9: 272.4] Tonya BLUNTR [facility] CPT-4: 59262 03/09/2012 PREV VISIT EST AGE 4 0-64 Diagnosis: ROUTINE GYNE EXAM[ICD9: V72.31] Diagnosis: ROUTINE MEDICAL EXAM[ICD9: V70.0] Diagnosis: MALAISE AND FATIGUE[ICD9: 780.79] Tonya BLUNTR [facility] CPT-4: 77858 06/28/2011 ([id number]) PREV VISIT, EST, AGE 40-64 Tonya BLUNTR [facility] CPT-4: 02824 06/25/2010 Plan of Care Planned Activity Notes C odes Status Date Visit 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 recheck inr in 1 week and call office with results. order was signed for patient to receive more test strips at home. ICD-9 : V58.61 ICD-10 : Z79.01 04/09/2019 Visit Diagnosis Plan: Other allergic rhinitis Discussion: instructed to start taking zyrtec daily at bedtime to cover for allergies. instructed to take daily and to inform us in 2 weeks how she's doing. discussed with patient that allergies and acid reflux most likely cause of her symptoms since amoxicillin was ineffective for her. ICD-9 : 477.8 ICD-10 : J30.89 04/09/2019 Visit Diagnosis Plan: Abdominal distension (gaseous) Discussion: samples of nexium given to patient with instructions on use. notify office in 2 weeks with how she's doing. ICD-9 : 787.3 ICD-10 : R14.0 04/09/2019 [facility]ment: [facility] [address] [facility] [facility] 04/09/2019 Visit Diagnosis Plan: Encounter for gyne cological examination (general) (routine) without abnormal findings Discussion: Pap Done Had Mammogram in May ICD-9 : V72.31 ICD-10 : Z01.419 08/24/2018 Visit Diagnosis Plan: Encounter for gene ral adult medical examination without abnormal findings Discussion: Update fasting lab Defers fl u shot Doing routine home monitoring on coumadin with PT/INR Follow Up: 6 months ICD-9 : V70.0 ICD-10 : Z00.00 08/24/2018 Visit Diagnosis Plan: Excessive and freq uent menstruation with irregular cycle Discussion: Check FSH/LH/Estradiol May n eed pelvic US ICD-9 : 626.2 ICD-10 : N92.1 08/24/2018 Appointment: Tonya Huynh W[facility]el[facility] [facility] [facility] Well Visit 08/24/2018 Patient Education: Patient Medication Summary Completed 04/05/2018 Care Plan: MAMMOGRAM SCREENING LOINC : 85912-3 Pending 04/05/2018 Visit Diagnosis Plan: Other specified [...] and has been having bowel changes 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 [...] : Z00.00 07/27/2017 Appointment: Tonya Huynh WPtel: [address] [place], [place] [phone] Annual Well Visit 07/27/2017 Patient Education: Patient Medication Summary Completed 07/27/2017 Referral: Vasquez Carpenter WPtel: [phone] [id number] US Referral Initiated 04/19/2017 Visit Diagnosis Plan: 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 Discussion: Referral to hematology to [facility] Patient does not want to do orals due to risks Will keep on lovenox until sees hematology ICD-9 : 453.41 ICD-10 : I82.422 03/28/2017 Visit Diagnosis Plan: Follicular cyst of left ovary Discussion: Pelvic US in 3mos ICD-9 : 620.0 ICD-10 : N83.02 03/28/2017 Appointment: Tonya Huynh WPtel: [address] [place], [place] [phone] [place] 03/24 confirmed ~sl WORK IN 03/28/2017 Patient Education: Patient Medication Summary Completed 03/28/2017 Visit Plan: Pap Done Diagnostic Tameka mogram with Left Breast US--may need biopsy of left breast lesion pending results Update fasting lab Check CXR and KUB with history of IVC filter 07/26/2016 Appointment: Tonya Huynh WPtel: [address] [place], [place] [phone] 07/22 confirmed~sl Annual Well Visit 07/26/2016 Patient Education: Patient Medication Summary Completed 07/26/2016 Visit Plan: Pap done Repeat RLE fe ous doppler on Aug 11 Continue lovenox and observe for bleeding Defers mammogram until next year 07/15/2015 Appointment: Tonya Huynh WPtel: [address] [place], [place] [phone] [place] 11/05 lm ~sl...07/15 appt confirmed cn PAP 07/15/2015 Patient Education: Patient Medication Summary Completed 07/15/2015 Visit Plan: Continue lovenox as is Obtain US and ER records from [place] Patient refuses any anticoagulants except lovenox Offered xarelto, eliquis, pradaxa, coumadin, etc. No long trips until fwup Recheck 2weeks Check CBC in 1week Report any signs of bleeding immediately 07/01/2015 Appointment: Tonya Huynh WPtel: [address] [place], [place] [phone] 07/01 called office to confirm ~SL ACUTE ILLNESS 07/01/2015 Patient Education: Patient Medication Summary Completed 07/01/2015 Patient Education: Patient Medication Summary Completed 07/22/2014 Visit Plan: Pap done Mammo ordered Check fasting lab Check pelvic US 07/10/2014 Appointment: Tonya Huynh WPtel: [address] [place], [place] [phone] 07/[address] [facility] Annual Well Visit 07/10/2014 Patient Education: Patient Medication Summary Completed 07/10/2014 Visit Plan: Pap Done Proceed with p elvic US Mammo scheduled May need MRI of L/S spine Pt scheduled for bladder sling in Dec Discussed may need CHILD CARE eval due to spotting/ removal of IUD, etc. Check fasting lab 07/09/2013 Appointment: Tonya Huynh WPtel: [address] [place], [place] [phone] 07/06 vm PAP 07/09/2013 Patient Education: Patient Medication Summary Completed 07/09/2013 Visit Plan: PAP done Mammo ordered 07/05/2012 Appointment: Tonya Huynh WPtel: [address] [place], [place] [phone] 07/04- left message PAP 07/05/2012 Patient Education: Patient Medication Summary Completed 07/05/2012 Visit Plan: Check fasting lab Discu ssed diet and exercise at length 03/09/2012 Appointment: Tonya [facility]ynh [facility]Ptel[facility] [phone] [facility] [facility] message left with child FOLLOW UP 03/09/2012 Patient Education: Patient Medication Summary Completed 03/09/2012 Visit Plan: Pap Done and Mammogram ordered CMP, Lipids, CBC, TSH, Free T4 Start daily baby aspirin Use lovenox when flies 06/28/2011 Appointment: Tonya [facility]ynh [facility]Ptel[facility] [phone] [facility] [facility] PAP 06/28/2011 Patient Education: Patient Medication Summary Completed 06/28/2011 Visit Plan: Pap Done Mammo ordered Trial of lamisil--check LFTs at start and monthly while on and put shoes in moth balls during treatment 06/25/2010 Appointment: Tonya Huynh [facility]Ptel[facility] [phone] [facility] [facility] PAP 06/25/2010 Patient Education: Patient Medication Summary Completed 06/25/2010 Instructions Comment . PAP done Mammo ordered . Pap done Repeat RLE venous doppler on Aug 11 Continue lovenox and observe for bleeding Defers mammogram until next year . Pap Done and Mammo gram ordered CMP, Lipids, CBC, TSH, Free T4 Start daily baby aspirin Use lovenox when flies . Pap Done Diagnostic Mammogram with Left Breast US--may need biopsy of left breast lesion pending results Update fasting lab Check CXR and KUB with history of IVC filter . Pap done Mammo ordered Check fasting lab Check pelvic US . Continue lovenox a s is Obtain US and ER records from [place] Patient refuses any anticoagulants except lovenox Offered xarelto, eliquis, pradaxa, coumadin, etc. No long trips until fwup Recheck 2weeks Check CBC in 1week Report any signs of bleeding immediately . Check fasting lab Discussed diet and exercise at length . Pap Done Proceed with pelvic US Mammo scheduled May need MRI of L/S spine Pt scheduled for bladder sling in Aug Discussed may need CHILD CARE eval due to spotting/ removal of IUD, etc. Check fasting lab . Pap Done Mammo ordered Trial of lamisil--check LFTs at start and monthly while on and put shoes in moth balls during treatment
--- OUTSIDE RECORDS SUMMARY | 2020-01-17 07:03 | XMS REPORT | CCD ---
Author Author Cynthia Huynh D.O. Organization [facility] Address [address] [place] [address] Phone Care Team Providers Care Icebox Man Name Role Phone Renu Huynh D.O., PP Unavailable CCM Unavailable Summary Purpose Interface Exchange Insurance Providers Payer name Policy type / Coverage type Covered constitution party ID Effective Begin Date Effective End Date Blue Cross Blue Shield Blue Cross/Bl ue Shield [id number] Un known Family History Family History data not found Social History Social History Element Codes Description Effective Dates Marital status Unknown M arried 06/28/[address]: 925227495 Never smoker 06/28/2011 Allergies, Adverse Reactions, Alerts [...] ICD-9: 787.3 ICD-10: R14.0 Active 04/09/2019 Unknown [facility] (current) use of anticoagulants ICD-9: V58.61 ICD-10: [...] (gaseous) ICD-9: 787.3 ICD-10: R14.0 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/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 ICD-9: V58.61 ICD-10: [...] Date Stop Date Sta tus Fill Instructions warfarin 10 mg tablet RxNorm: 815893 1 Tablet(s) PO QD 03/12/2019 09/07/2019 Active warfarin 5 mg tablet RxNorm: 074463 1 Tablet(s) PO QD to take with 10mg dose on days takes full 15mg dose 03/12/2019 No Stop Date Active warfarin 10 mg tablet RxNorm: 836309 1 Tablet(s) PO QD 12/12/2018 03/11/2019 Inactive warfarin 5 mg tablet RxNorm: 854761 1 Tablet(s) PO QD to take with 10mg dose on days takes full 15mg dose 09/18/2018 03/11/2019 Inactive warfarin 10 mg tablet RxNorm: 059538 1 Tablet(s) PO QD 06/21/2018 12/11/2018 Inactive warfarin 3 mg tablet RxNorm: 791064 1 Tablet(s) PO QD 06/21/2018 12/17/2018 Inactive warfarin 10 mg tablet RxNorm: 343805 1 Tablet(s) PO QD 03/28/2018 06/20/2018 Inactive warfarin 3 mg tablet RxNorm: 155347 1 Tablet(s) PO QD 03/28/2018 06/20/2018 Inactive warfarin 10 mg tablet RxNorm: 165290 1 Tablet(s) PO QD 03/28/2018 03/27/2018 Inactive warfarin 3 mg tablet RxNorm: 148178 1 Tablet(s) PO QD 03/28/2018 03/27/2018 Inactive warfarin 1 mg tablet RxNorm: 003906 3 Tablet(s) PO TIW and 2 tabs all other days 01/18/2018 03/27/2018 Inactive warfarin 5 mg tablet RxNorm: 380141 2 Tablet(s) PO QD 12/19/2017 03/27/2018 Inactive warfarin 5 mg tablet RxNorm: 441442 2 Tablet(s) PO QD 12/06/2017 12/18/2017 Inactive warfarin 5 mg tablet RxNorm: 318179 2 Tablet(s) PO QD 12/05/2017 12/05/2017 Inactive warfarin 1 mg tablet RxNorm: 588486 2 Tablet(s) PO QD 10/24/2017 01/17/2018 Inactive warfarin 1 mg tablet RxNorm: 503785 2 Tablet(s) PO QD 07/27/2017 10/23/2017 Inactive Lovenox 80 mg/0.8 mL subcutaneous syringe RxNorm: 197282 1 Milliliter(s) SQ BI D 03/28/2017 04/26/2017 In active Lovenox 80 mg/0.8 mL subcutaneous syringe RxNorm: 813308 1 Unit Dose SQ Q12H 07/01/2015 08/29/2015 In active Lovenox 60 mg/0.6 mL subcutaneous syringe RxNorm: 150101 1 Unit Dose SQ BID pr n for travel due to high risk for DVT 07/10/2014 07/19/2014 Inactive as directed for flights Lovenox 60 mg/0.6 mL Sub-Q Syringe RxNorm: 341800 1 Unit Dose SQ BID 06/15/2013 06/24/2013 Inactive as directed for flights Lovenox 60 mg/0.6 mL Sub-Q Syringe RxNorm: 366110 1 Unit Dose SQ BID 06/28/2011 No Stop Date Active as directed for flights Lamisil 250 mg Tab RxNorm: 876533 1 Tablet(s) PO QD 09/07/2010 12/05/2010 Inactive Lamisil 250 mg Tab RxNorm: 303955 1 Tablet(s) PO QD 06/25/2010 09/06/2010 Inactive Vitamin D3 2,000 uni t Tab RxNorm: 517433 1 Tablet(s) PO QD No Start Date Active niacin 50 mg tablet RxNorm: 394011 1 Tablet(s) PO QD No Start Date 08/23/2018 Inactive warfarin 5 mg tablet RxNorm: 902183 2 Tablet(s) PO QD No Start Date 12/04/2017 Inactive Lovenox 60 mg/0.6 mL Sub-Q Syringe RxNorm: 704426 1 Unit Dose SQ BID as directed for flights No Start Date 06/27/2011 Inactive Lovenox 60 mg/0.6 mL subcutaneous syringe RxNorm: 130160 Milliliter(s) SQ BID No Start Date 06/30/2015 Inactive warfarin 1 mg tablet RxNorm: 781379 2 Tablet(s) PO QD No Start Date 07/26/2017 Inactive Lovenox 80 mg/0.8 mL subcutaneous syringe RxNorm: 146206 1 Milliliter(s) SQ BI D No Start Date 03/27/2017 Inactive warfarin 5 mg tablet RxNorm: 953204 1 Tablet(s) PO QD to take with 10mg dose on days takes full 15mg dose No Start Date 09/17/2018 Inactive Medication Administered No Medication Administered data Immunizations No Immunization data Assessments Condition Codes Effectiv e Dates [facility]CC (current) use of anticoagulants ICD-10: Z79.01 ICD-9: [...] rash 01/2019 Dermatologic No sores Neurologic headache 08/0 01/2019 Cardiovascular No chest pain/pressure 04/09/2019 Cardiovascular No [...] Codes Date SPECIMEN HANDLING OF FICE-LAB CPT-4: 12337 08/24/2018 OCCULT BLOOD FECES CPT- 4: 44679 08/24/2018 SPECIMEN HANDLING OF FICE-LAB CPT-4: 48891 07/27/2017 OCCULT BLOOD FECES CPT- 4: 63593 07/27/2017 SPECIMEN HANDLING OF FICE-LAB CPT-4: 89626 07/26/2016 SPECIMEN HANDLING OF FICE-LAB CPT-4: 67377 07/15/2015 URINALYSIS NONAUTO W /O SCOPE CPT-4: 92238 07/10/2014 OCCULT BLOOD FECES CPT- 4: 01969 07/10/2014 SPECIMEN HANDLING OF FICE-LAB CPT-4: 98153 07/10/2014 URINE CULTURE/ COLON Y COUNT CPT-4: 47854 07/10/2014 SPECIMEN HANDLING OF FICE-LAB CPT-4: 10526 07/09/2013 OCCULT BLOOD FECES CPT- 4: 47082 07/09/2013 OCCULT BLOOD FECES CPT- 4: 77616 07/05/2012 SPECIMEN HANDLING OF FICE-LAB CPT-4: 03739 06/28/2011 OCCULT BLOOD FECES CPT- 4: 03949 06/28/2011 SPECIMEN HANDLING OF FICE-LAB CPT-4: 61418 06/25/2010 OCCULT BLOOD FECES CPT- 4: 21229 06/25/2010 Vital Signs Date Vital 04/09/2019 Blood [...] 1: 124/78 Code: 8480-6 BMI: 29.4 Code: 80665-6 Heart Rate 1: 72 bpm Height: 5'3" Respiratory Rate: 20 bpm SpO2: 98% Temperature: 36.5 (C ) / 97.7 (F) Weight: 166 lbs 03/28/2017 Blood Pressure 1: 126/68 Code: 8480-6 BMI: 30.1 Code: 60039-1 Heart Rate 1: 66 bpm Height: 5'3" Respiratory Rate: 24 bpm SpO2: 98% Temperature: 36.4 (C ) / 97.6 (F) Weight: 170 lbs 07/26/2016 Blood Pressure 1: 124/70 Code: 8480-6 BMI: 28.7 Code: 12692-0 Heart Rate 1: 84 bpm Height: 5'3" Respiratory Rate: 20 bpm Temperature: 36.7 (C ) / 98.0 (F) Weight: 162 lbs 07/15/2015 Blood Pressure 1: 114/78 Code: 8480-6 BMI: 30.8 Code: 05604-9 Heart Rate 1: 72 bpm Height: 5'3" Respiratory Rate: 20 bpm Temperature: 36.7 (C ) / 98.1 (F) Weight: 174 lbs 07/01/2015 Blood Pressure 1: 134/86 Code: 8480-6 BMI: 30.8 Code: 57882-1 Heart Rate 1: 84 bpm Height: 5'3" Respiratory Rate: 20 bpm Temperature: 36.8 (C ) / 98.3 (F) Weight: 174 lbs 07/10/2014 Blood Pressure 1: 124/78 Code: 8480-6 BMI: 29.8 Code: 96822-9 Heart Rate 1: 84 bpm Height: 5'3" Respiratory Rate: 20 bpm Temperature: 36.7 (C ) / 98.0 (F) Weight: 168 lbs 07/09/2013 Blood Pressure 1: 126/80 Code: 8480-6 BMI: 28.3 Code: 73422-0 Heart Rate 1: 80 bpm Height: 5'3" Respiratory Rate: 20 bpm Temperature: 37.0 (C ) / 98.6 (F) Weight: 160 lbs 07/05/2012 Blood Pressure 1: 102/68 Code: 8480-6 BMI: 27.3 Code: 95479-1 Heart Rate 1: 72 bpm Height: 5'3" Respiratory Rate: 20 bpm Temperature: 36.6 (C ) / 97.8 (F) Weight: 154 lbs 03/09/2012 Blood Pressure 1: 116/78 Code: 8480-6 BMI: 28.0 Code: 26187-4 Heart Rate 1: 84 bpm Height: 5'3" Respiratory Rate: 20 bpm Temperature: 36.9 (C ) / 98.4 (F) Weight: 158 lbs 06/28/2011 Blood Pressure 1: 122/78 Code: 8480-6 BMI: 27.6 Code: 84656-4 Heart Rate 1: 76 bpm Height: 5'3" Respiratory Rate: 20 bpm Temperature: 36.8 (C ) / 98.2 (F) Weight: 156 lbs 06/25/2010 Blood Pressure 1: 118/68 Code: 8480-6 BMI: 23.9 Code: 84169-4 Height: 5'3" Temperature: 36.3 (C ) / 97.4 (F) Weight: 135 lbs Functional Status No Functional Status data History of Present Illness Symptom Name Status Resu lt Effective Date Notes well woman exam (40-65 years) Pap Smear last normal performed on 07-27-2017 08/24/2018 None well woman exam (40-65 years) Pap Smear normal results 08/24/2018 None well woman exam (40-65 years) 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 Valencia - normal well woman exam (40-65 years) Sexual Activity is sexually active 08/24/2018 None well woman exam (40-65 years) Sexual Activity is monogamous 08/24/2018 None Annual Checkup Pap Smear last normal performed on 07-26-16 07/27/2017 None Annual Checkup Menstrual History last menstrual period 07-15-17 07/27/2017 None Annual Checkup Menstrual History regular menses [...] None well woman exam (40-65 years) Breast /Hand Bunch Maker Complaints breast mass 07/26/2016 a debbie [...] l IUD 07/10/[address] Perez and h dionicio said the current IUD is good well woman exam (40-65 years) Menstr ual History last menstrual period 07-04-1407/10 None well woman exam (40-65 years) Menstr [...] years) Menstr ual History last menstrual period 06-28-1307/09 None well woman exam (40-65 years) Menstr [...] Encounters Encounter Performer Loca tion Codes Date (32863) OFFICE/OUTPA TIENT VISIT EST 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] Diagnosis: Personal history of pulmonary embolism[ICD10: Z86.711] Diagnosis: Personal history of other venous thrombosis and embolism[ICD10: Z86.718] Diagnosis: Other allergic rhinitis[ICD10: J30.89] Diagnosis: Abdominal distension (gaseous)[ICD10: R14.0] Jud DC [facility] CPT-4: 82030 04/09/2019 ([id number]) PREV VISIT E ST AGE 40-64 Diagnosis: Encounter for general adult medical examination without abnormal findings[ICD10: Z00.00] Diagnosis: Encounter for gynecological examination (general) (routine) without abnormal findings[ICD10: Z01.419] Diagnosis: Mixed hyperlipidemia[ICD10: E78.2] Diagnosis: Excessive and frequent menstruation with irregular cycle[ICD10: N92.1] Renu HUYNH [facility] CPT-4: 58952 08/24/2018 ([id number]) PREV VISIT E AGE 40-64 Diagnosis: Encounter for general adult medical examination without abnormal findings[ICD10: Z00.00] Diagnosis: Encounter for gynecological examination (general) (routine) without abnormal findings[ICD10: Z01.419] 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] Renu AMEZCUA [employer] CPT-4: 91539 07/27/2017 ([id number]) OFFICE/OUTPA TIENT VISIT EST Diagnosis: 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[ICD10: I82.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] Diagnosis: Follicular cyst of left ovary[ICD10: N83.02] Renu AMEZCUA [employer] CPT-4: 07697 03/28/2017 ([id number]) PREV VISIT E AGE 40-64 Diagnosis: Encounter for general adult medical examination without abnormal findings[ICD10: Z00.00] Diagnosis: Encounter for gynecological examination (general) (routine) without abnormal findings[ICD10: Z01.419] Diagnosis: Mixed hyperlipidemia[ICD10: E78.2] 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] Diagnosis: Unspecified lump in breast[ICD10: N63] Renu AMEZCUA [employer] CPT-4: 10483 07/26/2016 ([id number]) PREV VISIT E AGE 40-64 Diagnosis: Encounter for general adult medical examination without abnormal findings[ICD10: Z00.00] Diagnosis: Encounter for gynecological examination (general) (routine) without abnormal findings[ICD10: Z01.419] Diagnosis: Acute embolism and thrombosis of unspecified deep veins of unspecified lower extremity[ICD10: I82.409] [facility] CPT-4: 69408 07/15/2015 ([id number]) OFFICE/OUTPA TIENT VISIT EST Diagnosis: Acute embolism and thrombosis of unspecified deep veins of unspecified lower extremity[ICD10: I82.409] 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] Renu AMEZCUA [facility] CPT-4: 55001 07/01/2015 ([id number]) PREV VISIT E AGE 40-64 Diagnosis: ROUTINE MEDICAL EXAM[ICD9: V70.0] Diagnosis: ROUTINE GYNE EXAM[ICD9: V72.31] Diagnosis: MALAISE AND FATIGUE[ICD9: 780.79] Diagnosis: Hematuria[ICD9: 599.70] Renu HUYNH [facility] CPT-4: 73993 07/10/2014 ([id number]) PREV VISIT E AGE 40-64 Diagnosis: ROUTINE MEDICAL EXAM[ICD9: V70.0] Diagnosis: ROUTINE GYNE EXAM[ICD9: V72.31] Diagnosis: HYPERLIPIDEMIA NEC/NOS[ICD9: 272.4] Diagnosis: MALAISE AND FATIGUE[ICD9: 780.79] Diagnosis: PAIN, LOWER BACK[ICD9: 724.2] Diagnosis: Menometrorrhagia[ICD9: 626.2] [facility] CPT-4: 36964 07/09/2013 ([id number]) PREV VISIT E AGE 40-64 Diagnosis: ROUTINE MEDICAL EXAM[ICD9: V70.0] Diagnosis: ROUTINE GYNE EXAM[ICD9: V72.31] [facility]enu [facility]NH [facility] CPT-4: 98599 07/05/2012 ([id number]) SPECIMEN ALVARES DLING Diagnosis: [ICD9: ] Diagnosis: [ICD9: ] Renu BrodyArnoldo KENDY [facility] CPT-4: 41409 07/05/2012 ([id number]) OFFICE/OUTPA TIENT VISIT EST Diagnosis: MALAISE AND FATIGUE[ICD9: 780.79] Diagnosis: HYPERLIPIDEMIA NEC/NOS[ICD9: 272.4] Renu AMEZCUA DO [employer] CPT-4: 36889 03/09/2012 PREV VISIT EST AGE 4 0-64 Diagnosis: ROUTINE GYNE EXAM[ICD9: V72.31] Diagnosis: ROUTINE MEDICAL EXAM[ICD9: V70.0] Diagnosis: MALAISE AND FATIGUE[ICD9: 780.79] Renu AMEZCUA DO [employer] CPT-4: 90007 06/28/2011 ([id number]) PREV VISIT, EST, AGE 40-64 Renu AMEZCUA DO [employer] CPT-4: 49631 06/25/2010 Plan of Care Planned Activity Notes C odes Status Date Visit 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 [...] : Z00.00 07/27/2017 Appointment: Renu Huynh WPtel: [phone] [facility] Annual Well Visit 07/27/2017 Patient Education: Patient Medication Summary Completed 07/27/2017 Referral: AmylexusVasquez murphy WPtel: [phone] [id number] US Referral Initiated 04/19/2017 Visit Diagnosis Plan: 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 Discussion: Referral to hematology to [facility] Patient does not want to do orals due to risks Will keep on lovenox until sees hematology ICD-9 : 453.41 ICD-10 : I82.422 03/28/2017 Visit Diagnosis Plan: Follicular cyst of left ovary Discussion: Pelvic US in 3mos ICD-9 : 620.0 ICD-10 : N83.02 03/28/2017 Appointment: Renu Huynh WPtel: [phone] [place], [place] [id number] 03/24 confirmed ~sl WORK IN 03/28/2017 Patient Education: Patient Medication Summary Completed 03/28/2017 Visit Plan: Pap Done Diagnostic Tameka mogram with Left Breast US--may need biopsy of left breast lesion pending results Update fasting lab Check CXR and KUB with history of IVC filter 07/26/2016 Appointment: Renu Huynh WPtel: [address] [place], [place] [phone] 07/22 confirmed~sl Annual Well Visit 07/26/2016 Patient Education: Patient Medication Summary Completed 07/26/2016 Visit Plan: Pap done Repeat RLE ef ous doppler on Aug 11 Continue lovenox and observe for bleeding Defers mammogram until next year 07/15/2015 Appointment: Renu Huynh WPtel: [phone] [place], [place] [id number] 07/10 lm ~sl...07/15 appt confirmed cn PAP 07/15/2015 Patient Education: Patient Medication Summary Completed 07/15/2015 Visit Plan: Continue lovenox as is Obtain US and ER records from [place] Patient refuses any anticoagulants except lovenox Offered xarelto, eliquis, pradaxa, coumadin, etc. No long trips until up Recheck 2weeks Check CBC in 1week Report any signs of bleeding immediately 07/01/2015 Appointment: Renu Huynhtel: [address] [place], [place] [phone] 07/01 called office to confirm ~SL ACUTE ILLNESS 07/01/2015 Patient Education: Patient Medication Summary Completed 07/01/2015 Patient Education: Patient Medication Summary Completed 07/22/2014 Visit Plan: Pap done Mammo ordered Check fasting lab Check pelvic US 07/10/2014 Appointment: Renu Huynh WPtel: [address] [place], [place] [phone] 07/09 voicepril Annual Well Visit 07/10/2014 Patient Education: Patient Medication Summary Completed 07/10/2014 Visit Plan: Pap Done Proceed with p elvic US Mammo scheduled May need MRI of L/S spine Pt scheduled for bladder sling in Dec Discussed may need MEDICAL STAFF PHYSICIAN eval due to spotting/ removal of IUD, etc. Check fasting lab 07/09/2013 Appointment: Renu Huynh WPtel: [address] [place], [place] [phone] 07/06 vm PAP 07/09/2013 Patient Education: Patient Medication Summary Completed 07/09/2013 Visit Plan: PAP done Mammo ordered 07/05/2012 Appointment: Renu Huynh WPtel: [address] [place], [place] [phone] 07/04- left message PAP 07/05/2012 Patient Education: Patient Medication Summary Completed 07/05/2012 Visit Plan: Check fasting lab Discu ssed diet and exercise at length 03/09/2012 Appointment: Renu Huynh WPtel: [address] [place], [place] [phone] message left with child FOLLOW UP 03/09/2012 Patient Education: Patient Medication Summary Completed 03/09/2012 Visit Plan: Pap Done and Mammogram ordered CMP, Lipids, CBC, TSH, Free T4 Start daily baby aspirin Use lovenox when flies 06/28/2011 App[facility]ment: [facility]h [facility]el[facility] [phone] [facility] [facility] 06/28/2011 Patient Education: Patient Medication Summary Completed 06/28/2011 Visit Plan: Pap Done Mammo ordered Trial of lamisil--check LFTs at start and monthly while on and put shoes in moth balls during treatment 06/25/2010 Appointment: Renu Hu[facility]h WPtel[facility] [phone] [facility] [facility] PAP 06/25/2010 Patient Education: Patient [...] bladder sling in Aug Discussed may need MEDICAL STAFF PHYSICIAN eval due to spotting/ removal of IUD, etc. Check fasting lab . Pap Done Mammo ordered Trial of lamisil--check LFTs at start and monthly while on and put shoes in moth balls during treatment
--- OUTSIDE RECORDS SUMMARY | 2020-01-17 07:04 | XMS REPORT | CCD ---
Author Author Cynthia Huynh D.O. Organization RENU HUYNH DO [facility] Address [address] [place] [address] Phone Care Team Providers Care Geoscience Specialist Name Role Phone Renu Huynh D.O., PP Unavailable CCM Unavailable Summary Purpose Interface Exchange Insurance Providers Payer name Policy type / Coverage type Covered constitution party ID Effective Begin Date Effective End Date Blue Cross Blue Shield Blue Cross/Bl ue Shield [id number] Un known Family History Family History data not found Social History Social History Element Codes Description Effective Dates Marital status Unknown M arried 06/28/[address]: [id number] Never smoker 06/28/2011 Allergies, Adverse Reactions, Alerts [...] ICD-9: 787.3 ICD-10: R14.0 Active 04/09/2019 Unknown half-way (current) use of anticoagulants ICD-9: V58.61 ICD-10: [...] (gaseous) ICD-9: 787.3 ICD-10: R14.0 04/09/2019 Active continuous churn buttermaker (current) use of anticoagulants ICD-9: V58.61 ICD-10: [...] Fill Instructions warfarin 10 mg tablet RxNorm: 429336 1 Tablet(s) PO QD 03/12/2019 09/07/2019 Active warfarin 5 mg tablet RxNorm: 294432 1 Tablet(s) PO QD to take with 10mg dose on days takes full 15mg dose 03/12/2019 No Stop Date Active warfarin 10 mg tablet RxNorm: 208956 1 Tablet(s) PO QD 12/12/2018 03/11/2019 Inactive warfarin 5 mg tablet RxNorm: 551607 1 Tablet(s) PO QD to take with 10mg dose on days takes full 15mg dose 09/18/2018 03/11/2019 Inactive warfarin 10 mg tablet RxNorm: 843902 1 Tablet(s) PO QD 06/21/2018 12/11/2018 Inactive warfarin 3 mg tablet RxNorm: 931221 1 Tablet(s) PO QD 06/21/2018 12/17/2018 Inactive warfarin 10 mg tablet RxNorm: 636853 1 Tablet(s) PO QD 03/28/2018 06/20/2018 Inactive warfarin 3 mg tablet RxNorm: 839151 1 Tablet(s) PO QD 03/28/2018 06/20/2018 Inactive warfarin 10 mg tablet RxNorm: 730061 1 Tablet(s) PO QD 03/28/2018 03/27/2018 Inactive warfarin 3 mg tablet RxNorm: 937204 1 Tablet(s) PO QD 03/28/2018 03/27/2018 Inactive warfarin 1 mg tablet RxNorm: 950696 3 Tablet(s) PO TIW and 2 tabs all other days 01/18/2018 03/27/2018 Inactive warfarin 5 mg tablet RxNorm: 805248 2 Tablet(s) PO QD 12/19/2017 03/27/2018 Inactive warfarin 5 mg tablet RxNorm: 245081 2 Tablet(s) PO QD 12/06/2017 12/18/2017 Inactive warfarin 5 mg tablet RxNorm: 815272 2 Tablet(s) PO QD 12/05/2017 12/05/2017 Inactive warfarin 1 mg tablet RxNorm: 329606 2 Tablet(s) PO QD 10/24/2017 01/17/2018 Inactive warfarin 1 mg tablet RxNorm: 914127 2 Tablet(s) PO QD 07/27/2017 10/23/2017 Inactive Lovenox 80 mg/0.8 mL subcutaneous syringe RxNorm: 251974 1 Milliliter(s) SQ BI D 03/28/2017 04/26/2017 In active Lovenox 80 mg/0.8 mL subcutaneous syringe RxNorm: 644623 1 Unit Dose SQ Q12H 07/01/2015 08/29/2015 In active Lovenox 60 mg/0.6 mL subcutaneous syringe RxNorm: 889029 1 Unit Dose SQ BID pr n for travel due to high risk for DVT 07/10/2014 07/19/2014 Inactive as directed for flights Lovenox 60 mg/0.6 mL Sub-Q Syringe RxNorm: 629859 1 Unit Dose SQ BID 06/15/2013 06/24/2013 Inactive as directed for flights Lovenox 60 mg/0.6 mL Sub-Q Syringe RxNorm: 429500 1 Unit Dose SQ BID 06/28/2011 No Stop Date Active as directed for flights Lamisil 250 mg Tab RxNorm: 109600 1 Tablet(s) PO QD 09/07/2010 12/05/2010 Inactive Lamisil 250 mg Tab RxNorm: 992026 1 Tablet(s) PO QD 06/25/2010 09/06/2010 Inactive Vitamin D3 2,000 uni t Tab RxNorm: 858419 1 Tablet(s) PO QD No Start Date Active niacin 50 mg tablet RxNorm: 049706 1 Tablet(s) PO QD No Start Date 08/23/2018 Inactive warfarin 5 mg tablet RxNorm: 969838 2 Tablet(s) PO QD No Start Date 12/04/2017 Inactive Lovenox 60 mg/0.6 mL Sub-Q Syringe RxNorm: 685656 1 Unit Dose SQ BID as directed for flights No Start Date 06/27/2011 Inactive Lovenox 60 mg/0.6 mL subcutaneous syringe RxNorm: 401330 Milliliter(s) SQ BID No Start Date 06/30/2015 Inactive warfarin 1 mg tablet RxNorm: 358995 2 Tablet(s) PO QD No Start Date 07/26/2017 Inactive Lovenox 80 mg/0.8 mL subcutaneous syringe RxNorm: 876066 1 Milliliter(s) SQ BI D No Start Date 03/27/2017 Inactive warfarin 5 mg tablet RxNorm: 124304 1 Tablet(s) PO QD to take with 10mg dose on days takes full 15mg dose No Start Date 09/17/2018 Inactive Medication Administered No Medication Administered data Immunizations No Immunization data Assessments Condition Codes Effectiv e Dates half-way (current) use of anticoagulants ICD-10: Z79.01 ICD-9: [...] lesions 04/09/2019 None Full Exam - General Constitutional [...] Codes Date SPECIMEN HANDLING OF FICE-LAB CPT-4: 50016 08/24/2018 OCCULT BLOOD FECES CPT- 4: 52034 08/24/2018 SPECIMEN HANDLING OF FICE-LAB CPT-4: 54477 07/27/2017 OCCULT BLOOD FECES CPT- 4: 87511 07/27/2017 SPECIMEN HANDLING OF FICE-LAB CPT-4: 29054 07/26/2016 SPECIMEN HANDLING OF FICE-LAB CPT-4: 73258 07/15/2015 URINALYSIS NONAUTO W /O SCOPE CPT-4: 90297 07/10/2014 OCCULT BLOOD FECES CPT- 4: 40965 07/10/2014 SPECIMEN HANDLING OF FICE-LAB CPT-4: 70895 07/10/2014 URINE CULTURE/ COLON Y COUNT CPT-4: 29215 07/10/2014 SPECIMEN HANDLING OF FICE-LAB CPT-4: 64550 07/09/2013 OCCULT BLOOD FECES CPT- 4: 83898 07/09/2013 OCCULT BLOOD FECES CPT- 4: 71085 07/05/2012 SPECIMEN HANDLING OF FICE-LAB CPT-4: 18129 06/28/2011 OCCULT BLOOD FECES CPT- 4: 67860 06/28/2011 SPECIMEN HANDLING OF FICE-LAB CPT-4: 49332 06/25/2010 OCCULT BLOOD FECES CPT- 4: 05900 06/25/2010 Vital Signs Date Vital 04/09/2019 Blood [...] 1: 124/78 Code: 8480-6 BMI: 29.4 Code: 09901-5 Heart Rate 1: 72 bpm Height: 5'3" Respiratory Rate: 20 bpm SpO2: 98% Temperature: 36.5 (C ) / 97.7 (F) Weight: 166 lbs 03/28/2017 Blood Pressure 1: 126/68 Code: 8480-6 BMI: 30.1 Code: 28158-7 Heart Rate 1: 66 bpm Height: 5'3" Respiratory Rate: 24 bpm SpO2: 98% Temperature: 36.4 (C ) / 97.6 (F) Weight: 170 lbs 07/26/2016 Blood Pressure 1: 124/70 Code: 8480-6 BMI: 28.7 Code: 75636-6 Heart Rate 1: 84 bpm Height: 5'3" Respiratory Rate: 20 bpm Temperature: 36.7 (C ) / 98.0 (F) Weight: 162 lbs 07/15/2015 Blood Pressure 1: 114/78 Code: 8480-6 BMI: 30.8 Code: 03288-7 Heart Rate 1: 72 bpm Height: 5'3" Respiratory Rate: 20 bpm Temperature: 36.7 (C ) / 98.1 (F) Weight: 174 lbs 07/01/2015 Blood Pressure 1: 134/86 Code: 8480-6 BMI: 30.8 Code: 59102-7 Heart Rate 1: 84 bpm Height: 5'3" Respiratory Rate: 20 bpm Temperature: 36.8 (C ) / 98.3 (F) Weight: 174 lbs 07/10/2014 Blood Pressure 1: 124/78 Code: 8480-6 BMI: 29.8 Code: 44825-2 Heart Rate 1: 84 bpm Height: 5'3" Respiratory Rate: 20 bpm Temperature: 36.7 (C ) / 98.0 (F) Weight: 168 lbs 07/09/2013 Blood Pressure 1: 126/80 Code: 8480-6 BMI: 28.3 Code: 90380-7 Heart Rate 1: 80 bpm Height: 5'3" Respiratory Rate: 20 bpm Temperature: 37.0 (C ) / 98.6 (F) Weight: 160 lbs 07/05/2012 Blood Pressure 1: 102/68 Code: 8480-6 BMI: 27.3 Code: 42807-1 Heart Rate 1: 72 bpm Height: 5'3" Respiratory Rate: 20 bpm Temperature: 36.6 (C ) / 97.8 (F) Weight: 154 lbs 03/09/2012 Blood Pressure 1: 116/78 Code: 8480-6 BMI: 28.0 Code: 39331-1 Heart Rate 1: 84 bpm Height: 5'3" Respiratory Rate: 20 bpm Temperature: 36.9 (C ) / 98.4 (F) Weight: 158 lbs 06/28/2011 Blood Pressure 1: 122/78 Code: 8480-6 BMI: 27.6 Code: 04956-7 Heart Rate 1: 76 bpm Height: 5'3" Respiratory Rate: 20 bpm Temperature: 36.8 (C ) / 98.2 (F) Weight: 156 lbs 06/25/2010 Blood Pressure 1: 118/68 Code: 8480-6 BMI: 23.9 Code: 17165-4 Height: 5'3" Temperature: 36.3 (C ) / 97.4 (F) Weight: 135 lbs Functional Status No Functional Status data History of Present Illness Symptom Name Status Resu lt Effective Date Notes well woman exam (40-65 years) Pap Smear last normal performed on 07-27-2017 08/24/2018 None well woman exam (40-65 years) Pap Smear normal results 08/24/2018 None well woman exam (40-65 years) 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 08/24/2018 unsure if symptoms she is having is related to this or the coumadin is on well woman exam (40-65 years) Menstr ual History menarche at age 11 08/24/2018 None well woman exam (40-65 years) Menstr ual History last menstrual period 1218 08/24/2018 None well woman exam (40-65 years) [...] None well woman exam (40-65 years) 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 breast mass 07/26/2016 a debbie in [...] years) Menstr ual History last menstrual period 10-30-14 07/10 None well woman exam (40-65 years) Menstr [...] Encounters Encounter Performer Loca tion Codes Date (12720) OFFICE/OUTPA TIENT VISIT EST Diagnosis: half-way (current) use of anticoagulants[ICD10: Z79.01] Diagnosis: Personal history of pulmonary embolism[ICD10: Z86.711] Diagnosis: Personal history of other venous thrombosis and embolism[ICD10: Z86.718] Diagnosis: Other allergic rhinitis[ICD10: J30.89] Diagnosis: Abdominal distension (gaseous)[ICD10: R14.0] Jud NEVAREZ [facility] CPT-4: 62794 04/09/2019 ([id number]) PREV VISIT E AGE 40-64 Diagnosis: Encounter for general adult medical examination without abnormal findings[ICD10: Z00.00] Diagnosis: Encounter for gynecological examination (general) (routine) without abnormal findings[ICD10: Z01.419] Diagnosis: Mixed hyperlipidemia[ICD10: E78.2] Diagnosis: Excessive and frequent menstruation with irregular cycle[ICD10: N92.1] Renu HUYNH M [employer] CPT-4: 98001 08/24/2018 ([id number]) PREV VISIT E AGE 40-64 Diagnosis: Encounter for general adult medical examination without abnormal findings[ICD10: Z00.00] Diagnosis: Encounter for gynecological examination (general) (routine) without abnormal findings[ICD10: Z01.419] 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] Renu AMEZCUA [facility] [employer] CPT-4: 30439 07/27/2017 ([id number]) OFFICE/OUTPA TIENT VISIT EST Diagnosis: 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[ICD10: I82.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] Diagnosis: Follicular cyst of left ovary[ICD10: N83.02] Renu AMEZCUA [facility] [employer] CPT-4: 80094 03/28/2017 ([id number]) PREV VISIT E AGE 40-64 Diagnosis: Encounter for general adult medical examination without abnormal findings[ICD10: Z00.00] Diagnosis: Encounter for gynecological examination (general) (routine) without abnormal findings[ICD10: Z01.419] Diagnosis: Mixed hyperlipidemia[ICD10: E78.2] 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] Diagnosis: Unspecified lump in breast[ICD10: N63] Renu AMEZCUA [facility] [employer] CPT-4: 59496 07/26/2016 ([id number]) PREV VISIT E AGE 40-64 Diagnosis: Encounter for general adult medical examination without abnormal findings[ICD10: Z00.00] Diagnosis: Encounter for gynecological examination (general) (routine) without abnormal findings[ICD10: Z01.419] Diagnosis: Acute embolism and thrombosis of unspecified deep veins of unspecified lower extremity[ICD10: I82.409] Renu HUYNH DO [facility] CPT-4: 68657 07/15/2015 ([id number]) OFFICE/OUTPA TIENT VISIT EST Diagnosis: Acute embolism and thrombosis of unspecified deep veins of unspecified lower extremity[ICD10: I82.409] 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] Renu AMEZCUA DO [facility] CPT-4: 94107 07/01/2015 ([id number]) PREV VISIT E AGE 40-64 Diagnosis: ROUTINE MEDICAL EXAM[ICD9: V70.0] Diagnosis: ROUTINE GYNE EXAM[ICD9: V72.31] Diagnosis: MALAISE AND FATIGUE[ICD9: 780.79] Diagnosis: Hematuria[ICD9: 599.70] Renu HUYNH DO [facility] CPT-4: 12214 07/10/2014 ([id number]) PREV VISIT E AGE 40-64 Diagnosis: ROUTINE MEDICAL EXAM[ICD9: V70.0] Diagnosis: ROUTINE GYNE EXAM[ICD9: V72.31] Diagnosis: HYPERLIPIDEMIA NEC/NOS[ICD9: 272.4] Diagnosis: MALAISE AND FATIGUE[ICD9: 780.79] Diagnosis: PAIN, LOWER BACK[ICD9: 724.2] Diagnosis: Menometrorrhagia[ICD9: 626.2] Renu HUYNH DO [facility] CPT-4: 22822 07/09/2013 ([id number]) PREV VISIT E AGE 40-64 Diagnosis: ROUTINE MEDICAL EXAM[ICD9: V70.0] Diagnosis: ROUTINE GYNE EXAM[ICD9: V72.31] Renu HUYNH DO [facility] CPT-4: 02720 07/05/2012 ([id number]) SPECIMEN ALVARES DLING Diagnosis: [ICD9: ] Diagnosis: [ICD9: ] Renu HUYNH DO [facility] CPT-4: 20042 07/05/2012 ([id number]) OFFICE/OUTPA TIENT VISIT EST Diagnosis: MALAISE AND FATIGUE[ICD9: 780.79] Diagnosis: HYPERLIPIDEMIA NEC/NOS[ICD9: 272.4] Renu ROA NDER DO [employer] CPT-4: 75526 03/09/2012 PREV VISIT EST AGE 4 0-64 Diagnosis: ROUTINE GYNE EXAM[ICD9: V72.31] Diagnosis: ROUTINE MEDICAL EXAM[ICD9: V70.0] Diagnosis: MALAISE AND FATIGUE[ICD9: 780.79] Renu ROA NDER [facility] [employer] CPT-4: 74854 06/28/2011 ([id number]) PREV VISIT, EST, AGE 40-64 Renu ROA NDER [facility] [employer] CPT-4: 38560 06/25/2010 Plan of Care Planned Activity Notes C odes Status Date Visit Diagnosis Plan: half-way (current ) use of anticoagulants Discussion: 11 [...] ICD-10 : R14.0 04/09/2019 Visit Diagnosis Plan: Encounter for gyne [...] N92.1 08/24/2018 Appointment: Renu Huynh WPtel: [phone] [facility] Annual Well Visit 08/24/2018 Patient Education: Patient Medication Summary Completed 04/05/2018 Care Plan: MAMMOGRAM SCREENING [facility] : 84926-8 Pending 04/05/2018 Visit Diagnosis Plan: Other specified [...] and has been having bowel changes 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 [...] Z00.00 07/27/2017 Appointment: [facility]h [facility]el[facility] [phone] [facility] [place] [place] Well Visit 07/27/2017 Patient Education: Patient Medication Summary Completed 07/27/2017 Referral: Vasquez Carpenter WPtel: [phone] [id number] US Referral Initiated 04/19/2017 Visit Diagnosis Plan: 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 Discussion: Referral to hematology to [facility] Patient does not want to do orals due to risks Will keep on lovenox until sees hematology ICD-9 : 453.41 ICD-10 : I82.422 03/28/2017 Visit Diagnosis Plan: Follicular cyst of left ovary Discussion: Pelvic US in 3mos ICD-9 : 620.0 ICD-10 : N83.02 03/28/2017 Appointment: Renu Huynh WPtel: [address] [place], [place] [id number] 03/24 confirmed ~sl WORK IN 03/28/2017 Patient Education: Patient Medication Summary Completed 03/28/2017 Visit Plan: Pap Done Diagnostic Tameka mogram with Left Breast US--may need biopsy of left breast lesion pending results Update fasting lab Check CXR and KUB with history of IVC filter 07/26/2016 Appointment: Renu Huynh WPtel: [address] [place], [place] [phone] 07/22 confirmed~sl Annual Well Visit 07/26/2016 Patient Education: Patient Medication Summary Completed 07/26/2016 Visit Plan: Pap done Repeat RLE fe ous doppler on Aug 11 Continue lovenox and observe for bleeding Defers mammogram until next year 07/15/2015 Appointment: Renu Huynh WPtel: [address] [place], [place] [phone] 07/10 lm ~sl...07/15 appt confirmed cn PAP 07/15/2015 Patient Education: Patient Medication Summary Completed 07/15/2015 Visit Plan: Continue lovenox as is Obtain US and ER records from [place] Patient refuses any anticoagulants except lovenox Offered xarelto, eliquis, pradaxa, coumadin, etc. No long trips until fwup Recheck 2weeks Check CBC in 1week Report any signs of bleeding immediately 07/01/2015 Appointment: Renu Huynh WPtel: [address] [place] [phone] 07/01 called office to confirm ~SL ACUTE ILLNESS 07/01/2015 Patient Education: Patient Medication Summary Completed 07/01/2015 Patient Education: Patient Medication Summary Completed 07/22/2014 Visit Plan: Pap done Mammo ordered Check fasting lab Check pelvic US 07/10/2014 Appointment: Renu Huynh WPtel: [address] [place], [place] [phone] 07/09 [facility] Annual Well Visit 07/10/2014 Patient Education: Patient Medication Summary Completed 07/10/2014 Visit Plan: Pap Done Proceed with p elvic US Mammo scheduled May need MRI of L/S spine Pt scheduled for bladder sling in Dec Discussed may need COTTON FEEDER eval due to spotting/ removal of IUD, etc. Check fasting lab 07/09/2013 Appointment: Renu Huynh WPtel: [address] [place], [place] [phone] 07/06 vm PAP 07/09/2013 Patient Education: Patient Medication Summary Completed 07/09/2013 Visit Plan: PAP done Mammo ordered 07/05/2012 Appointment: Renu Huynh WPtel: [address] [place], [place] [phone] 07/04- left message PAP 07/05/2012 Patient Education: Patient Medication Summary Completed 07/05/2012 Visit Plan: Check fasting lab Discu ssed diet and exercise at length 03/09/2012 Appointment: Renu Huynh WPtel: [address] [place], [place] [phone] US message left with child FOLLOW UP 03/09/2012 Patient Education: Patient Medication Summary Completed 03/09/2012 Visit Plan: Pap Done and Mammogram ordered CMP, Lipids, CBC, TSH, Free T4 Start daily baby aspirin Use lovenox when flies 06/28/2011 Appointment: Renu Huynh WPtel: [address] [place], [place] [phone] US PAP 06/28/2011 Patient Education: Patient Medication Summary Completed 06/28/2011 Visit Plan: Pap Done Mammo ordered Trial of lamisil--check LFTs at start and monthly while on and put shoes in moth balls during treatment 06/25/2010 Appointment: Renu Huynh WPtel: [phone] [id number] US PAP 06/25/2010 Patient Education: Patient Medication [...] is Obtain US and ER records from [place] Patient refuses any anticoagulants except lovenox Offered [...] bladder sling in Aug Discussed may need COTTON FEEDER eval due to spotting/ removal of IUD, etc. Check fasting lab . Pap Done Mammo ordered Trial of lamisil--check LFTs at start and monthly while on and put shoes in moth balls during treatment
--- OUTSIDE RECORDS SUMMARY | 2020-01-17 07:05 | XMS REPORT | CCD ---
Author Author Cynthia Huynh D.O. Organization [facility] Address [address] [place] [address] Phone Care Team Providers Care [employer] Athlete Name Role Phone Renu Huynh D.O., PP Unavailable CCM Unavailable Summary Purpose Interface Exchange Insurance Providers Payer name Policy type / Coverage type Covered democrat ID Effective Begin Date Effective End Date Blue Cross Blue Shield Blue Cross/Bl ue Shield [id number] Un known Family History Family History data not found Social History Social History Element Codes Description Effective Dates Marital status Unknown M arried 06/28/[address]: 680400499 Never smoker 06/28/2011 Allergies, Adverse Reactions, Alerts [...] ICD-9: 787.3 ICD-10: R14.0 Active 04/09/2019 Unknown USP (current) use of anticoagulants ICD-9: V58.61 ICD-10: [...] (gaseous) ICD-9: 787.3 ICD-10: R14.0 04/09/2019 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 ICD-9: V58.61 ICD-10: [...] Fill Instructions warfarin 10 mg tablet RxNorm: 898008 1 Tablet(s) PO QD 03/12/2019 09/07/2019 Active warfarin 5 mg tablet RxNorm: 317023 1 Tablet(s) PO QD to take with 10mg dose on days takes full 15mg dose 03/12/2019 No Stop Date Active warfarin 10 mg tablet RxNorm: 503388 1 Tablet(s) PO QD 12/12/2018 03/11/2019 Inactive warfarin 5 mg tablet RxNorm: 645106 1 Tablet(s) PO QD to take with 10mg dose on days takes full 15mg dose 09/18/2018 03/11/2019 Inactive warfarin 10 mg tablet RxNorm: 867881 1 Tablet(s) PO QD 06/21/2018 12/11/2018 Inactive warfarin 3 mg tablet RxNorm: 585646 1 Tablet(s) PO QD 06/21/2018 12/17/2018 Inactive warfarin 10 mg tablet RxNorm: 804674 1 Tablet(s) PO QD 03/28/2018 06/20/2018 Inactive warfarin 3 mg tablet RxNorm: 896300 1 Tablet(s) PO QD 03/28/2018 06/20/2018 Inactive warfarin 10 mg tablet RxNorm: 380405 1 Tablet(s) PO QD 03/28/2018 03/27/2018 Inactive warfarin 3 mg tablet RxNorm: 885823 1 Tablet(s) PO QD 03/28/2018 03/27/2018 Inactive warfarin 1 mg tablet RxNorm: 470882 3 Tablet(s) PO TIW and 2 tabs all other days 01/18/2018 03/27/2018 Inactive warfarin 5 mg tablet RxNorm: 451238 2 Tablet(s) PO QD 12/19/2017 03/27/2018 Inactive warfarin 5 mg tablet RxNorm: 094957 2 Tablet(s) PO QD 12/06/2017 12/18/2017 Inactive warfarin 5 mg tablet RxNorm: 095657 2 Tablet(s) PO QD 12/05/2017 12/05/2017 Inactive warfarin 1 mg tablet RxNorm: 896428 2 Tablet(s) PO QD 10/24/2017 01/17/2018 Inactive warfarin 1 mg tablet RxNorm: 007860 2 Tablet(s) PO QD 07/27/2017 10/23/2017 Inactive Lovenox 80 mg/0.8 mL subcutaneous syringe RxNorm: 617496 1 Milliliter(s) SQ BI D 03/28/2017 04/26/2017 In active Lovenox 80 mg/0.8 mL subcutaneous syringe RxNorm: 907156 1 Unit Dose SQ Q12H 07/01/2015 08/29/2015 In active Lovenox 60 mg/0.6 mL subcutaneous syringe RxNorm: 987013 1 Unit Dose SQ BID pr n for travel due to high risk for DVT 07/10/2014 07/19/2014 Inactive as directed for flights Lovenox 60 mg/0.6 mL Sub-Q Syringe RxNorm: 591571 1 Unit Dose SQ BID 06/15/2013 06/24/2013 Inactive as directed for flights Lovenox 60 mg/0.6 mL Sub-Q Syringe RxNorm: 814569 1 Unit Dose SQ BID 06/28/2011 No Stop Date Active as directed for flights Lamisil 250 mg Tab RxNorm: 811973 1 Tablet(s) PO QD 09/07/2010 12/05/2010 Inactive Lamisil 250 mg Tab RxNorm: 833635 1 Tablet(s) PO QD 06/25/2010 09/06/2010 Inactive Vitamin D3 2,000 uni t Tab RxNorm: 941213 1 Tablet(s) PO QD No Start Date Active niacin 50 mg tablet RxNorm: 863380 1 Tablet(s) PO QD No Start Date 08/23/2018 Inactive warfarin 5 mg tablet RxNorm: 445962 2 Tablet(s) PO QD No Start Date 12/04/2017 Inactive Lovenox 60 mg/0.6 mL Sub-Q Syringe RxNorm: 757814 1 Unit Dose SQ BID as directed for flights No Start Date 06/27/2011 Inactive Lovenox 60 mg/0.6 mL subcutaneous syringe RxNorm: 160827 Milliliter(s) SQ BID No Start Date 06/30/2015 Inactive warfarin 1 mg tablet RxNorm: 644269 2 Tablet(s) PO QD No Start Date 07/26/2017 Inactive Lovenox 80 mg/0.8 mL subcutaneous syringe RxNorm: 807273 1 Milliliter(s) SQ BI D No Start Date 03/27/2017 Inactive warfarin 5 mg tablet RxNorm: 480437 1 Tablet(s) PO QD to take with 10mg dose on days takes full 15mg dose No Start Date 09/17/2018 Inactive Medication Administered No Medication Administered data Immunizations No Immunization data Assessments Condition Codes Effectiv e Dates USP (current) use of anticoagulants ICD-10: Z79.01 ICD-9: [...] Codes Date SPECIMEN HANDLING OF FICE-LAB CPT-4: 67691 08/24/2018 OCCULT BLOOD FECES CPT- 4: 18263 08/24/2018 SPECIMEN HANDLING OF FICE-LAB CPT-4: 50490 07/27/2017 OCCULT BLOOD FECES CPT- 4: 34574 07/27/2017 SPECIMEN HANDLING OF FICE-LAB CPT-4: 72511 07/26/2016 SPECIMEN HANDLING OF FICE-LAB CPT-4: 91362 07/15/2015 URINALYSIS NONAUTO W /O SCOPE CPT-4: 58033 07/10/2014 OCCULT BLOOD FECES CPT- 4: 48416 07/10/2014 SPECIMEN HANDLING OF FICE-LAB CPT-4: 83178 07/10/2014 URINE CULTURE/ COLON Y COUNT CPT-4: 77461 07/10/2014 SPECIMEN HANDLING OF FICE-LAB CPT-4: 42305 07/09/2013 OCCULT BLOOD FECES CPT- 4: 09191 07/09/2013 OCCULT BLOOD FECES CPT- 4: 07238 07/05/2012 SPECIMEN HANDLING OF FICE-LAB CPT-4: 17299 06/28/2011 OCCULT BLOOD FECES CPT- 4: 29901 06/28/2011 SPECIMEN HANDLING OF FICE-LAB CPT-4: 98051 06/25/2010 OCCULT BLOOD FECES CPT- 4: 58303 06/25/2010 Vital Signs Date Vital 04/09/2019 Blood [...] 1: 124/78 Code: 8480-6 BMI: 29.4 Code: 26039-2 Heart Rate 1: 72 bpm Height: 5'3" Respiratory Rate: 20 bpm SpO2: 98% Temperature: 36.5 (C ) / 97.7 (F) Weight: 166 lbs 03/28/2017 Blood Pressure 1: 126/68 Code: 8480-6 BMI: 30.1 Code: 84424-0 Heart Rate 1: 66 bpm Height: 5'3" Respiratory Rate: 24 bpm SpO2: 98% Temperature: 36.4 (C ) / 97.6 (F) Weight: 170 lbs 07/26/2016 Blood Pressure 1: 124/70 Code: 8480-6 BMI: 28.7 Code: 90495-3 Heart Rate 1: 84 bpm Height: 5'3" Respiratory Rate: 20 bpm Temperature: 36.7 (C ) / 98.0 (F) Weight: 162 lbs 07/15/2015 Blood Pressure 1: 114/78 Code: 8480-6 BMI: 30.8 Code: 49345-2 Heart Rate 1: 72 bpm Height: 5'3" Respiratory Rate: 20 bpm Temperature: 36.7 (C ) / 98.1 (F) Weight: 174 lbs 07/01/2015 Blood Pressure 1: 134/86 Code: 8480-6 BMI: 30.8 Code: 56830-6 Heart Rate 1: 84 bpm Height: 5'3" Respiratory Rate: 20 bpm Temperature: 36.8 (C ) / 98.3 (F) Weight: 174 lbs 07/10/2014 Blood Pressure 1: 124/78 Code: 8480-6 BMI: 29.8 Code: 22332-3 Heart Rate 1: 84 bpm Height: 5'3" Respiratory Rate: 20 bpm Temperature: 36.7 (C ) / 98.0 (F) Weight: 168 lbs 07/09/2013 Blood Pressure 1: 126/80 Code: 8480-6 BMI: 28.3 Code: 63558-5 Heart Rate 1: 80 bpm Height: 5'3" Respiratory Rate: 20 bpm Temperature: 37.0 (C ) / 98.6 (F) Weight: 160 lbs 07/05/2012 Blood Pressure 1: 102/68 Code: 8480-6 BMI: 27.3 Code: 20124-9 Heart Rate 1: 72 bpm Height: 5'3" Respiratory Rate: 20 bpm Temperature: 36.6 (C ) / 97.8 (F) Weight: 154 lbs 03/09/2012 Blood Pressure 1: 116/78 Code: 8480-6 BMI: 28.0 Code: 45662-1 Heart Rate 1: 84 bpm Height: 5'3" Respiratory Rate: 20 bpm Temperature: 36.9 (C ) / 98.4 (F) Weight: 158 lbs 06/28/2011 Blood Pressure 1: 122/78 Code: 8480-6 BMI: 27.6 Code: 71451-9 Heart Rate 1: 76 bpm Height: 5'3" Respiratory Rate: 20 bpm Temperature: 36.8 (C ) / 98.2 (F) Weight: 156 lbs 06/25/2010 Blood Pressure 1: 118/68 Code: 8480-6 BMI: 23.9 Code: 99925-3 Height: 5'3" Temperature: 36.3 (C ) / 97.4 (F) Weight: 135 lbs Functional Status No Functional Status data History of Present Illness Symptom Name Status Resu lt Effective Date Notes well woman exam (40-65 years) Pap Smear last normal performed on 07-27-2017 08/24/2018 None well woman exam (40-65 years) Pap Smear normal results 08/24/2018 None well woman exam (40-65 years) Breast /Crossing Watchman Complaints perimenopausal symptoms 08/24/2018 unsure if symptoms [...] None well woman exam (40-65 years) Breast /Crossing Watchman Complaints breast mass 07/26/2016 a debbie in [...] Encounters Encounter Performer Loca tion Codes Date (59976) OFFICE/OUTPA TIENT VISIT EST Diagnosis: USP (current) use of anticoagulants[ICD10: Z79.01] Diagnosis: Personal history of pulmonary embolism[ICD10: Z86.711] Diagnosis: Personal history of other venous thrombosis and embolism[ICD10: Z86.718] Diagnosis: Other allergic rhinitis[ICD10: J30.89] Diagnosis: Abdominal distension (gaseous)[ICD10: R14.0] Jud NEVAREZ [facility] CPT-4: 05882 04/09/2019 ([id number]) PREV VISIT E AGE 40-64 Diagnosis: Encounter for general adult medical examination without abnormal findings[ICD10: Z00.00] Diagnosis: Encounter for gynecological examination (general) (routine) without abnormal findings[ICD10: Z01.419] Diagnosis: Mixed hyperlipidemia[ICD10: E78.2] Diagnosis: Excessive and frequent menstruation with irregular cycle[ICD10: N92.1] [facility] [employer] CPT-4: 76522 08/24/2018 ([id number]) PREV VISIT E AGE 40-64 Diagnosis: Encounter for general adult medical examination without abnormal findings[ICD10: Z00.00] Diagnosis: Encounter for gynecological examination (general) (routine) without abnormal findings[ICD10: Z01.419] 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] Renu AMEZCUA [employer] CPT-4: 78420 07/27/2017 ([id number]) OFFICE/OUTPA TIENT VISIT EST Diagnosis: 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[ICD10: I82.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] Diagnosis: Follicular cyst of left ovary[ICD10: N83.02] Renu AM[facility]CU[facility] [employer] CPT-4: 55162 03/28/2017 ([id number]) PREV VISIT E AGE 40-64 Diagnosis: Encounter for general adult medical examination without abnormal findings[ICD10: Z00.00] Diagnosis: Encounter for gynecological examination (general) (routine) without abnormal findings[ICD10: Z01.419] Diagnosis: Mixed hyperlipidemia[ICD10: E78.2] 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] Diagnosis: Unspecified lump in breast[ICD10: N63] Renu [facility]CU[facility] [employer] CPT-4: 22479 07/26/2016 ([id number]) PREV VISIT E AGE 40-64 Diagnosis: Encounter for general adult medical examination without abnormal findings[ICD10: Z00.00] Diagnosis: Encounter for gynecological examination (general) (routine) without abnormal findings[ICD10: Z01.419] Diagnosis: Acute embolism and thrombosis of unspecified deep veins of unspecified lower extremity[ICD10: I82.409] [facility] CPT-4: 85531 07/15/2015 ([id number]) OFFICE/OUTPA TIENT VISIT EST Diagnosis: Acute embolism and thrombosis of unspecified deep veins of unspecified lower extremity[ICD10: I82.409] 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] Renu [facility]CUA [facility] CPT-4: 82521 07/01/2015 ([id number]) PREV VISIT E AGE 40-64 Diagnosis: ROUTINE MEDICAL EXAM[ICD9: V70.0] Diagnosis: ROUTINE GYNE EXAM[ICD9: V72.31] Diagnosis: MALAISE AND FATIGUE[ICD9: 780.79] Diagnosis: Hematuria[ICD9: 599.70] [facility] CPT-4: 59693 07/10/2014 ([id number]) PREV VISIT E AGE 40-64 Diagnosis: ROUTINE MEDICAL EXAM[ICD9: V70.0] Diagnosis: ROUTINE GYNE EXAM[ICD9: V72.31] Diagnosis: HYPERLIPIDEMIA NEC/NOS[ICD9: 272.4] Diagnosis: MALAISE AND FATIGUE[ICD9: 780.79] Diagnosis: PAIN, LOWER BACK[ICD9: 724.2] Diagnosis: Menometrorrhagia[ICD9: 626.2] [facility] CPT-4: 38214 07/09/2013 ([id number]) PREV VISIT E AGE 40-64 Diagnosis: ROUTINE MEDICAL EXAM[ICD9: V70.0] Diagnosis: ROUTINE GYNE EXAM[ICD9: V72.31] [facility] CPT-4: 68407 07/05/2012 ([id number]) SPECIMEN ALVARES DLING Diagnosis: [ICD9: ] Diagnosis: [ICD9: ] [facility] CPT-4: 58601 07/05/2012 ([id number]) OFFICE/OUTPA TIENT VISIT EST Diagnosis: MALAISE AND FATIGUE[ICD9: 780.79] Diagnosis: HYPERLIPIDEMIA NEC/NOS[ICD9: 272.4] Renu ROA NDER DO [employer] CPT-4: 50140 03/09/2012 PREV VISIT EST AGE 4 0-64 Diagnosis: ROUTINE GYNE EXAM[ICD9: V72.31] Diagnosis: ROUTINE MEDICAL EXAM[ICD9: V70.0] Diagnosis: MALAISE AND FATIGUE[ICD9: 780.79] Renu ROA NDER [employer] CPT-4: 23094 06/28/2011 ([id number]) PREV VISIT, EST, AGE 40-64 Renu ROA NDER [employer] CPT-4: 85637 06/25/2010 Plan of Care Planned Activity Notes C odes Status Date Visit Diagnosis Plan: USP (current ) use of anticoagulants Discussion: 13 [...] N92.1 08/24/2018 Appointment: Renu Huynh WPtel: [phone] [id number] Annual Well Visit 08/24/2018 Patient Education: Patient Medication Summary Completed 04/05/2018 Care Plan: MAMMOGRAM SCREENING [facility] : 08221-8 Pending 04/05/2018 Visit Diagnosis Plan: Other specified [...] and has been having bowel changes 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 [...] Z00.00 07/27/2017 Appointment: Renu Huynh [facility]Ptel[facility] [phone] [id number] Annual Well Visit 07/27/2017 Patient Education: Patient Medication Summary Completed 07/27/2017 Referral: Vasquez Carpenter WPtel: [phone] [id number] US Referral Initiated 04/19/2017 Visit Diagnosis Plan: 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 Discussion: Referral to hematology to [facility] Patient does not want to do orals due to risks Will keep on lovenox until sees hematology ICD-9 : 453.41 ICD-10 : I82.422 03/28/2017 Visit Diagnosis Plan: Follicular cyst of left ovary Discussion: Pelvic US in 3mos ICD-9 : 620.0 ICD-10 : N83.02 03/28/2017 Appointment: Renu Huynh WPtel: [address] [place], [place] [id number] 03/24 confirmed ~sl WORK IN 03/28/2017 Patient Education: Patient Medication Summary Completed 03/28/2017 Visit Plan: Pap Done Diagnostic Tameka mogram with Left Breast US--may need biopsy of left breast lesion pending results Update fasting lab Check CXR and KUB with history of IVC filter 07/26/2016 Appointment: Renu Huynh WPtel: [address] [place], [place] [phone] 07/22 confirmed~sl Annual Well Visit 07/26/2016 Patient Education: Patient Medication Summary Completed 07/26/2016 Visit Plan: Pap done Repeat RLE fe ous doppler on Aug 11 Continue lovenox and observe for bleeding Defers mammogram until next year 07/15/2015 Appointment: Renu Huynh WPtel: [address] [place], [place] [phone] 07/10 lm ~sl...07/15 appt confirmed cn PAP 07/15/2015 Patient Education: Patient Medication Summary Completed 07/15/2015 Visit Plan: Continue lovenox as is Obtain US and ER records from [place] Patient refuses any anticoagulants except lovenox Offered xarelto, eliquis, pradaxa, coumadin, etc. No long trips until fwup Recheck 2weeks Check CBC in 1week Report any signs of bleeding immediately 07/01/2015 Appointment: Renu Huynh WPtel: [address] [place], [place] [phone] 07/01 called office to confirm ~SL ACUTE ILLNESS 07/01/2015 Patient Education: Patient Medication Summary Completed 07/01/2015 Patient Education: Patient Medication Summary Completed 07/22/2014 Visit Plan: Pap done Mammo ordered Check fasting lab Check pelvic US 07/10/2014 Appointment: Renu Huynh WPtel: [address] [place], [place] [phone] 07/09 [facility] Annual Well Visit 07/10/2014 Patient Education: Patient Medication Summary Completed 07/10/2014 Visit Plan: Pap Done Proceed with p elvic US Mammo scheduled May need MRI of L/S spine Pt scheduled for bladder sling in Dec Discussed may need RECEPTION eval due to spotting/ removal of IUD, etc. Check fasting lab 07/09/2013 Appointment: Renu Huynh WPtel: [address] [place], [place] [phone] 07/06 vm PAP 07/09/2013 Patient Education: Patient Medication Summary Completed 07/09/2013 Visit Plan: PAP done Mammo ordered 07/05/2012 Appointment: Renu Huynh WPtel: [address] [place], [place] [phone] 07/04- left message PAP 07/05/2012 Patient Education: Patient Medication Summary Completed 07/05/2012 Visit Plan: Check fasting lab Discu ssed diet and exercise at length 03/09/2012 Appointment: Renu Huynh WPtel: [address] [place], [place] [phone] US message left with child FOLLOW UP 03/09/2012 Patient Education: Patient Medication Summary Completed 03/09/2012 Visit Plan: Pap Done and Mammogram ordered CMP, Lipids, CBC, TSH, Free T4 Start daily baby aspirin Use lovenox when flies 06/28/2011 Appointment: Renu Huynh WPtel: [address] [place], [place] [phone] US PAP 06/28/2011 Patient Education: Patient Medication Summary Completed 06/28/2011 Visit Plan: Pap Done Mammo ordered Trial of lamisil--check LFTs at start and monthly while on and put shoes in moth balls during treatment 06/25/2010 Appointment: Renu Huynh WPtel: [id number] US PAP 06/25/2010 Patient Education: Patient Medication [...] bladder sling in Aug Discussed may need RECEPTION eval due to spotting/ removal of IUD, etc. Check fasting lab . Pap Done Mammo ordered Trial of lamisil--check LFTs at start and monthly while on and put shoes in moth balls during treatment
[2020-01-17] MEDS ORDERED: FAMOTIDINE 20MG/2ML IV (PEPCID) IV ONE (07:15)
[2020-01-17] MEDS ORDERED: ONDANSETRON 4 MG/2 ML (SDV) Z0FRAN IV ONE (07:15)
[2020-01-17] MEDS ORDERED: SCOPOLAMINE 1.5 MG (TRANSDERM-SCOP) PATCH TOP ONE (07:15)
[2020-01-17] MEDS: LACTATED RINGERS 1,000 ML IV PRN ×2 (07:19→09:19)
[2020-01-17 07:40] LABS: INR 0.8 (0.8-1.4); PROTHROMBIN TIME PATIENT 11.9 SEC (12.2-14.7)
[2020-01-17] MEDS ORDERED: ENOX60DI12 SQ (08:01)
--- NOTE | 2020-01-17 08:10 | Progress Note-Pre Operative ---
Pre-Operative Progress Note H&P Reviewed The H&P was reviewed, patient examined and no changes noted. Date Seen by Provider: January 17, 2020 Time Seen by Provider: 08:00 Date H&P Reviewed: January 17, 2020 Time H&P Reviewed: 08:00 Pre-Operative Diagnosis: Deviated Nasal Septum, Bilat Hyper of INf Turbs KING MARIE MD January 17, 2020 08:10
[2020-01-17] MEDS ORDERED: ONDANSETRON 4 MG/2 ML (SDV) Z0FRAN ONE (08:15)
[2020-01-17] MEDS ORDERED: ROCURONIUM 10 MG/ML 5 ML SYRINGE IV ONE (08:15)
[2020-01-17] MEDS ORDERED: LIDOCAINE PF 2% 5 ML (XYLOCAINE) VIAL ONE (08:15)
[2020-01-17] MEDS ORDERED: proPOfol 200 MG/20 ML (DIPRIVAN) VIAL IV ONE (08:15)
[2020-01-17] MEDS ORDERED: MIDAZOLAM 2 MG/2 ML (VERSED) VIAL ONE (08:16)
[2020-01-17] MEDS ORDERED: fentaNYL INJECTION 100 MCG/2 ML AMP ONE (08:16)
[2020-01-17] MEDS ORDERED: COCAINE HCL 4% 2 ML SYR ONE (08:17)
[2020-01-17] MEDS ORDERED: LIDOCAINE/EPI 1%-1:100,000 (XYLOCAINE) 20ML ONE (08:17)
[2020-01-17] MEDS ORDERED: PHENYLEPHRINE 0.5% NASAL SPR (NEO-SYNEPHRINE) REG ONE (08:17)
[2020-01-17] MEDS ORDERED: SEVOFLURANE (ULTANE) 15 ML INHAL SOLN ONE ×4 (08:18→09:23)
[2020-01-17] MEDS ORDERED: D5 1/2 NS W/KCL 20 MEQ/L 1,000 ML IV SCH (09:32)
--- NOTE | 2020-01-17 09:32 | Progress Note-Post Operative ---
Post-Operative Progess Note Surgeon (s)/Clinical Training Specialist (s) Surgeon KING MARIE MD Clinical Training Specialist n/a Pre-Operative Diagnosis Deviated Nasal Septum, Bilat Hyper of INf Turbs Post-Operative Diagnosis same Post-Op Procedure Note Date of Procedure: January 17, 2020 Name of Procedure Performed: Nasal Septoplasty, Bilat Red of Inf Turbs Description & Findings Description and Findings: n/a Anesthesia Type get Estimated Blood Loss minimal Packing none. Specimen(s) collected/removed nasal septum KING MARIE MD January 17, 2020 09:32
[2020-01-17] MEDS ORDERED: HYDROcodone/APAP 5 MG/325 MG (LORTAB) TAB PO PRN (09:45)
[2020-01-17] MEDS ORDERED: ONDANSETRON 4 MG/2 ML (SDV) Z0FRAN IVP PRN (09:45)
[2020-01-17] MEDS ORDERED: morphine INJ 10 MG/ML 1ML (SYR OR VIAL) IVP ONE (09:45)
[2020-01-17] MEDS ORDERED: PROMETHAZINE INJ 25 MG/ML (PHENERGAN) AMP IVP PRN (09:45)
[2020-01-17] MEDS ORDERED: ACETAMINOPHEN 325 MG TABLET PO PRN (09:45)
[2020-01-17] MEDS ORDERED: HYDR-83 PO (10:40)
[2020-01-17] MEDS ORDERED: AMOX-355 PO (10:40)
--- NOTE | 2020-01-17 11:09 | Anesthesia-General Post-Op ---
General Patient Condition Mental Status/LOC: Same as Preop Cardiovascular: Satisfactory Nausea/Vomiting: Absent Respiratory: Satisfactory Pain: Controlled Complications: Absent Post Op Complications Complications None Follow Up Care/Instructions Patient Instructions None needed. Anesthesia/Patient Condition Patient Condition Patient is doing well, no complaints, stable vital signs, no apparent adverse anesthesia problems. No complications reported per nursing. BUCK BROWNE CRNA January 17, 2020 11:09
== END 2020-01-17 11:30 | disposition home or self-care (01) ==
LOC: SDC 06:55
PROVIDERS: ATTEND Otolaryngology Otolaryngology/Facial Plastic Surgery
DX: J34.2 Deviated nasal septum (principal); J34.3 Hypertrophy of nasal turbinates; J34.89 Other specified disorders of nose and nasal sinuses; R09.81 Nasal congestion; I26.99 Other pulmonary embolism without acute cor pulmonale; I82.409 Acute embolism and thrombosis of unspecified deep veins of unspecified lower extremity; Z79.01 Long term (current) use of anticoagulants
CPT/HCPCS: 36415; 84703; 85610; 85730; 87635; 88300

== ENCOUNTER → 2020-05-26 | Outpatient (CLI) | payer BC ==
[~2020-05-26] MED LIST changes: +AMOX-355 PO; +CATHETER FLUSH 10 ML SYR IV PRN; -CHOL2000 PO; +CHOL200074 PO; +ENOX60DI12 SQ; -WARF5TAB PO; +WARF5TAB2 PO
--- NOTE | 2020-05-26 14:55 | Diagnostic Imaging Report ---
Indication: Abdominal pain After intravenous administration of 5.2 mCi technetium 99m Choletec, scintigraphic images of the upper abdomen are obtained. Initial images reveal normal distribution of activity throughout the liver. There is prompt appearance of activity in the biliary tree and gallbladder. Activity passes freely into the small bowel. Intravenous cholecystokinin was administered with gallbladder ejection fraction calculated to be 90%. Normal values are 50% or greater. Impression: Normal hepatobiliary scan without evidence of cholecystitis or biliary obstruction. Dictated by: Dictated on workstation # [id number]
== END ==
LOC: CARD 12:45
DX: R10.9 Unspecified abdominal pain (principal)
CPT/HCPCS: 78227; A9537